=== PATIENT | female | born 1995 | race Caucasian/White ===

== ENCOUNTER 2020-01-10 11:20 | Outpatient (CLI) | payer OTHER, SELFPAY ==
[2020-01-11 16:46] LABS: Cat Dander (E1) Ige <0.10 kU/L; Cat Dander Class 0; Common Ragweed (Short) (W1) Ig <0.10 kU/L; Dog Dander (E5) Ige <0.10 kU/L; Dog Dander Class 0; Elm (T8) Ige <0.10 kU/L; Elm Class 0; English Plantain (W9) Ige <0.10 kU/L; English Plantain Class 0; Immunoglobulin E 9 kU/L (<OR=114); Lamb'S Quarters (Goose Foot) <0.10 kU/L; Lamb'S Quarters Class 0; Maple (Box Elder) (T1) Ige <0.10 kU/L; Maple Class 0; Oak (T7) Ige <0.10 kU/L; Oak Class 0; Ragweeed Class 0; Rough Marsh Elder (W16) Ige <0.10 kU/L; Rough Marsh Elder Class 0
[2020-01-12 17:26] LABS: Alternaria Alternata (M6) Ige <0.10 kU/L; Alternaria Class 0; Bermuda Class 0; Bermuda Grass (G2) Ige <0.10 kU/L; D. Farinae Class 0; Dermatophagoides Class 0; Dermatophagoides Farinae (D2) <0.10 kU/L; Dermatophagoides Pteronyssinus <0.10 kU/L; House Dust (Greer) (H1) Ige <0.10 kU/L; House Dust (Hollister- Stier) <0.10 kU/L; House Dust Class 0; Johnson Grass (G10) Ige <0.10 kU/L; Johnson Grass Cl 0; June Grass Class 0; June Grass(Kentucky Blue) (G8) <0.10 kU/L; Meadow Fescue (G4) Ige <0.10 kU/L; Meadow Fescue Class 0; Mucor Racemosus Class 0; Orchard Grass (Cocksfoot) (G3) <0.10 kU/L; Penicillium Class 0; Penicillium Notatum (M1) Ige <0.10 kU/L; Perennial Rye Grass (G5) Ige <0.10 kU/L; Perennial Rye Grass Class 0; Sweet Vernal Class 0; Sweet Vernal Grass (G1) Ige <0.10 kU/L; Timothy Grass (G6) Ige <0.10 kU/L; Timothy Grass Class 0
== END 2020-01-10 11:21 | disposition home or self-care (01) ==
LOC: LAB 11:22
PROVIDERS: Family Provider Family Medicine; PCP Family Medicine; Visit Provider Internal Medicine Critical Care Medicine
DX: R06.02 Shortness of breath (principal); J45.909 Unspecified asthma, uncomplicated
CPT/HCPCS: 82785; 86003

== ENCOUNTER 2020-01-20 15:28 | Outpatient (CLI) | payer OTHER, SELFPAY ==
--- NOTE | 2020-01-20 15:37 | USCV_ITS ---
Anastasiia Damon Age: 24 Gender: F : 1995 Exam Date: 01/20/2020 15:44 Ordering Phys: Melissa Stovall MD Technologist: Julia Waters Exam Location: [facility] [place] Indication: SYNCOPE BP: / HR: 84 Rhythm: Sinus Technical Quality: Adequate MEASUREMENTS (Male / Female) Normal Values 2D ECHO LV Diastolic Diameter PLAX 4.1 cm 4.2 - 5.9 / 3.9 - 5.3 cm LV Systolic Diameter PLAX 2.7 cm LV Chamber Size 3.0 cm IVS Diastolic Thickness 0.9 cm 0.6 - 1.0 / 0.6 - 0.9 cm IVS Systolic Thickness 1.3 cm LVPW Diastolic Thickness 1.7 cm 0.6 - 1.0 / 0.6 - 0.9 cm LVPW Systolic Thickness 1.6 cm RV Chamber Size 2.9 cm LVOT Diameter 2.0 cm LV Ejection Fraction 2D Teich 65.6 % LV Ejection Fraction MOD 2C 57.7 % LV Ejection Fraction 2C AL 57.3 % LA Diameter 3.6 cm LA Width 2.7 cm LA Height 3.8 cm RA Width 3.4 cm RA Height 3.6 cm Aorta at Sinotubular Diameter 2.4 cm M-MODE LV Diastolic Diameter MM 5.3 cm 4.2 - 5.9 / 3.9 - 5.3 cm LV Systolic Diameter MM 3.9 cm LV Ejection Fraction MM Teich 50.4 % IVS Diastolic Thickness MM 0.7 cm 0.6 - 1.0 / 0.6 - 0.9 cm IVS Systolic Thickness MM 0.9 cm LVPW Diastolic Thickness MM 0.7 cm 0.6 - 1.0 / 0.6 - 0.9 cm LVPW Systolic Thickness MM 0.9 cm Aortic Annulus Diameter 2.5 cm LA Ao Ratio MM 1.5 MV E Point Septal Separation 0.4 cm DOPPLER AV Peak Velocity 156.0 cm/s LVOT Peak Velocity 117.0 cm/s AV Area Cont Eq vti 2.1 cm squared AV Area Cont Eq pk 2.4 cm squared MV Area PHT 5.4 cm squared Mitral E to A Ratio 1.3 MV E' Velocity 26.0 cm/s Mitral E to MV E' Ratio 5.7 Mitral E to LV E' Lateral Ratio 4.6 Mitral E to LV E' Septal Ratio 7.7 TR Peak Velocity 246.0 cm/s TR Peak Gradient 24.1 mmHg TV Peak E Velocity 69.0 cm/s Right Atrial Pressure 3.0 mmHg Pulmonary Artery Systolic Pressu 27.2 mmHg PV Peak Velocity 91.0 cm/s RV Acceleration Time 0.2 s RV Ejection Time 0.3 s RV AcT/ET 0.5 FINDINGS Left Ventricle Normal left ventricular size, systolic function and wall thickness, with no regional wall motion abnormalities. Normal left ventricular wall thickness. Normal diastolic filling pattern. Left ventricular ejection fraction is estimated at 65 %. Right Ventricle The right ventricle is normal in size and function. Right Atrium The right atrium is normal in size. Left Atrium The left atrium is normal in size. Mitral Valve Structurally normal mitral valve without significant stenosis or prolapse. There is no mitral regurgitation. Aortic Valve Structurally normal aortic valve without significant sclerosis or stenosis. There is no aortic regurgitation. Tricuspid Valve Structurally normal tricuspid valve without significant stenosis or regurgitation. Pulmonary artery systolic pressure is normal. Pulmonic Valve Structurally normal pulmonic valve without significant stenosis. There is no pulmonic regurgitation. Pericardium Normal pericardium without effusion. Aorta Normal ascending aorta dimension. CONCLUSIONS Normal transthoracic echocardiogram. There are no prior echocardiogram studies to compare. Dr. Darryl Singh MD (Electronically Signed) Final Date: 21 Jan 2020 08:05 S
== END 2020-01-20 15:29 | disposition home or self-care (01) ==
LOC: RAD 15:31
PROVIDERS: PCP Family Medicine; Visit Provider Family Medicine
DX: R55 Syncope and collapse (principal)
CPT/HCPCS: 93306

== ENCOUNTER 2021-02-21 16:30 | Outpatient (CLI) | payer OTHER, SELFPAY ==
--- NOTE | 2021-02-21 16:36 | XR_ITS ---
WS: [id number] Chest 2 views, 02/21/2021 Clinical Data: FEVER Comparison: PA and lateral chest, 10/26/2015. Findings: No nodules, masses or effusions are seen. The heart is normal. The pulmonary vascularity is not increased. No pneumonia or pneumothorax is seen. XR/XR chest 2V* [id number] Impression: Negative chest.
== END 2021-02-21 16:31 | disposition home or self-care (01) ==
LOC: RAD 16:32
PROVIDERS: PCP Family Medicine; Visit Provider Family Medicine
DX: R50.9 Fever, unspecified (principal); J45.909 Unspecified asthma, uncomplicated
CPT/HCPCS: 71046

== ENCOUNTER → 2021-05-28 12:50 | Outpatient (BNVA) | payer OTHER, SELFPAY | PROVIDERS: PCP Family Medicine; Visit Provider Internal Medicine | DX: I73.00 Raynaud's syndrome without gangrene (principal); M25.50 Pain in unspecified joint; R21 Rash and other nonspecific skin eruption; Z11.59 Encounter for screening for other viral diseases; R50.9 Fever, unspecified; R53.83 Other fatigue; R10.9 Unspecified abdominal pain; R51.9 Headache, unspecified; R00.0 Tachycardia, unspecified; T78.40XA Allergy, unspecified, initial encounter; J32.9 Chronic sinusitis, unspecified; Z79.899 Other long term (current) drug therapy | CPT/HCPCS: 36415; 86704; 86803; 87077; 87086; 87340; 99204 ==

== ENCOUNTER → 2021-05-29 08:05 | Outpatient (BNVA) | payer OTHER, SELFPAY | PROVIDERS: PCP Family Medicine; Visit Provider Internal Medicine | DX: I73.00 Raynaud's syndrome without gangrene (principal); M25.50 Pain in unspecified joint; Z79.899 Other long term (current) drug therapy | CPT/HCPCS: 36415; 80053; 81001; 82306; 82533; 82550; 82607; 82728; 82784; 83516; 83540; 83735; 84100; 84439; 84443; 85025; 85651; 86140; 86160; 86617; 87086; 87186; 87806 ==

== ENCOUNTER 2021-11-08 15:32 | Emergency (ER) | payer OTHER, MEDICAID, SELFPAY ==
[2021-11-08 15:45] VITALS: BP 127/103; PULSE 117; RESP 16; TEMP 36.8; O2SAT 96; BMI 26.5
[2021-11-08 15:57] VITALS: BP 127/103; PULSE 117; RESP 16; TEMP 36.8; O2SAT 96
--- NOTE | 2021-11-08 16:06 | ED_ITS ---
Documented by User: ILIANA Banks 11/08/21 16:07 HPI - Nausea/Vomiting/Diarrhea General: Chief complaint: Abdominal Pain Stated complaint: Losing weight cant hold anything down Time Seen by Provider: 11/08/21 15:54 History of Present Illness: Presents today with 2 to 3-week history of not being able to keep anything down. She says as soon as she eats she vomits 30 minutes later. She is only been able to drink an Ensure here lately. Said she is having some diarrhea at times. She denies any real abdominal pain. She denies any fever or exposure to any food borne viruses or other viruses. 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 Does have a lot of stress going on her life especially with test taken she relates. She has had this worked up before for similar problem and nothing was found and found out that Miguelito helped out. States he had a lot of weight loss last time then she started to have weight loss again this time with this. Did recently see her primary care provider who ordered a gallbladder ultrasound to be done. She is not been able get that done yet. Associated nausea: Yes Associated symtoms: Reports nausea; Denies chest pain or headache(s) Review of Systems Const: Denies: fever(s), chills or body aches Eyes: Denies: eye discomfort ENMT: Denies: throat pain Card: Denies: chest pain Resp: Denies: dyspnea GI: Reports: nausea, vomiting and diarrhea; Denies: abdominal pain Skin/Breast: Denies: rash Neuro: Denies: headache(s) Psych: Denies: depression or suicidal ideation PFSH ED PFSH: Medical History Allergic rhinitis Anxiety Asthma Chronic sinusitis Depression ITB syndrome OCD (obsessive compulsive disorder) Plica syndrome Surgical History H/O oral surgery S/P FESS (functional endoscopic sinus surgery) Family History Family/Other Lung disease Asthma Father Hypertension Hyperlipidemia Grandmother Hypertension Dementia Stroke Grandfather Hypertension Stroke Grandfather Hypertension Denies family history of Diabetes CAD (coronary artery disease) Clotting disorder Chronic kidney disease (CKD) Suicide Anesthesia complication Bleeding disorder Cancer Social History Smoking and tobacco status: never smoked Alcohol intake: never Lives independently: Yes Household members: other Marital status: Single Current occupational status: student Current occupational exposures/hazards: No Pets and animals: Yes Pets & animals: dog(s) History of recent travel: No Current gender identity: Female Physical Exam Const: COMMON NORMALS: no acute distress, patient oriented x3 and alert HENMT: COMMON NORMALS: normocephalic and external ears normal HEAD & SCALP: normocephalic EXTERNAL EAR: Yes external ears normal Eye: COMMON NORMALS: EOMs intact bilaterally Neck/C-Spine: COMMON NORMALS: no JVD Resp: COMMON NORMALS: normal respiratory effort and No use of accessory muscles Cardio: COMMON NORMALS: no JVD GI: INSPECTION: Yes normal to inspection Extremity: COMMON NORMALS: normal to inspection and full ROM Neuro: COMMON NORMALS: patient oriented x3 SENSORIUM/ORIENTATION: Yes alert Psych: COMMON NORMALS: mental status grossly normal Skin: COMMON NORMALS: no rashes or lesions noted GENERAL SKIN EXAM: no rashes or lesions noted Course Vital Signs: Vital signs: Vital Signs Temperature 98.3 F 11/08/21 15:57 Pulse Rate 82 11/08/21 18:27 Respiratory Rate 16 11/08/21 17:50 Blood Pressure 119/85 11/08/21 18:27 Pulse Oximetry 100 11/08/21 18:27 MDM - Nausea/Vomiting/Diarrhea Lab Data : 11/08/21 14:08 11/08/21 14:08 Laboratory Results WBC 5.5 10^3/uL (4.0-10.0) 11/08/21 14:08 RBC 4.89 10^6/uL (4.1-5.3) 11/08/21 14:08 Hgb 14.8 g/dL (11.5-15.3) 11/08/21 14:08 Hct 42.9 % (37.0-47.0) 11/08/21 14:08 MCV 87.7 fl (81-99) 11/08/21 14:08 MCH 30.3 pg (28.0-34.0) 11/08/21 14:08 MCHC 34.5 g/dL (30.0-36.0) 11/08/21 14:08 RDW 11.7 % (12.1-15.1) L 11/08/21 14:08 Plt Count 310 10^3/cmm (130-400) 11/08/21 14:08 MPV 11.2 fL (7.4-10.4) H 11/08/21 14:08 Neut % (Auto) 47.7 % 11/08/21 14:08 Lymph % (Auto) 41.7 % 11/08/21 14:08 [place] % (Auto) 9.3 % 11/08/21 14:08 Eos % (Auto) 0.4 % 11/08/21 14:08 Baso % (Auto) 0.7 % 11/08/21 14:08 Neut # (Auto) 2.61 10^3/uL (1.8-7.7) 11/08/21 14:08 Lymph # (Auto) 2.3 10^3/uL (0.8-4.8) 11/08/21 14:08 [place] # (Auto) 0.5 10^3/uL (0.2-0.9) 11/08/21 14:08 Eos # (Auto) 0.0 10^3/uL (0.0-0.8) 11/08/21 14:08 Baso # (Auto) 0.0 10^3/uL (0.0-0.1) 11/08/21 14:08 Nucleated RBC % (auto) 0 % 11/08/21 14:08 Nucleated RBCs # 0.0 /100WBC 11/08/21 14:08 Sodium 136 mmol/L (136-145) 11/08/21 14:08 Potassium 4.0 mmol/L (3.5-5.1) 11/08/21 14:08 Chloride 96 mmol/L (98-107) L 11/08/21 14:08 Carbon Dioxide 22 mmol/L (22-29) 11/08/21 14:08 Anion Gap 22.0 (5-19) H 11/08/21 14:08 BUN 13 mg/dL (6-20) 11/08/21 14:08 Creatinine 0.8 mg/dL (0.5-0.9) 11/08/21 14:08 GFR Calculation 86.7 mL/min (90-130) L 11/08/21 14:08 Glucose 69 mg/dL (65-115) 11/08/21 14:08 Calculated Osmolality 280 mOsm/kg (285-295) L 11/08/21 14:08 Calcium 10.1 mg/dL (8.5-10.5) 11/08/21 14:08 Total Bilirubin 0.5 mg/dL (0.15-1.2) 11/08/21 14:08 AST 24 U/L (0-32) 11/08/21 14:08 ALT 14 U/L (0-33) 11/08/21 14:08 Alkaline Phosphatase 56 IU/L (35-105) 11/08/21 14:08 Total Protein 8.3 g/dL (6.6-8.7) 11/08/21 14:08 Albumin 5.5 g/dL (3.5-5.2) H 11/08/21 14:08 Globulin 2.8 g/dL (1.3-4.6) 11/08/21 14:08 HCG, Qual Negative (Negative) 11/08/21 16:26 Urine Color Yellow (Yellow) 11/08/21 16:26 Urine Appearance Hazy (CLEAR) A 11/08/21 16:26 Urine pH 5 (5-7) 11/08/21 16:26 Ur Specific [place] 1.025 (1.005-1.030) 11/08/21 16:26 Urine Protein Neg (Negative) 11/08/21 16:26 Urine Glucose (UA) Norm (Normal) 11/08/21 16:26 Urine Ketones 3+ (Negative) H 11/08/21 16:26 Urine Blood Neg (Negative) 11/08/21 16:26 Urine Nitrate Negative (Negative) 11/08/21 16:26 Urine Bilirubin Neg (Negative) 11/08/21 16:26 Urine Urobilinogen Norm mg/dL (Negative) 11/08/21 16:26 Ur Leukocyte Esterase Trace (Negative) H 11/08/21 16:26 Urine RBC None /hpf (0-2) 11/08/21 16:26 Urine WBC 10-15 /hpf (0-5) H 11/08/21 16:26 Ur Squamous Epith Cells 15-25 /hpf (0-5) H 11/08/21 16:26 Amorphous Sediment Not Reportable 11/08/21 16:26 Urine Bacteria 2+ /hpf (NONE) H 11/08/21 16:26 Discharge Plan Discharge Patient Disposition: Home Clinical Impression: Nausea and vomiting Qualifiers: Vomiting type: unspecified Qualified Code(s): R11.2 - Nausea with vomiting, unspecified Condition: Stable Prescriptions: New Reglan 10 mg tablet 10 mg PO Q6H PRN (Reason: nausea and vomiting) Qty: 15 0RF No Action fexofenadine [Christina Allergy] 180 mg tablet 180 mg PO TID 0RF epinephrine [Auvi-Q] 0.3 mg/0.3 mL auto-injector 0.3 mg IM Q10M PRN (Reason: Allergic Reaction) 0RF Rx Instructions: for 2 doses montelukast [Singulair] 10 mg tablet 10 mg PO DAILY 0RF Complete Multivitamin Tablet 1 tab PO DAILY 0RF naproxen [EC-Naproxen] 500 mg tablet,delayed release (DR/EC) 500 mg PO Q8H PRN (Reason: pain) 0RF albuterol sulfate [ProAir HFA] 90 mcg/actuation HFA aerosol inhaler 2 puff INHALATION Q6H PRN (Reason: Shortness Of Breath) 0RF sertraline 50 mg tablet 50 mg PO DAILY 0RF budesonide-formoterol [Symbicort] 160-4.5 mcg/actuation HFA aerosol inhaler 2 puff INHALATION BID 0RF [id number] fumarate 600-125-18 mg-unit-mg tablet 1 tab PO DAILY 0RF azelastine 137 mcg (0.1 %) aerosol,spray 2 spray INTRANASAL BID 30 Days Qty: 30 2RF Rx Instructions: administer into each nostril metoprolol succinate 50 mg tablet extended release 24 hr 50 mg PO DAILY 0RF ondansetron HCl [Zofran] 4 mg tablet 4 mg PO Q8H 0RF famotidine [Pepcid] 20 mg tablet 20 mg PO BID 0RF sumatriptan succinate 50 mg tablet 50 mg PO DAILY PRN (Reason: Migraine Headache) 0RF Discharge Orders: Discharge ED (Routine); Ordered 11/08/21 Ordered By: Fili New Referrals: Melissa Stovall MD [Primary Care Provider] - Discharge Diet: Regular Discharge Activity: Increase activity as tolerated Patient Instructions: Acute Nausea and Vomiting (DC) Activity Restrictions/Additional Instructions: Follow-up with medical provider as directed in the next 2 weeks for reevaluation. Take medications as prescribed. Return to the ER or your medical provider if condition worsens. Please read and understand discharge instructions. Thank you for choosing [facility] for your healthcare needs today. Please realize this is an emergency room and that we are providing you with a medical screening exam and this may not be complete and all inclusive of all the testing and or work up that you may need to determine your ailment or severity of your illness. It is very important that you follow up as instructed or that you return to the Emergency Department should you have concerns or if your condition changes or worsens in any way. Sign Out Sign Out Data: Patient Sign Out occurred on 11/08/21 at 17:07. Patient's care was discussed, and care was transferred from to AUDIE Esteves. 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 Code ED Instructor Product Inspection for g Fwd Exam Comprehensive Documented by User: AUDIE Esteves 11/09/21 00:59 HPI - Nausea/Vomiting/Diarrhea General: Chief complaint: Abdominal Pain Stated complaint: Losing weight cant hold anything down Time Seen by Provider: 11/08/21 15:54 [facility] ED PFSH: Medical History Allergic rhinitis Anxiety Asthma Chronic sinusitis Depression ITB syndrome OCD (obsessive compulsive disorder) Plica syndrome Surgical History H/O oral surgery S/P FESS (functional endoscopic sinus surgery) Family History Family/Other Lung disease Asthma Father Hypertension Hyperlipidemia Grandmother Hypertension Dementia Stroke Grandfather Hypertension Stroke Grandfather Hypertension Denies family history of Diabetes CAD (coronary artery disease) Clotting disorder Chronic kidney disease (CKD) Suicide Anesthesia complication Bleeding disorder Cancer Social History Smoking and tobacco status: never smoked Alcohol intake: never Lives independently: Yes Household members: other Marital status: Single Current occupational status: student Current occupational exposures/hazards: No Pets and animals: Yes Pets & animals: dog(s) History of recent travel: No Current gender identity: Female Course Vital Signs: Vital signs: Vital Signs Temperature 98.3 F 11/08/21 15:57 Pulse Rate 82 11/08/21 18:27 Respiratory Rate 16 11/08/21 17:50 Blood Pressure 119/85 11/08/21 18:27 Pulse Oximetry 100 11/08/21 18:27 MDM - Nausea/Vomiting/Diarrhea Medical Decision Making Patient is a 26-year-old female comes to the ED with episodes of nausea and vomiting over the past several weeks. 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 She does not have any abdominal tenderness or and has no complaints of abdominal pain. All her labs were unremarkable. Patient was given IV fluids here in the ED. Vitals are stable and she appeared in no acute distress or pain. She is discharged home and told to follow-up with her PCP in the next 7 to 10 days for reevaluation. Told to continue taking her previously prescribed Pepcid and I also sent her with a prescription for Reglan for nausea. Return to ED precautions given. Patient understood agree with plan. Lab Data I reviewed the patient's lab results. : 11/08/21 14:08 11/08/21 14:08 Laboratory Results WBC 5.5 10^3/uL (4.0-10.0) 11/08/21 14:08 RBC 4.89 10^6/uL (4.1-5.3) 11/08/21 14:08 Hgb 14.8 g/dL (11.5-15.3) 11/08/21 14:08 Hct 42.9 % (37.0-47.0) 11/08/21 14:08 MCV 87.7 fl (81-99) 11/08/21 14:08 MCH 30.3 pg (28.0-34.0) 11/08/21 14:08 MCHC 34.5 g/dL (30.0-36.0) 11/08/21 14:08 RDW 11.7 % (12.1-15.1) L 11/08/21 14:08 Plt Count 310 10^3/cmm (130-400) 11/08/21 14:08 MPV 11.2 fL (7.4-10.4) H 11/08/21 14:08 Neut % (Auto) 47.7 % 11/08/21 14:08 Lymph % (Auto) 41.7 % 11/08/21 14:08 [place] % (Auto) 9.3 % 11/08/21 14:08 Eos % (Auto) 0.4 % 11/08/21 14:08 Baso % (Auto) 0.7 % 11/08/21 14:08 Neut # (Auto) 2.61 10^3/uL (1.8-7.7) 11/08/21 14:08 Lymph # (Auto) 2.3 10^3/uL (0.8-4.8) 11/08/21 14:08 [place] # (Auto) 0.5 10^3/uL (0.2-0.9) 11/08/21 14:08 Eos # (Auto) 0.0 10^3/uL (0.0-0.8) 11/08/21 14:08 Baso # (Auto) 0.0 10^3/uL (0.0-0.1) 11/08/21 14:08 Nucleated RBC % (auto) 0 % 11/08/21 14:08 Nucleated RBCs # 0.0 /100WBC 11/08/21 14:08 Sodium 136 mmol/L (136-145) 11/08/21 14:08 Potassium 4.0 mmol/L (3.5-5.1) 11/08/21 14:08 Chloride 96 mmol/L (98-107) L 11/08/21 14:08 Carbon Dioxide 22 mmol/L (22-29) 11/08/21 14:08 Anion Gap 22.0 (5-19) H 11/08/21 14:08 BUN 13 mg/dL (6-20) 11/08/21 14:08 Creatinine 0.8 mg/dL (0.5-0.9) 11/08/21 14:08 GFR Calculation 86.7 mL/min (90-130) L 11/08/21 14:08 Glucose 69 mg/dL (65-115) 11/08/21 14:08 Calculated Osmolality 280 mOsm/kg (285-295) L 11/08/21 14:08 Calcium 10.1 mg/dL (8.5-10.5) 11/08/21 14:08 Total Bilirubin 0.5 mg/dL (0.15-1.2) 11/08/21 14:08 AST 24 U/L (0-32) 11/08/21 14:08 ALT 14 U/L (0-33) 11/08/21 14:08 Alkaline Phosphatase 56 IU/L (35-105) 11/08/21 14:08 Total Protein 8.3 g/dL (6.6-8.7) 11/08/21 14:08 Albumin 5.5 g/dL (3.5-5.2) H 11/08/21 14:08 Globulin 2.8 g/dL (1.3-4.6) 11/08/21 14:08 HCG, Qual Negative (Negative) 11/08/21 16: Urine Color Yellow (Yellow) 11/08/21 16:26 Urine Appearance Hazy (CLEAR) A 11/08/21 16:26 Urine pH 5 (5-7) 11/08/21 16:26 Ur Specific [place] 1.025 (1.005-1.030) 11/08/21 16:26 Urine Protein Neg (Negative) 11/08/21 16:26 Urine Glucose (UA) Norm (Normal) 11/08/21 16:26 Urine Ketones 3+ (Negative) H 11/08/21 16:26 Urine Blood Neg (Negative) 11/08/21 16:26 Urine Nitrate Negative (Negative) 11/08/21 16:26 Urine Bilirubin Neg (Negative) 11/08/21 16:26 Urine Urobilinogen Norm mg/dL (Negative) 11/08/21 16:26 Ur Leukocyte Esterase Trace (Negative) H 11/08/21 16:26 Urine RBC None /hpf (0-2) 11/08/21 16:26 Urine WBC 10-15 /hpf (0-5) H 11/08/21 16:26 Ur Squamous Epith Cells 15-25 /hpf (0-5) H 11/08/21 16:26 Amorphous Sediment Not Reportable 03/18/22 16:26 Urine Bacteria 2+ /hpf (NONE) H 11/08/21 16:26 Discharge Plan Discharge Patient Disposition: Home Clinical Impression: Nausea and vomiting Qualifiers: Vomiting type: unspecified Qualified Code(s): R11.2 - Nausea with vomiting, unspecified Condition: Stable Prescriptions: New Reglan 10 mg tablet 10 mg PO Q6H PRN (Reason: nausea and vomiting) Qty: 15 0RF No Action fexofenadine [Christina Allergy] 180 mg tablet 180 mg PO TID 0RF epinephrine [Auvi-Q] 0.3 mg/0.3 mL auto-injector 0.3 mg IM Q10M PRN (Reason: Allergic Reaction) 0RF Rx Instructions: for 2 doses montelukast [Singulair] 10 mg tablet 10 mg PO DAILY 0RF Complete Multivitamin Tablet 1 tab PO DAILY 0RF naproxen [EC-Naproxen] 500 mg tablet,delayed release (DR/EC) 500 mg PO Q8H PRN (Reason: pain) 0RF albuterol sulfate [ProAir HFA] 90 mcg/actuation HFA aerosol inhaler 2 puff INHALATION Q6H PRN (Reason: Shortness Of Breath) 0RF sertraline 50 mg tablet 50 mg PO DAILY 0RF budesonide-formoterol [Symbicort] 160-4.5 mcg/actuation HFA aerosol inhaler 2 puff INHALATION BID 0RF [id number] fumarate 600-125-18 mg-unit-mg tablet 1 tab PO DAILY 0RF azelastine 137 mcg (0.1 %) aerosol,spray 2 spray INTRANASAL BID 30 Days Qty: 30 2RF Rx Instructions: administer into each nostril metoprolol succinate 50 mg tablet extended release 24 hr 50 mg PO DAILY 0RF ondansetron HCl [Zofran] 4 mg tablet 4 mg PO Q8H 0RF famotidine [Pepcid] 20 mg tablet 20 mg PO BID 0RF sumatriptan succinate 50 mg tablet 50 mg PO DAILY PRN (Reason: Migraine Headache) 0RF Discharge Orders: Discharge ED (Routine); Ordered 11/08/21 Ordered By: Fili New Referrals: Melissa Stovall MD [Primary Care Provider] - Discharge Diet: Regular Discharge Activity: Increase activity as tolerated Patient Instructions: Acute Nausea and Vomiting (DC) Activity Restrictions/Additional Instructions: Follow-up with medical provider as directed in the next 2 weeks for re evaluation. Take medications as prescribed. Return to the ER or your medical provider if condition worsens. Please read and understand discharge instructions. Thank you for choosing [facility] for your healthcare needs today. Please realize this is an emergency room and that we are providing you with a medical screening exam and this may not be complete and all inclusive of all the testing and or work up that you may need to determine your ailment or severity of your illness. It is very important that you follow up as instructed or that you return to the Emergency Department should you have concerns or if your condition changes or worsens in any way. Sign Out Sign Out Data: Patient Sign Out occurred on 11/08/21 at 17:07. Patient's care was discussed, and care was transferred from to AUDIE Esteves. 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 Code ED Instructor Product Inspection for [employer] Fwmiguel Exam Comprehensive
[2021-11-08 16:26] LABS: Basophils % 0.7 %; Eosinophils % 0.4 %; Hematocrit 42.9 % (37.0-47.0); Hemoglobin 14.8 g/dL (11.5-15.3); Lymphocytes # 2.3 10^3/uL (0.8-4.8); Lymphocytes % 41.7 %; Mean Corpuscular HGB Conc 34.5 g/dL (30.0-36.0); Mean Corpuscular Hemoglobin 30.3 pg (28.0-34.0); Mean Corpuscular Volume 87.7 fl (81-99); Mean Platelet Volume 11.2 fL (7.4-10.4); Monocytes # 0.5 10^3/uL (0.2-0.9); Monocytes % 9.3 %; Neutrophils # 2.61 10^3/uL (1.8-7.7); Neutrophils % 47.7 %; Nucleated Red Blood Cells % 0 %; Platelet Count 310 10^3/cmm (130-400); Red Blood Count 4.89 10^6/uL (4.1-5.3); Red Cell Distribution Width 11.7 % (12.1-15.1); White Blood Count 5.5 10^3/uL (4.0-10.0)
[2021-11-08] MEDS: sodium chloride 0.9% 1,000 ML 999 ML IV (16:42)
[2021-11-08 16:48] LABS: Alanine Aminotransferase 14 U/L (0-33); Albumin Level 5.5 g/dL (3.5-5.2); Alkaline Phosphatase 56 IU/L (35-105); Aspartate Amino Transferase 24 U/L (0-32); Blood Urea Nitrogen 13 mg/dL (6-20); Calcium 10.1 mg/dL (8.5-10.5); Carbon Dioxide 22 mmol/L (22-29); Chloride 96 mmol/L (98-107); Globulin 2.8 g/dL (1.3-4.6); Glomerular Filtration Rate 86.7 mL/min (90-130); Glucose 69 mg/dL (65-115); Osmolality Calculated 280 mOsm/kg (285-295); Sodium 136 mmol/L (136-145); Total Bilirubin 0.5 mg/dL (0.15-1.2); Total Protein 8.3 g/dL (6.6-8.7)
[2021-11-08 16:57] VITALS: BP 124/89; PULSE 85; RESP 16; O2SAT 99
[2021-11-08 17:08] LABS: HCG Qualitative Urine. Negative (Negative)
[2021-11-08 17:14] LABS: Add Urine Microscopic? YES; Bilirubin Urine Neg (Negative); Blood Urine Neg (Negative); Glucose Urine UA Norm (Normal); Ketones Urine 3+ (Negative); Leukocyte Esterase Urine Trace (Negative); Nitrate Urine Negative (Negative); Protein Urine Neg (Negative); Specific Gravity, Urine 1.025 (1.005-1.030); Urine Appearance Hazy (CLEAR); Urine Color Yellow (Yellow); Urobilinogen Urine Norm (Negative); pH Urine 5 (5-7)
[2021-11-08 17:17] LABS: Add Urine Culture? No; Bacteria Urine 2+ /hpf; Squamous Epithelial Cell Urine 15-25 /hpf (0-5)
[2021-11-08 17:50] VITALS: BP 123/83; PULSE 84; RESP 16; O2SAT 100
[2021-11-08 18:27] VITALS: BP 119/85; PULSE 82; O2SAT 100
== END 2021-11-08 18:28 | disposition home or self-care (01) ==
PROVIDERS: Nurse Practitioner Family; Emergency Provider Physician Assistant; PCP Family Medicine
DX: R11.2 Nausea with vomiting, unspecified (principal)
CPT/HCPCS: 80053; 81001; 81025; 85025; 96360; 99283; J7030

== ENCOUNTER 2021-11-18 19:23 | Emergency (ER) | payer OTHER, MEDICAID, SELFPAY ==
[2021-11-18 19:43] VITALS: BP 114/81; PULSE 88; RESP 16; TEMP 37.2; O2SAT 98; BMI 25.2
--- NOTE | 2021-11-18 22:20 | ECG_ITS ---
[facility] Test Date: 2021-11-18 Pat Name: Anastasiia Damon Department: Room: Gender: Female Crate Opener: : 1995 Requested By: Edward Munguia Order Number: [id number] Tutu MD: Darryl Singh M.D. Measurements Intervals [place] Rate: 73 P: 64 WI: 134 QRS: 40 QRSD: 70 T: 38 QT: 363 QTc: 402 Interpretive Statements SINUS RHYTHM LOW QRS VOLTAGE IN PRECORDIAL LEADS [QRS DEFLECTION < 1.0 mV IN CHEST LEADS] No previous ECG available for comparison Electronically Signed On 11-20-2021 16:56:23 CDT by Darryl Singh M.D. [id number]
--- NOTE | 2021-11-18 22:28 | W.ED.SYNCOPE ---
HPI - Syncope General: Chief Complaint: Syncope Stated Complaint: Dr Stovall sent her her to get fluids Time Seen by Provider: 11/18/21 22:26 History of Present Illness: 26-year-old female comes in today for complaints of nausea and vomiting. Patient was seen by Dr. Stovall and was referred to the ER for IV fluids. Patient has had 1 previous episode of similar symptoms in which she had lost 20 pounds. Patient reports she has lost 13 pounds this time. Patient is scheduled to have a ultrasound of her gallbladder for further evaluation of these episodes. Patient has a history of positive BREEZY fevers, Raynaud's disease, recurrent headaches, asthma, and tachycardia. Patient appears nontoxic. Patient appears in no pain. MD complaint: felt faint Onset (ago): hour(s) Associated symptoms: Reports nausea; Deny chest pain or fever(s) Review of Systems General: Reports: 10 or more systems reviewed and unremarkable except in HPI and below Const: Denies: fever(s) Card: Denies: chest pain Resp: Denies: dyspnea GI: Reports: nausea and vomiting : Denies: difficulty voiding PFSH ED PFSH: Medical History Allergic rhinitis Anxiety Asthma Chronic sinusitis Depression ITB syndrome OCD (obsessive compulsive disorder) Plica syndrome Surgical History H/O oral surgery S/P FESS (functional endoscopic sinus surgery) Family History Family/Other Lung disease Asthma Father Hypertension Hyperlipidemia Grandmother Hypertension Dementia Stroke Grandfather Hypertension Stroke Grandfather Hypertension Denies family history of Diabetes CAD (coronary artery disease) Clotting disorder Chronic kidney disease (CKD) Suicide Anesthesia complication Bleeding disorder Cancer Social History Smoking and tobacco status: never smoked Alcohol intake: never Lives independently: Yes Household members: other Marital status: Single Current occupational status: student Current occupational exposures/hazards: No Pets and animals: Yes Pets & animals: dog(s) History of recent travel: No Current gender identity: Female Physical Exam Const: COMMON NORMALS: alert HENMT: COMMON NORMALS: normocephalic HEAD & SCALP: normocephalic MOUTH: Abnormal oral and palatal mucosa present (Dry) Neck/C-Spine: COMMON NORMALS: full ROM Resp: COMMON NORMALS: normal respiratory effort and clear to auscultation bilaterally AUSCULTATION: clear to auscultation bilaterally Cardio: COMMON NORMALS: regular rate RATE: regular rate GI: COMMON NORMALS: Soft to palpation and non-tender PALPATION: Yes Soft to palpation : COMMON NORMALS: Yes no CVA tenderness BLADDER/KIDNEY EXAM: Yes no CVA tenderness Back/Pelvis: COMMON NORMALS: no CVA tenderness Extremity: COMMON NORMALS: no pedal edema Neuro: SENSORIUM/ORIENTATION: Yes alert Psych: COMMON NORMALS: cooperative Skin: COMMON NORMALS: no rashes or lesions noted GENERAL SKIN EXAM: no rashes or lesions noted Course Vital Signs: Vital signs: Vital Signs Temperature 99 F 11/18/21 19:43 Pulse Rate 85 11/18/21 22:49 Respiratory Rate 18 11/18/21 22:49 Blood Pressure 125/83 11/18/21 22:49 Pulse Oximetry 98 11/18/21 22:49 MDM - Syncope Medical Decision Making Patient was referred to the ER by her primary care due to persistent vomiting and need for IV fluid replacement. On exam abdomen soft nontender. Oral mucosa was dry. Vital signs were normal. Differential diagnosis includes dehydration, anorexia, gallbladder disease. Patient has an appointment to follow-up with primary care for further evaluation of her gallbladder. She is post to have ultrasound done within the next couple of days. Patient was hydrated with 2 L of IV lactated Ringer's. Orthostatic blood pressures were normal. Laboratory values were normal. Patient reported understanding of care plan need for follow-up or return to ER. Lab Data : 11/18/21 22:45 11/18/21 22:45 Laboratory Results WBC 5.9 10^3/uL (4.0-10.0) 11/18/21 22:45 RBC 4.70 10^6/uL (4.1-5.3) 11/18/21 22:45 Hgb 14.1 g/dL (11.5-15.3) 11/18/21 22:45 Hct 40.9 % (37.0-47.0) 11/18/21 22:45 MCV 87.0 fl (81-99) 11/18/21 22:45 MCH 30.0 pg (28.0-34.0) 11/18/21 22:45 MCHC 34.5 g/dL (30.0-36.0) 11/18/21 22:45 RDW 11.9 % (12.1-15.1) L 11/18/21 22:45 Plt Count 269 10^3/cmm (130-400) 11/18/21 22:45 MPV 11.0 fL (7.4-10.4) H 11/18/21 22:45 Neut % (Auto) 35.4 % 11/18/21 22:45 Lymph % (Auto) 51.9 % 11/18/21 22:45 [place] % (Auto) 11.6 % 11/18/21 22:45 Eos % (Auto) 0.2 % 11/18/21:45 Baso % (Auto) 0.7 % 11/18/21:45 Neut # (Auto) 2.08 10^3/uL (1.8-7.7) 11/18/21:45 Lymph # (Auto) 3.0 10^3/uL (0.8-4.8) 11/18/21 22:45 [place] # (Auto) 0.7 10^3/uL (0.2-0.9) 11/18/21 22:45 Eos # (Auto) 0.0 10^3/uL (0.0-0.8) 11/18/21:45 Baso # (Auto) 0.0 10^3/uL (0.0-0.1) 11/18/21 22:45 Nucleated RBC % (auto) 0 % 11/18/21:45 Nucleated RBCs # 0.0 /100WBC 11/18/21 22:45 Sodium 138 mmol/L (136-145) 11/18/21 22:45 Potassium 3.6 mmol/L (3.5-5.1) 11/18/21:45 Chloride 102 mmol/L (98-107) 11/18/21 22:45 Carbon Dioxide 20 mmol/L (22-29) L 11/18/21 22:45 Anion Gap 19.6 (5-19) H 11/18/21 22:45 BUN 20 mg/dL (6-20) 11/18/21 22:45 Creatinine 0.7 mg/dL (0.5-0.9) 11/18/21 22:45 GFR Calculation 101.1 mL/min (90-130) 11/18/21 22:45 Glucose 71 mg/dL (65-115) 11/18/21 22:45 Calculated Osmolality 287 mOsm/kg (285-295) 11/18/21 22:45 Calcium 9.6 mg/dL (8.5-10.5) 11/18/21 22:45 Total Bilirubin 0.4 mg/dL (0.15-1.2) 11/18/21 22:45 AST 18 U/L (0-32) 11/18/21 22:45 ALT 13 U/L (0-33) 11/18/21:45 Alkaline Phosphatase 42 IU/L (35-105) 11/18/21 22:45 Total Protein 7.2 g/dL (6.6-8.7) 11/18/21:45 Albumin 4.9 g/dL (3.5-5.2) 11/18/21:45 Globulin 2.3 g/dL (1.3-4.6) 11/18/21 22:45 Lipase 34 U/L (13-60) 11/18/21 22:45 HCG, Qual Negative (Negative) 11/18/21 22:45 Discharge Plan Discharge Patient Disposition: Home Clinical Impression: Dehydration Condition: Stable Prescriptions: No Action fexofenadine [Christina Allergy] 180 mg tablet 180 mg PO TID 0RF epinephrine [Auvi-Q] 0.3 mg/0.3 mL auto-injector 0.3 mg IM Q10M PRN (Reason: Allergic Reaction) 0RF Rx Instructions: for 2 doses montelukast [Singulair] 10 mg tablet 10 mg PO DAILY 0RF Complete Multivitamin Tablet 1 tab PO DAILY 0RF naproxen [EC-Naproxen] 500 mg tablet,delayed release (DR/EC) 500 mg PO Q8H PRN (Reason: pain) 0RF albuterol sulfate [ProAir HFA] 90 mcg/actuation HFA aerosol inhaler 2 puff INHALATION Q6H PRN (Reason: Shortness Of Breath) 0RF sertraline 50 mg tablet 50 mg PO DAILY 0RF budesonide-formoterol [Symbicort] 160-4.5 mcg/actuation HFA aerosol inhaler 2 puff INHALATION BID 0RF [id number] fumarate 600-125-18 mg-unit-mg tablet 1 tab PO DAILY 0RF azelastine 137 mcg (0.1 %) aerosol,spray 2 spray INTRANASAL BID 30 Days Qty: 30 2RF Rx Instructions: administer into each nostril metoprolol succinate 50 mg tablet extended release 24 hr 50 mg PO DAILY 0RF ondansetron HCl [Zofran] 4 mg tablet 4 mg PO Q8H 0RF famotidine [Pepcid] 20 mg tablet 20 mg PO BID 0RF sumatriptan succinate 50 mg tablet 50 mg PO DAILY PRN (Reason: Migraine Headache) 0RF Reglan 10 mg tablet 10 mg PO Q6H PRN (Reason: nausea and vomiting) Qty: 15 0RF Discharge Orders: Discharge ED (Routine); Ordered 11/18/21 Ordered By: Gino Bingham Referrals: Melissa Stovall MD [Primary Care Provider] - Discharge Diet: Advance as tolerated Discharge Activity: Increase activity as tolerated Patient Instructions: Dehydration (ED) Activity Restrictions/Additional Instructions: Continue with routine care. Drink sips of water frequently in order to maintain hydration. Follow-up with primary care for further instruction. Return to ER for new concerns. 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
[2021-11-18 22:49] VITALS: BP 125/83; PULSE 85; RESP 18; O2SAT 98
[2021-11-18 22:50] LABS: Basophils % 0.7 %; Eosinophils % 0.2 %; Hematocrit 40.9 % (37.0-47.0); Hemoglobin 14.1 g/dL (11.5-15.3); Lymphocytes % 51.9 %; Mean Corpuscular HGB Conc 34.5 g/dL (30.0-36.0); Monocytes # 0.7 10^3/uL (0.2-0.9); Monocytes % 11.6 %; Neutrophils # 2.08 10^3/uL (1.8-7.7); Neutrophils % 35.4 %; Nucleated Red Blood Cells % 0 %; Platelet Count 269 10^3/cmm (130-400); Red Cell Distribution Width 11.9 % (12.1-15.1); White Blood Count 5.9 10^3/uL (4.0-10.0)
[2021-11-18] MEDS: LACTATED RINGERS 1877.88 ML IV (22:58)
[2021-11-18 23:06] LABS: HCG, Serum Qual Negative (Negative)
[2021-11-18 23:07] LABS: Alanine Aminotransferase 13 U/L (0-33); Albumin Level 4.9 g/dL (3.5-5.2); Alkaline Phosphatase 42 IU/L (35-105); Anion Gap 19.6 (5-19); Aspartate Amino Transferase 18 U/L (0-32); Blood Urea Nitrogen 20 mg/dL (6-20); Calcium 9.6 mg/dL (8.5-10.5); Carbon Dioxide 20 mmol/L (22-29); Chloride 102 mmol/L (98-107); Globulin 2.3 g/dL (1.3-4.6); Glomerular Filtration Rate 101.1 mL/min (90-130); Glucose 71 mg/dL (65-115); Lipase 34 U/L (13-60); Osmolality Calculated 287 mOsm/kg (285-295); Potassium 3.6 mmol/L (3.5-5.1); Sodium 138 mmol/L (136-145); Total Bilirubin 0.4 mg/dL (0.15-1.2); Total Protein 7.2 g/dL (6.6-8.7)
[2021-11-19 00:14] LABS: Add Urine Microscopic? YES; Bacteria Urine 2+ /hpf; Bilirubin Urine Neg (Negative); Blood Urine 2+ (Negative); Glucose Urine UA Norm (Normal); Ketones Urine 3+ (Negative); Leukocyte Esterase Urine Negative (Negative); Mucus Urine 2+ /hpf; Nitrate Urine Negative (Negative); Protein Urine Neg (Negative); Squamous Epithelial Cell Urine 25-40 /hpf (0-5); Urine Appearance Cloudy (CLEAR); Urine Color Yellow (Yellow); Urobilinogen Urine Norm (Negative); WBC Urine 25-40 /hpf (0-5); pH Urine 5 (5-7)
[2021-11-19 01:15] VITALS: BP 108/80; PULSE 67; RESP 18; TEMP 37.1; O2SAT 100
== END 2021-11-19 01:23 | disposition home or self-care (01) ==
PROVIDERS: Emergency Medicine; Emergency Provider Nurse Practitioner Family; PCP Family Medicine
DX: E86.0 Dehydration (principal)
CPT/HCPCS: 80053; 81001; 81003; 83690; 84703; 85025; 93005; 96360; 99284

== ENCOUNTER 2021-11-20 06:21 | Outpatient (CLI) | payer OTHER, MEDICAID, SELFPAY ==
--- NOTE | 2021-11-20 | US_ITS ---
WS: [id number] RIGHT UPPER QUADRANT ULTRASOUND HISTORY: RUQ PAIN COMPARISON: None available. Liver: 13.2 cm in length. Normal size liver. No bile duct dilatation or mass. Portal Vein: Normal hepatopetal flow with monophasic waveform. Gallbladder: Normally distended gallbladder with no stones or wall thickening. CBD: 0.2 cm Pancreas: Completely obscured by bowel gas. Right kidney: 10.7 cm in length. Normal size and echogenicity. No hydronephrosis or mass. Aorta and IVC: Unremarkable abdominal aorta and IVC. No ascites. US/US abdomen limited [id number] IMPRESSION: 1. Normal gallbladder. 2. Pancreas not visualized. 3. No bile duct dilatation.
== END 2021-11-20 06:22 | disposition home or self-care (01) ==
LOC: RAD 06:22
PROVIDERS: PCP Family Medicine; Visit Provider Family Medicine
DX: R10.11 Right upper quadrant pain (principal)
CPT/HCPCS: 76705

== ENCOUNTER 2022-01-03 15:47 | Emergency (ER) | payer MEDICAID, SELFPAY ==
[2022-01-03 16:11] VITALS: BP 93/70; PULSE 86; RESP 18; TEMP 37.2; O2SAT 97; BMI 21.0
--- NOTE | 2022-01-03 16:33 | ED_ITS ---
HPI - Nausea/Vomiting/Diarrhea General: Chief complaint: Nausea/Vomiting/Diarrhea Stated complaint: N/V says she may be dehydrated Time Seen by Provider: 01/03/22 16:32 History of Present Illness: Ms. Damon is a 26-year-old lady with complex past medical history presenting to the emergency department due to nausea and vomiting as well as concern over dehydration. She has had symptoms for a number of months however this is worsened over the past few days. She has recently see n GI and is in process of evaluation. Approximately 3 weeks ago she reports having a CT scan. She has also undergone EGD and ultrasound of the gallbladder. She has Zofran and promethazine at home which she has been taking however over the past few days has not had significant leaf of symptoms. She endorses very poor p.o. intake, essentially only liquids at this point and vomits anytime she even eats a cracker. Liquid intake is to be small volume. Overall course of symptoms has been worsening. Intensity is moderate to severe. She denies significant associated abdominal discomfort or change in characteristic or location of this. No other specific changes in health, exacerbating, or al leviating factors identified. Pertinent past history: other Description of vomiting: watery Associated nausea: Yes Severity: moderate Exacerbating factors: eating Associated symtoms: Reports nausea Review of Systems General: Reports: 10 or more systems reviewed and unremarkable except in HPI and below GI: Reports: nausea PFSH ED PFSH: Medical History Allergic rhinitis Anxiety Asthma Chronic sinusitis Depression ITB syndrome OCD (obsessive compulsive disorder) Plica syndrome Surgical History H/O oral surgery S/P FESS (functional endoscopic sinus surgery) Family History Family/Other Lung disease Asthma Father Hypertension Hyperlipidemia Grandmother Hypertension Dementia Stroke Grandfather Hypertension Stroke Grandfather Hypertension Denies family history of Diabetes CAD (coronary artery disease) Clotting disorder Chronic kidney disease (CKD) Suicide Anesthesia complication Bleeding disorder Cancer Social History Smoking and tobacco status: never smoked Alcohol intake: never Lives independently: Yes Household members: other Marital status: Single Current occupational status: student Current occupational exposures/hazards: No Pets and animals: Yes Pets & animals: dog(s) History of recent travel: No Current gender identity: Female Physical Exam Const: COMMON NORMALS: alert GENERAL APPEARANCE: cooperative, well developed and ill appearing (mildly) HENMT: COMMON NORMALS: normocephalic and atraumatic HEAD & SCALP: normocephalic and atraumatic Eye: COMMON NORMALS: conjunctivae normal CONJUNCTIVA: Yes conjunctivae normal SCLERA: sclerae normal Neck/C-Spine: COMMON NORMALS: supple GENERAL: Yes trachea midline Resp: COMMON NORMALS: normal respiratory effort and clear to auscultation bilaterally EFFORT & INSPECTION: Yes able to speak in complete sentences AUSCULTATION: clear to auscultation bilaterally Cardio: COMMON NORMALS: regular rate and regular rhythm RATE: regular rate RHYTHM: regular rhythm GI: COMMON NORMALS: Soft to palpation PALPATION: Yes Soft to palpation and No Tenderness to palpation present (GI) PERCUSSION: normal to percussion Extremity: GENERAL: Yes normal exam except as noted and No edema Neuro: COMMON NORMALS: moves all extremities SENSORIUM/ORIENTATION: Yes alert and No Orientation impaired Psych: COMMON NORMALS: mental status grossly normal and Normal thought process present THOUGHT PROCESS: Normal thought process present Course ED course: - Patient was seen and evaluated by me at bedside - Patient placed on cardiac monitors, IV access obtained - Initial evaluation notable for exam as above. No significant abdominal tenderness to palpation. - Labs personally interpreted by me -Symptom treatment ordered - Labs notable for mild leukopenia which patient which was noted on prior?mildly proved. Metabolic end with hypokalemia and evidence of mild dehydration. Replenishment ordered. Urinalysis with mild squamous epithelial contamination and given nitrite negative likely not concerning for urinary tract infection. Plan to send for culture. I did discuss her urine bilirubin/urobilinogen which I guess was also noted on prior urinalysis at separate facility. Given no specific right upper quadrant tenderness and reported prior evaluation I am unsure of the clinical significance of this. -Discussed possibility of repeat imaging with the patient. Very benign abdominal exam and given patient's age in addition to prior work-up I do not feel that additional imaging is needed at this time. Patient comfortable with and agreeable to foregoing imaging. - Upon serial reexamination after treatment the patient was improved. She was able to tolerate baseline liquid oral intake. - Based on patient history, evaluation, and testing as interpreted the most likely cause of the patient's condition is recurrent nausea vomiting in addition to weight loss of uncertain etiology. - The results of ED evaluation were discussed with the patient including prescriptions and/or symptomatic cares (if applicable) including appropriate and responsible use, followup plan, and return precautions. The patient verbalized understanding and felt safe for discharge. - Patient discharged in satisfactory condition. Note: Click bubbles or prepopulated corona in note writing are used for assistance with data collection and billing and are inherently more limited than narrative and other text portions of this note. Please use narrative for additional clinical history and defer to narrative/free test for any case of contradictory information. If information appears in only free text or click bubble it should be considered present or absent as reported. Please contact note selling underwriter for clarifications of clinical information or contradictory information. MDM is a brief summary, contradictory or erroneous seeming information should be clarified and full note should be reviewed. Vital Signs: Vital signs: Vital Signs Temperature 98.9 F 01/03/22 16:11 Pulse Rate 62 01/03/22 20:00 Respiratory Rate 20 H 01/03/22 20:00 Blood Pressure 99/63 01/03/22 20:00 Pulse Oximetry 100 01/03/22 20:00 MDM - Nausea/Vomiting/Diarrhea Medical Decision Making 26-year-old lady with complex past medical history presenting with nausea vom iting and concern for dehydration. Patient somewhat improved with symptom treatment. Satisfactory for continued outpatient management. Medical Records I reviewed the patient's medical records. Lab Data I reviewed the patient's lab results. : 01/03/22 16:45 01/03/22 16:45 Laboratory Results WBC 3.9 10^3/uL (4.0-10.0) L 01/03/22 16:45 RBC 4.50 10^6/uL (4.1-5.3) 01/03/22 16:45 Hgb 13.6 g/dL (11.5-15.3) 01/03/22 16:45 Hct 39.5 % (37.0-47.0) 01/03/22 16:45 MCV 87.8 fl (81-99) 01/03/22 16:45 MCH 30.2 pg (28.0-34.0) 01/03/22 16:45 MCHC 34.4 g/dL (30.0-36.0) 01/03/22 16:45 RDW 13.8 % (12.1-15.1) 01/03/22 16:45 Plt Count 267 10^3/cmm (130-400) 01/03/22 16:45 MPV 10.7 fL (7.4-10.4) H 01/03/22 16:45 Neut % (Auto) 44.0 % 01/03/22 16:45 Lymph % (Auto) 42.8 % 01/03/22 16:45 [place] % (Auto) 11.1 % 01/03/22 16:45 Eos % (Auto) 0.5 % 01/03/22 16:45 Baso % (Auto) 1.3 % 01/03/22 16:45 Neut # (Auto) 1.71 10^3/uL (1.8-7.7) L 01/03/22 16:45 Lymph # (Auto) 1.7 10^3/uL (0.8-4.8) 01/03/22 16:45 [place] # (Auto) 0.4 10^3/uL (0.2-0.9) 01/03/22 16:45 Eos # (Auto) 0.0 10^3/uL (0.0-0.8) 01/03/22 16:45 Baso # (Auto) 0.1 10^3/uL (0.0-0.1) 01/03/22 16:45 Nucleated RBC % (auto) 0 % 01/03/22 16:45 Nucleated RBCs # 0.0 /100WBC 01/03/22 16:45 Sodium 136 mmol/L (136-145) 01/03/22 16:45 Potassium 3.3 mmol/L (3.5-5.1) L 01/03/22 16:45 Chloride 94 mmol/L (98-107) L 01/03/22 16:45 Carbon Dioxide 25 mmol/L (22-29) 01/03/22 16:45 Anion Gap 20.3 (5-19) H 01/03/22 16:45 BUN 16 mg/dL (6-20) 01/03/22 16:45 Creatinine 0.7 mg/dL (0.5-0.9) 01/03/22 16:45 GFR Calculation 101.1 mL/min (90-130) 01/03/22 16:45 Glucose 83 mg/dL (65-115) 01/03/22 16:45 Calculated Osmolality 282 mOsm/kg (285-295) L 01/03/22 16:45 Calcium 9.5 mg/dL (8.5-10.5) 01/03/22 16:45 Magnesium 2.0 mg/dL (1.7-2.3) 01/03/22 16:45 Total Bilirubin 0.6 mg/dL (0.15-1.2) 01/03/22 16:45 AST 24 U/L (0-32) 01/03/22 16:45 ALT 28 U/L (0-33) 01/03/22 16:45 Alkaline Phosphatase 37 IU/L (35-105) 01/03/22 16:45 Total Protein 7.8 g/dL (6.6-8.7) 01/03/22 16:45 Albumin 4.9 g/dL (3.5-5.2) 01/03/22 16:45 Globulin 2.9 g/dL (1.3-4.6) 01/03/22 16:45 Lipase 51 U/L (13-60) 01/03/22 16:45 HCG, Qual Negative (Negative) 01/03/22 16:45 Urine Color Brown (Yellow) 01/03/22 16:45 Urine Appearance Hazy (CLEAR) A 01/03/22 16:45 Urine pH 5 (5-7) 01/03/22 16:45 Ur Specific [place] 1.025 (1.005-1.030) 01/03/22 16:45 Urine Protein Trace (Negative) 01/03/22 16:45 Urine Glucose (UA) Norm (Normal) 01/03/22 16:45 Urine Ketones 2+ (Negative) H 01/03/22 16:45 Urine Blood Neg (Negative) 01/03/22 16:45 Urine Nitrate Negative (Negative) 01/03/22 16:45 Urine Bilirubin 2+ (Negative) H 01/03/22 16:45 Urine Urobilinogen 8 mg/dL (Negative) H 01/03/22 16:45 Ur Leukocyte Esterase 1+ (Negative) H 01/03/22 16:45 Urine RBC 0-4 /hpf (0-2) H 01/03/22 16:45 Urine WBC 15-25 /hpf (0-5) H 01/03/22 16:45 Ur Squamous Epith Cells 5-10 /hpf (0-5) H 01/03/22 16:45 Ur Transition Epith Cell None /hpf 01/03/22 16:45 Ur Renal Epithelial Cell N /hpf 01/03/22 16:45 Calcium Oxalate Crystal None /hpf 01/03/22 16:45 Uric Acid Crystals N /hpf 01/03/22 16:45 Triple Phos Crystals None /hpf 01/03/22 16:45 Other Crystals N /hpf 01/03/22 16:45 Amorphous Sediment Not Reportable 01/03/22 16:45 Urine Bacteria 3+ /hpf (NONE) H 01/03/22 16:45 Urine Mucus 2+ /hpf 01/03/22 16:45 Discharge Plan Discharge Patient Disposition: Home Clinical Impression: Nausea & vomiting, Dehydration, Hypokalemia Condition: Stable Prescriptions: No Action fexofenadine [Christina Allergy] 180 mg tablet 180 mg PO TID 0RF epinephrine [Auvi-Q] 0.3 mg/0.3 mL auto-injector 0.3 mg IM Q10M PRN (Reason: Allergic Reaction) 0RF Rx Instructions: for 2 doses montelukast [Singulair] 10 mg tablet 10 mg PO DAILY 0RF Complete Multivitamin Tablet 1 tab PO DAILY 0RF naproxen [EC-Naproxen] 500 mg tablet,delayed release (DR/EC) 500 mg PO Q8H PRN (Reason: pain) 0RF albuterol sulfate [ProAir HFA] 90 mcg/actuation HFA aerosol inhaler 2 puff INHALATION Q6H PRN (Reason: Shortness Of Breath) 0RF sertraline 50 mg tablet 50 mg PO DAILY 0RF budesonide-formoterol [Symbicort] 160-4.5 mcg/actuation HFA aerosol inhaler 2 puff INHALATION BID 0RF [id number] fumarate 600-125-18 mg-unit-mg tablet 1 tab PO DAILY 0RF azelastine 137 mcg (0.1 %) aerosol,spray 2 spray INTRANASAL BID 30 Days Qty: 30 2RF Rx Instructions: administer into each nostril metoprolol succinate 50 mg tablet extended release 24 hr 50 mg PO DAILY 0RF ondansetron HCl [Zofran] 4 mg tablet 4 mg PO Q8H 0RF famotidine [Pepcid] 20 mg tablet 20 mg PO BID 0RF sumatriptan succinate 50 mg tablet 50 mg PO DAILY PRN (Reason: Migraine Headache) 0RF Reglan 10 mg tablet 10 mg PO Q6H PRN (Reason: nausea and vomiting) Qty: 15 0RF Discharge Orders: Discharge ED (Routine); Ordered 01/03/22 Ordered By: Ronla Raymond Referrals: Melissa Stovall MD [Primary Care Provider] - Discharge Diet: Usual diet Discharge Activity: Increase activity as tolerated Patient Instructions: Dehydration (ED), Acute Nausea and Vomiting (ED) Activity Restrictions/Additional Instructions: Thank you for visiting the emergency department. You were seen and evaluated for recurrent nausea and vomiting. The exact cause of your symptoms is unclear. Please continue to follow-up in the outpatient setting. Please follow-up with your primary care provider. Return to the emergency department for worsening symptoms or anything else that you are concerned about and feel needs emergency department evaluation. 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
[2022-01-03 16:54] LABS: Basophils # 0.1 10^3/uL (0.0-0.1); Basophils % 1.3 %; Eosinophils % 0.5 %; Hematocrit 39.5 % (37.0-47.0); Hemoglobin 13.6 g/dL (11.5-15.3); Lymphocytes # 1.7 10^3/uL (0.8-4.8); Lymphocytes % 42.8 %; Mean Corpuscular HGB Conc 34.4 g/dL (30.0-36.0); Mean Corpuscular Hemoglobin 30.2 pg (28.0-34.0); Mean Corpuscular Volume 87.8 fl (81-99); Mean Platelet Volume 10.7 fL (7.4-10.4); Monocytes # 0.4 10^3/uL (0.2-0.9); Monocytes % 11.1 %; Neutrophils # 1.71 10^3/uL (1.8-7.7); Nucleated Red Blood Cells % 0 %; Platelet Count 267 10^3/cmm (130-400); Red Cell Distribution Width 13.8 % (12.1-15.1); White Blood Count 3.9 10^3/uL (4.0-10.0)
[2022-01-03 17:01] LABS: HCG Qualitative Urine. Negative (Negative)
[2022-01-03 17:19] LABS: Alanine Aminotransferase 28 U/L (0-33); Albumin Level 4.9 g/dL (3.5-5.2); Alkaline Phosphatase 37 IU/L (35-105); Anion Gap 20.3 (5-19); Aspartate Amino Transferase 24 U/L (0-32); Blood Urea Nitrogen 16 mg/dL (6-20); Calcium 9.5 mg/dL (8.5-10.5); Carbon Dioxide 25 mmol/L (22-29); Chloride 94 mmol/L (98-107); Globulin 2.9 g/dL (1.3-4.6); Glomerular Filtration Rate 101.1 mL/min (90-130); Glucose 83 mg/dL (65-115); Lipase 51 U/L (13-60); Osmolality Calculated 282 mOsm/kg (285-295); Potassium 3.3 mmol/L (3.5-5.1); Sodium 136 mmol/L (136-145); Total Bilirubin 0.6 mg/dL (0.15-1.2); Total Protein 7.8 g/dL (6.6-8.7)
[2022-01-03 17:20] LABS: Glucose Urine UA Norm (Normal); Ketones Urine 2+ (Negative); Protein Urine Trace (Negative); Specific Gravity, Urine 1.025 (1.005-1.030); Urine Appearance Hazy (CLEAR); Urine Color Brown (Yellow); pH Urine 5 (5-7)
[2022-01-03 17:21] LABS: Bilirubin Urine 2+ (Negative); Blood Urine Neg (Negative); Nitrate Urine Negative (Negative); Urobilinogen Urine 8 mg/dL (Negative)
[2022-01-03 17:23] LABS: Add Urine Microscopic? YES; Leukocyte Esterase Urine 1+ (Negative)
[2022-01-03 17:26] LABS: RBC Urine 0-4 /hpf (0-2); Renal Epithelial Cells Urine N /hpf; WBC Urine 15-25 /hpf (0-5)
[2022-01-03 17:27] LABS: Add Urine Culture? Yes; Bacteria Urine 3+ /hpf; Mucus Urine 2+ /hpf; Other Crystals Urine N /hpf; Uric Acid Crystals Urine N /hpf
[2022-01-03] MEDS: ondansetron 2 mg/ML SDV 2 mL 4 MG IVP (17:30)
[2022-01-03] MEDS: sodium chloride 0.9% 1,000 ML 999 ML IV (17:30)
[2022-01-03] MEDS: potassium chloride premix 100 ML 50 MEQ IV (17:31)
[2022-01-03 18:43] VITALS: BP 95/55; PULSE 61; RESP 16; O2SAT 100
[2022-01-03] MEDS: sodium chloride 0.9% 1,000 ML 250 ML IV (19:01)
[2022-01-03 19:30] VITALS: BP 91/57; PULSE 67; RESP 20; O2SAT 100
[2022-01-03 20:00] VITALS: BP 99/63; PULSE 62; RESP 20; O2SAT 100
== END 2022-01-03 20:20 | disposition home or self-care (01) ==
PROVIDERS: Emergency Provider Emergency Medicine; PCP Family Medicine
DX: E86.0 Dehydration (principal); E87.6 Hypokalemia; R11.2 Nausea with vomiting, unspecified
CPT/HCPCS: 80053; 81001; 81025; 83690; 83735; 85025; 87086; 96365; 96366; 96375; 99284; J2405; J3480; J7030

== ENCOUNTER 2022-01-08 19:57 | Emergency (ER) | payer MEDICAID, SELFPAY ==
[2022-01-08] VITALS (9 sets, daily range): BP systolic 101–133; BP diastolic 70–91; PULSE 63–97; RESP 16–18; TEMP 36.6; O2SAT 97–100; BMI 21.0
--- NOTE | 2022-01-08 20:09 | ED_ITS ---
HPI - Nausea/Vomiting/Diarrhea General: Chief complaint: Nausea/Vomiting/Diarrhea Stated complaint: N/V Time Seen by Provider: 01/08/22 20:09 History of Present Illness: Ms. Damon is a 26-year-old female with complex past medical history presenting to the emergency department for recurrent nausea and vomiting. She was seen on 01/03 and notable to have dehydration associated with nausea and vomiting. She felt mildly improved for a few days and was back to her baseline poor p.o. intake however subsequently worsened again over the past 2 days. Emesis is once again been mildly bilious in appearance. She does note 1 episode of bloody emesis. Abdominal pain has been baseline without increasing severity and no significant epigastric component. Intensity symptoms is moderate. No other specific changes in health, exacerbating, or alleviating factors identified. Onset (ago): day(s) Description of vomiting: watery and bilious Associated nausea: Yes Associated abdominal pain: Yes Location of pain: Diffuse Severity: mild Quality: cramping Associated symtoms: Reports nausea Review of Systems General: Reports: 10 or more systems reviewed and unremarkable except in HPI and below GI: Reports: nausea PFSH ED PFSH: Medical History Allergic rhinitis Anxiety Asthma Chronic sinusitis Depression ITB syndrome OCD (obsessive compulsive disorder) Plica syndrome Surgical History H/O oral surgery S/P FESS (functional endoscopic sinus surgery) Family History Family/Other Lung disease Asthma Father Hypertension Hyperlipidemia Grandmother Hypertension Dementia Stroke Grandfather Hypertension Stroke Grandfather Hypertension Denies family history of Diabetes CAD (coronary artery disease) Clotting disorder Chronic kidney disease (CKD) Suicide Anesthesia complication Bleeding disorder Cancer Social History Smoking and tobacco status: never smoked Alcohol intake: never Lives independently: Yes Household members: other Marital status: Single Current occupational status: student Current occupational exposures/hazards: No Pets and animals: Yes Pets & animals: dog(s) History of recent travel: No Current gender identity: Female Physical Exam Const: COMMON NORMALS: alert GENERAL APPEARANCE: cooperative and well developed HENMT: COMMON NORMALS: normocephalic and atraumatic HEAD & SCALP: normocephalic and atraumatic Eye: COMMON NORMALS: conjunctivae normal CONJUNCTIVA: Yes conjunctivae normal SCLERA: sclerae normal Neck/C-Spine: COMMON NORMALS: supple GENERAL: Yes trachea midline Resp: COMMON NORMALS: normal respiratory effort EFFORT & INSPECTION: Yes able to speak in complete sentences Cardio: COMMON NORMALS: regular rate and regular rhythm RATE: regular rate RHYTHM: regular rhythm GI: COMMON NORMALS: Soft to palpation PALPATION: Yes Soft to palpation and No Tenderness to palpation present (GI) PERCUSSION: normal to percussion Extremity: GENERAL: Yes normal exam except as noted and No edema Neuro: COMMON NORMALS: moves all extremities SENSORIUM/ORIENTATION: Yes alert and No Orientation impaired Psych: COMMON NORMALS: mental status grossly normal and Normal thought process present THOUGHT PROCESS: Normal thought process present Course ED course: - Patient was seen and evaluated by me at bedside - Patient placed on cardiac monitors, IV access obtained - Initial evaluation notable for exam as above - Labs personally interpreted by me ?Fluids and antiemetics given - Labs notable for mild leukopenia, normal hemoglobin. Metabolic panel with hypokalemia, replenishment ordered, some evidence of dehydration. Elevated ALT of unclear etiology. Urinalysis without evidence of infection. - Imaging notable for no acute finding identified on ultrasound. - Upon serial reexamination after treatment the patient was mildly improved. She tolerated p.o. intake. Challenging situation as the patient continues to have fairly severe symptoms with weight loss and limited p.o. intake though no clear etiology has yet been identified. Even though patient has been bilious emesis her exam and clinical history are not consistent with acute obstructive pathology. Essentially abdominal exam is benign. - Based on patient history, evaluation, and testing as interpreted the most likely cause of the patient's condition is recurrent nausea and vomiting with evidence of dehydration and hypokalemia of unclear etiology - The results of ED evaluation were discussed with the patient including prescriptions and/or symptomatic cares (if applicable) including appropriate and responsible use, followup plan, and return precautions. The patient verbalized understanding and felt safe for discharge. - Patient discharged in satisfactory condition. Note: Click bubbles or prepopulated corona in note writing are used for assistance with data collection and billing and are inherently more limited than narrative and other text portions of this note. Please use narrative for additional clinical history and defer to narrative/free test for any case of contradictory information. If information appears in only free text or click bubble it should be considered present or absent as reported. Please contact note telegraphic typewriter repairer for clarifications of clinical information or contradictory information. MDM is a brief summary, contradictory or erroneous seeming information should be clarified and full note should be reviewed. Vital Signs: Vital signs: Vital Signs Temperature 97.9 F 01/08/22 20:01 Pulse Rate 67 01/09/22 04:31 Respiratory Rate 14 01/09/22 04:31 Blood Pressure 105/72 01/09/22 04:31 Pulse Oximetry 99 01/09/22 04:31 MDM - Nausea/Vomiting/Diarrhea Medical Decision Making 26-year-old female with history of recurrent nausea and vomiting associated with weight loss presenting for concern over dehydration. Somewhat improved after treatment. Satisfactory for continued outpatient management. Medical Records I reviewed the patient's medical records. Lab Data I reviewed the patient's lab results. : 01/08/22 20:25 01/08/22 20:25 Radiology Impressions Abdomen Ultrasound 01/08/22 22:13 IMPRESSION: No acute findings. KUB X-Ray 01/09/22 00:50 IMPRESSION: No acute findings. Laboratory Results WBC 3.3 10^3/uL (4.0-10.0) L 01/08/22 20: RBC 4.04 10^6/uL (4.1-5.3) L 01/08/22 20:25 Hgb 12.4 g/dL (11.5-15.3) 01/08/22 20: Hct 35.0 % (37.0-47.0) L 01/08/22 20:25 MCV 86.6 fl (81-99) 01/08/22 20:25 MCH 30.7 pg (28.0-34.0) 01/08/22 20: MCHC 35.4 g/dL (30.0-36.0) 01/08/22 20:25 RDW 14.2 % (12.1-15.1) 01/08/22 20:25 Plt Count 224 10^3/cmm (130-400) 01/08/22 20:25 MPV 10.6 fL (7.4-10.4) H 01/08/22 20:25 Neut % (Auto) 32.2 % 01/08/22 20:25 Lymph % (Auto) 54.8 % 01/08/22 20:25 [place] % (Auto) 11.2 % 01/08/22 20:25 Eos % (Auto) 0.6 % 01/08/22 20:25 Baso % (Auto) 0.9 % 01/08/22 20:25 Neut # (Auto) 1.06 10^3/uL (1.8-7.7) L 01/08/22 20:25 Lymph # (Auto) 1.8 10^3/uL (0.8-4.8) 01/08/22 20: [place] # (Auto) 0.4 10^3/uL (0.2-0.9) 01/08/22 20: Eos # (Auto) 0.0 10^3/uL (0.0-0.8) 01/08/22 20: Baso # (Auto) 0.0 10^3/uL (0.0-0.1) 01/08/22 20:25 Nucleated RBC % (auto) 0 % 01/08/22 20: Nucleated RBCs # 0.0 /100WBC 01/08/22 20:25 Sodium 136 mmol/L (136-145) 01/08/22 20:25 Potassium 3.1 mmol/L (3.5-5.1) L 01/08/22 20:25 Chloride 98 mmol/L (98-107) 01/08/22 20:25 Carbon Dioxide 21 mmol/L (22-29) L 01/08/22 20:25 Anion Gap 20.1 (5-19) H 01/08/22 20:25 BUN 6 mg/dL (6-20) 01/08/22 20:25 Creatinine 0.5 mg/dL (0.5-0.9) 01/08/22 20:25 GFR Calculation 149.1 mL/min (90-130) H 01/08/22 20:25 Glucose 88 mg/dL (65-115) 01/08/22 20:25 Calculated Osmolality 279 mOsm/kg (285-295) L 01/08/22 20:25 Calcium 8.5 mg/dL (8.5-10.5) 01/08/22 20:25 Total Bilirubin 0.7 mg/dL (0.15-1.2) 01/08/22 20:25 AST 25 U/L (0-32) 01/08/22 20: ALT 42 U/L (0-33) H 01/08/22 20:25 Alkaline Phosphatase 34 IU/L (35-105) L 01/08/22 20: Total Protein 6.5 g/dL (6.6-8.7) L 01/08/22: Albumin 4.6 g/dL (3.5-5.2) 01/08/22: Globulin 1.9 g/dL (1.3-4.6) 01/08/22: Lipase 40 U/L (13-60) 01/08/22: Urine Color [place] (Yellow) 01/08/22 22: Urine Appearance Hazy (CLEAR) A 01/08/22 22:00 Urine pH 5 (5-7) 01/08/22 22:00 Ur Specific [place] 1.025 (1.005-1.030) 01/08/22 22:00 Urine Protein Trace (Negative) 01/08/22 22:00 Urine Glucose (UA) Norm (Normal) 01/08/22 22:00 Urine Ketones 3+ (Negative) H 01/08/22 22:00 Urine Blood Neg (Negative) 01/08/22 22:00 Urine Nitrate Negative (Negative) 01/08/22 22:00 Urine Bilirubin 2+ (Negative) H 01/08/22 22:00 Urine Urobilinogen 4 mg/dL (Negative) H 01/08/22 22:00 Ur Leukocyte Esterase 1+ (Negative) H 01/08/22 22:00 Urine RBC 0-4 /hpf (0-2) H 01/08/22 22:00 Urine WBC 5-10 /hpf (0-5) H 01/08/22 22:00 Ur Squamous Epith Cells 10-15 /hpf (0-5) H 01/08/22 22:00 Amorphous Sediment Not Reportable 01/08/22 22:00 Urine Bacteria 2+ /hpf (NONE) H 01/08/22 22:00 Urine Mucus 4+ /hpf 01/08/22 22:00 Discharge Plan Discharge Patient Disposition: Home Clinical Impression: Nausea & vomiting, Hypokalemia, Acute dehydration, Leukopenia Condition: Stable Prescriptions: New Compazine 10 mg tablet 10 mg PO Q8H PRN (Reason: nausea and vomiting) Qty: 10 0RF Rx Instructions: May take with 25 mg of Benadryl for restlessness No Action fexofenadine [Christina Allergy] 180 mg tablet 180 mg PO TID 0RF epinephrine [Auvi-Q] 0.3 mg/0.3 mL auto-injector 0.3 mg IM Q10M PRN (Reason: Allergic Reaction) 0RF Rx Instructions: for 2 doses montelukast [Singulair] 10 mg tablet 10 mg PO DAILY 0RF Complete Multivitamin Tablet 1 tab PO DAILY 0RF naproxen [EC-Naproxen] 500 mg tablet,delayed release (DR/EC) 500 mg PO Q8H PRN (Reason: pain) 0RF albuterol sulfate [ProAir HFA] 90 mcg/actuation HFA aerosol inhaler 2 puff INHALATION Q6H PRN (Reason: Shortness Of Breath) 0RF sertraline 50 mg tablet 50 mg PO DAILY 0RF budesonide-formoterol [Symbicort] 160-4.5 mcg/actuation HFA aerosol inhaler 2 puff INHALATION BID 0RF [id number] fumarate 600-125-18 mg-unit-mg tablet 1 tab PO DAILY 0RF azelastine 137 mcg (0.1 %) aerosol,spray 2 spray INTRANASAL BID 30 Days Qty: 30 2RF Rx Instructions: administer into each nostril metoprolol succinate 50 mg tablet extended release 24 hr 50 mg PO DAILY 0RF ondansetron HCl [Zofran] 4 mg tablet 4 mg PO Q8H 0RF famotidine [Pepcid] 20 mg tablet 20 mg PO BID 0RF sumatriptan succinate 50 mg tablet 50 mg PO DAILY PRN (Reason: Migraine Headache) 0RF Reglan 10 mg tablet 10 mg PO Q6H PRN (Reason: nausea and vomiting) Qty: 15 0RF promethazine 25 mg suppository 25 mg [place] Q4H PRN (Reason: nausea and vomiting) Qty: 12 1RF Ativan 1 mg tablet 0.5 mg PO Q12H PRN (Reason: nausea and vomiting) Qty: 10 0RF Discharge Orders: Discharge ED (Routine); Ordered 01/09/22 Ordered By: Ronal Raymond Referrals: Melissa Stovall MD [Primary Care Provider] - Discharge Diet: Advance as tolerated and Clear Liquid Discharge Activity: Increase activity as tolerated Patient Instructions: Dehydration (ED), Hypokalemia (ED), Acute Nausea and Vomiting (ED) Activity Restrictions/Additional Instructions: Thank you for visiting the emergency department. You were seen evaluated for nausea and vomiting as well as dehydration. Once again unfortunately the exact cause of your symptoms is unclear. Please continue to follow-up with gastroenterology. Return to the emergency department for anything that you are worried about and feel needs emergency department evaluation. 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 Code ED Driver Utility Worker for Aristeo Montilla
[2022-01-08 20:49] LABS: Basophils % 0.9 %; Eosinophils % 0.6 %; Hemoglobin 12.4 g/dL (11.5-15.3); Lymphocytes # 1.8 10^3/uL (0.8-4.8); Lymphocytes % 54.8 %; Mean Corpuscular HGB Conc 35.4 g/dL (30.0-36.0); Mean Corpuscular Hemoglobin 30.7 pg (28.0-34.0); Mean Corpuscular Volume 86.6 fl (81-99); Mean Platelet Volume 10.6 fL (7.4-10.4); Monocytes # 0.4 10^3/uL (0.2-0.9); Monocytes % 11.2 %; Neutrophils # 1.06 10^3/uL (1.8-7.7); Neutrophils % 32.2 %; Nucleated Red Blood Cells % 0 %; Platelet Count 224 10^3/cmm (130-400); Red Blood Count 4.04 10^6/uL (4.1-5.3); Red Cell Distribution Width 14.2 % (12.1-15.1); White Blood Count 3.3 10^3/uL (4.0-10.0)
[2022-01-08] MEDS: ondansetron 2 mg/ML SDV 2 mL 4 MG IVP ×2 (20:50→23:38)
[2022-01-08] MEDS: sodium chloride 0.9% 1,000 ML 999 ML IV (20:50)
[2022-01-08 21:12] LABS: Alanine Aminotransferase 42 U/L (0-33); Albumin Level 4.6 g/dL (3.5-5.2); Alkaline Phosphatase 34 IU/L (35-105); Aspartate Amino Transferase 25 U/L (0-32); Blood Urea Nitrogen 6 mg/dL (6-20); Calcium 8.5 mg/dL (8.5-10.5); Carbon Dioxide 21 mmol/L (22-29); Chloride 98 mmol/L (98-107); Globulin 1.9 g/dL (1.3-4.6); Glomerular Filtration Rate 149.1 mL/min (90-130); Glucose 88 mg/dL (65-115); Lipase 40 U/L (13-60); Osmolality Calculated 279 mOsm/kg (285-295); Sodium 136 mmol/L (136-145); Total Bilirubin 0.7 mg/dL (0.15-1.2); Total Protein 6.5 g/dL (6.6-8.7)
[2022-01-08 21:13] LABS: Anion Gap 20.1 (5-19); Potassium 3.1 mmol/L (3.5-5.1)
--- NOTE | 2022-01-08 21:37 | PC.NURSE ---
2000 Attempted to insert 14f coude braun. Urojet injected into the tip of penis. Allowed gel to sit for 5 min, then attempted to place catheter. catheter came across resistance and was unable to cont placement. Pt has small amount of bleeding meatus. Pt tolerated well, now having pressure that he needs to urinate and pain.
[2022-01-08] MEDS: promethazine 25 mg/mL SDV 1 mL IM (22:04)
--- NOTE | 2022-01-08 22:13 | USR_ITS ---
PROCEDURE INFORMATION: Exam: US Abdomen, Limited; Right Upper Quadrant Exam date and time: 01/08/2022 10:54 PM Age: 26 years old Clinical indication: Nausea and vomiting; Additional info: Ruq, bilious emesis, mild transaminitis TECHNIQUE: Imaging protocol: US abdomen. Real time ultrasound with image documentation. Limited exam focused on the right upper quadrant. COMPARISON: US abdomen limited [id number] 11/20/2021 6:28 AM FINDINGS: Liver: Normal. No masses. Gallbladder: Normal. No gallstones. There is no gallbladder wall thickening. Biliary ducts: Normal. No stones. No dilation. Pancreas: Visualized pancreas is unremarkable. Right kidney: Normal. No mass. No hydronephrosis. US/US abdomen limited [id number] IMPRESSION: No acute findings.
[2022-01-08 22:34] LABS: Add Urine Microscopic? YES; Bilirubin Urine 2+ (Negative); Blood Urine Neg (Negative); Glucose Urine UA Norm (Normal); Ketones Urine 3+ (Negative); Leukocyte Esterase Urine 1+ (Negative); Nitrate Urine Negative (Negative); Protein Urine Trace (Negative); Specific Gravity, Urine 1.025 (1.005-1.030); Urine Appearance Hazy (CLEAR); Urine Color Amber (Yellow); Urobilinogen Urine 4 mg/dL (Negative); pH Urine 5 (5-7)
[2022-01-08 22:35] LABS: Add Urine Culture? No; Bacteria Urine 2+ /hpf; Mucus Urine 4+ /hpf; RBC Urine 0-4 /hpf (0-2)
[2022-01-08] MEDS: potassium chloride oral liq 20 mEq/15 mL UDC 40 MEQ PO (23:26)
[2022-01-08] MEDS: pantoprazole 40 mg SDV 80 MG IVP (23:27)
[2022-01-08] MEDS: lidocaine 2% viscous 15 ML, aluminum-mag hydrox-simethicon 30 ML, sucralfate oral liq 1 GM PO (23:27)
[2022-01-09] VITALS: BP 100/73; PULSE 58; RESP 18; O2SAT 100
[2022-01-09] MEDS: sodium chloride 0.9% 1,000 ML 150 ML IV (00:26)
[2022-01-09] MEDS: potassium chloride premix 100 ML 25 MEQ IV (00:27)
[2022-01-09 00:30] VITALS: BP 94/71; PULSE 57; RESP 18; O2SAT 100
--- NOTE | 2022-01-09 00:50 | XRR_ITS ---
PROCEDURE INFORMATION: Exam: XR Abdomen Exam date and time: 01/09/2022 12:54 AM Age: 26 years old Clinical indication: Nausea and vomiting; Patient HX: N/v with unexplained weight loss. TECHNIQUE: Imaging protocol: XR of the abdomen. Views: Frontal supine view of the abdomen. 1 View. COMPARISON: US abdomen limited [id number] 01/08/2022 10:54 PM FINDINGS: Gastrointestinal tract: Normal. No bowel dilation. Bones/joints: Unremarkable. XR/XR KUB portable [id number] IMPRESSION: No acute findings.
--- NOTE | 2022-01-09 01:07 | PC.NURSE ---
Pt updated on plan of care, comfort measures offered, no immediate needs identified, call light in reach, mother at the bedside, will continue to monitor.
--- NOTE | 2022-01-09 01:42 | PC.NURSE ---
Ice chips given for PO trial, will recheck in 30 minutes and attempt to advance as tolerated.
--- NOTE | 2022-01-09 02:38 | PC.NURSE ---
Pt not tolerating PO well. Pt had 4, moderate sized bites of ice chips, she has kept it down, but is very nauseated. Reported to Dr. Raymond, orders received.
[2022-01-09] MEDS: prochlorperazine 10 mg/2 mL Inj IVP (03:05)
[2022-01-09 03:47] VITALS: BP 108/66; PULSE 60; RESP 14; O2SAT 97
[2022-01-09] MEDS: diphenhydrAMINE 50 mg/mL SDV 1mL 25 MG IVP (03:47)
[2022-01-09 04:31] VITALS: BP 105/72; PULSE 67; RESP 14; O2SAT 99
== END 2022-01-09 04:32 | disposition home or self-care (01) ==
PROVIDERS: Emergency Provider Emergency Medicine; PCP Family Medicine
DX: E86.0 Dehydration (principal); R11.2 Nausea with vomiting, unspecified
CPT/HCPCS: 74018; 76705; 80053; 81001; 83690; 85025; 96365; 96366; 96367; 96372; 96375; 96376; 99284; C9113; J0780; J1200; J2405; J2550; J3475; J3480; J7030

== ENCOUNTER 2022-01-12 08:54 | Emergency (ER) | payer MEDICAID, SELFPAY ==
[2022-01-12 09:09] VITALS: PULSE 82; RESP 18; TEMP 36.1; O2SAT 100; BMI 20.6
[2022-01-12 09:13] VITALS: PULSE 92; RESP 18; TEMP 36.3; O2SAT 100
--- NOTE | 2022-01-12 09:20 | ED_ITS ---
HPI - Nausea/Vomiting/Diarrhea General: Chief complaint: Nausea/Vomiting/Diarrhea Stated complaint: N/V cant keep antibiotics down Time Seen by Provider: 01/12/22 09:10 Source: patient Mode of arrival: ambulatory Limitations: no limitations History of Present Illness: 26-year-old female has a history of cyclical vomiting she has been having issues with this since last summer. She has had multiple testing and seeing GI in [place]. She states she is actually sees them again later this week states she has had increased vomiting over the last week states that she is unable to tolerate any of her p.o. medicines and vomited all night has abdominal cramping denies any fevers denies any worsening proving factors. Associated nausea: Yes Associated symtoms: Reports nausea; Denies chest pain, dysuria or headache(s) Review of Systems Const: Denies: fever(s), chills, body aches or change in appetite Eyes: Denies: blurry vision or eye discomfort ENMT: Denies: throat pain or dental pain Card: Denies: chest pain Resp: Denies: dyspnea GI: Reports: nausea and vomiting : Denies: dysuria Musc: Denies: neck pain or back pain Skin/Breast: Denies: rash Neuro: Denies: headache(s) Psych: Denies: depression Hood/Lymph: Denies: easy bruising All/Imm: Denies: urticaria PFSH ED PFSH: Medical History Allergic rhinitis Anxiety Asthma Chronic sinusitis Depression ITB syndrome OCD (obsessive compulsive disorder) Plica syndrome Surgical History H/O oral surgery S/P FESS (functional endoscopic sinus surgery) Family History Family/Other Lung disease Asthma Father Hypertension Hyperlipidemia Grandmother Hypertension Dementia Stroke Grandfather Hypertension Stroke Grandfather Hypertension Denies family history of Diabetes CAD (coronary artery disease) Clotting disorder Chronic kidney disease (CKD) Suicide Anesthesia complication Bleeding disorder Cancer Social History Smoking and tobacco status: never smoked Alcohol intake: never Lives independently: Yes Household members: other Marital status: Single Current occupational status: student Current occupational exposures/hazards: No Pets and animals: Yes Pets & animals: dog(s) History of recent travel: No Current gender identity: Female Physical Exam Const: COMMON NORMALS: no acute distress, patient oriented x3 and healthy appearing HENMT: COMMON NORMALS: normocephalic and atraumatic HEAD & SCALP: normocephalic and atraumatic Eye: COMMON NORMALS: Equal, round and reactive pupils present and EOMs intact bilaterally PUPIL: Yes Equal, round and reactive pupils present Neck/C-Spine: COMMON NORMALS: full ROM and supple Chest: COMMONS NORMALS: normal inspection of the chest and normal palpation of entire chest wall Resp: COMMON NORMALS: normal respiratory effort, No retractions, No use of accessory muscles and clear to auscultation bilaterally AUSCULTATION: clear to auscultation bilaterally Cardio: COMMON NORMALS: regular rate, regular rhythm and No murmurs present (Cardio) RATE: regular rate RHYTHM: regular rhythm GI: COMMON NORMALS: Normal to inspection, nondistended, normoactive bowel so unds present, Soft to palpation, non-tender and no masses PALPATION: Yes Soft to palpation Extremity: COMMON NORMALS: normal to inspection and full ROM Neuro: COMMON NORMALS: patient oriented x3, moves all extremities and no focal motor deficits Psych: COMMON NORMALS: mental status grossly normal, Normal thought process present and cooperative THOUGHT PROCESS: Normal thought process present Skin: COMMON NORMALS: no rashes or lesions noted and no wounds GENERAL SKIN EXAM: no rashes or lesions noted Course Vital Signs: Vital signs: Vital Signs Temperature 97.8 F 01/12/22 11:27 Pulse Rate 66 01/12/22 11:27 Respiratory Rate 18 01/12/22 11:27 Blood Pressure 109/61 01/12/22 11:27 Pulse Oximetry 90 01/12/22 11:27 MDM - Nausea/Vomiting/Diarrhea Medical Decision Making Patient presents here with vomiting does have a history of cyclical vomiting she actually feels much improved here and was able to tolerate p.o. will prescribe her rectal Phenergan along with some Ativan for as needed use. She has an appoint with her GI specialist this week she is to follow-up then return if worsening. Lab Data : 01/12/22 09:25 01/12/22 09:25 Laboratory Results WBC 3.1 10^3/uL (4.0-10.0) L 01/12/22 09:25 RBC 4.05 10^6/uL (4.1-5.3) L 01/12/22 09:25 Hgb 12.4 g/dL (11.5-15.3) 01/12/22 09:25 Hct 35.7 % (37.0-47.0) L 01/12/22:25 MCV 88.1 fl (81-99) 01/12/22 09:25 MCH 30.6 pg (28.0-34.0) 01/12/22 09: MCHC 34.7 g/dL (30.0-36.0) 01/12/22: RDW 14.2 % (12.1-15.1) 01/12/22 09:25 Plt Count 224 10^3/cmm (130-400) 01/12/22 09: MPV 10.2 fL (7.4-10.4) 01/12/22 09:25 Neut % (Auto) 36.6 % 01/12/22 09:25 Lymph % (Auto) 48.1 % 01/12/22 09:25 [place] % (Auto) 13.4 % 01/12/22 09:25 Eos % (Auto) 0.3 % 01/12/22 09:25 Baso % (Auto) 1.0 % 01/12/22:25 Neut # (Auto) 1.15 10^3/uL (1.8-7.7) L 01/12/22 09:25 Lymph # (Auto) 1.5 10^3/uL (0.8-4.8) 01/12/22 09:25 [place] # (Auto) 0.4 10^3/uL (0.2-0.9) 01/12/22 09:25 Eos # (Auto) 0.0 10^3/uL (0.0-0.8) 01/12/22 09:25 Baso # (Auto) 0.0 10^3/uL (0.0-0.1) 01/12/22 09:25 Nucleated RBC % (auto) 0 % 01/12/22: Nucleated RBCs # 0.0 /100WBC 01/12/22 09:25 Sodium 137 mmol/L (136-145) 01/12/22 09:25 Potassium 3.5 mmol/L (3.5-5.1) 01/12/22 09:25 Chloride 98 mmol/L (98-107) 01/12/22 09:25 Carbon Dioxide 18 mmol/L (22-29) L 01/12/22 09:25 Anion Gap 24.5 (5-19) H 01/12/22 09:25 BUN 2 mg/dL (6-20) L 01/12/22 09:25 Creatinine 0.4 mg/dL (0.5-0.9) L 01/12/22 09:25 GFR Calculation 192.9 mL/min (90-130) H 01/12/22 09:25 Glucose 71 mg/dL (65-115) 01/12/22 09:25 POC Glucose 62 mg/dL (70-110) L 01/12/22 09:18 Calculated Osmolality 279 mOsm/kg (285-295) L 01/12/22 09:25 Calcium 8.7 mg/dL (8.5-10.5) 01/12/22 09:25 Total Bilirubin 0.8 mg/dL (0.15-1.2) 01/12/22 09:25 AST 24 U/L (0-32) 01/12/22 09:25 ALT 45 U/L (0-33) H 01/12/22 09:25 Alkaline Phosphatase 35 IU/L (35-105) 01/12/22 09:25 Total Protein 6.7 g/dL (6.6-8.7) 01/12/22 09:25 Albumin 4.7 g/dL (3.5-5.2) 01/12/22 09:25 Globulin 2.0 g/dL (1.3-4.6) 01/12/22 09:25 Lipase 35 U/L (13-60) 01/12/22 09:25 HCG, Qual Negative (Negative) 01/12/22 09:35 Urine Color [place] (Yellow) 01/12/22 10:45 Urine Appearance Hazy (CLEAR) A 01/12/22 10:45 Urine pH 6 (5-7) 01/12/22 10:45 Ur Specific [place] 1.025 (1.005-1.030) 01/12/22 10:45 Urine Protein Neg (Negative) 01/12/22 10:45 Urine Glucose (UA) Norm (Normal) 01/12/22 10:45 Urine Ketones 3+ (Negative) H 01/12/22 10:45 Urine Blood Neg (Negative) 01/12/22 10:45 Urine Nitrate Negative (Negative) 01/12/22 10:45 Urine Bilirubin 1+ (Negative) H 01/12/22 10:45 Urine Urobilinogen Norm mg/dL (Negative) 01/12/22 10:45 Ur Leukocyte Esterase Negative (Negative) 01/12/22 10:45 Urine RBC None /hpf (0-2) 01/12/22 10:45 Urine WBC Rare /hpf (0-5) 01/12/22 10:45 Ur Squamous Epith Cells 10-15 /hpf (0-5) H 01/12/22 10:45 Amorphous Sediment Not Reportable 01/12/22 10:45 Urine Bacteria Trace /hpf (NONE) 01/12/22 10:45 Hyaline Casts 0-4 /lpf H 01/12/22 10:45 Urine Mucus 2+ /hpf 01/12/22 10:45 Discharge Plan Discharge Patient Disposition: Home Clinical Impression: Vomiting Qualifiers: Vomiting type: unspecified Nausea presence: with nausea Qualified Code(s): R11.2 - Nausea with vomiting, unspecified Condition: Stable Prescriptions: New promethazine 25 mg suppository 25 mg [place] Q4H PRN (Reason: nausea and vomiting) Qty: 12 1RF Ativan 1 mg tablet 0.5 mg PO Q12H PRN (Reason: nausea and vomiting) Qty: 10 0RF No Action fexofenadine [Christina Allergy] 180 mg tablet 180 mg PO TID 0RF epinephrine [Auvi-Q] 0.3 mg/0.3 mL auto-injector 0.3 mg IM Q10M PRN (Reason: Allergic Reaction) 0RF Rx Instructions: for 2 doses montelukast [Singulair] 10 mg tablet 10 mg PO DAILY 0RF Complete Multivitamin Tablet 1 tab PO DAILY 0RF naproxen [EC-Naproxen] 500 mg tablet,delayed release (DR/EC) 500 mg PO Q8H PRN (Reason: pain) 0RF albuterol sulfate [ProAir HFA] 90 mcg/actuation HFA aerosol inhaler 2 puff INHALATION Q6H PRN (Reason: Shortness Of Breath) 0RF sertraline 50 mg tablet 50 mg PO DAILY 0RF budesonide-formoterol [Symbicort] 160-4.5 mcg/actuation HFA aerosol inhaler 2 puff INHALATION BID 0RF [id number] fumarate 600-125-18 mg-unit-mg tablet 1 tab PO DAILY 0RF azelastine 137 mcg (0.1 %) aerosol,spray 2 spray INTRANASAL BID 30 Days Qty: 30 2RF Rx Instructions: administer into each nostril metoprolol succinate 50 mg tablet extended release 24 hr 50 mg PO DAILY 0RF ondansetron HCl [Zofran] 4 mg tablet 4 mg PO Q8H 0RF famotidine [Pepcid] 20 mg tablet 20 mg PO BID 0RF Compazine 10 mg tablet 10 mg PO Q8H PRN (Reason: nausea and vomiting) Qty: 10 0RF Rx Instructions: May take with 25 mg of Benadryl for restlessness sumatriptan succinate 50 mg tablet 50 mg PO DAILY PRN (Reason: Migraine Headache) 0RF Reglan 10 mg tablet 10 mg PO Q6H PRN (Reason: nausea and vomiting) Qty: 15 0RF Discharge Orders: Discharge ED (Routine); Ordered 01/12/22 Ordered By: Edward Munguia Referrals: Melissa Stovall MD [Primary Care Provider] - Discharge Diet: Advance as tolerated Discharge Activity: Resume usual activity Patient Instructions: Acute Nausea and Vomiting (ED) 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 Code ED Thread Machine Operator for Chg Fwd Exam Comprehensive
[2022-01-12 09:28] LABS: Glucose Point of Care 62 mg/dL (70-110)
[2022-01-12 09:30] LABS: Eosinophils % 0.3 %; Hematocrit 35.7 % (37.0-47.0); Hemoglobin 12.4 g/dL (11.5-15.3); Lymphocytes # 1.5 10^3/uL (0.8-4.8); Lymphocytes % 48.1 %; Mean Corpuscular HGB Conc 34.7 g/dL (30.0-36.0); Mean Corpuscular Hemoglobin 30.6 pg (28.0-34.0); Mean Corpuscular Volume 88.1 fl (81-99); Mean Platelet Volume 10.2 fL (7.4-10.4); Monocytes # 0.4 10^3/uL (0.2-0.9); Monocytes % 13.4 %; Neutrophils # 1.15 10^3/uL (1.8-7.7); Neutrophils % 36.6 %; Nucleated Red Blood Cells % 0 %; Platelet Count 224 10^3/cmm (130-400); Red Blood Count 4.05 10^6/uL (4.1-5.3); Red Cell Distribution Width 14.2 % (12.1-15.1); White Blood Count 3.1 10^3/uL (4.0-10.0)
[2022-01-12] MEDS: sodium chloride 0.9% 1,000 ML 999 ML IV ×2 (09:31→10:39)
[2022-01-12] MEDS: diphenhydrAMINE 50 mg/mL SDV 1mL IVP (09:32)
[2022-01-12] MEDS: ondansetron 2 mg/ML SDV 2 mL 4 MG IVP (09:48)
[2022-01-12] MEDS: LORazepam 2 mg/mL INJ 1 mL 1 MG IVP (09:48)
[2022-01-12 09:58] LABS: Alanine Aminotransferase 45 U/L (0-33); Albumin Level 4.7 g/dL (3.5-5.2); Alkaline Phosphatase 35 IU/L (35-105); Blood Urea Nitrogen 2 mg/dL (6-20); Calcium 8.7 mg/dL (8.5-10.5); Carbon Dioxide 18 mmol/L (22-29); Chloride 98 mmol/L (98-107); Glomerular Filtration Rate 192.9 mL/min (90-130); Glucose 71 mg/dL (65-115); Lipase 35 U/L (13-60); Osmolality Calculated 279 mOsm/kg (285-295); Sodium 137 mmol/L (136-145); Total Bilirubin 0.8 mg/dL (0.15-1.2); Total Protein 6.7 g/dL (6.6-8.7)
[2022-01-12 10:01] LABS: Anion Gap 24.5 (5-19); Potassium 3.5 mmol/L (3.5-5.1)
[2022-01-12 10:02] LABS: Aspartate Amino Transferase 24 U/L (0-32)
[2022-01-12 10:03] LABS: HCG, Serum Qual Negative (Negative)
[2022-01-12] MEDS: lidocaine 2% viscous 1.667 ML, diphenhydrAMINE oral liq 4.165 MG, aluminum-mag hydrox-s... MUCOUS MEM (10:03)
[2022-01-12 11:18] LABS: Add Urine Microscopic? YES; Bilirubin Urine 1+ (Negative); Blood Urine Neg (Negative); Glucose Urine UA Norm (Normal); Ketones Urine 3+ (Negative); Leukocyte Esterase Urine Negative (Negative); Nitrate Urine Negative (Negative); Protein Urine Neg (Negative); Specific Gravity, Urine 1.025 (1.005-1.030); Urine Appearance Hazy (CLEAR); Urine Color Straw (Yellow); Urobilinogen Urine Norm (Negative); pH Urine 6 (5-7)
[2022-01-12 11:20] LABS: Add Urine Culture? No; Bacteria Urine TRACE /hpf; Hyaline Casts Urine 0-4 /lpf; Mucus Urine 2+ /hpf; WBC Urine RARE /hpf (0-5)
[2022-01-12 11:27] VITALS: BP 109/61; PULSE 66; RESP 18; TEMP 36.6; O2SAT 90
== END 2022-01-12 11:38 | disposition home or self-care (01) ==
PROVIDERS: Emergency Provider Emergency Medicine; PCP Family Medicine
DX: R11.2 Nausea with vomiting, unspecified (principal)
CPT/HCPCS: 36416; 80053; 81001; 82962; 83690; 84703; 85025; 96361; 96374; 96375; 99284; J1200; J2060; J2405; J2765; J7030

== ENCOUNTER 2022-01-15 08:38 | Emergency (ER) | payer OTHER, MEDICAID, SELFPAY ==
[2022-01-15 08:46] VITALS: BP 113/77; PULSE 123; RESP 16; TEMP 36.3; O2SAT 99; BMI 19.9
[2022-01-15] MEDS: sodium chloride 0.9% 1,000 ML 999 ML IV (09:33)
[2022-01-15] MEDS: haloperidol inj 5 mg/mL INJ 1 mL IVP (09:35)
[2022-01-15] MEDS: diphenhydrAMINE 50 mg/mL SDV 1mL 25 MG IVP (09:36)
--- NOTE | 2022-01-15 09:36 | W.ED.NAVMDI ---
HPI - Nausea/Vomiting/Diarrhea General: Chief complaint: Nausea/Vomiting/Diarrhea Stated complaint: severe vomiting/back pain Time Seen by Provider: 01/15/22 08:54 History of Present Illness: Patient comes in with nausea and vomiting. States that it started last night. 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 States she has been to the ER multiple times with negative CT, negative ultrasounds, and unremarkable labs. Patient denies any history of diabetes or marijuana use. 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 States she developed anxiety her senior year of undergrad. I talked her at length about the possibility of this being functional nausea and vomiting as well as possible abdominal migraines. Associated nausea: Yes Associated symtoms: Reports nausea; Denies anxiety, change in vision, chest pain, dysuria, headache(s) or palpitations Review of Systems Const: Denies: fever(s) or body aches Eyes: Denies: change in vision or blurry vision ENMT: Denies: throat pain or odynophagia Card: Denies: chest pain or palpitations Resp: Denies: dyspnea or productive cough GI: Reports: abdominal pain, nausea and vomiting : Denies: flank pain or dysuria Musc: Denies: neck pain or back pain Skin/Breast: Denies: rash or pruritus Neuro: Denies: headache(s) or numbness in extremities Psych: Denies: anxiety or change in appetite Endo: Denies: polyuria or excessive sweating PFSH ED PFSH: Medical History Allergic rhinitis Anxiety Asthma Chronic sinusitis Depression ITB syndrome OCD (obsessive compulsive disorder) Plica syndrome Surgical History H/O oral surgery S/P FESS (functional endoscopic sinus surgery) Family History Family/Other Lung disease Asthma Father Hypertension Hyperlipidemia Grandmother Hypertension Dementia Stroke Grandfather Hypertension Stroke Grandfather Hypertension Denies family history of Diabetes CAD (coronary artery disease) Clotting disorder Chronic kidney disease (CKD) Suicide Anesthesia complication Bleeding disorder Cancer Social History Smoking and tobacco status: never smoked Alcohol intake: never Lives independently: Yes Household members: other Marital status: Single Current occupational status: student Current occupational exposures/hazards: No Pets and animals: Yes Pets & animals: dog(s) History of recent travel: No Current gender identity: Female Physical Exam Const: COMMON NORMALS: no acute distress, patient oriented x3, healthy appearing and alert HENMT: COMMON NORMALS: normocephalic and atraumatic HEAD & SCALP: normocephalic and atraumatic Eye: COMMON NORMALS: Equal, round and reactive pupils present and EOMs intact bilaterally PUPIL: Yes Equal, round and reactive pupils present Neck/C-Spine: COMMON NORMALS: full ROM and supple Resp: COMMON NORMALS: normal respiratory effort, No retractions and No use of accessory muscles Cardio: COMMON NORMALS: regular rhythm RHYTHM: regular rhythm OTHER: Tachycardia GI: COMMON NORMALS: Normal to inspection, nondistended, normoactive bowel sounds present, Soft to palpation and non-tender PALPATION: Yes Soft to palpation Back/Pelvis: COMMON NORMALS: thoracic and lumbar spine normal to inspection and no thoracic nor lumbar tenderness Extremity: COMMON NORMALS: normal to inspection and full ROM Neuro: COMMON NORMALS: patient oriented x3 SENSORIUM/ORIENTATION: Yes alert Psych: COMMON NORMALS: mental status grossly normal and cooperative Skin: COMMON NORMALS: no rashes or lesions noted and no wounds GENERAL SKIN EXAM: no rashes or lesions noted Course Vital Signs: Vital signs: Vital Signs Temperature 97.4 F L 01/15/22 08:46 Pulse Rate 123 H 01/15/22 08:46 Respiratory Rate 16 01/15/22 08:46 Blood Pressure 113/77 01/15/22 08:46 Pulse Oximetry 99 01/15/22 08:46 MDM - Nausea/Vomiting/Diarrhea Medical Decision Making Patient comes in with nausea and vomiting. States that it started last night. 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 States she has been to the ER multiple times with negative CT, negative ultrasounds, and unremarkable labs. Patient denies any history of diabetes or marijuana use. 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 States she developed anxiety her senior year of undergrad. I talked her at length about the possibility of this being functional nausea and vomiting as well as possible abdominal migraines. On physical exam she is pale and mildly tachycardic. Will check labs, treat her symptoms with Haldol and Benadryl, give IV fluids, and reassess. On reassessment the patient is resting comfortably in a gurney. I talked to her mother about the test results. Will discharge at this time with precautions to return for worsening or changing symptoms. Lab Data : 01/15/22 09:25 01/15/22 09:25 Laboratory Results WBC 6.4 10^3/uL (4.0-10.0) 01/15/22 09:25 RBC 4.43 10^6/uL (4.1-5.3) 01/15/22 09:25 Hgb 13.3 g/dL (11.5-15.3) 01/15/22 09:25 Hct 38.3 % (37.0-47.0) 01/15/22 09:25 MCV 86.5 fl (81-99) 01/15/22 09:25 MCH 30.0 pg (28.0-34.0) 01/15/22 09: MCHC 34.7 g/dL (30.0-36.0) 01/15/22: RDW 14.5 % (12.1-15.1) 01/15/22 09:25 Plt Count 297 10^3/cmm (130-400) 01/15/22 09:25 MPV 9.9 fL (7.4-10.4) 01/15/22 09:25 Neut % (Auto) 55.4 % 01/15/22 09:25 Lymph % (Auto) 30.3 % 01/15/22 09:25 [place] % (Auto) 12.9 % 01/15/22 09:25 Eos % (Auto) 0.6 % 01/15/22 09:25 Baso % (Auto) 0.6 % 01/15/22:25 Neut # (Auto) 3.52 10^3/uL (1.8-7.7) 01/15/22 09:25 Lymph # (Auto) 1.9 10^3/uL (0.8-4.8) 01/15/22 09:25 [place] # (Auto) 0.8 10^3/uL (0.2-0.9) 01/15/22 09:25 Eos # (Auto) 0.0 10^3/uL (0.0-0.8) 01/15/22 09:25 Baso # (Auto) 0.0 10^3/uL (0.0-0.1) 01/15/22 09:25 Nucleated RBC % (auto) 0 % 01/15/22 09:25 Nucleated RBCs # 0.0 /100WBC 01/15/22 09:25 Sodium 140 mmol/L (136-145) 01/15/22 09:25 Potassium 3.8 mmol/L (3.5-5.1) 01/15/22 09:25 Chloride 99 mmol/L (98-107) 01/15/22 09:25 Carbon Dioxide 18 mmol/L (22-29) L 01/15/22 09:25 Anion Gap 26.8 (5-19) H 01/15/22 09:25 BUN 3 mg/dL (6-20) L 01/15/22 09:25 Creatinine 0.5 mg/dL (0.5-0.9) 01/15/22 09:25 GFR Calculation 149.1 mL/min (90-130) H 01/15/22 09:25 Glucose 87 mg/dL (65-115) 01/15/22 09:25 Calculated Osmolality 286 mOsm/kg (285-295) 01/15/22 09:25 Calcium 9.9 mg/dL (8.5-10.5) 01/15/22 09:25 Total Bilirubin 0.8 mg/dL (0.15-1.2) 01/15/22 09:25 AST 45 U/L (0-32) H 01/15/22 09:25 ALT 87 U/L (0-33) H 01/15/22 09:25 Alkaline Phosphatase 38 IU/L (35-105) 01/15/22 09:25 Total Protein 7.0 g/dL (6.6-8.7) 01/15/22 09:25 Albumin 4.6 g/dL (3.5-5.2) 01/15/22 09:25 Globulin 2.4 g/dL (1.3-4.6) 01/15/22 09:25 Discharge Plan Discharge Patient Disposition: Home Clinical Impression: Cyclical vomiting Condition: Stable Prescriptions: No Action fexofenadine [Christina Allergy] 180 mg tablet 180 mg PO TID 0RF epinephrine [Auvi-Q] 0.3 mg/0.3 mL auto-injector 0.3 mg IM Q10M PRN (Reason: Allergic Reaction) 0RF Rx Instructions: for 2 doses montelukast [Singulair] 10 mg tablet 10 mg PO DAILY 0RF Complete Multivitamin Tablet 1 tab PO DAILY 0RF naproxen [EC-Naproxen] 500 mg tablet,delayed release (DR/EC) 500 mg PO Q8H PRN (Reason: pain) 0RF albuterol sulfate [ProAir HFA] 90 mcg/actuation HFA aerosol inhaler 2 puff INHALATION Q6H PRN (Reason: Shortness Of Breath) 0RF sertraline 50 mg tablet 50 mg PO DAILY 0RF budesonide-formoterol [Symbicort] 160-4.5 mcg/actuation HFA aerosol inhaler 2 puff INHALATION BID 0RF [id number] fumarate 600-125-18 mg-unit-mg tablet 1 tab PO DAILY 0RF azelastine 137 mcg (0.1 %) aerosol,spray 2 spray INTRANASAL BID 30 Days Qty: 30 2RF Rx Instructions: administer into each nostril metoprolol succinate 50 mg tablet extended release 24 hr 50 mg PO DAILY 0RF ondansetron HCl [Zofran] 4 mg tablet 4 mg PO Q8H 0RF famotidine [Pepcid] 20 mg tablet 20 mg PO BID 0RF Compazine 10 mg tablet 10 mg PO Q8H PRN (Reason: nausea and vomiting) Qty: 10 0RF Rx Instructions: May take with 25 mg of Benadryl for restlessness sumatriptan succinate 50 mg tablet 50 mg PO DAILY PRN (Reason: Migraine Headache) 0RF Reglan 10 mg tablet 10 mg PO Q6H PRN (Reason: nausea and vomiting) Qty: 15 0RF promethazine 25 mg suppository 25 mg AR Q4H PRN (Reason: nausea and vomiting) Qty: 12 1RF Ativan 1 mg tablet 0.5 mg PO Q12H PRN (Reason: nausea and vomiting) Qty: 10 0RF Discharge Orders: Discharge ED (Routine); Ordered 01/15/22 Ordered By: Bimal Vance Referrals: Melissa Stovall MD [Primary Care Provider] - 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 Code ED Seed Laboratory Technician for Chg Fwd Exam Comprehensive
[2022-01-15 09:50] LABS: Basophils % 0.6 %; Eosinophils % 0.6 %; Hematocrit 38.3 % (37.0-47.0); Hemoglobin 13.3 g/dL (11.5-15.3); Lymphocytes # 1.9 10^3/uL (0.8-4.8); Lymphocytes % 30.3 %; Mean Corpuscular HGB Conc 34.7 g/dL (30.0-36.0); Mean Corpuscular Volume 86.5 fl (81-99); Mean Platelet Volume 9.9 fL (7.4-10.4); Monocytes # 0.8 10^3/uL (0.2-0.9); Monocytes % 12.9 %; Neutrophils # 3.52 10^3/uL (1.8-7.7); Neutrophils % 55.4 %; Nucleated Red Blood Cells % 0 %; Platelet Count 297 10^3/cmm (130-400); Red Blood Count 4.43 10^6/uL (4.1-5.3); Red Cell Distribution Width 14.5 % (12.1-15.1); White Blood Count 6.4 10^3/uL (4.0-10.0)
[2022-01-15] MEDS: ondansetron 2 mg/ML SDV 2 mL 4 MG IVP (09:59)
[2022-01-15 10:37] LABS: Alanine Aminotransferase 87 U/L (0-33); Albumin Level 4.6 g/dL (3.5-5.2); Alkaline Phosphatase 38 IU/L (35-105); Anion Gap 26.8 (5-19); Aspartate Amino Transferase 45 U/L (0-32); Blood Urea Nitrogen 3 mg/dL (6-20); Calcium 9.9 mg/dL (8.5-10.5); Carbon Dioxide 18 mmol/L (22-29); Chloride 99 mmol/L (98-107); Globulin 2.4 g/dL (1.3-4.6); Glomerular Filtration Rate 149.1 mL/min (90-130); Glucose 87 mg/dL (65-115); Osmolality Calculated 286 mOsm/kg (285-295); Potassium 3.8 mmol/L (3.5-5.1); Sodium 140 mmol/L (136-145); Total Bilirubin 0.8 mg/dL (0.15-1.2)
[2022-01-15 11:48] VITALS: BP 113/77; PULSE 123; RESP 16; TEMP 36.3; O2SAT 99
== END 2022-01-15 11:50 | disposition home or self-care (01) ==
PROVIDERS: Emergency Provider Emergency Medicine; PCP Family Medicine
DX: R11.15 Cyclical vomiting syndrome unrelated to migraine (principal)
CPT/HCPCS: 80053; 85025; 96361; 96374; 96375; 99284; J1200; J1630; J2405; J7030

== ENCOUNTER 2022-01-18 09:08 | Emergency (ER) | payer OTHER, MEDICAID, SELFPAY ==
[2022-01-18 09:19] VITALS: BP 90/68; PULSE 129; RESP 15; TEMP 36.9; O2SAT 100; BMI 19.2
[2022-01-18 10:11] LABS: Glucose Point of Care 86 mg/dL (70-110)
--- NOTE | 2022-01-18 10:15 | CTR_ITS ---
PROCEDURE INFORMATION: Exam: CT Abdomen And Pelvis With Contrast Exam date and time: 01/18/2022 10:43 AM Age: 26 years old Clinical indication: Abdominal pain; Generalized; Additional info: Right side abd pain TECHNIQUE: Imaging protocol: Computed tomography of the abdomen and pelvis with contrast. Radiation optimization: All CT scans at this facility use at least one of these dose optimization techniques: automated exposure control; mA and/or kV adjustment per patient size (includes targeted exams where dose is matched to clinical indication); or iterative reconstruction. Contrast material: OMNIPAQUE 300; Contrast volume: 50 ml; Contrast route: INTRAVENOUS (IV); COMPARISON: CR (ABDOMEN, ) 01/09/2022 12:54 AM RADIATION DOSE METRICS: Total DLP (mGy-cm): 898.71 FINDINGS: Lungs: The visualized lung bases demonstrate no focal airspace opacification or pleural effusion. Heart: The visualized heart is within normal limits for size. There is no evidence of pericardial abnormality. Liver: Area of hypoattenuation along the anterior margin of the liver adjacent to the falciform ligament consistent with focal fatty infiltration. The liver is normal in size and contour. Gallbladder and bile ducts: The gallbladder is distended with normal wall thickness and does not demonstrate calcified gallstones. No intra- or extra-hepatic biliary ductal dilatation. Pancreas: The pancreas appears normal. Spleen: Small splenule noted. The spleen appears unremarkable. Adrenal glands: The adrenals appear normal. Kidneys and ureters: The kidneys enhance symmetrically and empty into non-dilated ureters. Stomach and bowel: The stomach is unremarkable. The small bowel loops are not abnormally dilated. The large bowel loops are not abnormally dilated. Appendix: Appendicoliths noted within the appendix. No signs of acute appendicitis. Intraperitoneal space: No ascites or significant fluid collection. Vasculature: The aorta is nonaneurysmal. The IVC appears normal. Lymph nodes: There are no enlarged lymph nodes. Urinary bladder: The bladder is distended and demonstrates no focal contour abnormality. Reproductive: The ovaries appear normal. The uterus is retroverted. Bones/joints: Unremarkable. Soft tissues: Unremarkable. CT/CT abdomen pelvis w con* [id number] IMPRESSION: 1. No acute abdominopelvic abnormality identified. 2. Appendicoliths noted within the appendix. No signs of acute appendicitis.
[2022-01-18 10:43] LABS: Basophils % 0.7 %; Eosinophils % 0.2 %; Hemoglobin 13.9 g/dL (11.5-15.3); Lymphocytes # 1.5 10^3/uL (0.8-4.8); Lymphocytes % 26.2 %; Mean Corpuscular HGB Conc 33.9 g/dL (30.0-36.0); Mean Corpuscular Hemoglobin 30.3 pg (28.0-34.0); Mean Corpuscular Volume 89.5 fl (81-99); Mean Platelet Volume 9.8 fL (7.4-10.4); Monocytes # 0.7 10^3/uL (0.2-0.9); Monocytes % 12.1 %; Neutrophils # 3.54 10^3/uL (1.8-7.7); Neutrophils % 60.5 %; Nucleated Red Blood Cells % 0 %; Platelet Count 374 10^3/cmm (130-400); Red Blood Count 4.58 10^6/uL (4.1-5.3); Red Cell Distribution Width 14.6 % (12.1-15.1); White Blood Count 5.9 10^3/uL (4.0-10.0)
[2022-01-18] MEDS: iohexol 300 mg/mL 100 mL Btl IV (10:46)
[2022-01-18 11:00] LABS: Alanine Aminotransferase 102 U/L (0-33); Albumin Level 5.1 g/dL (3.5-5.2); Alkaline Phosphatase 43 IU/L (35-105); Anion Gap 27.3 (5-19); Aspartate Amino Transferase 45 U/L (0-32); Blood Urea Nitrogen 8 mg/dL (6-20); Calcium 10.2 mg/dL (8.5-10.5); Carbon Dioxide 19 mmol/L (22-29); Chloride 100 mmol/L (98-107); Globulin 3.3 g/dL (1.3-4.6); Glomerular Filtration Rate 192.9 mL/min (90-130); Glucose 97 mg/dL (65-115); Lipase 81 U/L (13-60); Osmolality Calculated 294 mOsm/kg (285-295); Potassium 3.3 mmol/L (3.5-5.1); Sodium 143 mmol/L (136-145); Total Bilirubin 1.1 mg/dL (0.15-1.2); Total Protein 8.4 g/dL (6.6-8.7)
[2022-01-18] MEDS: pantoprazole 40 mg SDV 80 MG IVP (11:04)
[2022-01-18] MEDS: ondansetron 2 mg/ML SDV 2 mL 4 MG IVP ×2 (11:05→13:33)
[2022-01-18] MEDS: sodium chloride 0.9% 1,000 ML 999 ML IV ×2 (11:10→12:09)
--- NOTE | 2022-01-18 11:16 | ED_ITS ---
HPI - Abdominal Pain General: Chief Complaint: Abdominal Pain Stated Complaint: vomiting/nausea/right side pain Time Seen by Provider: 01/18/22 09:45 History of Present Illness: Patient comes in with right upper quadrant abdominal pain, nausea, vomiting, inability to eat. Patient has been seen here numerous times for the same over the last couple of months. States that she has seen GI and had an upper endoscopy which showed some mild gastritis. She is scheduled for gastric emptying study this next month. States that she has lost upwards of 30 pounds. States that she spoke with her primary care doctor yesterday and they put a referral in for the patient to be seen at [facility]. Associated Symptoms: Reports nausea and vomiting; Denies dysuria and fever(s) Review of Systems Const: Denies: fever(s) or body aches Eyes: Denies: change in vision or blurry vision ENMT: Denies: throat pain or odynophagia Card: Denies: chest pain or palpitations Resp: Denies: dyspnea or productive cough GI: Reports: abdominal pain, nausea and vomiting : Denies: flank pain or dysuria Musc: Denies: neck pain or back pain Skin/Breast: Denies: rash or pruritus Neuro: Denies: headache(s) or numbness in extremities Psych: Denies: anxiety or change in appetite Endo: Denies: polyuria or excessive sweating PFSH ED PFSH: Medical History Allergic rhinitis Anxiety Asthma Chronic sinusitis Depression ITB syndrome OCD (obsessive compulsive disorder) Plica syndrome Surgical History H/O oral surgery S/P FESS (functional endoscopic sinus surgery) Family History Family/Other Lung disease Asthma Father Hypertension Hyperlipidemia Grandmother Hypertension Dementia Stroke Grandfather Hypertension Stroke Grandfather Hypertension Denies family history of Diabetes CAD (coronary artery disease) Clotting disorder Chronic kidney disease (CKD) Suicide Anesthesia complication Bleeding disorder Cancer Social History Smoking and tobacco status: never smoked Alcohol intake: never Lives independently: Yes Household members: other Marital status: Single Current occupational status: student Current occupational exposures/hazards: No Pets and animals: Yes Pets & animals: dog(s) History of recent travel: No Current gender identity: Female Physical Exam Const: COMMON NORMALS: patient oriented x3 and alert OTHER: Ill-appearing and pale HENMT: COMMON NORMALS: normocephalic and atraumatic HEAD & SCALP: normocephalic and atraumatic OTHER: Dry mucous membranes Eye: COMMON NORMALS: Equal, round and reactive pupils present and EOMs intact bilaterally PUPIL: Yes Equal, round and reactive pupils present Neck/C-Spine: COMMON NORMALS: full ROM and supple Resp: COMMON NORMALS: normal respiratory effort, No retractions and No use of accessory muscles Cardio: COMMON NORMALS: regular rhythm RHYTHM: regular rhythm OTHER: Tachycardia GI: COMMON NORMALS: Normal to inspection, nondistended, normoactive bowel sounds present, Soft to palpation and non-tender PALPATION: Yes Soft to palpation Back/Pelvis: COMMON NORMALS: thoracic and lumbar spine normal to inspection and no thoracic nor lumbar tenderness Extremity: COMMON NORMALS: normal to inspection and full ROM Neuro: COMMON NORMALS: patient oriented x3 SENSORIUM/ORIENTATION: Yes alert Psych: COMMON NORMALS: mental status grossly normal and cooperative Skin: COMMON NORMALS: no rashes or lesions noted and no wounds GENERAL SKIN EXAM: no rashes or lesions noted Course Vital Signs: Vital signs: Vital Signs Temperature 98.4 F 01/18/22 09:19 Pulse Rate 129 H 01/18/22 09:19 Respiratory Rate 15 01/18/22 09:19 Blood Pressure 90/68 01/18/22 09:19 Pulse Oximetry 100 01/18/22 09:19 MDM - Abdominal Pain Medical Decision Making Patient comes in with right upper quadrant abdominal pain, nausea, vomiting, inability to eat. Patient has been seen here numerous times for the same over the last couple of months. States that she has seen GI and had an upper endoscopy which showed some mild gastritis. She is scheduled for gastric emptying study this next month. States that she has lost upwards of 30 pounds. States that she spoke with her primary care doctor yesterday and they put a referral in for the patient to be seen at [facility]. On physical exam she is pale and ill-appearing, with dry mucous membranes. Will check labs, CT, treat nausea with IV Zofran, give a dose of steroids, IV Protonix, IV fluids, and reassess. On reassessment I talked to the patient about the test results. She has an anion gap acidosis. I talked them about being admitted and they state they will likely go to [facility] instead of waiting for the referral to [facility]. Will discharge at this time with precautions return for worsening or changing sym ptoms. Lab Data : 01/18/22 09:40 01/18/22 09:40 Labs/Radiology: Radiology Impressions Abdomen/Pelvis CT 01/18/22 10:15 IMPRESSION: 1. No acute abdominopelvic abnormality identified. 2. Appendicoliths noted within the appendix. No signs of acute appendicitis. Laboratory Results WBC 5.9 10^3/uL (4.0-10.0) 01/18/22 09:40 RBC 4.58 10^6/uL (4.1-5.3) 01/18/22 09:40 Hgb 13.9 g/dL (11.5-15.3) 01/18/22 09:40 Hct 41.0 % (37.0-47.0) 01/18/22 09:40 MCV 89.5 fl (81-99) 01/18/22 09:40 MCH 30.3 pg (28.0-34.0) 01/18/22 09:40 MCHC 33.9 g/dL (30.0-36.0) 01/18/22 09:40 RDW 14.6 % (12.1-15.1) 01/18/22 09:40 Plt Count 374 10^3/cmm (130-400) 01/18/22 09:40 MPV 9.8 fL (7.4-10.4) 01/18/22 09:40 Neut % (Auto) 60.5 % 01/18/22 09:40 Lymph % (Auto) 26.2 % 01/18/22 09:40 [place] % (Auto) 12.1 % 01/18/22 09:40 Eos % (Auto) 0.2 % 01/18/22 09:40 Baso % (Auto) 0.7 % 01/18/22 09:40 Neut # (Auto) 3.54 10^3/uL (1.8-7.7) 01/18/22 09:40 Lymph # (Auto) 1.5 10^3/uL (0.8-4.8) 01/18/22 09:40 [place] # (Auto) 0.7 10^3/uL (0.2-0.9) 01/18/22 09:40 Eos # (Auto) 0.0 10^3/uL (0.0-0.8) 01/18/22 09:40 Baso # (Auto) 0.0 10^3/uL (0.0-0.1) 01/18/22 09:40 Nucleated RBC % (auto) 0 % 01/18/22 09:40 Nucleated RBCs # 0.0 /100WBC 01/18/22 09:40 Sodium 143 mmol/L (136-145) 01/18/22 09:40 Potassium 3.3 mmol/L (3.5-5.1) L 01/18/22 09:40 Chloride 100 mmol/L (98-107) 01/18/22 09:40 Carbon Dioxide 19 mmol/L (22-29) L 01/18/22 09:40 Anion Gap 27.3 (5-19) H 01/18/22 09:40 BUN 8 mg/dL (6-20) 01/18/22 09:40 Creatinine 0.4 mg/dL (0.5-0.9) L 01/18/22 09:40 GFR Calculation 192.9 mL/min (90-130) H 01/18/22 09:40 Glucose 97 mg/dL (65-115) 01/18/22 09:40 POC Glucose 86 mg/dL (70-110) 01/18/22 10:08 Calculated Osmolality 294 mOsm/kg (285-295) 01/18/22 09:40 Calcium 10.2 mg/dL (8.5-10.5) 01/18/22 09:40 Total Bilirubin 1.1 mg/dL (0.15-1.2) 01/18/22 09:40 AST 45 U/L (0-32) H 01/18/22 09:40 ALT 102 U/L (0-33) H 01/18/22 09:40 Alkaline Phosphatase 43 IU/L (35-105) 01/18/22 09:40 Total Protein 8.4 g/dL (6.6-8.7) 01/18/22 09:40 Albumin 5.1 g/dL (3.5-5.2) 01/18/22 09:40 Globulin 3.3 g/dL (1.3-4.6) 01/18/22 09:40 Lipase 81 U/L (13-60) H 01/18/22 09:40 Urine Color Yellow (Yellow) 01/18/22 09:40 Urine Appearance Sl hazy (CLEAR) 01/18/22 09:40 Urine pH 6 (5-7) 01/18/22 09:40 Ur Specific [place] 1.025 (1.005-1.030) 01/18/22 09:40 Urine Protein Trace (Negative) 01/18/22 09:40 Urine Glucose (UA) Norm (Normal) 01/18/22 09:40 Urine Ketones 3+ (Negative) H 01/18/22 09:40 Urine Blood 2+ (Negative) H 01/18/22 09:40 Urine Nitrate Negative (Negative) 01/18/22 09:40 Urine Bilirubin 2+ (Negative) H 01/18/22 09:40 Urine Urobilinogen 4 mg/dL (Negative) H 01/18/22 09:40 Ur Leukocyte Esterase 1+ (Negative) H 01/18/22 09:40 Urine RBC 0-4 /hpf (0-2) H 01/18/22 09:40 Urine WBC 10-15 /hpf (0-5) H 01/18/22 09:40 Ur Squamous Epith Cells 10-15 /hpf (0-5) H 01/18/22 09:40 Amorphous Sediment Not Reportable 01/18/22 09:40 Urine Bacteria 1+ /hpf (NONE) H 01/18/22 09:40 Urine Mucus 2+ /hpf 01/18/22 09:40 Urine HCG, Qual Negative (Negative) 01/18/22 09:40 Salicylates < 0.3 mg/dL (3-10) L 01/18/22 09:40 Urine Opiates Screen Negative ng/mL (Negative) 01/18/22 09:40 Acetaminophen < 5.0 ug/mL (10-30) L 01/18/22 09:40 Ur Barbiturates Screen Negative ng/mL (Negative) 01/18/22 09:40 Ur Phencyclidine Scrn Negative ng/mL (Negative) 01/18/22 09:40 Ur Amphetamines Screen Negative ng/mL (Negative) 01/18/22 09:40 U Benzodiazepines Scrn Positive ng/mL (Negative) H 01/18/22 09:40 Urine Cocaine Screen Negative ng/mL (Negative) 01/18/22 09:40 U Marijuana (THC) Screen Negative ng/mL (Negative) 01/18/22 09:40 Ethyl Alcohol < 10 mg/dL (0-10) 01/18/22 09:40 Discharge Plan Discharge Patient Disposition: Home Clinical Impression: Increased anion gap metabolic acidosis Condition: Stable Prescriptions: No Action fexofenadine [Christina Allergy] 180 mg tablet 180 mg PO TID 0RF epinephrine [Auvi-Q] 0.3 mg/0.3 mL auto-injector 0.3 mg IM Q10M PRN (Reason: Allergic Reaction) 0RF Rx Instructions: for 2 doses montelukast [Singulair] 10 mg tablet 10 mg PO DAILY 0RF Complete Multivitamin Tablet 1 tab PO DAILY 0RF naproxen [EC-Naproxen] 500 mg tablet,delayed release (DR/EC) 500 mg PO Q8H PRN (Reason: pain) 0RF albuterol sulfate [ProAir HFA] 90 mcg/actuation HFA aerosol inhaler 2 puff INHALATION Q6H PRN (Reason: Shortness Of Breath) 0RF sertraline 50 mg tablet 50 mg PO DAILY 0RF budesonide-formoterol [Symbicort] 160-4.5 mcg/actuation HFA aerosol inhaler 2 puff INHALATION BID 0RF [id number] fumarate 600-125-18 mg-unit-mg tablet 1 tab PO DAILY 0RF azelastine 137 mcg (0.1 %) aerosol,spray 2 spray INTRANASAL BID 30 Days Qty: 30 2RF Rx Instructions: administer into each nostril metoprolol succinate 50 mg tablet extended release 24 hr 50 mg PO DAILY 0RF ondansetron HCl [Zofran] 4 mg tablet 4 mg PO Q8H 0RF famotidine [Pepcid] 20 mg tablet 20 mg PO BID 0RF Compazine 10 mg tablet 10 mg PO Q8H PRN (Reason: nausea and vomiting) Qty: 10 0RF Rx Instructions: May take with 25 mg of Benadryl for restlessness sumatriptan succinate 50 mg tablet 50 mg PO DAILY PRN (Reason: Migraine Headache) 0RF Reglan 10 mg tablet 10 mg PO Q6H PRN (Reason: nausea and vomiting) Qty: 15 0RF promethazine 25 mg suppository 25 mg HI Q4H PRN (Reason: nausea and vomiting) Qty: 12 1RF Ativan 1 mg tablet 0.5 mg PO Q12H PRN (Reason: nausea and vomiting) Qty: 10 0RF Discharge Orders: Discharge ED (Routine); Ordered 01/18/22 Ordered By: Bimal Vance Referrals: Melissa Stovall MD [Primary Care Provider] - 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 Code ED Drip Box Tender for Chg Fwd Exam Comprehensive
[2022-01-18 11:26] LABS: Blood Urine 2+ (Negative); Glucose Urine UA Norm (Normal); Ketones Urine 3+ (Negative); Protein Urine Trace (Negative); Specific Gravity, Urine 1.025 (1.005-1.030); Urine Appearance SL Hazy (CLEAR); Urine Color Yellow (Yellow); pH Urine 6 (5-7)
[2022-01-18 11:27] LABS: Add Urine Microscopic? YES; Bilirubin Urine 2+ (Negative); Leukocyte Esterase Urine 1+ (Negative); Nitrate Urine Negative (Negative); Urobilinogen Urine 4 mg/dL (Negative)
[2022-01-18 11:29] LABS: RBC Urine 0-4 /hpf (0-2)
[2022-01-18 11:30] LABS: Add Urine Culture? No; Amphetamines Screen Urine Negative (Negative); Bacteria Urine 1+ /hpf; Barbiturates Screen Urine Negative (Negative); Benzodiazepines Screen Urine Positive (Negative); Cocaine Screen Urine Negative (Negative); Mucus Urine 2+ /hpf; Opiate Screen Urine Negative (Negative); PCP Screen Urine Negative (Negative); THC Screen Urine Negative (Negative)
[2022-01-18 12:01] LABS: Acetaminophen < 5.0 ug/mL (10-30); Alcohol Level < 10 mg/dL (0-10); Salicylate < 0.3 mg/dL (3-10)
[2022-01-18 12:22] LABS: ABG PCO2 29.8 mmHg (35-45); ABG PH Result 7.32 (7.35-7.45); Base Excess ABG -9.7 mmol/L (-2.0-2.0); Blood Gas Sample Type Arterial; HCO3 ABG 15.2 mmol/L (22-26)
[2022-01-18 12:23] LABS: Blood Gas Operator Identificat ED; Blood Gas Sample Site Brachial, right; Oxygen Device ROOM AIR
[2022-01-18] MEDS: ketorolac 30 mg/mL INJ 15 MG IVP (13:39)
[2022-01-22 17:57] LABS: Alcohol, Methyl NONE DETECTED (NONE DETECTED); Volatile Analysis Performed On SERUM/PLASMA
[2022-01-23 15:27] LABS: Ethylene Glycol <10.0 mg/L (***)
== END 2022-01-18 13:48 | disposition home or self-care (01) ==
PROVIDERS: Emergency Provider Emergency Medicine; PCP Family Medicine
DX: E87.2 Acidosis (principal); R11.2 Nausea with vomiting, unspecified; R63.4 Abnormal weight loss; Z68.1 Body mass index [BMI] 19.9 or less, adult; R10.11 Right upper quadrant pain
CPT/HCPCS: 36416; 36600; 74177; 80053; 80306; 80307; 80320; 81001; 81025; 82693; 82803; 82962; 83690; 85025; 96361; 96374; 96375; 96376; 99284; C9113; J1885; J2405; J2930; J7030; Q9967

== ENCOUNTER 2022-07-08 16:59 | Emergency (ER) | payer MEDICAID, SELFPAY ==
[2022-07-08 17:04] VITALS: BP 137/88; PULSE 130; RESP 16; TEMP 36.8; O2SAT 98
[2022-07-08 18:12] VITALS: BP 116/85; PULSE 84; RESP 16; O2SAT 97
--- NOTE | 2022-07-08 18:18 | ED_ITS ---
Documented by User: Kimi Hayden, [employer] 07/09/22 02:55 HPI - General Adult General: Chief complaint: General Medical Stated complaint: bloodpressure bottomed out Time Seen by Provider: 07/08/22 17:45 History of Present Illness: Patient is in today for low blood pressure and dizziness. She reports that she has a history of dysautonomia and Jeaneth-Danlos syndrome. She reports that she has had ongoing issues with dysautonomia and sees an mangle feeder in [place]. She uses a wheelchair because she frequently passes out. Last week she was passing out up to 10 times per day. She reports that she keeps in close touch with her EP physician and last week they had recommended she come into the ER and get fluids. She reports that she was trying to make it without the fluids until she was able to see her physician in office again. She reports that last night her blood pressure dropped to 88/45 and her heart rate maintained in the 90s. She reports that she was extremely dizzy. Several hours after that she had complete loss of vision of her left eye for approximately 2 minutes. She does offer having a history of migraines with aura in which she gets wiggly lines in her vision and numbness in her right arm, but has never had total vision loss. She does have a headache but not a significant migraine at this time. She reports that once her vision returned it has been completely normal since that time. She reports that over the past year she has had tremendous health issues and has seen numerous specialists. She developed issues eating and had lost 75 pounds in a years time and 50 pounds over the course of 2 months. She reports that she had a feeding tube placed and was doing tube feedings however the tube feedings have caused her such significant pain after feeding that she has not been able to do them. She does take some food and orally but drains it out of her feeding tube later. She reports that they suspect she has gastroparesis however until just recently she has been unable to take in oral food enough to perform the test. She is seeing a GI specialist again next week to have that test done. She is very aware of her medical conditions and has been actively trying to maintain adequate hydration by using hydration supplements in the water that she is able to keep down. She has noticed that her urine is a bit darker than typical and her mouth feels a bit dry. She states that she is likely a little dehydrated however not as bad as she is previously been. She reports that she called her EP office today and they did want her to come to ER and consider getting IV fluids. Her EP physician will be back in office tomorrow and she plans to follow with him. Associated symptoms: Reports headache(s); Deny chest pain, dyspnea or palpitations Review of Systems Const: Denies: fever(s), chills or body aches Eyes: Reports: change in vision (Loss of left eye vision x2 minutes today- resolved now) Card: Reports: lightheadedness and other (Decreased blood pressure and dizziness off and on); Denies: chest pain or palpitations Resp: Denies: dyspnea GI: Reports: other (Feeding tube with chronic issues tolerating tube feed and oral intake) : Reports: difficulty voiding (Occasional difficulty starting a stream-due to dysautonomia); Denies: flank pain, dysuria, urinary frequency or hematuria Musc: Reports: other (History of Jeaneth-Danlos syndrome) Neuro: Reports: headache(s) and dizziness; Denies: numbness in extremities, weakness in extremities or sensory changes PFSH ED PFSH: Medical History Allergic rhinitis Anxiety Asthma Chronic sinusitis Depression ITB syndrome OCD (obsessive compulsive disorder) Plica syndrome Surgical History H/O oral surgery S/P FESS (functional endoscopic sinus surgery) Family History Family/Other Lung disease Asthma Father Hypertension Hyperlipidemia Grandmother Hypertension Dementia Stroke Grandfather Hypertension Stroke Grandfather Hypertension Denies family history of Diabetes CAD (coronary artery disease) Clotting disorder Chronic kidney disease (CKD) Suicide Anesthesia complication Bleeding disorder Cancer Social History Smoking and tobacco status: never smoked Alcohol intake: never Lives independently: Yes Household members: other Marital status: Single Current occupational status: student Current occupational exposures/hazards: No Pets and animals: Yes Pets & animals: dog(s) History of recent travel: No Current gender identity: Female Physical Exam Const: COMMON NORMALS: no acute distress, patient oriented x3 and alert Eye: COMMON NORMALS: Equal, round and reactive pupils present, EOMs intact bilaterally and conjunctivae normal CONJUNCTIVA: Yes conjunctivae normal PUPIL: Yes Equal, round and reactive pupils present Resp: COMMON NORMALS: normal respiratory effort, No use of accessory muscles and clear to auscultation bilaterally AUSCULTATION: clear to auscultation bilaterally Cardio: COMMON NORMALS: regular rate, regular rhythm, S1 normal heart sound present, S2 normal heart sound present and No murmurs present (Cardio) RATE: regular rate RHYTHM: regular rhythm HEART SOUNDS: S1 normal heart sound present and S2 normal heart sound present GI: OTHER: Feeding tube in place right side abdomen clamped Extremity: NARRATIVE EXTREMITY EXAM: Patient sitting in bed and both feet are plantar flexed when she is sitting there talking to me. She is able to dorsiflex the feet. She states that this is not foot drop. 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 Neuro: COMMON NORMALS: patient oriented x3 SENSORIUM/ORIENTATION: Yes alert Course Vital Signs: Vital signs: Vital Signs Temperature 98.3 F 07/08/22 17:04 Pulse Rate 93 07/08/22 21:18 Respiratory Rate 17 07/08/22 21:18 Blood Pressure 119/82 07/08/22 19:24 Pulse Oximetry 100 07/08/22 21:18 Oxygen Delivery In thod 07/08/22 21:18 [facility] - General Adult Medical Decision Making Patient is in today due to off-and-on hypotension with dizziness. She reports an approximate 2-minute incident today in which she lost complete vision of her left eye. She reports that this is now resolved. This came after having a hypotensive episode several hours before. The patient describes a significant history of idiopathic dysautonomia. She sees an mangle feeder. They are currently discussing starting her on routine IV fluid administration/infusions due to her issues with GI intake. The patient follows a GI specialist and has a feeding tube. She struggles to be able to tolerate feedings or even oral hydration. For this reason she becomes dehydrated which they think is exacerbating her dysautonomia. She reports that her mangle feeder recommended her to have IV fluids today. Given her loss of vision for a brief period earlier in the day head CT was ordered. CT scan shows no acute intracranial abnormality. Labs are unremarkable except for a 3.3 potassium. Patient was given 1 L of normal saline IV. Her blood pressure vital signs have remained stable while in the ER. She has been off-and-on dizzy but reports no worse than her usual. Visual disturbance has not returned since the initial incident this morning. I recommend patient follow-up with ophthalmology. Continue follow-up with mangle feeder. Return to the ER as needed for any new or worsening symptoms. Patient discharged in stable condition with her mother Lab Data : 07/08/22 18:28 07/08/22 18: Radiology Impressions Head CT 07/08/22 19:51 IMPRESSION: No acute intracranial abnormality. Laboratory Results WBC 5.0 10^3/uL (4.0-10.0) 07/08/22 18: RBC 4.44 10^6/uL (4.1-5.3) 07/08/22 18: Hgb 13.1 g/dL (11.5-15.3) 07/08/22 18: Hct 39.1 % (37.0-47.0) 07/08/22 18: MCV 88.1 fl (81-99) 07/08/22 18: MCH 29.5 pg (28.0-34.0) 07/08/22 18: MCHC 33.5 g/dL (30.0-36.0) 07/08/22 18: RDW 13.2 % (12.1-15.1) 07/08/22 18: Plt Count 313 10^3/cmm (130-400) 07/08/22 18: MPV 10.4 fL (7.4-10.4) 07/08/22 18: Neut % (Auto) 44.7 % 07/08/22 18: Lymph % (Auto) 43.7 % 07/08/22 18: [place] % (Auto) 9.0 % 07/08/22 18: Eos % (Auto) 1.4 % 07/08/22 18: Baso % (Auto) 1.0 % 07/08/22 18: Neut # (Auto) 2.23 10^3/uL (1.8-7.7) 07/08/22 18: Lymph # (Auto) 2.2 10^3/uL (0.8-4.8) 07/08/22 18: [place] # (Auto) 0.5 10^3/uL (0.2-0.9) 07/08/22 18: Eos # (Auto) 0.1 10^3/uL (0.0-0.8) 07/08/22 18: Baso # (Auto) 0.1 10^3/uL (0.0-0.1) 07/08/22 18: Nucleated RBC % (auto) 0 % 07/08/22 18: Nucleated RBCs # 0.0 /100WBC 07/08/22 18: Sodium 139 mmol/L (136-145) 07/08/22 18: Potassium 3.3 mmol/L (3.5-5.1) L 07/08/22 18: Chloride 101 mmol/L (98-107) 07/08/22 18: Carbon Dioxide 25 mmol/L (22-29) 07/08/22 18: Anion Gap 16.3 (5-19) 07/08/22 18: BUN 15 mg/dL (6-20) 07/08/22 18: Creatinine 0.6 mg/dL (0.5-0.9) 07/08/22 18: GFR Calculation 119.9 mL/min (90-130) 07/08/22 18: Glucose 88 mg/dL (65-115) 07/08/22 18: Calculated Osmolality 288 mOsm/kg (285-295) 07/08/22 18: Calcium 9.3 mg/dL (8.5-10.5) 07/08/22 18: Total Bilirubin 0.2 mg/dL (0.15-1.2) 07/08/22 18: AST 19 U/L (0-32) 07/08/22 18: ALT 15 U/L (0-33) 07/08/22 18: Alkaline Phosphatase 68 U/L (35-105) 07/08/22 18: Total Protein 7.6 g/dL (6.6-8.7) 07/08/22 18: Albumin 4.4 g/dL (3.5-5.2) 07/08/22 18: Globulin 3.2 g/dL (1.3-4.6) 07/08/22 18:28 Urine Color Yellow (Yellow) 07/08/22 19: Urine Appearance Cloudy (CLEAR) A 07/08/22: Urine pH 9 (5-7) H 07/08/22 19: Ur Specific [place] 1.015 (1.005-1.030) 07/08/22 19: Urine Protein Neg (Negative) 07/08/22: Urine Glucose (UA) Norm (Normal) 07/08/22: Urine Ketones Negative (Negative) 07/08/22: Urine Blood Neg (Negative) 07/08/22: Urine Nitrate Negative (Negative) 07/08/22: Urine Bilirubin Neg (Negative) 07/08/22: Prot Sulfosalicylic Acd Positive (Negative) 07/08/22: Urine Urobilinogen Neg mg/dL (Negative) 07/08/22 19: Ur Leukocyte Esterase Negative (Negative) 07/08/22: Urine RBC None /hpf (0-2) 07/08/22: Urine WBC None /hpf (0-5) 07/08/22 19: Ur Squamous Epith Cells 5-10 /hpf (0-5) H 07/08/22: Amorphous Sediment 4+ /hpf 07/08/22: Urine Bacteria None /hpf (NONE) 07/08/22 19: Urine HCG, Qual Negative (Negative) 07/08/22 19: Discharge Plan Discharge Patient Disposition: Home Clinical Impression: Dizziness, Disturbance, visual, subjective Condition: Stable Prescriptions: No Action fexofenadine [Christina Allergy] 180 mg tablet 180 mg PO TID epinephrine [Auvi-Q] 0.3 mg/0.3 mL auto-injector 0.3 mg IM Q10M PRN (Reason: Allergic Reaction) Rx Instructions: for 2 doses montelukast [Singulair] 10 mg tablet 10 mg PO DAILY Complete Multivitamin Tablet 1 tab PO DAILY naproxen [EC-Naproxen] 500 mg tablet,delayed release (DR/EC) 500 mg PO Q8H PRN (Reason: pain) albuterol sulfate [ProAir HFA] 90 mcg/actuation HFA aerosol inhaler 2 puff INHALATION Q6H PRN (Reason: Shortness Of Breath) sertraline 50 mg tablet 50 mg PO DAILY budesonide-formoterol [Symbicort] 160-4.5 mcg/actuation HFA aerosol inhaler 2 puff INHALATION BID [id number] fumarate 600-125-18 mg-unit-mg tablet 1 tab PO DAILY azelastine 137 mcg (0.1 %) aerosol,spray 2 spray INTRANASAL BID 30 Days Qty: 30 2RF Rx Instructions: administer into each nostril metoprolol succinate 50 mg tablet extended release 24 hr 50 mg PO DAILY ondansetron HCl [Zofran] 4 mg tablet 4 mg PO Q8H famotidine [Pepcid] 20 mg tablet 20 mg PO BID Compazine 10 mg tablet 10 mg PO Q8H PRN (Reason: nausea and vomiting) Qty: 10 0RF Rx Instructions: May take with 25 mg of Benadryl for restlessness sumatriptan succinate 50 mg tablet 50 mg PO DAILY PRN (Reason: Migraine Headache) Reglan 10 mg tablet 10 mg PO Q6H PRN (Reason: nausea and vomiting) Qty: 15 0RF promethazine 25 mg suppository [address] Q4H PRN (Reason: nausea and vomiting) Qty: 12 1RF Ativan 1 mg tablet 0.5 mg PO Q12H PRN (Reason: nausea and vomiting) Qty: 10 0RF Discharge Orders: Discharge ED (Routine); Ordered 07/08/22 Ordered By: Kimi Hayden Referrals: Melissa Stovall MD [Primary Care Provider] - Discharge Diet: Usual diet Discharge Activity: Resume usual activity Activity Restrictions/Additional Instructions: Follow-up with your mangle feeder tomorrow. Return to the ER for any new or worsening symptoms. 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 [employer] Fwd Exam Expanded Problem Focused Documented by User: Melchor Delatorre DO 07/09/22 06:46 HPI - General Adult General: Chief complaint: General Medical Stated complaint: bloodpressure bottomed out Time Seen by Provider: 07/08/22 17:45 PFSH ED PFSH: Medical History Allergic rhinitis Anxiety Asthma Chronic sinusitis Depression ITB syndrome OCD (obsessive compulsive disorder) Plica syndrome Surgical History H/O oral surgery S/P FESS (functional endoscopic sinus surgery) Family History Family/Other Lung disease Asthma Father Hypertension Hyperlipidemia Grandmother Hypertension Dementia Stroke Grandfather Hypertension Stroke Grandfather Hypertension Denies family history of Diabetes CAD (coronary artery disease) Clotting disorder Chronic kidney disease (CKD) Suicide Anesthesia complication Bleeding disorder Cancer Social History Smoking and tobacco status: never smoked Alcohol intake: never Lives independently: Yes Household members: other Marital status: Single Current occupational status: student Current occupational exposures/hazards: No Pets and animals: Yes Pets & animals: dog(s) History of recent travel: No Current gender identity: Female Course Vital Signs: Vital signs: Vital Signs Temperature 98.3 F 07/08/22 17:04 Pulse Rate 93 07/08/22 21:18 Respiratory Rate 17 07/08/22 21:18 Blood Pressure 119/82 07/08/22 19:24 Pulse Oximetry 100 07/08/22 21:18 Oxygen Delivery Me thod 07/08/22 21:18 MDM - General Adult Medical Decision Making Patient is in today due to off-and-on hypotension with dizziness. She reports an approximate 2-minute incident today in which she lost complete vision of her left eye. She reports that this is now resolved. This came after having a hypotensive episode several hours before. The patient describes a significant h istory of idiopathic dysautonomia. She sees an mangle feeder. They are currently discussing starting her on routine IV fluid administration/infusions due to her issues with GI intake. The patient follows a GI specialist and has a feeding tube. She struggles to be able to tolerate feedings or even oral hydration. For this reason she becomes dehydrated which they think is exacerbating her dysautonomia. She reports that her mangle feeder recommended her to have IV fluids today. Given her loss of vision for a brief period earlier in the day head CT was ordered. CT scan shows no acute intracranial abnormality. Labs are unremarkable except for a 3.3 potassium. Patient was given 1 L of normal saline IV. Her blood pressure vital signs have remained stable while in the ER. She has been off-and-on dizzy but reports no worse than her usual. Visual disturbance has not returned since the initial incident this morning. I recommend patient follow-up with ophthalmology. Cont inue follow-up with mangle feeder. Return to the ER as needed for any new or worsening symptoms. Patient discharged in stable condition with her mother Chart reviewed and patient discussed with midlevel. Agree with assessment and plan. Lab Data : 07/08/22 18:28 07/08/22 18:[address] 07/08/22 19:51 IMPRESSION: No acute intracranial abnormality. Laboratory Results WBC 5.0 10^3/uL (4.0-10.0) 07/08/22 18: RBC 4.44 10^6/uL (4.1-5.3) 07/08/22 18:28 Hgb 13.1 g/dL (11.5-15.3) 07/08/22 18: Hct 39.1 % (37.0-47.0) 07/08/22 18: MCV 88.1 fl (81-99) 07/08/22 18: MCH 29.5 pg (28.0-34.0) 07/08/22 18: MCHC 33.5 g/dL (30.0-36.0) 07/08/22 18:28 RDW 13.2 % (12.1-15.1) 07/08/22 18:28 Plt Count 313 10^3/cmm (130-400) 07/08/22 18:28 MPV 10.4 fL (7.4-10.4) 07/08/22 18:28 Neut % (Auto) 44.7 % 07/08/22 18: Lymph % (Auto) 43.7 % 07/08/22 18: [place] % (Auto) 9.0 % 07/08/22 18: Eos % (Auto) 1.4 % 07/08/22 18: Baso % (Auto) 1.0 % 07/08/22 18: Neut # (Auto) 2.23 10^3/uL (1.8-7.7) 07/08/22 18: Lymph # (Auto) 2.2 10^3/uL (0.8-4.8) 07/08/22 18: [place] # (Auto) 0.5 10^3/uL (0.2-0.9) 07/08/22 18: Eos # (Auto) 0.1 10^3/uL (0.0-0.8) 07/08/22 18: Baso # (Auto) 0.1 10^3/uL (0.0-0.1) 07/08/22 18: Nucleated RBC % (auto) 0 % 07/08/22 18 Nucleated RBCs # 0.0 /100WBC 07/08/22 18: Sodium 139 mmol/L (136-145) 07/08/22 18: Potassium 3.3 mmol/L (3.5-5.1) L 07/08/22 18: Chloride 101 mmol/L (98-107) 07/08/22 18: Carbon Dioxide 25 mmol/L (22-29) 07/08/22 18: Anion Gap 16.3 (5-19) 07/08/22 18: BUN 15 mg/dL (6-20) 07/08/22 18: Creatinine 0.6 mg/dL (0.5-0.9) 07/08/22 18: GFR Calculation 119.9 mL/min (90-130) 07/08/22 18: Glucose 88 mg/dL (65-115) 07/08/22 18: Calculated Osmolality 288 mOsm/kg (285-295) 07/08/22 18: Calcium 9.3 mg/dL (8.5-10.5) 07/08/22 18: Total Bilirubin 0.2 mg/dL (0.15-1.2) 07/08/22 18: AST 19 U/L (0-32) 07/08/22 18: ALT 15 U/L (0-33) 07/08/22 18: Alkaline Phosphatase 68 U/L (35-105) 07/08/22 18: Total Protein 7.6 g/dL (6.6-8.7) 07/08/22 18: Albumin 4.4 g/dL (3.5-5.2) 07/08/22 18: Globulin 3.2 g/dL (1.3-4.6) 07/08/22 18: Urine Color Yellow (Yellow) 07/08/22 19: Urine Appearance Cloudy (CLEAR) A 07/08/22: Urine pH 9 (5-7) H 07/08/22: Ur Specific [place] 1.015 (1.005-1.030) 07/08/22: Urine Protein Neg (Negative) 07/08/22: Urine Glucose (UA) Norm (Normal) 07/08/22 19: Urine Ketones Negative (Negative) 07/08/22: Urine Blood Neg (Negative) 07/08/22: Urine Nitrate Negative (Negative) 07/08/22: Urine Bilirubin Neg (Negative) 07/08/22: Prot Sulfosalicylic Acd Positive (Negative) 07/08/22: Urine Urobilinogen Neg mg/dL (Negative) 07/08/22: Ur Leukocyte Esterase Negative (Negative) 07/08/22: Urine RBC None /hpf (0-2) 07/08/22 19: Urine WBC None /hpf (0-5) 07/08/22: Ur Squamous Epith Cells 5-10 /hpf (0-5) H 07/08/22: Amorphous Sediment 4+ /hpf 07/08/22: Urine Bacteria None /hpf (NONE) 07/08/22 19: Urine HCG, Qual Negative (Negative) 07/08/22 19: Discharge Plan Discharge Patient Disposition: Home Clinical Impression: Dizziness, Disturbance, visual, subjective Condition: Stable Prescriptions: No Action fexofenadine [Christina Allergy] 180 mg tablet 180 mg PO TID epinephrine [Auvi-Q] 0.3 mg/0.3 mL auto-injector 0.3 mg IM Q10M PRN (Reason: Allergic Reaction) Rx Instructions: for 2 doses montelukast [Singulair] 10 mg tablet 10 mg PO DAILY Complete Multivitamin Tablet 1 tab PO DAILY naproxen [EC-Naproxen] 500 mg tablet,delayed release (DR/EC) 500 mg PO Q8H PRN (Reason: pain) albuterol sulfate [ProAir HFA] 90 mcg/actuation HFA aerosol inhaler 2 puff INHALATION Q6H PRN (Reason: Shortness Of Breath) sertraline 50 mg tablet 50 mg PO DAILY budesonide-formoterol [Symbicort] 160-4.5 mcg/actuation HFA aerosol inhaler 2 puff INHALATION BID [id number] fumarate 600-125-18 mg-unit-mg tablet 1 tab PO DAILY azelastine 137 mcg (0.1 %) aerosol,spray 2 spray INTRANASAL BID 30 Days Qty: 30 2RF Rx Instructions: administer into each nostril metoprolol succinate 50 mg tablet extended release 24 hr 50 mg PO DAILY ondansetron HCl [Zofran] 4 mg tablet 4 mg PO Q8H famotidine [Pepcid] 20 mg tablet 20 mg PO BID Compazine 10 mg tablet 10 mg PO Q8H PRN (Reason: nausea and vomiting) Qty: 10 0RF Rx Instructions: May take with 25 mg of Benadryl for restlessness sumatriptan succinate 50 mg tablet 50 mg PO DAILY PRN (Reason: Migraine Headache) Reglan 10 mg tablet 10 mg PO Q6H PRN (Reason: nausea and vomiting) Qty: 15 0RF promethazine 25 mg suppository [address] Q4H PRN (Reason: nausea and vomiting) Qty: 12 1RF Ativan 1 mg tablet 0.5 mg PO Q12H PRN (Reason: nausea and vomiting) Qty: 10 0RF Discharge Orders: Discharge ED (Routine); Ordered 07/08/22 Ordered By: Kimi Hayden Referrals: Melissa Stovall MD [Primary Care Provider] - Discharge Diet: Usual diet Discharge Activity: Resume usual activity Activity Restrictions/Additional Instructions: Follow-up with your mangle feeder tomorrow. Return to the ER for any new or worsening symptoms. 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 Chg Fwd Exam Expanded Problem Focused
[2022-07-08 18:38] LABS: Basophils # 0.1 10^3/uL (0.0-0.1); Eosinophils # 0.1 10^3/uL (0.0-0.8); Eosinophils % 1.4 %; Hematocrit 39.1 % (37.0-47.0); Hemoglobin 13.1 g/dL (11.5-15.3); Lymphocytes # 2.2 10^3/uL (0.8-4.8); Lymphocytes % 43.7 %; Mean Corpuscular HGB Conc 33.5 g/dL (30.0-36.0); Mean Corpuscular Hemoglobin 29.5 pg (28.0-34.0); Mean Corpuscular Volume 88.1 fl (81-99); Mean Platelet Volume 10.4 fL (7.4-10.4); Monocytes # 0.5 10^3/uL (0.2-0.9); Neutrophils # 2.23 10^3/uL (1.8-7.7); Neutrophils % 44.7 %; Nucleated Red Blood Cells % 0 %; Platelet Count 313 10^3/cmm (130-400); Red Blood Count 4.44 10^6/uL (4.1-5.3); Red Cell Distribution Width 13.2 % (12.1-15.1)
[2022-07-08 18:56] LABS: Alanine Aminotransferase 15 U/L (0-33); Albumin Level 4.4 g/dL (3.5-5.2); Alkaline Phosphatase 68 U/L (35-105); Anion Gap 16.3 (5-19); Aspartate Amino Transferase 19 U/L (0-32); Blood Urea Nitrogen 15 mg/dL (6-20); Calcium 9.3 mg/dL (8.5-10.5); Carbon Dioxide 25 mmol/L (22-29); Chloride 101 mmol/L (98-107); Globulin 3.2 g/dL (1.3-4.6); Glomerular Filtration Rate 119.9 mL/min (90-130); Glucose 88 mg/dL (65-115); Osmolality Calculated 288 mOsm/kg (285-295); Potassium 3.3 mmol/L (3.5-5.1); Sodium 139 mmol/L (136-145); Total Bilirubin 0.2 mg/dL (0.15-1.2); Total Protein 7.6 g/dL (6.6-8.7)
[2022-07-08 19:24] VITALS: BP 119/82; PULSE 111; RESP 17; O2SAT 100
[2022-07-08 19:46] LABS: Add Urine Microscopic? YES; Bilirubin Urine Neg (Negative); Blood Urine Neg (Negative); Glucose Urine UA Norm (Normal); Ketones Urine Negative (Negative); Leukocyte Esterase Urine Negative (Negative); Nitrate Urine Negative (Negative); Protein Urine Neg (Negative); Specific Gravity, Urine 1.015 (1.005-1.030); Sulfosalicylic Acid Urine Positive (Negative); Urine Appearance Cloudy (CLEAR); Urine Color Yellow (Yellow); Urobilinogen Urine Neg (Negative); pH Urine 9 (5-7)
[2022-07-08 19:47] LABS: Add Urine Culture? No; Amorphous Sediment Urine 4+ /hpf
--- NOTE | 2022-07-08 19:51 | CTR_ITS ---
PROCEDURE INFORMATION: Exam: CT Head Without Contrast Exam date and time: 07/08/2022 8:55 PM Age: 27 years old Clinical indication: Visual disturbance; Patient HX: Sudden loss of vision to left eye. History of migraines. ; Additional info: Sudden vision change TECHNIQUE: Imaging protocol: Computed tomography of the head without contrast. Radiation optimization: All CT scans at this facility use at least one of these dose optimization techniques: automated exposure control; mA and/or kV adjustment per patient size (includes targeted exams where dose is matched to clinical indication); or iterative reconstruction. COMPARISON: No relevant prior studies available. RADIATION DOSE METRICS: Total DLP (mGy-cm): 1033.18 FINDINGS: Brain: Normal. No hemorrhage. Unremarkable white matter. No mass effect. Cerebral ventricles: No ventriculomegaly. Paranasal sinuses: Visualized sinuses are unremarkable. No fluid levels. Mastoid air cells: Visualized mastoid air cells are well aerated. Bones/joints: Unremarkable. No acute fracture. Soft tissues: Unremarkable. CT/CT head wo con* [id number] IMPRESSION: No acute intracranial abnormality.
[2022-07-08] MEDS: sodium chloride 0.9% 1,000 ML 999 ML IV (20:02)
[2022-07-08 21:18] VITALS: PULSE 93; RESP 17; O2SAT 100
== END 2022-07-08 21:33 | disposition home or self-care (01) ==
PROVIDERS: Emergency Provider Nurse Practitioner Family; PCP Family Medicine
DX: R42 Dizziness and giddiness (principal); H53.10 Unspecified subjective visual disturbances
CPT/HCPCS: 70450; 80053; 81001; 81025; 85025; 96360; 99284; J7030

== ENCOUNTER 2022-07-21 07:45 | Outpatient (RCR) | payer MEDICAID, SELFPAY ==
[2022-07-15] MEDS: sodium chloride 0.9% 1,000 ML 999 ML IV (08:34)
[2022-07-15 08:39] VITALS: BP 120/78; PULSE 80; RESP 18; TEMP 36.8; O2SAT 100
[2022-07-16] MEDS: sodium chloride 0.9% 1,000 ML 999 ML IV (07:49)
[2022-07-16 07:52] VITALS: BP 121/77; PULSE 84; RESP 18; TEMP 36.7; O2SAT 100
[2022-07-21] MEDS: sodium chloride 0.9% 1,000 ML 750 ML IV (08:00)
[2022-07-21 08:02] VITALS: BP 132/89; PULSE 98; RESP 18; TEMP 36.7; O2SAT 97
== END 2022-07-23 23:59 | disposition home or self-care (01) ==
LOC: GILAB 07:45
PROVIDERS: PCP Family Medicine; Visit Provider Nurse Practitioner
DX: R11.15 Cyclical vomiting syndrome unrelated to migraine (principal); G90.1 Familial dysautonomia [Riley-Day]; G90.A Postural orthostatic tachycardia syndrome [POTS]; R55 Syncope and collapse
CPT/HCPCS: 96360; 96361; J7030

== ENCOUNTER 2022-08-21 13:00 | Outpatient (RCR) | payer MEDICAID, SELFPAY ==
[2022-07-24 12:50] VITALS: BP 119/78; PULSE 111; RESP 18; TEMP 36.8; O2SAT 99
[2022-07-24] MEDS: sodium chloride 0.9% 1,000 ML 999 ML IV (12:55)
[2022-07-28] MEDS: sodium chloride 0.9% 1,000 ML 999 ML IV (13:11)
[2022-07-28 13:14] VITALS: BP 121/71; PULSE 104; RESP 18; TEMP 36.9; O2SAT 98
[2022-07-31] MEDS: sodium chloride 0.9% 1,000 ML 999 ML IV (13:05)
[2022-07-31 13:13] VITALS: BP 131/63; PULSE 79; RESP 18; TEMP 36.8; O2SAT 97
[2022-08-04] MEDS: sodium chloride 0.9% 1,000 ML 999 ML IV (11:05)
[2022-08-04 11:32] VITALS: BP 98/51; PULSE 67; RESP 18; TEMP 36.8; O2SAT 99
[2022-08-07] MEDS: sodium chloride 0.9% 1,000 ML 999 ML IV (13:08)
[2022-08-07 13:10] VITALS: BP 117/62; PULSE 85; RESP 18; TEMP 37.2; O2SAT 98
[2022-08-11] MEDS: sodium chloride 0.9% 1,000 ML 999 ML IV (13:08)
[2022-08-11 13:11] VITALS: BP 115/77; PULSE 93; RESP 18; TEMP 37; O2SAT 97
[2022-08-14] MEDS: sodium chloride 0.9% 1,000 ML 999 ML IV (10:08)
[2022-08-14 10:11] VITALS: BP 122/66; PULSE 80; RESP 18; TEMP 36.7; O2SAT 100
[2022-08-19 10:11] VITALS: BP 123/76; PULSE 76; RESP 16; TEMP 36.4; O2SAT 100
[2022-08-19] MEDS: sodium chloride 0.9% 1,000 ML 999 ML IV (10:17)
[2022-08-21] MEDS: sodium chloride 0.9% 1,000 ML 999 ML IV (13:12)
[2022-08-21 13:15] VITALS: BP 109/71; PULSE 82; RESP 18; TEMP 36.9; O2SAT 99
== END 2022-08-23 23:59 | disposition home or self-care (01) ==
LOC: GILAB 13:00
PROVIDERS: PCP Family Medicine; Visit Provider Nurse Practitioner
DX: R11.15 Cyclical vomiting syndrome unrelated to migraine (principal); G90.1 Familial dysautonomia [Riley-Day]; G90.A Postural orthostatic tachycardia syndrome [POTS]; R55 Syncope and collapse
CPT/HCPCS: 96360; J7030

== ENCOUNTER 2022-09-22 11:07 | Outpatient (RCR) | payer BC, MEDICAID, SELFPAY ==
[2022-08-26] MEDS: sodium chloride 0.9% 1,000 ML 999 ML IV (13:09)
[2022-08-26 13:13] VITALS: BP 119/77; PULSE 111; RESP 18; TEMP 36.7; O2SAT 97
[2022-08-29] MEDS: sodium chloride 0.9% 1,000 ML 999 ML IV (11:57)
[2022-08-29 12:02] VITALS: BP 109/83; PULSE 100; RESP 18; TEMP 36.9; O2SAT 100
[2022-09-03] MEDS: sodium chloride 0.9% 1,000 ML 999 ML IV (13:04)
[2022-09-03 13:06] VITALS: BP 125/79; PULSE 86; RESP 18; TEMP 36.6; O2SAT 100
[2022-09-09] MEDS: sodium chloride 0.9% 1,000 ML 999 ML IV (13:24)
[2022-09-09 13:25] VITALS: BP 97/64; PULSE 96; RESP 18; TEMP 37; O2SAT 99
[2022-09-12] MEDS: sodium chloride 0.9% 1,000 ML 999 ML IV (12:13)
[2022-09-12 12:18] VITALS: BP 118/83; PULSE 104; RESP 18; TEMP 36.8; O2SAT 100
[2022-09-16] MEDS: sodium chloride 0.9% 1,000 ML 999 ML IV (13:00)
[2022-09-16 13:25] VITALS: BP 102/67; PULSE 90; RESP 18; TEMP 36.6; O2SAT 99
[2022-09-19] MEDS: sodium chloride 0.9% 1,000 ML 999 ML IV (11:59)
[2022-09-19 12:03] VITALS: BP 110/69; PULSE 92; RESP 18; TEMP 36.7; O2SAT 100
[2022-09-22 11:20] VITALS: BP 106/75; PULSE 90; RESP 18; TEMP 36.7; O2SAT 100
[2022-09-22] MEDS: sodium chloride 0.9% 1,000 ML 999 ML IV (11:20)
== END 2022-09-23 23:59 | disposition home or self-care (01) ==
LOC: GILAB 11:07
PROVIDERS: PCP Family Medicine; Visit Provider Nurse Practitioner
DX: G90.1 Familial dysautonomia [Riley-Day] (principal)
CPT/HCPCS: 96360; 96365; J7030

== ENCOUNTER 2022-10-21 11:48 | Outpatient (RCR) | payer BC, MEDICAID, SELFPAY ==
[2022-09-25] MEDS: sodium chloride 0.9% 1,000 ML 999 ML IV (13:15)
[2022-09-25 14:10] VITALS: BP 108/69; PULSE 99; RESP 18; TEMP 37.1; O2SAT 100
[2022-09-30] MEDS: sodium chloride 0.9% 1,000 ML 999 ML IV (12:17)
[2022-09-30 12:35] VITALS: BP 107/71; PULSE 98; RESP 18; TEMP 37; O2SAT 97
[2022-10-03] MEDS: sodium chloride 0.9% 1,000 ML 999 ML IV (12:10)
[2022-10-03 12:20] VITALS: BP 111/74; PULSE 97; RESP 18; TEMP 37.6; O2SAT 99
[2022-10-07 12:03] VITALS: BP 115/82; PULSE 90; RESP 16; TEMP 36.9; O2SAT 100; BMI 23.0
[2022-10-07] MEDS: sodium chloride 0.9% 1,000 ML 999 ML IV (12:09)
[2022-10-10] MEDS: sodium chloride 0.9% 1,000 ML 999 ML IV (10:00)
[2022-10-10 10:18] VITALS: BP 106/70; PULSE 100; RESP 18; TEMP 36.7; O2SAT 100
[2022-10-14] MEDS: sodium chloride 0.9% 1,000 ML 999 ML IV (12:00)
[2022-10-14 12:03] VITALS: BP 124/79; PULSE 105; RESP 18; TEMP 37.4; O2SAT 99
[2022-10-15] MEDS: sodium chloride 0.9% 1,000 ML 999 ML IV (13:07)
[2022-10-15 13:09] VITALS: BP 112/82; PULSE 86; RESP 18; TEMP 36.6; O2SAT 99
[2022-10-21 12:10] VITALS: BP 105/68; PULSE 91; RESP 18; TEMP 36.9; O2SAT 98
[2022-10-21] MEDS: sodium chloride 0.9% 1,000 ML 999 ML IV (12:12)
== END 2022-10-21 23:59 | disposition home or self-care (01) ==
LOC: GILAB 11:48
PROVIDERS: PCP Family Medicine; Visit Provider Nurse Practitioner
DX: G90.1 Familial dysautonomia [Riley-Day] (principal)
CPT/HCPCS: 96360; J7030

== ENCOUNTER 2022-11-21 11:51 | Outpatient (RCR) | payer BC, MEDICAID, SELFPAY ==
[2022-10-24] MEDS: sodium chloride 0.9% 1,000 ML 999 ML IV (12:08)
[2022-10-24 12:16] VITALS: BP 109/71; PULSE 91; RESP 18; TEMP 36.9; O2SAT 100
[2022-10-28] MEDS: sodium chloride 0.9% 1,000 ML 999 ML IV (12:01)
[2022-10-28 12:03] VITALS: BP 115/72; PULSE 93; RESP 18; TEMP 36.8; O2SAT 99
[2022-10-31] MEDS: sodium chloride 0.9% 1,000 ML 999 ML IV (12:07)
[2022-10-31 12:09] VITALS: BP 110/73; PULSE 109; RESP 18; TEMP 37; O2SAT 100
[2022-11-03] MEDS: sodium chloride 0.9% 1,000 ML 999 ML IV (11:04)
[2022-11-03 12:05] VITALS: BP 108/68; PULSE 91; RESP 18; TEMP 36.5; O2SAT 100
[2022-11-07] MEDS: sodium chloride 0.9% 1,000 ML 999 ML IV (12:07)
[2022-11-07 12:09] VITALS: BP 121/86; PULSE 97; RESP 18; TEMP 36.9; O2SAT 100
[2022-11-14] MEDS: sodium chloride 0.9% 1,000 ML 999 ML IV (11:51)
[2022-11-14 11:52] VITALS: BP 109/69; PULSE 96; RESP 18; TEMP 37.3; O2SAT 100
[2022-11-18] MEDS: sodium chloride 0.9% 1,000 ML 999 ML IV (11:55)
[2022-11-18 12:05] VITALS: BP 106/79; PULSE 107; RESP 18; TEMP 36.8; O2SAT 100
[2022-11-21] MEDS: sodium chloride 0.9% 1,000 ML 999 ML IV (12:20)
[2022-11-21 12:33] VITALS: BP 119/76; PULSE 90; RESP 18; TEMP 36.8; O2SAT 100
== END 2022-11-21 23:59 | disposition home or self-care (01) ==
LOC: GILAB 11:51
PROVIDERS: PCP Family Medicine; Visit Provider Nurse Practitioner
DX: G90.1 Familial dysautonomia [Riley-Day] (principal); R55 Syncope and collapse; G90.A Postural orthostatic tachycardia syndrome [POTS]; R11.15 Cyclical vomiting syndrome unrelated to migraine
CPT/HCPCS: 96360; J7030

== ENCOUNTER 2022-12-19 10:50 | Outpatient (RCR) | payer BC, MEDICAID, SELFPAY ==
[2022-11-25] MEDS: sodium chloride 0.9% 1,000 ML 999 ML IV (11:00)
[2022-11-25 11:16] VITALS: BP 108/71; PULSE 93; RESP 18; TEMP 36.5; O2SAT 100
[2022-11-25 12:15] LABS: Ferritin 11 ng/mL (15-150); Iron 45 ug/dL (37-145); Percent Saturation 13.3 % (20-50); Total Iron Binding Capacity 336 mcg/dl; Unsaturated Iron Binding 291 ug/dL (112-347)
[2022-11-27 10:55] VITALS: BP 112/72; PULSE 90; RESP 18; TEMP 36.8; O2SAT 90
[2022-11-27] MEDS: sodium chloride 0.9% 1,000 ML 999 ML IV (11:04)
[2022-12-02] MEDS: sodium chloride 0.9% 1,000 ML 999 ML IV (11:00)
[2022-12-02 11:16] VITALS: BP 111/68; PULSE 103; RESP 18; TEMP 36.3; O2SAT 100
[2022-12-05] MEDS: sodium chloride 0.9% 1,000 ML 999 ML IV (11:05)
[2022-12-05 11:10] VITALS: BP 120/81; PULSE 85; RESP 18; TEMP 36.4; O2SAT 100
[2022-12-09] MEDS: sodium chloride 0.9% 1,000 ML 999 ML IV (10:43)
[2022-12-09 10:50] VITALS: BP 128/84; PULSE 93; RESP 18; TEMP 36.7; O2SAT 100
[2022-12-12] MEDS: sodium chloride 0.9% 1,000 ML 1000 ML IV (11:20)
[2022-12-12 11:22] VITALS: BP 146/93; PULSE 100; RESP 18; TEMP 36.7; O2SAT 98
[2022-12-12 11:28] VITALS: BP 125/80
[2022-12-12 11:29] LABS: Basophils % 0.8 %; Eosinophils # 0.1 10^3/uL (0.0-0.8); Eosinophils % 1.9 %; Hematocrit 35.4 % (37.0-47.0); Hemoglobin 11.5 g/dL (11.5-15.3); Lymphocytes # 1.5 10^3/uL (0.8-4.8); Lymphocytes % 39.1 %; Mean Corpuscular HGB Conc 32.5 g/dL (30.0-36.0); Mean Corpuscular Hemoglobin 28.4 pg (28.0-34.0); Mean Corpuscular Volume 87.4 fl (81-99); Mean Platelet Volume 9.7 fL (7.4-10.4); Monocytes # 0.3 10^3/uL (0.2-0.9); Neutrophils # 1.86 10^3/uL (1.8-7.7); Neutrophils % 49.9 %; Nucleated Red Blood Cells % 0 %; Platelet Count 262 10^3/cmm (130-400); Red Blood Count 4.05 10^6/uL (4.1-5.3); Red Cell Distribution Width 12.9 % (12.1-15.1); White Blood Count 3.7 10^3/uL (4.0-10.0)
[2022-12-12 12:04] LABS: Alanine Aminotransferase 9 U/L (0-33); Albumin Level 4.1 g/dL (3.5-5.2); Alkaline Phosphatase 49 U/L (35-105); Anion Gap 12.6 (5-19); Aspartate Amino Transferase 12 U/L (0-32); Blood Urea Nitrogen 7 mg/dL (6-20); Calcium 8.5 mg/dL (8.5-10.5); Carbon Dioxide 27 mmol/L (22-29); Chloride 103 mmol/L (98-107); Ferritin 8 ng/mL (15-150); Globulin 2.4 g/dL (1.3-4.6); Glomerular Filtration Rate 119.9 mL/min (90-130); Glucose 80 mg/dL (65-115); Iron 90 ug/dL (37-145); Osmolality Calculated 285 mOsm/kg (285-295); Percent Saturation 28.3 % (20-50); Potassium 3.6 mmol/L (3.5-5.1); Sodium 139 mmol/L (136-145); Thyroid Stimulating Hormone 1.03 uIU/mL (0.27-4.20); Total Bilirubin 0.2 mg/dL (0.15-1.2); Total Iron Binding Capacity 317 mcg/dl; Total Protein 6.5 g/dL (6.6-8.7); Unsaturated Iron Binding 227 ug/dL (112-347)
[2022-12-16] MEDS: sodium chloride 0.9% 1,000 ML 999 ML IV (10:58)
[2022-12-16 11:11] VITALS: BP 115/80; PULSE 100; RESP 18; TEMP 36.8; O2SAT 98
[2022-12-19 11:00] VITALS: BP 123/88; PULSE 76; RESP 18; TEMP 36.5; O2SAT 94
[2022-12-19] MEDS: sodium chloride 0.9% 1,000 ML 999 ML IV (11:00)
== END 2022-12-21 23:59 | disposition home or self-care (01) ==
LOC: GILAB 10:50
PROVIDERS: Nurse Practitioner Family; PCP Family Medicine; Visit Provider Nurse Practitioner
DX: D50.9 Iron deficiency anemia, unspecified (principal); G90.A Postural orthostatic tachycardia syndrome [POTS]
CPT/HCPCS: 36415; 80053; 82728; 83540; 83550; 84443; 85025; 96360; J7030

== ENCOUNTER 2023-01-20 10:49 | Outpatient (RCR) | payer BC, MEDICAID, SELFPAY ==
[2022-12-23] MEDS: sodium chloride 0.9% 1,000 ML 999 ML IV (10:52)
[2022-12-23 11:05] VITALS: BP 110/76; PULSE 100; RESP 18; TEMP 36.8; O2SAT 99
[2022-12-26] MEDS: sodium chloride 0.9% 1,000 ML 999 ML IV (11:27)
[2022-12-26 11:29] VITALS: BP 122/81; PULSE 108; RESP 18; TEMP 36.6; O2SAT 100
[2022-12-30] MEDS: sodium chloride 0.9% 1,000 ML 999 ML IV (09:03)
[2022-12-30 09:08] VITALS: BP 107/70; PULSE 105; RESP 18; TEMP 36.9; O2SAT 100
[2023-01-02] MEDS: sodium chloride 0.9% 1,000 ML 999 ML IV (10:59)
[2023-01-02 11:00] VITALS: BP 113/80; PULSE 108; RESP 18; TEMP 37; O2SAT 100
[2023-01-13 11:10] VITALS: BP 104/77; PULSE 103; RESP 18; TEMP 36.7; O2SAT 100
[2023-01-13] MEDS: sodium chloride 0.9% 1,000 ML 999 ML IV (11:14)
[2023-01-16] MEDS: sodium chloride 0.9% 1,000 ML 999 ML IV (10:59)
[2023-01-16 11:00] VITALS: BP 125/75; PULSE 104; RESP 18; TEMP 36.8; O2SAT 100
[2023-01-16 12:26] LABS: Eosinophils # 0.1 10^3/uL (0.0-0.8); Eosinophils % 1.2 %; Hematocrit 34.3 % (37.0-47.0); Hemoglobin 11.1 g/dL (11.5-15.3); Mean Corpuscular HGB Conc 32.4 g/dL (30.0-36.0); Mean Corpuscular Hemoglobin 28.5 pg (28.0-34.0); Mean Corpuscular Volume 87.9 fl (81-99); Mean Platelet Volume 9.9 fL (7.4-10.4); Monocytes # 0.4 10^3/uL (0.2-0.9); Monocytes % 9.6 %; Neutrophils # 1.66 10^3/uL (1.8-7.7); Nucleated Red Blood Cells % 0 %; Platelet Count 256 10^3/cmm (130-400); Red Cell Distribution Width 12.7 % (12.1-15.1); White Blood Count 4.2 10^3/uL (4.0-10.0)
[2023-01-16 12:46] LABS: Alanine Aminotransferase 9 U/L (0-33); Albumin Level 3.9 g/dL (3.5-5.2); Alkaline Phosphatase 42 U/L (35-105); Anion Gap 13.4 (5-19); Aspartate Amino Transferase 11 U/L (0-32); Blood Urea Nitrogen 8 mg/dL (6-20); Calcium 7.9 mg/dL (8.5-10.5); Carbon Dioxide 25 mmol/L (22-29); Chloride 105 mmol/L (98-107); Creatinine Clr Calc Pharmacy 143.1326; Ferritin 10 ng/mL (15-150); Globulin 2.2 g/dL (1.3-4.6); Glucose 89 mg/dL (65-115); Iron 105 ug/dL (37-145); Osmolality Calculated 288 mOsm/kg (285-295); Potassium 3.4 mmol/L (3.5-5.1); Sodium 140 mmol/L (136-145); Total Bilirubin 0.3 mg/dL (0.15-1.2); Total Protein 6.1 g/dL (6.6-8.7)
[2023-01-16 12:55] LABS: Cortisol Random 8.15 ug/dL (2.47-19.5)
[2023-01-16 13:02] LABS: 25 Hydroxy Vitamin D 23 ng/mL (30-100); Vitamin B12 418 pg/mL (232-1245)
[2023-01-20 11:00] VITALS: BP 119/75; PULSE 101; RESP 18; TEMP 37.2; O2SAT 99
[2023-01-20] MEDS: sodium chloride 0.9% 1,000 ML 999 ML IV (11:13)
== END 2023-01-21 23:59 | disposition home or self-care (01) ==
LOC: GILAB 10:49
PROVIDERS: PCP Family Medicine; Visit Provider Nurse Practitioner
DX: G90.1 Familial dysautonomia [Riley-Day] (principal); R55 Syncope and collapse; G90.A Postural orthostatic tachycardia syndrome [POTS]; R11.15 Cyclical vomiting syndrome unrelated to migraine
CPT/HCPCS: 36415; 80053; 82306; 82533; 82607; 82728; 83540; 85025; 96360; J7030

== ENCOUNTER 2023-02-20 07:24 | Outpatient (RCR) | payer BC, MEDICAID, SELFPAY ==
[2023-01-23] MEDS: sodium chloride 0.9% 1,000 ML 999 ML IV (10:57)
[2023-01-23 11:01] VITALS: BP 108/78; PULSE 130; RESP 18; TEMP 36.8; O2SAT 100
[2023-01-27] MEDS: sodium chloride 0.9% 1,000 ML 999 ML IV (10:54)
[2023-01-27 11:20] VITALS: BP 114/77; PULSE 117; RESP 18; TEMP 35.9; O2SAT 100
[2023-01-30] MEDS: sodium chloride 0.9% 1,000 ML 999 ML IV (11:09)
[2023-01-30 11:11] VITALS: BP 121/77; PULSE 100; RESP 18; TEMP 36.7; O2SAT 100
--- NOTE | 2023-01-30 12:25 | PC.NURSE ---
Pt states she will miss hydrations next week. States she is planning on being admitted to [facility] to begin TPN.
[2023-02-13] MEDS: sodium chloride 0.9% 1,000 ML 999 ML IV (11:14)
[2023-02-13 11:17] VITALS: BP 126/89; PULSE 126; RESP 18; TEMP 36.7; O2SAT 100
[2023-02-17] MEDS: sodium chloride 0.9% 1,000 ML 999 ML IV (11:09)
[2023-02-17 11:11] VITALS: BP 104/63; PULSE 101; RESP 18; TEMP 37.1; O2SAT 100
[2023-02-20 07:30] VITALS: BP 96/63; PULSE 96; RESP 18; TEMP 36.7; O2SAT 100
[2023-02-20] MEDS: sodium chloride 0.9% 1,000 ML 999 ML IV (07:36)
== END 2023-02-20 23:59 | disposition home or self-care (01) ==
LOC: GILAB 07:24
PROVIDERS: PCP Family Medicine; Visit Provider Nurse Practitioner
DX: G90.1 Familial dysautonomia [Riley-Day] (principal)
CPT/HCPCS: 96360; J7030

== ENCOUNTER 2023-03-17 10:51 | Outpatient (RCR) | payer BC, MEDICAID, SELFPAY ==
[2023-02-23] MEDS: sodium chloride 0.9% 1,000 ML 999 ML IV (11:01)
[2023-02-23 11:10] VITALS: BP 92/58; PULSE 90; RESP 18; TEMP 37.1; O2SAT 98
[2023-02-27] MEDS: sodium chloride 0.9% 1,000 ML 999 ML IV (11:00)
[2023-02-27 11:01] VITALS: BP 90/58; PULSE 85; RESP 18; TEMP 36.6; O2SAT 99
[2023-03-03 11:25] VITALS: BP 105/66; PULSE 86; RESP 18; TEMP 36.6; O2SAT 100
[2023-03-03] MEDS: sodium chloride 0.9% 1,000 ML 999 ML IV (11:36)
[2023-03-12 10:20] VITALS: BP 97/62; PULSE 84; RESP 18; TEMP 36.6; O2SAT 100; BMI 18.3
[2023-03-12] MEDS: sodium chloride 0.9% 1,000 ML 999 ML IV (10:25)
[2023-03-17] MEDS: sodium chloride 0.9% 1,000 ML 999 ML IV (11:06)
[2023-03-17 11:13] VITALS: BP 107/77; PULSE 102; RESP 18; TEMP 37; O2SAT 97
== END 2023-03-23 10:23 | disposition home or self-care (01) ==
LOC: GILAB 10:51
PROVIDERS: PCP Family Medicine; Visit Provider Nurse Practitioner
DX: G90.1 Familial dysautonomia [Riley-Day] (principal); G90.A Postural orthostatic tachycardia syndrome [POTS]; Z79.899 Other long term (current) drug therapy; R11.15 Cyclical vomiting syndrome unrelated to migraine
CPT/HCPCS: 96360; J7030

== ENCOUNTER 2023-04-06 14:09 | Outpatient (CLI) | payer BC, MEDICAID, SELFPAY ==
[2023-04-06 14:33] LABS: Basophils # 0.1 10^3/uL (0.0-0.1); Basophils % 1.8 %; Eosinophils # 0.1 10^3/uL (0.0-0.8); Eosinophils % 4.2 %; Hematocrit 33.3 % (37.0-47.0); Lymphocytes # 1.3 10^3/uL (0.8-4.8); Lymphocytes % 39.3 %; Mean Corpuscular Hemoglobin 29.6 pg (28.0-34.0); Mean Corpuscular Volume 89.5 fl (81-99); Mean Platelet Volume 10.7 fL (7.4-10.4); Monocytes # 0.6 10^3/uL (0.2-0.9); Monocytes % 16.7 %; Neutrophils # 1.28 10^3/uL (1.8-7.7); Nucleated Red Blood Cells % 0 %; Platelet Count 249 10^3/cmm (130-400); Red Blood Count 3.72 10^6/uL (4.1-5.3); Red Cell Distribution Width 14.6 % (12.1-15.1); White Blood Count 3.4 10^3/uL (4.0-10.0)
[2023-04-06 14:54] LABS: Alanine Aminotransferase 106 U/L (0-33); Alkaline Phosphatase 52 U/L (35-105); Anion Gap 14.5 (5-19); Aspartate Amino Transferase 37 U/L (0-32); Blood Urea Nitrogen 16 mg/dL (6-20); Calcium 8.7 mg/dL (8.5-10.5); Carbon Dioxide 25 mmol/L (22-29); Chloride 105 mmol/L (98-107); Globulin 2.6 g/dL (1.3-4.6); Glomerular Filtration Rate 119.9 mL/min (90-130); Glucose 76 mg/dL (65-115); Magnesium 2.1 mg/dL (1.7-2.3); Osmolality Calculated 290 mOsm/kg (285-295); Phosphorus 4.1 mg/dL (2.5-4.5); Potassium 4.5 mmol/L (3.5-5.1); Sodium 140 mmol/L (136-145); Total Bilirubin 0.3 mg/dL (0.15-1.2); Total Protein 6.6 g/dL (6.6-8.7)
== END 2023-04-06 14:10 | disposition home or self-care (01) ==
PROVIDERS: PCP Family Medicine; Visit Provider Family Medicine
DX: E43 Unspecified severe protein-calorie malnutrition (principal); R63.4 Abnormal weight loss; R10.9 Unspecified abdominal pain
CPT/HCPCS: 80053; 83735; 84100; 85025

== ENCOUNTER 2023-04-08 12:50 | Outpatient (CLI) | payer BC, MEDICAID, SELFPAY ==
[2023-04-08 13:02] LABS: Basophils # 0.1 10^3/uL (0.0-0.1); Basophils % 1.7 %; Eosinophils # 0.1 10^3/uL (0.0-0.8); Eosinophils % 3.9 %; Hematocrit 36.8 % (37.0-47.0); Lymphocytes # 1.4 10^3/uL (0.8-4.8); Mean Corpuscular HGB Conc 32.6 g/dL (30.0-36.0); Mean Corpuscular Hemoglobin 29.2 pg (28.0-34.0); Mean Corpuscular Volume 89.5 fl (81-99); Mean Platelet Volume 11.2 fL (7.4-10.4); Monocytes # 0.4 10^3/uL (0.2-0.9); Monocytes % 11.8 %; Neutrophils % 42.3 %; Nucleated Red Blood Cells % 0 %; Platelet Count 291 10^3/cmm (130-400); Red Blood Count 4.11 10^6/uL (4.1-5.3); Red Cell Distribution Width 14.6 % (12.1-15.1); White Blood Count 3.6 10^3/uL (4.0-10.0)
[2023-04-08 13:30] LABS: Alanine Aminotransferase 89 U/L (0-33); Albumin Level 4.3 g/dL (3.5-5.2); Alkaline Phosphatase 53 U/L (35-105); Anion Gap 15.5 (5-19); Aspartate Amino Transferase 32 U/L (0-32); Blood Urea Nitrogen 17 mg/dL (6-20); Calcium 9.3 mg/dL (8.5-10.5); Carbon Dioxide 25 mmol/L (22-29); Chloride 102 mmol/L (98-107); Glomerular Filtration Rate 119.9 mL/min (90-130); Glucose 76 mg/dL (65-115); Magnesium 2.3 mg/dL (1.7-2.3); Osmolality Calculated 286 mOsm/kg (285-295); Phosphorus 4.6 mg/dL (2.5-4.5); Potassium 4.5 mmol/L (3.5-5.1); Sodium 138 mmol/L (136-145); Total Bilirubin 0.3 mg/dL (0.15-1.2); Total Protein 7.3 g/dL (6.6-8.7)
== END 2023-04-08 12:51 | disposition home or self-care (01) ==
PROVIDERS: PCP Family Medicine; Visit Provider Family Medicine
DX: E43 Unspecified severe protein-calorie malnutrition (principal); R63.4 Abnormal weight loss; R10.9 Unspecified abdominal pain
CPT/HCPCS: 80053; 83735; 84100; 85025

== ENCOUNTER 2023-04-15 12:31 | Outpatient (RCR) | payer BC, MEDICAID, SELFPAY ==
[2023-04-15 12:54] LABS: Hematocrit 33.2 % (36-47); Mean Corpuscular HGB Conc 32.5 g/dL (30-55); Mean Corpuscular Hemoglobin 29.4 pg (27-33); Mean Corpuscular Volume 90.5 fl (85-98); Mean Platelet Volume 11.8 fL (7.4-10.4); Platelet Count 232 10^3/cmm (157-399); Red Blood Count 3.67 10^6/uL (3.85-5.65); Red Cell Distribution Width 14.4 % (12.1-15.1); White Blood Count 3.51 10^3/uL (3.29-11.43)
[2023-04-15 13:21] LABS: Absolute Neutrophil 1.6 10^3/cmm (1.4-6.5); Absolute Segmented Neutrophil 1.6 10/cmm (1.6-7.1); Eosinophils 1 %; Lymphocytes 46 %; Lymphocytes Absolute 1.6 10^3/cmm (1.2-3.4); Monocytes Absolute 0.2 10^3/cmm (0.1-0.6); Platelet Estimate Normal (Normal); Segmented Neutrophils 45 %; Total Cells Counted 100 (0-100)
[2023-04-15 13:33] LABS: Alanine Aminotransferase 26 U/L (0-33); Albumin Level 3.9 g/dL (3.5-5.2); Alkaline Phosphatase 47 U/L (35-105); Anion Gap 10.3 (5-19); Aspartate Amino Transferase 13 U/L (0-32); Blood Urea Nitrogen 13 mg/dL (6-20); Calcium 8.8 mg/dL (8.5-10.5); Carbon Dioxide 27 mmol/L (22-29); Chloride 106 mmol/L (98-107); Globulin 2.8 g/dL (1.3-4.6); Glucose 73 mg/dL (65-115); Magnesium 2.1 mg/dL (1.7-2.3); Osmolality Calculated 287 mOsm/kg (285-295); Phosphorus 3.5 mg/dL (2.5-4.5); Potassium 4.3 mmol/L (3.5-5.1); Sodium 139 mmol/L (136-145); Total Bilirubin 0.3 mg/dL (0.15-1.2); Total Protein 6.7 g/dL (6.6-8.7)
== END 2023-04-23 23:59 | disposition home or self-care (01) ==
LOC: LAB 12:31
PROVIDERS: PCP Family Medicine; Visit Provider Family Medicine
DX: E43 Unspecified severe protein-calorie malnutrition (principal); R63.4 Abnormal weight loss; R10.9 Unspecified abdominal pain
CPT/HCPCS: 80053; 83735; 84100; 85007; 85027

== ENCOUNTER 2023-04-17 10:40 | Outpatient (RCR) | payer BC, MEDICAID, SELFPAY ==
[2023-04-10] MEDS: sodium chloride 0.9% 1,000 ML 999 ML IV (11:17)
[2023-04-10 11:23] VITALS: BP 100/59; PULSE 107; RESP 18; TEMP 36.8; O2SAT 100
[2023-04-14 11:38] LABS: Basophils # 0.1 10^3/uL (0.0-0.1); Basophils % 1.6 %; Eosinophils # 0.1 10^3/uL (0.0-0.8); Hematocrit 33.9 % (37.0-47.0); Lymphocytes # 1.3 10^3/uL (0.8-4.8); Lymphocytes % 43.4 %; Mean Corpuscular HGB Conc 32.4 g/dL (30.0-36.0); Mean Corpuscular Hemoglobin 30.3 pg (28.0-34.0); Mean Corpuscular Volume 93.4 fl (81-99); Mean Platelet Volume 11.5 fL (7.4-10.4); Monocytes # 0.3 10^3/uL (0.2-0.9); Monocytes % 8.2 %; Neutrophils # 1.35 10^3/uL (1.8-7.7); Neutrophils % 44.5 %; Nucleated Red Blood Cells % 0 %; Platelet Count 221 10^3/cmm (130-400); Red Blood Count 3.63 10^6/uL (3.85-5.65); Red Cell Distribution Width 14.4 % (12.1-15.1); White Blood Count 3.04 10^3/uL (3.29-11.43)
[2023-04-14] MEDS: sodium chloride 0.9% 1,000 ML 999 ML IV (11:45)
[2023-04-14 11:48] VITALS: BP 82/57; PULSE 81; RESP 18; TEMP 36.7; O2SAT 100
[2023-04-14 12:17] LABS: Alanine Aminotransferase 34 U/L (0-33); Albumin Level 4.3 g/dL (3.5-5.2); Alkaline Phosphatase 50 U/L (35-105); Aspartate Amino Transferase 22 U/L (0-32); Blood Urea Nitrogen 17 mg/dL (6-20); Calcium 8.9 mg/dL (8.5-10.5); Carbon Dioxide 28 mmol/L (22-29); Chloride 105 mmol/L (98-107); Globulin 2.9 g/dL (1.3-4.6); Glomerular Filtration Rate 119.9 mL/min (90-130); Glucose 68 mg/dL (65-115); Magnesium 2.2 mg/dL (1.7-2.3); Osmolality Calculated 292 mOsm/kg (285-295); Phosphorus 3.9 mg/dL (2.5-4.5); Sodium 141 mmol/L (136-145); Total Bilirubin 0.3 mg/dL (0.15-1.2); Total Protein 7.2 g/dL (6.6-8.7)
[2023-04-17] MEDS: sodium chloride 0.9% 1,000 ML 999 ML IV (10:54)
[2023-04-17 10:59] VITALS: BP 93/57; PULSE 100; RESP 18; TEMP 36.3; O2SAT 98
== END 2023-04-23 23:59 | disposition home or self-care (01) ==
LOC: GILAB 10:40
PROVIDERS: PCP Family Medicine; Visit Provider Nurse Practitioner
DX: K31.84 Gastroparesis (principal); E43 Unspecified severe protein-calorie malnutrition
CPT/HCPCS: 36415; 80053; 83735; 84100; 85025; 96360; J7030

== ENCOUNTER 2023-05-13 12:26 | Outpatient (CLI) | payer BC, MEDICAID, SELFPAY ==
[2023-05-13 13:00] LABS: Hematocrit 31.4 % (36-47); Mean Corpuscular HGB Conc 32.2 g/dL (30-55); Mean Corpuscular Hemoglobin 29.8 pg (27-33); Mean Corpuscular Volume 92.6 fl (85-98); Mean Platelet Volume 10.3 fL (7.4-10.4); Platelet Count 304 10^3/cmm (157-399); Red Blood Count 3.39 10^6/uL (3.85-5.65); Red Cell Distribution Width 13.4 % (12.1-15.1); White Blood Count 4.44 10^3/uL (3.29-11.43)
[2023-05-13 13:19] LABS: Alanine Aminotransferase 18 U/L (0-33); Albumin Level 4.2 g/dL (3.5-5.2); Alkaline Phosphatase 66 U/L (35-105); Anion Gap 10.8 (5-19); Aspartate Amino Transferase 17 U/L (0-32); Blood Urea Nitrogen 11 mg/dL (6-20); Calcium 8.6 mg/dL (8.5-10.5); Carbon Dioxide 27 mmol/L (22-29); Chloride 103 mmol/L (98-107); Globulin 2.5 g/dL (1.3-4.6); Glomerular Filtration Rate 119.9 mL/min (90-130); Glucose 83 mg/dL (65-115); Osmolality Calculated 283 mOsm/kg (285-295); Phosphorus 3.8 mg/dL (2.5-4.5); Potassium 3.8 mmol/L (3.5-5.1); Sodium 137 mmol/L (136-145); Total Bilirubin 0.2 mg/dL (0.15-1.2); Total Protein 6.7 g/dL (6.6-8.7)
[2023-05-13 14:27] LABS: Absolute Segmented Neutrophil 2.1 10/cmm (1.6-7.1); Lymphocytes 40 %; Segmented Neutrophils 47 %; Total Cells Counted 100 (0-100)
[2023-05-13 14:28] LABS: Absolute Neutrophil 2.1 10^3/cmm (1.4-6.5); Eosinophils 1 %; Monocytes Absolute 0.2 10^3/cmm (0.1-0.6); Platelet Estimate Normal (Normal)
[2023-05-13 14:29] LABS: Anisocytosis 1+; Polychromasia 1+
== END 2023-05-13 12:27 | disposition home or self-care (01) ==
PROVIDERS: PCP Family Medicine; Visit Provider Family Medicine
DX: R63.4 Abnormal weight loss (principal); R10.9 Unspecified abdominal pain; E43 Unspecified severe protein-calorie malnutrition
CPT/HCPCS: 80053; 83735; 84100; 85007; 85027

== ENCOUNTER 2023-05-20 12:25 | Outpatient (RCR) | payer BC, MEDICAID, SELFPAY ==
[2023-04-29 12:51] LABS: Basophils % 0.8 %; Eosinophils # 0.1 10^3/uL (0.0-0.8); Eosinophils % 1.4 %; Hematocrit 32.4 % (36-47); Lymphocytes # 1.7 10^3/uL (0.8-4.8); Lymphocytes % 48.3 %; Mean Corpuscular HGB Conc 32.4 g/dL (30-55); Mean Corpuscular Hemoglobin 29.3 pg (27-33); Mean Corpuscular Volume 90.5 fl (85-98); Monocytes # 0.3 10^3/uL (0.2-0.9); Monocytes % 8.5 %; Neutrophils # 1.44 10^3/uL (1.8-7.7); Neutrophils % 40.7 %; Nucleated Red Blood Cells % 0 %; Platelet Count 281 10^3/cmm (157-399); Red Blood Count 3.58 10^6/uL (3.85-5.65); Red Cell Distribution Width 13.8 % (12.1-15.1); White Blood Count 3.54 10^3/uL (3.29-11.43)
[2023-04-29 13:21] LABS: Alanine Aminotransferase 13 U/L (0-33); Alkaline Phosphatase 57 U/L (35-105); Aspartate Amino Transferase 15 U/L (0-32); Blood Urea Nitrogen 24 mg/dL (6-20); Carbon Dioxide 28 mmol/L (22-29); Chloride 103 mmol/L (98-107); Glomerular Filtration Rate 100.4 mL/min (90-130); Glucose 81 mg/dL (65-115); Magnesium 2.2 mg/dL (1.7-2.3); Osmolality Calculated 291 mOsm/kg (285-295); Phosphorus 4.6 mg/dL (2.5-4.5); Sodium 139 mmol/L (136-145); Total Bilirubin 0.3 mg/dL (0.15-1.2)
[2023-05-06 13:11] LABS: Hematocrit 31.2 % (36-47); Mean Corpuscular HGB Conc 32.4 g/dL (30-55); Mean Corpuscular Hemoglobin 29.9 pg (27-33); Mean Corpuscular Volume 92.3 fl (85-98); Mean Platelet Volume 10.6 fL (7.4-10.4); Platelet Count 285 10^3/cmm (157-399); Red Blood Count 3.38 10^6/uL (3.85-5.65); Red Cell Distribution Width 13.9 % (12.1-15.1); White Blood Count 4.31 10^3/uL (3.29-11.43)
[2023-05-06 13:30] LABS: Alanine Aminotransferase 19 U/L (0-33); Albumin Level 4.1 g/dL (3.5-5.2); Alkaline Phosphatase 70 U/L (35-105); Aspartate Amino Transferase 15 U/L (0-32); Blood Urea Nitrogen 15 mg/dL (6-20); Calcium 8.8 mg/dL (8.5-10.5); Carbon Dioxide 28 mmol/L (22-29); Chloride 104 mmol/L (98-107); Globulin 2.3 g/dL (1.3-4.6); Glomerular Filtration Rate 119.9 mL/min (90-130); Glucose 72 mg/dL (65-115); Osmolality Calculated 285 mOsm/kg (285-295); Phosphorus 4.4 mg/dL (2.5-4.5); Sodium 138 mmol/L (136-145); Total Bilirubin 0.2 mg/dL (0.15-1.2); Total Protein 6.4 g/dL (6.6-8.7)
[2023-05-06 14:07] LABS: Absolute Eosinophils 0.1 10^3/cmm (0.0-0.7); Absolute Neutrophil 2.3 10^3/cmm (1.4-6.5); Absolute Segmented Neutrophil 2.3 10/cmm (1.6-7.1); Eosinophils 2 %; Lymphocytes 40 %; Lymphocytes Absolute 1.7 10^3/cmm (1.2-3.4); Monocytes Absolute 0.2 10^3/cmm (0.1-0.6); Platelet Estimate Normal (Normal); Segmented Neutrophils 54 %; Total Cells Counted 100 (0-100)
[2023-05-20 12:41] LABS: Basophils % 0.7 %; Eosinophils # 0.1 10^3/uL (0.0-0.8); Eosinophils % 1.3 %; Hematocrit 32.1 % (36-47); Lymphocytes # 1.8 10^3/uL (0.8-4.8); Lymphocytes % 40.8 %; Mean Corpuscular HGB Conc 32.1 g/dL (30-55); Mean Corpuscular Hemoglobin 29.5 pg (27-33); Mean Platelet Volume 10.3 fL (7.4-10.4); Monocytes # 0.4 10^3/uL (0.2-0.9); Monocytes % 9.8 %; Neutrophils # 2.12 10^3/uL (1.8-7.7); Neutrophils % 47.2 %; Nucleated Red Blood Cells % 0 %; Platelet Count 298 10^3/cmm (157-399); Red Blood Count 3.49 10^6/uL (3.85-5.65); White Blood Count 4.49 10^3/uL (3.29-11.43)
[2023-05-20 13:00] LABS: Alanine Aminotransferase 20 U/L (0-33); Albumin Level 4.3 g/dL (3.5-5.2); Alkaline Phosphatase 62 U/L (35-105); Anion Gap 13.3 (5-19); Aspartate Amino Transferase 16 U/L (0-32); Blood Urea Nitrogen 13 mg/dL (6-20); Calcium 9.1 mg/dL (8.5-10.5); Carbon Dioxide 26 mmol/L (22-29); Chloride 104 mmol/L (98-107); Globulin 2.7 g/dL (1.3-4.6); Glomerular Filtration Rate 119.9 mL/min (90-130); Glucose 88 mg/dL (65-115); Osmolality Calculated 288 mOsm/kg (285-295); Phosphorus 4.3 mg/dL (2.5-4.5); Potassium 4.3 mmol/L (3.5-5.1); Sodium 139 mmol/L (136-145); Total Bilirubin 0.2 mg/dL (0.15-1.2)
== END 2023-05-23 23:59 | disposition home or self-care (01) ==
LOC: LAB 12:25
PROVIDERS: PCP Family Medicine; Visit Provider Family Medicine
DX: E43 Unspecified severe protein-calorie malnutrition (principal); R63.4 Abnormal weight loss; R10.9 Unspecified abdominal pain
CPT/HCPCS: 80053; 83735; 84100; 85007; 85025; 85027

== ENCOUNTER 2023-05-22 10:50 | Outpatient (RCR) | payer BC, MEDICAID, SELFPAY ==
[2023-04-24] MEDS: sodium chloride 0.9% 1,000 ML 999 ML IV (10:52)
[2023-04-24 10:59] VITALS: BP 103/68; PULSE 96; RESP 18; TEMP 36.3; O2SAT 100
[2023-04-28 11:59] LABS: Basophils % 1.2 %; Eosinophils # 0.1 10^3/uL (0.0-0.8); Eosinophils % 1.5 %; Hematocrit 33.2 % (36-47); Lymphocytes # 1.7 10^3/uL (0.8-4.8); Lymphocytes % 49.4 %; Mean Corpuscular HGB Conc 32.5 g/dL (30-55); Mean Corpuscular Hemoglobin 29.9 pg (27-33); Mean Platelet Volume 10.6 fL (7.4-10.4); Monocytes # 0.4 10^3/uL (0.2-0.9); Monocytes % 10.8 %; Neutrophils # 1.26 10^3/uL (1.8-7.7); Neutrophils % 36.8 %; Nucleated Red Blood Cells % 0 %; Platelet Count 259 10^3/cmm (157-399); Red Blood Count 3.61 10^6/uL (3.85-5.65); Red Cell Distribution Width 13.6 % (12.1-15.1); White Blood Count 3.42 10^3/uL (3.29-11.43)
[2023-04-28] MEDS: sodium chloride 0.9% 1,000 ML 999 ML IV (12:06)
[2023-04-28 12:08] VITALS: BP 90/61; PULSE 89; RESP 18; TEMP 36.7; O2SAT 100
[2023-04-28 12:17] LABS: Alanine Aminotransferase 16 U/L (0-33); Albumin Level 4.2 g/dL (3.5-5.2); Alkaline Phosphatase 59 U/L (35-105); Anion Gap 11.9 (5-19); Aspartate Amino Transferase 16 U/L (0-32); Blood Urea Nitrogen 28 mg/dL (6-20); Carbon Dioxide 31 mmol/L (22-29); Chloride 101 mmol/L (98-107); Globulin 2.9 g/dL (1.3-4.6); Glucose 79 mg/dL (65-115); Magnesium 2.3 mg/dL (1.7-2.3); Osmolality Calculated 294 mOsm/kg (285-295); Phosphorus 5.2 mg/dL (2.5-4.5); Potassium 3.9 mmol/L (3.5-5.1); Sodium 140 mmol/L (136-145); Total Bilirubin 0.3 mg/dL (0.15-1.2); Total Protein 7.1 g/dL (6.6-8.7)
[2023-05-01 10:45] VITALS: BP 93/61; PULSE 97; RESP 18; TEMP 36.6; O2SAT 99
[2023-05-01] MEDS: sodium chloride 0.9% 1,000 ML 999 ML IV (10:55)
[2023-05-05] MEDS: sodium chloride 0.9% 1,000 ML 999 ML IV (10:53)
[2023-05-05 10:55] VITALS: BP 100/56; PULSE 92; RESP 18; TEMP 36.7; O2SAT 100
[2023-05-05 10:57] LABS: Basophils % 0.7 %; Eosinophils # 0.1 10^3/uL (0.0-0.8); Eosinophils % 1.7 %; Lymphocytes # 1.7 10^3/uL (0.8-4.8); Lymphocytes % 42.9 %; Mean Corpuscular Hemoglobin 29.6 pg (27-33); Mean Corpuscular Volume 92.6 fl (85-98); Mean Platelet Volume 10.3 fL (7.4-10.4); Monocytes # 0.3 10^3/uL (0.2-0.9); Monocytes % 7.6 %; Neutrophils # 1.89 10^3/uL (1.8-7.7); Neutrophils % 46.6 %; Nucleated Red Blood Cells % 0 %; Platelet Count 269 10^3/cmm (157-399); Red Blood Count 3.24 10^6/uL (3.85-5.65); Red Cell Distribution Width 13.9 % (12.1-15.1); White Blood Count 4.06 10^3/uL (3.29-11.43)
[2023-05-05 11:14] LABS: Alanine Aminotransferase 17 U/L (0-33); Alkaline Phosphatase 62 U/L (35-105); Anion Gap 9.8 (5-19); Aspartate Amino Transferase 14 U/L (0-32); Blood Urea Nitrogen 13 mg/dL (6-20); Calcium 8.6 mg/dL (8.5-10.5); Carbon Dioxide 28 mmol/L (22-29); Chloride 104 mmol/L (98-107); Globulin 2.4 g/dL (1.3-4.6); Glomerular Filtration Rate 119.9 mL/min (90-130); Glucose 88 mg/dL (65-115); Osmolality Calculated 286 mOsm/kg (285-295); Phosphorus 3.8 mg/dL (2.5-4.5); Potassium 3.8 mmol/L (3.5-5.1); Sodium 138 mmol/L (136-145); Total Bilirubin 0.2 mg/dL (0.15-1.2); Total Protein 6.4 g/dL (6.6-8.7)
[2023-05-08] MEDS: sodium chloride 0.9% 1,000 ML 999 ML IV (11:29)
[2023-05-08 12:06] VITALS: BP 107/64; PULSE 95; RESP 18; TEMP 37; O2SAT 98
[2023-05-12] MEDS: sodium chloride 0.9% 1,000 ML 999 ML IV (11:01)
[2023-05-12 11:03] VITALS: BP 95/59; PULSE 97; RESP 18; TEMP 36.9; O2SAT 100
[2023-05-15 10:45] VITALS: BP 92/55; PULSE 87; RESP 18; TEMP 36.8; O2SAT 100
[2023-05-15] MEDS: sodium chloride 0.9% 1,000 ML 999 ML IV (10:48)
[2023-05-19] MEDS: sodium chloride 0.9% 1,000 ML 999 ML IV (10:52)
[2023-05-19 11:01] VITALS: BP 101/61; PULSE 111; RESP 18; TEMP 37.1; O2SAT 100
[2023-05-22] MEDS: sodium chloride 0.9% 1,000 ML 999 ML IV (10:59)
[2023-05-22 11:11] VITALS: BP 102/67; PULSE 100; RESP 18; TEMP 36.9; O2SAT 99
== END 2023-05-23 23:59 | disposition home or self-care (01) ==
LOC: GILAB 10:50
PROVIDERS: PCP Family Medicine; Visit Provider Nurse Practitioner
DX: K31.84 Gastroparesis (principal); E43 Unspecified severe protein-calorie malnutrition; R63.4 Abnormal weight loss; R10.9 Unspecified abdominal pain
CPT/HCPCS: 36415; 80053; 83735; 84100; 85025; 96360; J7030

== ENCOUNTER 2023-06-17 11:38 | Outpatient (RCR) | payer BC, MEDICAID, SELFPAY ==
[2023-05-27 13:13] LABS: Basophils % 0.8 %; Eosinophils % 0.8 %; Hematocrit 31.1 % (36-47); Lymphocytes # 1.9 10^3/uL (0.8-4.8); Mean Corpuscular HGB Conc 31.2 g/dL (30-55); Mean Corpuscular Volume 92.8 fl (85-98); Mean Platelet Volume 10.1 fL (7.4-10.4); Monocytes # 0.4 10^3/uL (0.2-0.9); Monocytes % 7.7 %; Neutrophils # 2.43 10^3/uL (1.8-7.7); Neutrophils % 50.5 %; Nucleated Red Blood Cells % 0 %; Platelet Count 297 10^3/cmm (157-399); Red Blood Count 3.35 10^6/uL (3.85-5.65); Red Cell Distribution Width 12.4 % (12.1-15.1); White Blood Count 4.82 10^3/uL (3.29-11.43)
[2023-05-27 13:34] LABS: Alanine Aminotransferase 17 U/L (0-33); Albumin Level 4.3 g/dL (3.5-5.2); Alkaline Phosphatase 65 U/L (35-105); Anion Gap 15.5 (5-19); Aspartate Amino Transferase 18 U/L (0-32); Blood Urea Nitrogen 15 mg/dL (6-20); Calcium 8.9 mg/dL (8.5-10.5); Carbon Dioxide 25 mmol/L (22-29); Chloride 105 mmol/L (98-107); Globulin 2.6 g/dL (1.3-4.6); Glomerular Filtration Rate 119.9 mL/min (90-130); Glucose 87 mg/dL (65-115); Magnesium 1.8 mg/dL (1.7-2.3); Osmolality Calculated 292 mOsm/kg (285-295); Phosphorus 4.1 mg/dL (2.5-4.5); Potassium 4.5 mmol/L (3.5-5.1); Sodium 141 mmol/L (136-145); Total Bilirubin 0.2 mg/dL (0.15-1.2); Total Protein 6.9 g/dL (6.6-8.7)
[2023-06-03 12:18] LABS: Basophils % 0.7 %; Eosinophils % 0.9 %; Hematocrit 29.4 % (36-47); Lymphocytes # 1.6 10^3/uL (0.8-4.8); Lymphocytes % 34.4 %; Mean Corpuscular HGB Conc 31.3 g/dL (30-55); Mean Corpuscular Hemoglobin 28.5 pg (27-33); Mean Platelet Volume 10.1 fL (7.4-10.4); Monocytes # 0.4 10^3/uL (0.2-0.9); Monocytes % 7.9 %; Neutrophils # 2.52 10^3/uL (1.8-7.7); Neutrophils % 55.7 %; Nucleated Red Blood Cells % 0 %; Platelet Count 270 10^3/cmm (157-399); Red Blood Count 3.23 10^6/uL (3.85-5.65); Red Cell Distribution Width 12.1 % (12.1-15.1); White Blood Count 4.53 10^3/uL (3.29-11.43)
[2023-06-03 12:38] LABS: Alanine Aminotransferase 15 U/L (0-33); Albumin Level 3.8 g/dL (3.5-5.2); Alkaline Phosphatase 56 U/L (35-105); Anion Gap 11.2 (5-19); Aspartate Amino Transferase 13 U/L (0-32); Blood Urea Nitrogen 13 mg/dL (6-20); Calcium 8.5 mg/dL (8.5-10.5); Carbon Dioxide 26 mmol/L (22-29); Chloride 105 mmol/L (98-107); Globulin 2.7 g/dL (1.3-4.6); Glomerular Filtration Rate 119.9 mL/min (90-130); Glucose 88 mg/dL (65-115); Magnesium 1.9 mg/dL (1.7-2.3); Osmolality Calculated 286 mOsm/kg (285-295); Phosphorus 3.3 mg/dL (2.5-4.5); Potassium 4.2 mmol/L (3.5-5.1); Sodium 138 mmol/L (136-145); Total Bilirubin 0.2 mg/dL (0.15-1.2); Total Protein 6.5 g/dL (6.6-8.7)
[2023-06-17 12:02] LABS: Basophils % 0.6 %; Eosinophils # 0.1 10^3/uL (0.0-0.8); Eosinophils % 2.1 %; Hematocrit 31.7 % (36-47); Lymphocytes # 1.4 10^3/uL (0.8-4.8); Lymphocytes % 29.7 %; Mean Corpuscular HGB Conc 31.5 g/dL (30-55); Mean Corpuscular Hemoglobin 28.1 pg (27-33); Monocytes # 0.3 10^3/uL (0.2-0.9); Monocytes % 6.4 %; Neutrophils # 2.96 10^3/uL (1.8-7.7); Nucleated Red Blood Cells % 0 %; Platelet Count 282 10^3/cmm (157-399); Red Blood Count 3.56 10^6/uL (3.85-5.65); Red Cell Distribution Width 11.8 % (12.1-15.1); White Blood Count 4.85 10^3/uL (3.29-11.43)
[2023-06-17 12:27] LABS: Alanine Aminotransferase 14 U/L (0-33); Albumin Level 4.1 g/dL (3.5-5.2); Alkaline Phosphatase 56 U/L (35-105); Anion Gap 14.1 (5-19); Aspartate Amino Transferase 17 U/L (0-32); Blood Urea Nitrogen 18 mg/dL (6-20); Calcium 8.9 mg/dL (8.5-10.5); Carbon Dioxide 23 mmol/L (22-29); Chloride 104 mmol/L (98-107); Globulin 2.9 g/dL (1.3-4.6); Glomerular Filtration Rate 100.4 mL/min (90-130); Glucose 88 mg/dL (65-115); Magnesium 1.9 mg/dL (1.7-2.3); Osmolality Calculated 285 mOsm/kg (285-295); Phosphorus 3.2 mg/dL (2.5-4.5); Potassium 4.1 mmol/L (3.5-5.1); Sodium 137 mmol/L (136-145); Total Bilirubin 0.3 mg/dL (0.15-1.2)
== END 2023-06-23 23:59 | disposition home or self-care (01) ==
LOC: LAB 11:38
PROVIDERS: PCP Family Medicine; Visit Provider Family Medicine
DX: E43 Unspecified severe protein-calorie malnutrition (principal); R63.4 Abnormal weight loss; R10.9 Unspecified abdominal pain
CPT/HCPCS: 80053; 83735; 84100; 85025

== ENCOUNTER 2023-06-19 10:49 | Outpatient (RCR) | payer BC, MEDICAID, SELFPAY ==
[2023-05-26] MEDS: sodium chloride 0.9% 1,000 ML 999 ML IV (11:01)
[2023-05-26 11:05] VITALS: BP 95/84; PULSE 86; RESP 18; TEMP 36.8; O2SAT 99
[2023-05-29] MEDS: sodium chloride 0.9% 1,000 ML 999 ML IV (11:01)
[2023-05-29 11:02] VITALS: BP 96/62; PULSE 91; RESP 18; TEMP 36.8; O2SAT 100
[2023-06-02] MEDS: sodium chloride 0.9% 1,000 ML 999 ML IV (13:07)
[2023-06-02 13:10] VITALS: BP 105/66; PULSE 105; RESP 18; TEMP 37.1; O2SAT 100
[2023-06-02 14:01] LABS: Ferritin 8 ng/mL (15-150); Iron 27 ug/dL (37-145); Percent Saturation 7.4 % (20-50); Total Iron Binding Capacity 362 mcg/dl; Unsaturated Iron Binding 335 ug/dL (112-347)
[2023-06-02 14:15] LABS: Folate Level 17.4 ng/mL (4.8-37.3)
[2023-06-02 14:17] LABS: 25 Hydroxy Vitamin D 25 ng/mL (30-100); Vitamin B12 703 pg/mL (232-1245)
[2023-06-04 14:51] LABS: Zinc Level, Serum or Plasma 59 mcg/dL (60-130)
[2023-06-04 20:19] LABS: Copper Level 88 mcg/dL (70-175)
[2023-06-05 04:21] LABS: Methylmalonic Acid 79 nmol/L (87-318)
[2023-06-05 11:15] VITALS: BP 97/64; PULSE 97; RESP 18; TEMP 36.7; O2SAT 100
[2023-06-05] MEDS: sodium chloride 0.9% 1,000 ML 999 ML IV (11:43)
[2023-06-07 12:45] LABS: Vitamin B6 Plasma 33.3 ng/mL (2.1-21.7)
[2023-06-09 10:24] LABS: Micronutrient Vitamin C 0.7 mg/dL (0.3-2.7)
[2023-06-09 11:00] VITALS: BP 99/63; PULSE 94; RESP 18; TEMP 36.7; O2SAT 100
[2023-06-09] MEDS: sodium chloride 0.9% 1,000 ML 999 ML IV (11:09)
[2023-06-09 11:23] LABS: Basophils % 0.5 %; Eosinophils % 0.8 %; Hematocrit 29.3 % (36-47); Lymphocytes # 1.6 10^3/uL (0.8-4.8); Lymphocytes % 42.6 %; Mean Corpuscular HGB Conc 31.1 g/dL (30-55); Mean Corpuscular Hemoglobin 28.4 pg (27-33); Mean Corpuscular Volume 91.6 fl (85-98); Mean Platelet Volume 9.8 fL (7.4-10.4); Monocytes # 0.4 10^3/uL (0.2-0.9); Monocytes % 11.4 %; Neutrophils # 1.67 10^3/uL (1.8-7.7); Neutrophils % 44.4 %; Nucleated Red Blood Cells % 0 %; Platelet Count 302 10^3/cmm (157-399); Red Cell Distribution Width 11.9 % (12.1-15.1); White Blood Count 3.76 10^3/uL (3.29-11.43)
[2023-06-09 11:47] LABS: Alanine Aminotransferase 17 U/L (0-33); Albumin Level 4.1 g/dL (3.5-5.2); Alkaline Phosphatase 56 U/L (35-105); Anion Gap 12.2 (5-19); Aspartate Amino Transferase 16 U/L (0-32); Blood Urea Nitrogen 18 mg/dL (6-20); Calcium 8.6 mg/dL (8.5-10.5); Carbon Dioxide 27 mmol/L (22-29); Chloride 103 mmol/L (98-107); Creatinine Clr Calc Pharmacy 97.0509; Globulin 2.6 g/dL (1.3-4.6); Glomerular Filtration Rate 100.4 mL/min (90-130); Glucose 94 mg/dL (65-115); Magnesium 1.9 mg/dL (1.7-2.3); Osmolality Calculated 288 mOsm/kg (285-295); Phosphorus 4.1 mg/dL (2.5-4.5); Potassium 4.2 mmol/L (3.5-5.1); Sodium 138 mmol/L (136-145); Total Bilirubin 0.2 mg/dL (0.15-1.2); Total Protein 6.7 g/dL (6.6-8.7)
[2023-06-09 16:19] LABS: Beta-Gamma-Tocopherol <1.0 mg/L (<4.4); Vitamin A (Retinol) 46 mcg/dL (38-98)
[2023-06-12] MEDS: sodium chloride 0.9% 1,000 ML 999 ML IV (11:07)
[2023-06-12 11:08] VITALS: BP 103/60; PULSE 104; RESP 18; TEMP 36.6; O2SAT 100
[2023-06-18 09:35] LABS: Miscellaneous Test SEE COMMENTS
[2023-06-18 09:36] LABS: Miscellaneous Test SEE COMMENTS
[2023-06-19] MEDS: sodium chloride 0.9% 1,000 ML 999 ML IV (10:56)
[2023-06-19 11:16] VITALS: BP 99/67; PULSE 103; RESP 18; TEMP 36.7; O2SAT 100
== END 2023-06-23 23:59 | disposition home or self-care (01) ==
LOC: GILAB 10:49
PROVIDERS: PCP Family Medicine; Visit Provider Family Medicine
DX: K31.84 Gastroparesis (principal); E43 Unspecified severe protein-calorie malnutrition; R63.4 Abnormal weight loss; E16.2 Hypoglycemia, unspecified; G90.1 Familial dysautonomia [Riley-Day]; G90.A Postural orthostatic tachycardia syndrome [POTS]; R55 Syncope and collapse
CPT/HCPCS: 36415; 80053; 82180; 82306; 82495; 82525; 82607; 82728; 82746; 83540; 83550; 83735; 83785; 83921; 84100; 84207; 84255; 84446; 84590; 84630; 85025; 96360; J7030

== ENCOUNTER 2023-06-24 13:57 | Outpatient (RCR) | payer BC, MEDICAID, SELFPAY ==
[2023-06-24 14:26] LABS: Basophils % 0.5 %; Lymphocytes # 1.5 10^3/uL (0.8-4.8); Mean Corpuscular HGB Conc 32.4 g/dL (30-55); Mean Corpuscular Hemoglobin 28.1 pg (27-33); Mean Corpuscular Volume 86.6 fl (85-98); Mean Platelet Volume 10.2 fL (7.4-10.4); Monocytes # 0.2 10^3/uL (0.2-0.9); Monocytes % 5.8 %; Neutrophils # 2.08 10^3/uL (1.8-7.7); Neutrophils % 54.4 %; Nucleated Red Blood Cells % 0 %; Platelet Count 277 10^3/cmm (157-399); Red Blood Count 3.35 10^6/uL (3.85-5.65); Red Cell Distribution Width 11.9 % (12.1-15.1); White Blood Count 3.82 10^3/uL (3.29-11.43)
[2023-06-24 14:51] LABS: Alanine Aminotransferase 17 U/L (0-33); Alkaline Phosphatase 56 U/L (35-105); Anion Gap 13.6 (5-19); Aspartate Amino Transferase 19 U/L (0-32); Blood Urea Nitrogen 19 mg/dL (6-20); Calcium 8.6 mg/dL (8.5-10.5); Carbon Dioxide 26 mmol/L (22-29); Chloride 101 mmol/L (98-107); Globulin 2.8 g/dL (1.3-4.6); Glomerular Filtration Rate 99.6 mL/min (90-130); Glucose 80 mg/dL (65-115); Magnesium 1.9 mg/dL (1.7-2.3); Osmolality Calculated 285 mOsm/kg (285-295); Phosphorus 3.7 mg/dL (2.5-4.5); Potassium 3.6 mmol/L (3.5-5.1); Sodium 137 mmol/L (136-145); Total Bilirubin 0.2 mg/dL (0.15-1.2); Total Protein 6.8 g/dL (6.6-8.7)
== END 2023-07-23 23:59 | disposition home or self-care (01) ==
LOC: LAB 13:57
PROVIDERS: PCP Family Medicine; Visit Provider Family Medicine
DX: R10.9 Unspecified abdominal pain (principal); R63.4 Abnormal weight loss; E43 Unspecified severe protein-calorie malnutrition
CPT/HCPCS: 80053; 83735; 84100; 85025

== ENCOUNTER 2023-07-03 11:21 | Outpatient (RCR) | payer BC, MEDICAID, SELFPAY ==
[2023-06-30] MEDS: sodium chloride 0.9% 1,000 ML 999 ML IV (10:46)
[2023-06-30 10:48] VITALS: BP 97/61; PULSE 95; RESP 18; TEMP 36.8; O2SAT 99
[2023-06-30 11:15] LABS: Basophils % 0.8 %; Eosinophils # 0.1 10^3/uL (0.0-0.8); Eosinophils % 2.2 %; Lymphocytes # 1.5 10^3/uL (0.8-4.8); Lymphocytes % 39.9 %; Mean Corpuscular HGB Conc 31.1 g/dL (30-55); Mean Corpuscular Hemoglobin 27.7 pg (27-33); Mean Corpuscular Volume 89.2 fl (85-98); Mean Platelet Volume 10.1 fL (7.4-10.4); Monocytes # 0.4 10^3/uL (0.2-0.9); Monocytes % 10.7 %; Neutrophils # 1.69 10^3/uL (1.8-7.7); Neutrophils % 46.1 %; Nucleated Red Blood Cells % 0 %; Platelet Count 234 10^3/cmm (157-399); Red Blood Count 3.14 10^6/uL (3.85-5.65); Red Cell Distribution Width 12.3 % (12.1-15.1); White Blood Count 3.66 10^3/uL (3.29-11.43)
[2023-06-30 12:00] LABS: Alanine Aminotransferase 13 U/L (0-33); Albumin Level 3.7 g/dL (3.5-5.2); Alkaline Phosphatase 47 U/L (35-105); Anion Gap 13.1 (5-19); Aspartate Amino Transferase 15 U/L (0-32); Blood Urea Nitrogen 16 mg/dL (6-20); Calcium 8.4 mg/dL (8.5-10.5); Carbon Dioxide 24 mmol/L (22-29); Chloride 108 mmol/L (98-107); Globulin 2.5 g/dL (1.3-4.6); Glucose 96 mg/dL (65-115); Magnesium 1.9 mg/dL (1.7-2.3); Osmolality Calculated 293 mOsm/kg (285-295); Phosphorus 4.1 mg/dL (2.5-4.5); Potassium 4.1 mmol/L (3.5-5.1); Sodium 141 mmol/L (136-145); Total Bilirubin 0.2 mg/dL (0.15-1.2); Total Protein 6.2 g/dL (6.6-8.7)
[2023-07-03] MEDS: sodium chloride 0.9% 1,000 ML 999 ML IV (11:45)
[2023-07-03 13:04] VITALS: BP 105/63; PULSE 87; RESP 18; TEMP 36.8; O2SAT 100
== END 2023-07-23 23:59 | disposition home or self-care (01) ==
LOC: GILAB 11:21
PROVIDERS: PCP Family Medicine; Visit Provider Family Medicine
DX: K31.84 Gastroparesis (principal); E43 Unspecified severe protein-calorie malnutrition; R63.4 Abnormal weight loss; E16.2 Hypoglycemia, unspecified
CPT/HCPCS: 36415; 36591; 80053; 83735; 84100; 85025; 96360; J7030

== ENCOUNTER 2023-07-13 11:40 | Outpatient (CLI) | payer BC, MEDICAID, SELFPAY ==
[2023-07-13 11:57] LABS: Basophils % 0.8 %; Eosinophils # 0.1 10^3/uL (0.0-0.8); Hematocrit 30.4 % (36-47); Lymphocytes % 50.4 %; Mean Corpuscular HGB Conc 31.3 g/dL (30-55); Mean Corpuscular Hemoglobin 27.1 pg (27-33); Mean Corpuscular Volume 86.9 fl (85-98); Mean Platelet Volume 9.5 fL (7.4-10.4); Monocytes # 0.3 10^3/uL (0.2-0.9); Monocytes % 8.5 %; Neutrophils # 1.53 10^3/uL (1.8-7.7); Neutrophils % 38.3 %; Nucleated Red Blood Cells % 0 %; Platelet Count 311 10^3/cmm (157-399); Red Cell Distribution Width 13.2 % (12.1-15.1); White Blood Count 3.99 10^3/uL (3.29-11.43)
[2023-07-13 12:19] LABS: Alanine Aminotransferase 15 U/L (0-33); Albumin Level 4.1 g/dL (3.5-5.2); Alkaline Phosphatase 55 U/L (35-105); Anion Gap 12.3 (5-19); Aspartate Amino Transferase 15 U/L (0-32); Blood Urea Nitrogen 19 mg/dL (6-20); Calcium 8.8 mg/dL (8.5-10.5); Carbon Dioxide 24 mmol/L (22-29); Chloride 105 mmol/L (98-107); Globulin 2.6 g/dL (1.3-4.6); Glomerular Filtration Rate 99.6 mL/min (90-130); Glucose 91 mg/dL (65-115); Magnesium 2.1 mg/dL (1.7-2.3); Osmolality Calculated 286 mOsm/kg (285-295); Phosphorus 3.6 mg/dL (2.5-4.5); Potassium 4.3 mmol/L (3.5-5.1); Sodium 137 mmol/L (136-145); Total Bilirubin 0.2 mg/dL (0.15-1.2); Total Protein 6.7 g/dL (6.6-8.7)
== END 2023-07-13 11:41 | disposition home or self-care (01) ==
PROVIDERS: PCP Family Medicine; Visit Provider Family Medicine
DX: G90.A Postural orthostatic tachycardia syndrome [POTS] (principal); R63.4 Abnormal weight loss; Z78.9 Other specified health status; Z79.899 Other long term (current) drug therapy
CPT/HCPCS: 36415; 80053; 83735; 84100; 85025

== ENCOUNTER 2023-07-15 09:00 | Oncology outpatient (recurring) (ONCR) | payer BC, MEDICAID, SELFPAY ==
[2023-06-26 08:45] VITALS: BP 100/67; PULSE 88; RESP 16; TEMP 36.6; O2SAT 99
[2023-06-26] MEDS: sodium chloride 0.9% 250 ML 50 ML IV (09:03)
[2023-06-26] MEDS: sodium chloride 0.9% 1,000 ML 999 ML IV (09:50)
--- NOTE | 2023-06-26 10:16 | PC.PHAR ---
I ENTERED ORDER FOR 500MG, WRITTEN ORDER IS FOR TOTAL DOSE OF 100MG. NURSE STOPPED INFUSION AND NEW ORDER ENTERED FOR 100MG. PATIENT RECEIVED TOTAL DOSE OF 150MG.
[2023-07-07 08:03] VITALS: BP 108/74; PULSE 102; RESP 16; TEMP 36.7; O2SAT 99
[2023-07-07] MEDS: sodium chloride 0.9% 1,000 ML 999 ML IV (08:38)
[2023-07-07 08:57] LABS: Basophils % 0.9 %; Eosinophils # 0.1 10^3/uL (0.0-0.8); Eosinophils % 1.7 %; Hematocrit 31.9 % (36-47); Lymphocytes # 1.1 10^3/uL (0.8-4.8); Lymphocytes % 32.2 %; Mean Corpuscular HGB Conc 31.3 g/dL (30-55); Mean Corpuscular Hemoglobin 27.6 pg (27-33); Mean Corpuscular Volume 88.1 fl (85-98); Monocytes # 0.4 10^3/uL (0.2-0.9); Monocytes % 11.2 %; Neutrophils # 1.87 10^3/uL (1.8-7.7); Neutrophils % 53.7 %; Nucleated Red Blood Cells % 0 %; Platelet Count 319 10^3/cmm (157-399); Red Blood Count 3.62 10^6/uL (3.85-5.65); White Blood Count 3.48 10^3/uL (3.29-11.43)
[2023-07-07 09:19] LABS: Alanine Aminotransferase 15 U/L (0-33); Albumin Level 4.2 g/dL (3.5-5.2); Alkaline Phosphatase 50 U/L (35-105); Anion Gap 11.6 (5-19); Aspartate Amino Transferase 15 U/L (0-32); Blood Urea Nitrogen 22 mg/dL (6-20); Calcium 8.8 mg/dL (8.5-10.5); Carbon Dioxide 27 mmol/L (22-29); Chloride 105 mmol/L (98-107); Globulin 2.8 g/dL (1.3-4.6); Glomerular Filtration Rate 99.6 mL/min (90-130); Glucose 117 mg/dL (65-115); Magnesium 2.1 mg/dL (1.7-2.3); Osmolality Calculated 292 mOsm/kg (285-295); Phosphorus 3.9 mg/dL (2.5-4.5); Potassium 4.6 mmol/L (3.5-5.1); Sodium 139 mmol/L (136-145); Total Bilirubin 0.2 mg/dL (0.15-1.2)
[2023-07-07 10:05] VITALS: BP 115/73; PULSE 99; RESP 16; TEMP 36.9; O2SAT 99
[2023-07-10 09:10] VITALS: BP 116/80; PULSE 92; RESP 17; TEMP 37.1; O2SAT 99
[2023-07-10] MEDS: sodium chloride 0.9% 1,000 ML 999 ML IV (09:11)
[2023-07-10 10:30] VITALS: BP 105/64; PULSE 87; RESP 16; O2SAT 99
== END 2023-07-23 23:59 | disposition home or self-care (01) ==
PROVIDERS: PCP Family Medicine; Visit Provider Family Medicine
DX: Z53.9 Procedure and treatment not carried out, unspecified reason (principal)
CPT/HCPCS: 36415; 80053; 83735; 84100; 85025; 96360; 96365; J1756; J7030; J7050

== ENCOUNTER 2023-07-22 12:29 | Outpatient (CLI) | payer BC, MEDICAID, SELFPAY ==
[2023-07-22 13:42] LABS: Basophils % 0.4 %; Eosinophils % 0.8 %; Hematocrit 33.4 % (36-47); Lymphocytes # 2.2 10^3/uL (0.8-4.8); Lymphocytes % 42.2 %; Mean Corpuscular HGB Conc 31.7 g/dL (30-55); Mean Corpuscular Hemoglobin 27.1 pg (27-33); Mean Corpuscular Volume 85.4 fl (85-98); Mean Platelet Volume 10.4 fL (7.4-10.4); Monocytes # 0.5 10^3/uL (0.2-0.9); Monocytes % 8.6 %; Neutrophils # 2.48 10^3/uL (1.8-7.7); Neutrophils % 47.6 %; Nucleated Red Blood Cells % 0 %; Platelet Count 330 10^3/cmm (157-399); Red Blood Count 3.91 10^6/uL (3.85-5.65); White Blood Count 5.21 10^3/uL (3.29-11.43)
[2023-07-22 13:54] LABS: Alanine Aminotransferase 11 U/L (0-33); Alkaline Phosphatase 48 U/L (35-105); Anion Gap 15.9 (5-19); Aspartate Amino Transferase 17 U/L (0-32); Blood Urea Nitrogen 21 mg/dL (6-20); Calcium 8.7 mg/dL (8.5-10.5); Carbon Dioxide 22 mmol/L (22-29); Chloride 100 mmol/L (98-107); Globulin 3.2 g/dL (1.3-4.6); Glomerular Filtration Rate 99.6 mL/min (90-130); Glucose 83 mg/dL (65-115); Osmolality Calculated 280 mOsm/kg (285-295); Phosphorus 3.3 mg/dL (2.5-4.5); Potassium 3.9 mmol/L (3.5-5.1); Sodium 134 mmol/L (136-145); Total Bilirubin 0.2 mg/dL (0.15-1.2); Total Protein 7.2 g/dL (6.6-8.7)
== END 2023-07-22 12:30 | disposition home or self-care (01) ==
LOC: LAB 12:30
PROVIDERS: PCP Family Medicine; Visit Provider Family Medicine
DX: G90.A Postural orthostatic tachycardia syndrome [POTS] (principal); R63.4 Abnormal weight loss; Z78.9 Other specified health status
CPT/HCPCS: 80053; 83735; 84100; 85025

== ENCOUNTER 2023-08-04 08:48 | Oncology outpatient (recurring) (ONCR) | payer BC, MEDICAID, SELFPAY ==
[2023-07-24 09:19] VITALS: BP 93/62; PULSE 92; RESP 16; TEMP 36.8; O2SAT 97
[2023-07-24] MEDS: sodium chloride 0.9% 1,000 ML 999 ML IV (09:24)
[2023-07-24 10:38] VITALS: BP 95/58; PULSE 89; RESP 16; TEMP 36.8; O2SAT 98
[2023-07-28 08:20] VITALS: BMI 22.8
[2023-07-28 08:21] VITALS: BP 111/67; PULSE 108; RESP 17; TEMP 36.8; O2SAT 99
[2023-07-28] MEDS: sodium chloride 0.9% 1,000 ML 999 ML IV (08:25)
[2023-07-28 08:41] LABS: Basophils % 0.8 %; Eosinophils % 0.8 %; Hematocrit 30.9 % (36-47); Lymphocytes # 1.5 10^3/uL (0.8-4.8); Lymphocytes % 32.3 %; Mean Corpuscular HGB Conc 31.1 g/dL (30-55); Mean Corpuscular Hemoglobin 26.9 pg (27-33); Mean Corpuscular Volume 86.6 fl (85-98); Mean Platelet Volume 9.8 fL (7.4-10.4); Monocytes # 0.5 10^3/uL (0.2-0.9); Monocytes % 11.4 %; Neutrophils # 2.57 10^3/uL (1.8-7.7); Neutrophils % 54.3 %; Nucleated Red Blood Cells % 0 %; Platelet Count 274 10^3/cmm (157-399); Red Blood Count 3.57 10^6/uL (3.85-5.65); Red Cell Distribution Width 13.2 % (12.1-15.1); White Blood Count 4.74 10^3/uL (3.29-11.43)
[2023-07-28 08:59] LABS: Alanine Aminotransferase 9 U/L (0-33); Albumin Level 3.8 g/dL (3.5-5.2); Alkaline Phosphatase 43 U/L (35-105); Chloride 106 mmol/L (98-107); Potassium 4.5 mmol/L (3.5-5.1); Sodium 140 mmol/L (136-145)
[2023-07-28 09:13] LABS: Anion Gap 14.5 (5-19); Aspartate Amino Transferase 12 U/L (0-32); Blood Urea Nitrogen 20 mg/dL (6-20); Calcium 8.6 mg/dL (8.5-10.5); Carbon Dioxide 24 mmol/L (22-29); Globulin 2.6 g/dL (1.3-4.6); Glomerular Filtration Rate 99.6 mL/min (90-130); Glucose 70 mg/dL (65-115); Osmolality Calculated 291 mOsm/kg (285-295); Total Bilirubin 0.2 mg/dL (0.15-1.2); Total Protein 6.4 g/dL (6.6-8.7)
[2023-07-28 09:42] LABS: Magnesium 1.9 mg/dL (1.7-2.3)
[2023-07-28 09:43] VITALS: BP 100/63; PULSE 97; RESP 17; TEMP 36.8; O2SAT 100
[2023-07-29 10:27] LABS: Phosphorus 3.5 mg/dL (2.5-4.5)
[2023-07-31 08:52] VITALS: BP 97/67; PULSE 98; RESP 16; TEMP 36.7; O2SAT 98
[2023-07-31] MEDS: sodium chloride 0.9% 1,000 ML 999 ML IV (08:54)
[2023-07-31 10:02] VITALS: BP 102/71; PULSE 91; RESP 16; TEMP 36.7; O2SAT 100
[2023-08-04] MEDS: sodium chloride 0.9% 1,000 ML 999 ML IV (09:15)
[2023-08-04 09:24] VITALS: BP 104/67; PULSE 87; RESP 16; TEMP 36.8; O2SAT 100
[2023-08-04 09:34] LABS: Basophils % 0.5 %; Eosinophils # 0.1 10^3/uL (0.0-0.8); Eosinophils % 1.8 %; Hematocrit 30.4 % (36-47); Lymphocytes # 1.8 10^3/uL (0.8-4.8); Lymphocytes % 47.9 %; Mean Corpuscular HGB Conc 31.3 g/dL (30-55); Mean Corpuscular Hemoglobin 27.5 pg (27-33); Mean Corpuscular Volume 87.9 fl (85-98); Mean Platelet Volume 10.2 fL (7.4-10.4); Monocytes # 0.4 10^3/uL (0.2-0.9); Monocytes % 9.7 %; Neutrophils # 1.52 10^3/uL (1.8-7.7); Neutrophils % 39.8 %; Nucleated Red Blood Cells % 0 %; Platelet Count 270 10^3/cmm (157-399); Red Blood Count 3.46 10^6/uL (3.85-5.65); White Blood Count 3.82 10^3/uL (3.29-11.43)
[2023-08-04 09:50] LABS: Alanine Aminotransferase 15 U/L (0-33); Albumin Level 3.8 g/dL (3.5-5.2); Alkaline Phosphatase 47 U/L (35-105); Anion Gap 9.2 (5-19); Aspartate Amino Transferase 17 U/L (0-32); Blood Urea Nitrogen 18 mg/dL (6-20); Calcium 8.7 mg/dL (8.5-10.5); Carbon Dioxide 27 mmol/L (22-29); Chloride 107 mmol/L (98-107); Globulin 2.8 g/dL (1.3-4.6); Glomerular Filtration Rate 99.6 mL/min (90-130); Glucose 107 mg/dL (65-115); Magnesium 2.1 mg/dL (1.7-2.3); Osmolality Calculated 290 mOsm/kg (285-295); Phosphorus 3.2 mg/dL (2.5-4.5); Potassium 4.2 mmol/L (3.5-5.1); Sodium 139 mmol/L (136-145); Total Bilirubin 0.2 mg/dL (0.15-1.2); Total Protein 6.6 g/dL (6.6-8.7)
[2023-08-04 10:37] VITALS: BP 107/72; PULSE 90; RESP 16; TEMP 36.7; O2SAT 99
== END 2023-08-23 23:59 | disposition home or self-care (01) ==
PROVIDERS: PCP Family Medicine; Visit Provider Family Medicine
DX: G90.1 Familial dysautonomia [Riley-Day]; G90.A Postural orthostatic tachycardia syndrome [POTS]; R55 Syncope and collapse
CPT/HCPCS: 36415; 80053; 83735; 84100; 85025; 96360; J7030

== ENCOUNTER 2023-08-12 12:18 | Outpatient (CLI) | payer BC, MEDICAID, SELFPAY ==
[2023-08-12 12:38] LABS: Basophils % 0.6 %; Eosinophils % 1.1 %; Hematocrit 29.1 % (36-47); Lymphocytes # 1.7 10^3/uL (0.8-4.8); Lymphocytes % 49.4 %; Mean Corpuscular HGB Conc 32.6 g/dL (30-55); Mean Corpuscular Hemoglobin 27.1 pg (27-33); Mean Corpuscular Volume 82.9 fl (85-98); Mean Platelet Volume 10.5 fL (7.4-10.4); Monocytes # 0.3 10^3/uL (0.2-0.9); Monocytes % 8.2 %; Neutrophils # 1.42 10^3/uL (1.8-7.7); Neutrophils % 40.4 %; Nucleated Red Blood Cells % 0 %; Platelet Count 269 10^3/cmm (157-399); Red Blood Count 3.51 10^6/uL (3.85-5.65); Red Cell Distribution Width 14.3 % (12.1-15.1); White Blood Count 3.52 10^3/uL (3.29-11.43)
[2023-08-12 13:07] LABS: Alanine Aminotransferase 15 U/L (0-33); Albumin Level 3.9 g/dL (3.5-5.2); Alkaline Phosphatase 47 U/L (35-105); Anion Gap 12.9 (5-19); Aspartate Amino Transferase 15 U/L (0-32); Blood Urea Nitrogen 18 mg/dL (6-20); Calcium 8.6 mg/dL (8.5-10.5); Carbon Dioxide 24 mmol/L (22-29); Chloride 104 mmol/L (98-107); Globulin 2.9 g/dL (1.3-4.6); Glomerular Filtration Rate 99.6 mL/min (90-130); Glucose 96 mg/dL (65-115); Magnesium 1.9 mg/dL (1.7-2.3); Osmolality Calculated 286 mOsm/kg (285-295); Phosphorus 3.3 mg/dL (2.5-4.5); Potassium 3.9 mmol/L (3.5-5.1); Sodium 137 mmol/L (136-145); Total Bilirubin 0.2 mg/dL (0.15-1.2); Total Protein 6.8 g/dL (6.6-8.7)
== END 2023-08-12 12:19 | disposition home or self-care (01) ==
LOC: LAB 12:19
PROVIDERS: PCP Family Medicine; Visit Provider Family Medicine
DX: K31.84 Gastroparesis (principal); R63.4 Abnormal weight loss; E16.2 Hypoglycemia, unspecified
CPT/HCPCS: 80053; 83735; 84100; 85025

== ENCOUNTER 2023-08-18 12:12 | Outpatient (RCR) | payer BC, MEDICAID, SELFPAY ==
[2023-08-18 12:39] LABS: Eosinophils % 0.8 %; Hematocrit 32.3 % (36-47); Lymphocytes # 1.7 10^3/uL (0.8-4.8); Lymphocytes % 44.6 %; Mean Corpuscular HGB Conc 30.7 g/dL (30-55); Mean Corpuscular Hemoglobin 26.5 pg (27-33); Mean Corpuscular Volume 86.4 fl (85-98); Monocytes # 0.4 10^3/uL (0.2-0.9); Monocytes % 9.2 %; Neutrophils # 1.68 10^3/uL (1.8-7.7); Neutrophils % 44.1 %; Nucleated Red Blood Cells % 0 %; Platelet Count 233 10^3/cmm (157-399); Red Blood Count 3.74 10^6/uL (3.85-5.65); Red Cell Distribution Width 14.4 % (12.1-15.1); White Blood Count 3.81 10^3/uL (3.29-11.43)
[2023-08-18 12:59] LABS: Alanine Aminotransferase 14 U/L (0-33); Alkaline Phosphatase 45 U/L (35-105); Anion Gap 12.9 (5-19); Aspartate Amino Transferase 14 U/L (0-32); Blood Urea Nitrogen 15 mg/dL (6-20); Calcium 8.5 mg/dL (8.5-10.5); Carbon Dioxide 22 mmol/L (22-29); Chloride 107 mmol/L (98-107); Globulin 2.9 g/dL (1.3-4.6); Glomerular Filtration Rate 85.4 mL/min (90-130); Glucose 96 mg/dL (65-115); Magnesium 1.8 mg/dL (1.7-2.3); Osmolality Calculated 287 mOsm/kg (285-295); Phosphorus 3.2 mg/dL (2.5-4.5); Potassium 3.9 mmol/L (3.5-5.1); Sodium 138 mmol/L (136-145); Total Bilirubin 0.2 mg/dL (0.15-1.2); Total Protein 6.9 g/dL (6.6-8.7)
== END 2023-08-23 23:59 | disposition home or self-care (01) ==
LOC: LAB 12:12
PROVIDERS: PCP Family Medicine; Visit Provider Family Medicine
DX: R10.9 Unspecified abdominal pain (principal); R63.4 Abnormal weight loss; E43 Unspecified severe protein-calorie malnutrition; Z79.899 Other long term (current) drug therapy
CPT/HCPCS: 36415; 80053; 83735; 84100; 85025

== ENCOUNTER 2023-09-15 12:07 | Outpatient (RCR) | payer BC, MEDICAID, SELFPAY ==
[2023-08-25 11:41] LABS: Basophils % 0.8 %; Eosinophils # 0.1 10^3/uL (0.0-0.8); Eosinophils % 3.8 %; Hematocrit 30.2 % (36-47); Lymphocytes # 1.3 10^3/uL (0.8-4.8); Lymphocytes % 35.2 %; Mean Corpuscular HGB Conc 31.1 g/dL (30-55); Mean Corpuscular Hemoglobin 26.3 pg (27-33); Mean Corpuscular Volume 84.6 fl (85-98); Mean Platelet Volume 10.7 fL (7.4-10.4); Monocytes # 0.4 10^3/uL (0.2-0.9); Neutrophils # 1.78 10^3/uL (1.8-7.7); Neutrophils % 48.9 %; Nucleated Red Blood Cells % 0 %; Platelet Count 226 10^3/cmm (157-399); Red Blood Count 3.57 10^6/uL (3.85-5.65); Red Cell Distribution Width 14.8 % (12.1-15.1); White Blood Count 3.64 10^3/uL (3.29-11.43)
[2023-08-25 11:56] LABS: Alanine Aminotransferase 12 U/L (0-33); Albumin Level 3.5 g/dL (3.5-5.2); Alkaline Phosphatase 56 U/L (35-105); Aspartate Amino Transferase 13 U/L (0-32); Blood Urea Nitrogen 14 mg/dL (6-20); Calcium 8.3 mg/dL (8.5-10.5); Carbon Dioxide 25 mmol/L (22-29); Chloride 105 mmol/L (98-107); Globulin 2.9 g/dL (1.3-4.6); Glucose 105 mg/dL (65-115); Magnesium 2.1 mg/dL (1.7-2.3); Osmolality Calculated 285 mOsm/kg (285-295); Phosphorus 3.1 mg/dL (2.5-4.5); Sodium 137 mmol/L (136-145); Total Bilirubin 0.2 mg/dL (0.15-1.2); Total Protein 6.4 g/dL (6.6-8.7)
[2023-08-31 16:21] LABS: Eosinophils # 0.1 10^3/uL (0.0-0.8); Eosinophils % 1.4 %; Hematocrit 32.8 % (36-47); Lymphocytes # 1.8 10^3/uL (0.8-4.8); Lymphocytes % 43.9 %; Mean Corpuscular HGB Conc 31.4 g/dL (30-55); Mean Corpuscular Hemoglobin 26.3 pg (27-33); Mean Corpuscular Volume 83.7 fl (85-98); Mean Platelet Volume 9.3 fL (7.4-10.4); Monocytes # 0.3 10^3/uL (0.2-0.9); Monocytes % 7.7 %; Neutrophils # 1.89 10^3/uL (1.8-7.7); Neutrophils % 45.5 %; Nucleated Red Blood Cells % 0 %; Platelet Count 349 10^3/cmm (157-399); Red Blood Count 3.92 10^6/uL (3.85-5.65); Red Cell Distribution Width 14.8 % (12.1-15.1); White Blood Count 4.15 10^3/uL (3.29-11.43)
[2023-08-31 16:45] LABS: Alanine Aminotransferase 13 U/L (0-33); Albumin Level 3.9 g/dL (3.5-5.2); Alkaline Phosphatase 56 U/L (35-105); Anion Gap 13.6 (5-19); Aspartate Amino Transferase 14 U/L (0-32); Blood Urea Nitrogen 17 mg/dL (6-20); Calcium 8.7 mg/dL (8.5-10.5); Carbon Dioxide 24 mmol/L (22-29); Chloride 104 mmol/L (98-107); Globulin 3.4 g/dL (1.3-4.6); Glomerular Filtration Rate 99.6 mL/min (90-130); Glucose 108 mg/dL (65-115); Magnesium 1.9 mg/dL (1.7-2.3); Osmolality Calculated 288 mOsm/kg (285-295); Phosphorus 3.4 mg/dL (2.5-4.5); Potassium 3.6 mmol/L (3.5-5.1); Sodium 138 mmol/L (136-145); Total Bilirubin 0.2 mg/dL (0.15-1.2); Total Protein 7.3 g/dL (6.6-8.7)
[2023-09-08 11:25] LABS: Basophils % 0.8 %; Eosinophils # 0.1 10^3/uL (0.0-0.8); Eosinophils % 2.8 %; Hematocrit 32.7 % (36-47); Lymphocytes # 1.3 10^3/uL (0.8-4.8); Lymphocytes % 33.4 %; Mean Corpuscular HGB Conc 31.8 g/dL (30-55); Mean Corpuscular Hemoglobin 26.5 pg (27-33); Mean Corpuscular Volume 83.4 fl (85-98); Mean Platelet Volume 9.6 fL (7.4-10.4); Monocytes # 0.4 10^3/uL (0.2-0.9); Monocytes % 9.6 %; Neutrophils % 53.1 %; Nucleated Red Blood Cells % 0 %; Platelet Count 289 10^3/cmm (157-399); Red Blood Count 3.92 10^6/uL (3.85-5.65); Red Cell Distribution Width 15.1 % (12.1-15.1); White Blood Count 3.95 10^3/uL (3.29-11.43)
[2023-09-08 11:41] LABS: Alanine Aminotransferase 9 U/L (0-33); Albumin Level 3.8 g/dL (3.5-5.2); Alkaline Phosphatase 53 U/L (35-105); Anion Gap 12.3 (5-19); Aspartate Amino Transferase 15 U/L (0-32); Blood Urea Nitrogen 15 mg/dL (6-20); Calcium 8.9 mg/dL (8.5-10.5); Carbon Dioxide 25 mmol/L (22-29); Chloride 104 mmol/L (98-107); Globulin 3.1 g/dL (1.3-4.6); Glomerular Filtration Rate 99.6 mL/min (90-130); Glucose 113 mg/dL (65-115); Magnesium 1.9 mg/dL (1.7-2.3); Osmolality Calculated 286 mOsm/kg (285-295); Phosphorus 3.8 mg/dL (2.5-4.5); Potassium 4.3 mmol/L (3.5-5.1); Sodium 137 mmol/L (136-145); Total Bilirubin 0.2 mg/dL (0.15-1.2); Total Protein 6.9 g/dL (6.6-8.7)
[2023-09-15 12:52] LABS: Basophils % 0.8 %; Eosinophils % 0.8 %; Hematocrit 32.8 % (36-47); Lymphocytes # 1.9 10^3/uL (0.8-4.8); Lymphocytes % 50.3 %; Mean Corpuscular HGB Conc 31.1 g/dL (30-55); Mean Corpuscular Hemoglobin 25.6 pg (27-33); Mean Corpuscular Volume 82.2 fl (85-98); Mean Platelet Volume 10.2 fL (7.4-10.4); Monocytes # 0.4 10^3/uL (0.2-0.9); Monocytes % 10.1 %; Neutrophils # 1.42 10^3/uL (1.8-7.7); Neutrophils % 37.7 %; Nucleated Red Blood Cells % 0 %; Platelet Count 315 10^3/cmm (157-399); Red Blood Count 3.99 10^6/uL (3.85-5.65); White Blood Count 3.76 10^3/uL (3.29-11.43)
[2023-09-15 13:08] LABS: Alanine Aminotransferase 14 U/L (0-33); Albumin Level 3.8 g/dL (3.5-5.2); Alkaline Phosphatase 48 U/L (35-105); Anion Gap 14.3 (5-19); Aspartate Amino Transferase 15 U/L (0-32); Blood Urea Nitrogen 18 mg/dL (6-20); Calcium 8.7 mg/dL (8.5-10.5); Carbon Dioxide 25 mmol/L (22-29); Chloride 102 mmol/L (98-107); Globulin 3.3 g/dL (1.3-4.6); Glomerular Filtration Rate 85.4 mL/min (90-130); Glucose 100 mg/dL (65-115); Magnesium 1.9 mg/dL (1.7-2.3); Osmolality Calculated 286 mOsm/kg (285-295); Phosphorus 3.8 mg/dL (2.5-4.5); Potassium 4.3 mmol/L (3.5-5.1); Sodium 137 mmol/L (136-145); Total Bilirubin 0.2 mg/dL (0.15-1.2); Total Protein 7.1 g/dL (6.6-8.7)
== END 2023-09-23 23:59 | disposition home or self-care (01) ==
LOC: LAB 12:07
PROVIDERS: PCP Family Medicine; Visit Provider Family Medicine
DX: R10.9 Unspecified abdominal pain (principal); E43 Unspecified severe protein-calorie malnutrition; R63.4 Abnormal weight loss
CPT/HCPCS: 36415; 80053; 83735; 84100; 85025

== ENCOUNTER 2023-09-22 16:32 | Outpatient (CLI) | payer BC, MEDICAID, SELFPAY ==
[2023-09-22 17:54] LABS: Basophils % 0.5 %; Eosinophils % 0.5 %; Hematocrit 31.9 % (36-47); Lymphocytes # 1.6 10^3/uL (0.8-4.8); Lymphocytes % 41.5 %; Mean Corpuscular HGB Conc 31.7 g/dL (30-55); Mean Corpuscular Hemoglobin 26.4 pg (27-33); Mean Corpuscular Volume 83.3 fl (85-98); Mean Platelet Volume 10.3 fL (7.4-10.4); Monocytes # 0.3 10^3/uL (0.2-0.9); Monocytes % 6.5 %; Neutrophils # 1.96 10^3/uL (1.8-7.7); Neutrophils % 50.7 %; Nucleated Red Blood Cells % 0 %; Platelet Count 250 10^3/cmm (157-399); Red Blood Count 3.83 10^6/uL (3.85-5.65); Red Cell Distribution Width 15.4 % (12.1-15.1); White Blood Count 3.86 10^3/uL (3.29-11.43)
[2023-09-22 18:19] LABS: Alanine Aminotransferase 16 U/L (0-33); Albumin Level 3.9 g/dL (3.5-5.2); Alkaline Phosphatase 54 U/L (35-105); Anion Gap 11.7 (5-19); Aspartate Amino Transferase 18 U/L (0-32); Blood Urea Nitrogen 17 mg/dL (6-20); Calcium 8.7 mg/dL (8.5-10.5); Carbon Dioxide 25 mmol/L (22-29); Chloride 108 mmol/L (98-107); Globulin 3.3 g/dL (1.3-4.6); Glomerular Filtration Rate 99.6 mL/min (90-130); Glucose 82 mg/dL (65-115); Osmolality Calculated 293 mOsm/kg (285-295); Phosphorus 3.5 mg/dL (2.5-4.5); Potassium 3.7 mmol/L (3.5-5.1); Sodium 141 mmol/L (136-145); Total Bilirubin 0.2 mg/dL (0.15-1.2); Total Protein 7.2 g/dL (6.6-8.7)
== END 2023-09-22 16:33 | disposition home or self-care (01) ==
PROVIDERS: PCP Family Medicine; Visit Provider Family Medicine
DX: Z01.89 Encounter for other specified special examinations (principal)
CPT/HCPCS: 36415; 80053; 83735; 84100; 85025

== ENCOUNTER 2023-10-12 16:29 | Outpatient (CLI) | payer BC, MEDICAID, SELFPAY ==
[2023-10-12 16:52] LABS: Basophils % 0.8 %; Eosinophils % 0.6 %; Hematocrit 31.6 % (36-47); Lymphocytes # 2.1 10^3/uL (0.8-4.8); Lymphocytes % 42.4 %; Mean Corpuscular Hemoglobin 25.5 pg (27-33); Mean Corpuscular Volume 82.3 fl (85-98); Mean Platelet Volume 10.7 fL (7.4-10.4); Monocytes # 0.3 10^3/uL (0.2-0.9); Monocytes % 6.6 %; Neutrophils # 2.48 10^3/uL (1.8-7.7); Neutrophils % 49.4 %; Nucleated Red Blood Cells % 0 %; Platelet Count 471 10^3/cmm (157-399); Red Blood Count 3.84 10^6/uL (3.85-5.65); Red Cell Distribution Width 14.5 % (12.1-15.1); White Blood Count 5.02 10^3/uL (3.29-11.43)
[2023-10-12 17:13] LABS: Alanine Aminotransferase 14 U/L (0-33); Alkaline Phosphatase 52 U/L (35-105); Anion Gap 14.1 (5-19); Aspartate Amino Transferase 13 U/L (0-32); Blood Urea Nitrogen 24 mg/dL (6-20); Calcium 8.7 mg/dL (8.5-10.5); Carbon Dioxide 25 mmol/L (22-29); Chloride 102 mmol/L (98-107); Globulin 3.4 g/dL (1.3-4.6); Glucose 69 mg/dL (65-115); Osmolality Calculated 286 mOsm/kg (285-295); Potassium 4.1 mmol/L (3.5-5.1); Sodium 137 mmol/L (136-145); Total Bilirubin 0.2 mg/dL (0.15-1.2); Total Protein 7.4 g/dL (6.6-8.7)
[2023-10-12 20:02] LABS: Phosphorus 3.5 mg/dL (2.5-4.5)
== END 2023-10-12 16:30 | disposition home or self-care (01) ==
PROVIDERS: PCP Family Medicine; Visit Provider Family Medicine
DX: K31.84 Gastroparesis (principal); E43 Unspecified severe protein-calorie malnutrition; E16.2 Hypoglycemia, unspecified; E87.6 Hypokalemia; E86.0 Dehydration
CPT/HCPCS: 80053; 83735; 84100; 85025

== ENCOUNTER 2023-10-19 13:06 | Outpatient (RCR) | payer BC, MEDICAID, SELFPAY ==
[2023-09-30 09:30] LABS: Basophils % 0.5 %; Eosinophils # 0.2 10^3/uL (0.0-0.8); Eosinophils % 2.3 %; Hematocrit 32.5 % (36-47); Lymphocytes # 1.2 10^3/uL (0.8-4.8); Lymphocytes % 18.3 %; Mean Corpuscular HGB Conc 31.4 g/dL (30-55); Mean Corpuscular Hemoglobin 25.8 pg (27-33); Mean Corpuscular Volume 82.3 fl (85-98); Mean Platelet Volume 10.2 fL (7.4-10.4); Monocytes # 0.7 10^3/uL (0.2-0.9); Monocytes % 9.9 %; Neutrophils # 4.57 10^3/uL (1.8-7.7); Neutrophils % 68.5 %; Nucleated Red Blood Cells % 0 %; Platelet Count 340 10^3/cmm (157-399); Red Blood Count 3.95 10^6/uL (3.85-5.65); Red Cell Distribution Width 14.7 % (12.1-15.1); White Blood Count 6.66 10^3/uL (3.29-11.43)
[2023-09-30 09:55] LABS: Alanine Aminotransferase 16 U/L (0-33); Albumin Level 3.7 g/dL (3.5-5.2); Alkaline Phosphatase 71 U/L (35-105); Anion Gap 14.6 (5-19); Aspartate Amino Transferase 15 U/L (0-32); Blood Urea Nitrogen 19 mg/dL (6-20); Carbon Dioxide 26 mmol/L (22-29); Chloride 99 mmol/L (98-107); Glucose 104 mg/dL (65-115); Magnesium 2.2 mg/dL (1.7-2.3); Osmolality Calculated 283 mOsm/kg (285-295); Phosphorus 3.3 mg/dL (2.5-4.5); Potassium 4.6 mmol/L (3.5-5.1); Sodium 135 mmol/L (136-145); Total Bilirubin 0.2 mg/dL (0.15-1.2); Total Protein 7.7 g/dL (6.6-8.7)
[2023-10-05 14:47] LABS: Basophils % 0.7 %; Eosinophils # 0.1 10^3/uL (0.0-0.8); Eosinophils % 1.6 %; Hematocrit 31.9 % (36-47); Lymphocytes # 1.9 10^3/uL (0.8-4.8); Lymphocytes % 33.9 %; Mean Corpuscular HGB Conc 31.7 g/dL (30-55); Mean Corpuscular Hemoglobin 25.8 pg (27-33); Mean Corpuscular Volume 81.6 fl (85-98); Mean Platelet Volume 9.7 fL (7.4-10.4); Monocytes # 0.5 10^3/uL (0.2-0.9); Monocytes % 8.7 %; Neutrophils # 2.99 10^3/uL (1.8-7.7); Neutrophils % 54.4 %; Nucleated Red Blood Cells % 0 %; Platelet Count 398 10^3/cmm (157-399); Red Blood Count 3.91 10^6/uL (3.85-5.65); Red Cell Distribution Width 14.8 % (12.1-15.1); White Blood Count 5.51 10^3/uL (3.29-11.43)
[2023-10-05 15:18] LABS: Alanine Aminotransferase 17 U/L (0-33); Albumin Level 3.9 g/dL (3.5-5.2); Alkaline Phosphatase 60 U/L (35-105); Anion Gap 16.2 (5-19); Aspartate Amino Transferase 16 U/L (0-32); Blood Urea Nitrogen 22 mg/dL (6-20); Carbon Dioxide 25 mmol/L (22-29); Chloride 99 mmol/L (98-107); Glomerular Filtration Rate 99.6 mL/min (90-130); Glucose 90 mg/dL (65-115); Magnesium 2.1 mg/dL (1.7-2.3); Osmolality Calculated 285 mOsm/kg (285-295); Phosphorus 4.4 mg/dL (2.5-4.5); Potassium 4.2 mmol/L (3.5-5.1); Sodium 136 mmol/L (136-145); Total Bilirubin 0.2 mg/dL (0.15-1.2); Total Protein 7.9 g/dL (6.6-8.7)
[2023-10-19 13:38] LABS: Basophils % 0.5 %; Eosinophils # 0.1 10^3/uL (0.0-0.8); Eosinophils % 1.2 %; Hematocrit 32.4 % (36-47); Lymphocytes # 2.2 10^3/uL (0.8-4.8); Lymphocytes % 52.4 %; Mean Corpuscular HGB Conc 31.8 g/dL (30-55); Mean Corpuscular Hemoglobin 26.2 pg (27-33); Mean Corpuscular Volume 82.4 fl (85-98); Mean Platelet Volume 10.5 fL (7.4-10.4); Monocytes # 0.4 10^3/uL (0.2-0.9); Monocytes % 8.5 %; Neutrophils # 1.54 10^3/uL (1.8-7.7); Neutrophils % 37.2 %; Nucleated Red Blood Cells % 0 %; Platelet Count 371 10^3/cmm (157-399); Red Blood Count 3.93 10^6/uL (3.85-5.65); Red Cell Distribution Width 14.9 % (12.1-15.1); White Blood Count 4.14 10^3/uL (3.29-11.43)
[2023-10-19 14:09] LABS: Alanine Aminotransferase 14 U/L (0-33); Albumin Level 4.1 g/dL (3.5-5.2); Alkaline Phosphatase 57 U/L (35-105); Anion Gap 14.9 (5-19); Aspartate Amino Transferase 15 U/L (0-32); Blood Urea Nitrogen 19 mg/dL (6-20); Calcium 8.9 mg/dL (8.5-10.5); Carbon Dioxide 26 mmol/L (22-29); Chloride 101 mmol/L (98-107); Globulin 3.2 g/dL (1.3-4.6); Glomerular Filtration Rate 99.6 mL/min (90-130); Glucose 93 mg/dL (65-115); Magnesium 2.3 mg/dL (1.7-2.3); Osmolality Calculated 288 mOsm/kg (285-295); Potassium 3.9 mmol/L (3.5-5.1); Sodium 138 mmol/L (136-145); Total Bilirubin 0.2 mg/dL (0.15-1.2); Total Protein 7.3 g/dL (6.6-8.7)
== END 2023-10-22 23:59 | disposition home or self-care (01) ==
LOC: LAB 13:06
PROVIDERS: PCP Family Medicine; Visit Provider Family Medicine
DX: E43 Unspecified severe protein-calorie malnutrition (principal); R63.4 Abnormal weight loss; R10.9 Unspecified abdominal pain
CPT/HCPCS: 36415; 80053; 83735; 84100; 85025

== ENCOUNTER 2023-11-09 15:25 | Outpatient (RCR) | payer BC, MEDICAID, SELFPAY ==
[2023-10-26 14:14] LABS: Basophils % 0.6 %; Eosinophils # 0.1 10^3/uL (0.0-0.8); Eosinophils % 2.6 %; Hematocrit 30.4 % (36-47); Lymphocytes # 1.9 10^3/uL (0.8-4.8); Lymphocytes % 53.5 %; Mean Corpuscular HGB Conc 31.9 g/dL (30-55); Mean Corpuscular Hemoglobin 26.1 pg (27-33); Mean Corpuscular Volume 81.7 fl (85-98); Mean Platelet Volume 11.1 fL (7.4-10.4); Monocytes # 0.3 10^3/uL (0.2-0.9); Neutrophils # 1.18 10^3/uL (1.8-7.7); Nucleated Red Blood Cells % 0 %; Platelet Count 202 10^3/cmm (157-399); Red Blood Count 3.72 10^6/uL (3.85-5.65); White Blood Count 3.46 10^3/uL (3.29-11.43)
[2023-10-26 14:43] LABS: Alanine Aminotransferase 9 U/L (0-33); Albumin Level 3.9 g/dL (3.5-5.2); Alkaline Phosphatase 54 U/L (35-105); Anion Gap 15.1 (5-19); Aspartate Amino Transferase 14 U/L (0-32); Blood Urea Nitrogen 19 mg/dL (6-20); Calcium 8.3 mg/dL (8.5-10.5); Carbon Dioxide 24 mmol/L (22-29); Chloride 104 mmol/L (98-107); Globulin 3.4 g/dL (1.3-4.6); Glomerular Filtration Rate 85.4 mL/min (90-130); Glucose 99 mg/dL (65-115); Magnesium 2.1 mg/dL (1.7-2.3); Osmolality Calculated 290 mOsm/kg (285-295); Phosphorus 3.8 mg/dL (2.5-4.5); Potassium 4.1 mmol/L (3.5-5.1); Sodium 139 mmol/L (136-145); Total Bilirubin 0.2 mg/dL (0.15-1.2); Total Protein 7.3 g/dL (6.6-8.7)
[2023-11-02 15:52] LABS: Basophils % 0.8 %; Hematocrit 31.4 % (36-47); Lymphocytes # 1.9 10^3/uL (0.8-4.8); Lymphocytes % 48.7 %; Mean Corpuscular HGB Conc 32.8 g/dL (30-55); Mean Corpuscular Volume 82.2 fl (85-98); Mean Platelet Volume 10.4 fL (7.4-10.4); Monocytes # 0.3 10^3/uL (0.2-0.9); Monocytes % 7.4 %; Neutrophils # 1.65 10^3/uL (1.8-7.7); Neutrophils % 42.1 %; Nucleated Red Blood Cells % 0 %; Platelet Count 241 10^3/cmm (157-399); Red Blood Count 3.82 10^6/uL (3.85-5.65); Red Cell Distribution Width 15.1 % (12.1-15.1); White Blood Count 3.92 10^3/uL (3.29-11.43)
[2023-11-02 16:15] LABS: Alanine Aminotransferase 10 U/L (0-33); Albumin Level 4.1 g/dL (3.5-5.2); Alkaline Phosphatase 50 U/L (35-105); Anion Gap 14.9 (5-19); Aspartate Amino Transferase 16 U/L (0-32); Blood Urea Nitrogen 26 mg/dL (6-20); Carbon Dioxide 25 mmol/L (22-29); Chloride 102 mmol/L (98-107); Globulin 3.3 g/dL (1.3-4.6); Glomerular Filtration Rate 99.6 mL/min (90-130); Glucose 83 mg/dL (65-115); Magnesium 2.1 mg/dL (1.7-2.3); Osmolality Calculated 290 mOsm/kg (285-295); Phosphorus 3.8 mg/dL (2.5-4.5); Potassium 3.9 mmol/L (3.5-5.1); Sodium 138 mmol/L (136-145); Total Bilirubin 0.2 mg/dL (0.15-1.2); Total Protein 7.4 g/dL (6.6-8.7)
[2023-11-09 15:55] LABS: Basophils % 0.5 %; Eosinophils % 0.7 %; Hematocrit 29.2 % (36-47); Lymphocytes # 2.1 10^3/uL (0.8-4.8); Lymphocytes % 47.5 %; Mean Corpuscular HGB Conc 31.8 g/dL (30-55); Mean Corpuscular Hemoglobin 26.1 pg (27-33); Mean Corpuscular Volume 81.8 fl (85-98); Mean Platelet Volume 10.3 fL (7.4-10.4); Monocytes # 0.4 10^3/uL (0.2-0.9); Monocytes % 8.6 %; Neutrophils % 42.7 %; Nucleated Red Blood Cells % 0 %; Platelet Count 276 10^3/cmm (157-399); Red Blood Count 3.57 10^6/uL (3.85-5.65); Red Cell Distribution Width 15.2 % (12.1-15.1); White Blood Count 4.44 10^3/uL (3.29-11.43)
[2023-11-09 16:36] LABS: Alanine Aminotransferase 8 U/L (0-33); Alkaline Phosphatase 51 U/L (35-105); Anion Gap 14.8 (5-19); Aspartate Amino Transferase 14 U/L (0-32); Blood Urea Nitrogen 18 mg/dL (6-20); Calcium 8.8 mg/dL (8.5-10.5); Carbon Dioxide 23 mmol/L (22-29); Chloride 101 mmol/L (98-107); Globulin 2.9 g/dL (1.3-4.6); Glucose 84 mg/dL (65-115); Magnesium 1.9 mg/dL (1.7-2.3); Osmolality Calculated 281 mOsm/kg (285-295); Phosphorus 2.9 mg/dL (2.5-4.5); Potassium 3.8 mmol/L (3.5-5.1); Sodium 135 mmol/L (136-145); Total Bilirubin 0.2 mg/dL (0.15-1.2); Total Protein 6.9 g/dL (6.6-8.7)
== END 2023-11-22 23:59 | disposition home or self-care (01) ==
LOC: LAB 15:25
PROVIDERS: PCP Family Medicine; Visit Provider Family Medicine
DX: R10.9 Unspecified abdominal pain (principal)
CPT/HCPCS: 80053; 83735; 84100; 85025

== ENCOUNTER 2023-11-16 16:39 | Outpatient (CLI) | payer BC, MEDICAID, SELFPAY ==
[2023-11-16 18:29] LABS: Basophils % 0.5 %; Eosinophils % 0.8 %; Hematocrit 29.5 % (36-47); Lymphocytes # 1.6 10^3/uL (0.8-4.8); Lymphocytes % 43.3 %; Mean Corpuscular HGB Conc 31.2 g/dL (30-55); Mean Corpuscular Hemoglobin 25.8 pg (27-33); Mean Corpuscular Volume 82.9 fl (85-98); Mean Platelet Volume 10.7 fL (7.4-10.4); Monocytes # 0.3 10^3/uL (0.2-0.9); Monocytes % 7.6 %; Neutrophils # 1.75 10^3/uL (1.8-7.7); Neutrophils % 47.8 %; Nucleated Red Blood Cells % 0 %; Platelet Count 299 10^3/cmm (157-399); Red Blood Count 3.56 10^6/uL (3.85-5.65); Red Cell Distribution Width 15.4 % (12.1-15.1); White Blood Count 3.67 10^3/uL (3.29-11.43)
[2023-11-16 18:51] LABS: Alanine Aminotransferase 12 U/L (0-33); Alkaline Phosphatase 53 U/L (35-105); Anion Gap 13.6 (5-19); Aspartate Amino Transferase 16 U/L (0-32); Blood Urea Nitrogen 15 mg/dL (6-20); Calcium 8.9 mg/dL (8.5-10.5); Carbon Dioxide 25 mmol/L (22-29); Chloride 108 mmol/L (98-107); Globulin 2.7 g/dL (1.3-4.6); Glomerular Filtration Rate 99.6 mL/min (90-130); Glucose 81 mg/dL (65-115); Osmolality Calculated 296 mOsm/kg (285-295); Phosphorus 3.3 mg/dL (2.5-4.5); Potassium 3.6 mmol/L (3.5-5.1); Sodium 143 mmol/L (136-145); Total Bilirubin 0.2 mg/dL (0.15-1.2); Total Protein 6.7 g/dL (6.6-8.7)
== END 2023-11-16 16:40 | disposition home or self-care (01) ==
LOC: LAB 16:40
PROVIDERS: PCP Family Medicine; Visit Provider Family Medicine
DX: K31.84 Gastroparesis (principal); R63.4 Abnormal weight loss; E16.2 Hypoglycemia, unspecified
CPT/HCPCS: 80053; 83735; 84100; 85025

== ENCOUNTER 2023-12-11 08:30 | Oncology outpatient (recurring) (ONCR) | payer BC, MEDICAID, SELFPAY ==
[2023-12-01] MEDS: iron sucrose 200 MG in sodium chloride 0.9% (100 ml) 100 ML 220 MG IV (08:38)
[2023-12-04 08:39] VITALS: BP 93/63; PULSE 110; RESP 16; TEMP 36.9; O2SAT 100
[2023-12-04] MEDS: iron sucrose 200 MG in sodium chloride 0.9% (100 ml) 100 ML 220 MG IV (09:37)
[2023-12-04 10:13] VITALS: BP 97/62; PULSE 81; TEMP 37; O2SAT 98
[2023-12-07] MEDS: iron sucrose 200 MG in sodium chloride 0.9% (100 ml) 100 ML 220 MG IV (09:44)
[2023-12-09] MEDS: iron sucrose 200 MG in sodium chloride 0.9% (100 ml) 100 ML 220 MG IV (09:01)
[2023-12-09] MEDS: sodium chloride 0.9% 250 ML 75 ML IV (09:01)
[2023-12-09 09:38] VITALS: BP 95/62; PULSE 88; RESP 16; TEMP 36.6; O2SAT 94
[2023-12-11] MEDS: iron sucrose 200 MG in sodium chloride 0.9% (100 ml) 100 ML 220 MG IV (08:55)
== END 2023-12-22 23:59 | disposition home or self-care (01) ==
PROVIDERS: PCP Family Medicine; Visit Provider Family Medicine
DX: D50.9 Iron deficiency anemia, unspecified; Z53.9 Procedure and treatment not carried out, unspecified reason
CPT/HCPCS: 96365; J1756; J7050

== ENCOUNTER 2023-12-21 11:50 | Outpatient (RCR) | payer BC, MEDICAID, SELFPAY ==
[2023-11-23 12:56] LABS: Basophils % 0.8 %; Eosinophils # 0.1 10^3/uL (0.0-0.8); Eosinophils % 2.8 %; Lymphocytes # 1.9 10^3/uL (0.8-4.8); Lymphocytes % 49.5 %; Mean Corpuscular Hemoglobin 26.4 pg (27-33); Mean Corpuscular Volume 82.6 fl (85-98); Mean Platelet Volume 10.5 fL (7.4-10.4); Monocytes # 0.3 10^3/uL (0.2-0.9); Monocytes % 7.4 %; Neutrophils # 1.54 10^3/uL (1.8-7.7); Neutrophils % 39.5 %; Nucleated Red Blood Cells % 0 %; Platelet Count 306 10^3/cmm (157-399); Red Blood Count 3.63 10^6/uL (3.85-5.65)
[2023-11-23 13:21] LABS: Alanine Aminotransferase 16 U/L (0-33); Albumin Level 4.2 g/dL (3.5-5.2); Alkaline Phosphatase 58 U/L (35-105); Anion Gap 15.3 (5-19); Aspartate Amino Transferase 16 U/L (0-32); Blood Urea Nitrogen 18 mg/dL (6-20); Calcium 8.8 mg/dL (8.5-10.5); Carbon Dioxide 24 mmol/L (22-29); Chloride 103 mmol/L (98-107); Globulin 3.2 g/dL (1.3-4.6); Glomerular Filtration Rate 99.6 mL/min (90-130); Glucose 93 mg/dL (65-115); Magnesium 2.2 mg/dL (1.7-2.3); Osmolality Calculated 288 mOsm/kg (285-295); Phosphorus 4.4 mg/dL (2.5-4.5); Potassium 4.3 mmol/L (3.5-5.1); Sodium 138 mmol/L (136-145); Total Bilirubin 0.2 mg/dL (0.15-1.2); Total Protein 7.4 g/dL (6.6-8.7)
[2023-11-30 12:16] LABS: Basophils % 0.8 %; Eosinophils # 0.1 10^3/uL (0.0-0.8); Eosinophils % 1.4 %; Hematocrit 27.8 % (36-47); Lymphocytes # 1.8 10^3/uL (0.8-4.8); Lymphocytes % 49.3 %; Mean Corpuscular Hemoglobin 26.1 pg (27-33); Mean Corpuscular Volume 81.5 fl (85-98); Mean Platelet Volume 10.3 fL (7.4-10.4); Monocytes # 0.3 10^3/uL (0.2-0.9); Monocytes % 8.4 %; Neutrophils # 1.44 10^3/uL (1.8-7.7); Neutrophils % 40.1 %; Nucleated Red Blood Cells % 0 %; Platelet Count 249 10^3/cmm (157-399); Red Blood Count 3.41 10^6/uL (3.85-5.65); Red Cell Distribution Width 14.9 % (12.1-15.1); White Blood Count 3.59 10^3/uL (3.29-11.43)
[2023-11-30 12:43] LABS: Alanine Aminotransferase 13 U/L (0-33); Albumin Level 3.7 g/dL (3.5-5.2); Alkaline Phosphatase 56 U/L (35-105); Anion Gap 12.3 (5-19); Aspartate Amino Transferase 18 U/L (0-32); Blood Urea Nitrogen 18 mg/dL (6-20); Calcium 8.4 mg/dL (8.5-10.5); Carbon Dioxide 24 mmol/L (22-29); Chloride 105 mmol/L (98-107); Globulin 3.1 g/dL (1.3-4.6); Glucose 95 mg/dL (65-115); Magnesium 2.1 mg/dL (1.7-2.3); Osmolality Calculated 286 mOsm/kg (285-295); Phosphorus 3.6 mg/dL (2.5-4.5); Potassium 4.3 mmol/L (3.5-5.1); Sodium 137 mmol/L (136-145); Total Bilirubin 0.2 mg/dL (0.15-1.2); Total Protein 6.8 g/dL (6.6-8.7)
[2023-12-07 14:14] LABS: Basophils % 0.5 %; Eosinophils % 0.5 %; Hematocrit 28.7 % (36-47); Lymphocytes # 1.9 10^3/uL (0.8-4.8); Lymphocytes % 45.1 %; Mean Corpuscular HGB Conc 32.1 g/dL (30-55); Mean Corpuscular Hemoglobin 27.1 pg (27-33); Mean Corpuscular Volume 84.4 fl (85-98); Mean Platelet Volume 10.4 fL (7.4-10.4); Monocytes # 0.3 10^3/uL (0.2-0.9); Monocytes % 7.4 %; Neutrophils # 1.95 10^3/uL (1.8-7.7); Neutrophils % 46.3 %; Nucleated Red Blood Cells % 0 %; Platelet Count 241 10^3/cmm (157-399); Red Cell Distribution Width 16.1 % (12.1-15.1); White Blood Count 4.21 10^3/uL (3.29-11.43)
[2023-12-07 14:37] LABS: Alanine Aminotransferase 11 U/L (0-33); Albumin Level 3.8 g/dL (3.5-5.2); Alkaline Phosphatase 52 U/L (35-105); Anion Gap 11.1 (5-19); Aspartate Amino Transferase 14 U/L (0-32); Blood Urea Nitrogen 19 mg/dL (6-20); Calcium 8.6 mg/dL (8.5-10.5); Carbon Dioxide 24 mmol/L (22-29); Chloride 103 mmol/L (98-107); Globulin 3.1 g/dL (1.3-4.6); Glucose 84 mg/dL (65-115); Magnesium 1.9 mg/dL (1.7-2.3); Osmolality Calculated 279 mOsm/kg (285-295); Phosphorus 3.3 mg/dL (2.5-4.5); Potassium 4.1 mmol/L (3.5-5.1); Sodium 134 mmol/L (136-145); Total Bilirubin 0.2 mg/dL (0.15-1.2); Total Protein 6.9 g/dL (6.6-8.7)
[2023-12-14 14:34] LABS: Basophils % 0.4 %; Eosinophils % 0.7 %; Hematocrit 31.3 % (36-47); Lymphocytes # 1.4 10^3/uL (0.8-4.8); Lymphocytes % 26.4 %; Mean Corpuscular HGB Conc 31.9 g/dL (30-55); Mean Corpuscular Hemoglobin 27.2 pg (27-33); Mean Corpuscular Volume 85.3 fl (85-98); Mean Platelet Volume 10.5 fL (7.4-10.4); Monocytes # 0.5 10^3/uL (0.2-0.9); Monocytes % 8.3 %; Neutrophils # 3.48 10^3/uL (1.8-7.7); Neutrophils % 63.8 %; Nucleated Red Blood Cells % 0 %; Platelet Count 296 10^3/cmm (157-399); Red Blood Count 3.67 10^6/uL (3.85-5.65); Red Cell Distribution Width 18.6 % (12.1-15.1); White Blood Count 5.45 10^3/uL (3.29-11.43)
[2023-12-14 14:52] LABS: Alanine Aminotransferase 11 U/L (0-33); Albumin Level 3.9 g/dL (3.5-5.2); Alkaline Phosphatase 55 U/L (35-105); Anion Gap 14.1 (5-19); Aspartate Amino Transferase 15 U/L (0-32); Blood Urea Nitrogen 19 mg/dL (6-20); Carbon Dioxide 23 mmol/L (22-29); Chloride 103 mmol/L (98-107); Globulin 3.4 g/dL (1.3-4.6); Glomerular Filtration Rate 99.6 mL/min (90-130); Glucose 73 mg/dL (65-115); Osmolality Calculated 283 mOsm/kg (285-295); Potassium 4.1 mmol/L (3.5-5.1); Sodium 136 mmol/L (136-145); Total Bilirubin 0.3 mg/dL (0.15-1.2); Total Protein 7.3 g/dL (6.6-8.7)
[2023-12-21 13:39] LABS: Basophils % 0.6 %; Eosinophils % 0.6 %; Hematocrit 32.4 % (36-47); Lymphocytes # 1.6 10^3/uL (0.8-4.8); Lymphocytes % 50.6 %; Mean Corpuscular HGB Conc 32.1 g/dL (30-55); Mean Corpuscular Hemoglobin 27.7 pg (27-33); Mean Corpuscular Volume 86.2 fl (85-98); Mean Platelet Volume 10.5 fL (7.4-10.4); Monocytes # 0.2 10^3/uL (0.2-0.9); Monocytes % 7.3 %; Neutrophils # 1.28 10^3/uL (1.8-7.7); Neutrophils % 40.9 %; Nucleated Red Blood Cells % 0 %; Platelet Count 369 10^3/cmm (157-399); Red Blood Count 3.76 10^6/uL (3.85-5.65); Red Cell Distribution Width 18.1 % (12.1-15.1); White Blood Count 3.14 10^3/uL (3.29-11.43)
[2023-12-21 14:00] LABS: Alanine Aminotransferase 9 U/L (0-33); Albumin Level 3.9 g/dL (3.5-5.2); Alkaline Phosphatase 53 U/L (35-105); Anion Gap 14.2 (5-19); Aspartate Amino Transferase 16 U/L (0-32); Blood Urea Nitrogen 22 mg/dL (6-20); Calcium 8.5 mg/dL (8.5-10.5); Carbon Dioxide 23 mmol/L (22-29); Chloride 105 mmol/L (98-107); Globulin 3.1 g/dL (1.3-4.6); Glomerular Filtration Rate 99.6 mL/min (90-130); Glucose 94 mg/dL (65-115); Magnesium 2.1 mg/dL (1.7-2.3); Osmolality Calculated 289 mOsm/kg (285-295); Phosphorus 3.2 mg/dL (2.5-4.5); Potassium 4.2 mmol/L (3.5-5.1); Sodium 138 mmol/L (136-145); Total Bilirubin 0.2 mg/dL (0.15-1.2)
== END 2023-12-22 23:59 | disposition home or self-care (01) ==
LOC: LAB 11:50
PROVIDERS: PCP Family Medicine; Visit Provider Family Medicine
DX: R10.9 Unspecified abdominal pain (principal)
CPT/HCPCS: 80053; 83735; 84100; 85025

== ENCOUNTER 2023-12-28 11:27 | Outpatient (CLI) | payer BC, MEDICAID, SELFPAY ==
[2023-12-28 12:12] LABS: Basophils % 0.9 %; Eosinophils % 0.9 %; Hematocrit 32.3 % (36-47); Lymphocytes % 57.5 %; Mean Corpuscular HGB Conc 32.5 g/dL (30-55); Mean Corpuscular Volume 86.1 fl (85-98); Mean Platelet Volume 11.1 fL (7.4-10.4); Monocytes # 0.3 10^3/uL (0.2-0.9); Monocytes % 7.4 %; Neutrophils # 1.12 10^3/uL (1.8-7.7); Nucleated Red Blood Cells % 0 %; Platelet Count 267 10^3/cmm (157-399); Red Blood Count 3.75 10^6/uL (3.85-5.65); Red Cell Distribution Width 17.7 % (12.1-15.1); White Blood Count 3.39 10^3/uL (3.29-11.43)
[2023-12-28 12:32] LABS: Alanine Aminotransferase 22 U/L (0-33); Albumin Level 4.1 g/dL (3.5-5.2); Alkaline Phosphatase 50 U/L (35-105); Anion Gap 14.1 (5-19); Aspartate Amino Transferase 21 U/L (0-32); Blood Urea Nitrogen 17 mg/dL (6-20); Calcium 8.9 mg/dL (8.5-10.5); Carbon Dioxide 25 mmol/L (22-29); Chloride 102 mmol/L (98-107); Globulin 3.1 g/dL (1.3-4.6); Glucose 93 mg/dL (65-115); Osmolality Calculated 285 mOsm/kg (285-295); Phosphorus 3.8 mg/dL (2.5-4.5); Potassium 4.1 mmol/L (3.5-5.1); Sodium 137 mmol/L (136-145); Total Bilirubin 0.2 mg/dL (0.15-1.2); Total Protein 7.2 g/dL (6.6-8.7)
== END 2023-12-28 11:28 | disposition home or self-care (01) ==
LOC: LAB 11:37
PROVIDERS: PCP Family Medicine; Visit Provider Family Medicine
DX: K31.84 Gastroparesis (principal); R63.4 Abnormal weight loss; E16.2 Hypoglycemia, unspecified
CPT/HCPCS: 80053; 83735; 84100; 85025

== ENCOUNTER 2024-01-04 11:07 | Outpatient (CLI) | payer BC, MEDICAID, SELFPAY ==
[2024-01-04 11:35] LABS: Basophils % 0.8 %; Eosinophils % 0.8 %; Lymphocytes # 1.6 10^3/uL (0.8-4.8); Lymphocytes % 41.8 %; Mean Corpuscular HGB Conc 32.8 g/dL (30-55); Mean Corpuscular Hemoglobin 28.6 pg (27-33); Mean Corpuscular Volume 87.2 fl (85-98); Mean Platelet Volume 10.8 fL (7.4-10.4); Monocytes # 0.3 10^3/uL (0.2-0.9); Monocytes % 7.7 %; Neutrophils # 1.84 10^3/uL (1.8-7.7); Neutrophils % 48.6 %; Nucleated Red Blood Cells % 0 %; Platelet Count 236 10^3/cmm (157-399); Red Blood Count 4.13 10^6/uL (3.85-5.65); Red Cell Distribution Width 17.1 % (12.1-15.1); White Blood Count 3.78 10^3/uL (3.29-11.43)
[2024-01-04 11:55] LABS: Alanine Aminotransferase 16 U/L (0-33); Albumin Level 4.1 g/dL (3.5-5.2); Alkaline Phosphatase 51 U/L (35-105); Anion Gap 12.6 (5-19); Aspartate Amino Transferase 17 U/L (0-32); Blood Urea Nitrogen 17 mg/dL (6-20); Carbon Dioxide 24 mmol/L (22-29); Chloride 101 mmol/L (98-107); Globulin 3.3 g/dL (1.3-4.6); Glomerular Filtration Rate 99.6 mL/min (90-130); Glucose 89 mg/dL (65-115); Magnesium 2.2 mg/dL (1.7-2.3); Osmolality Calculated 277 mOsm/kg (285-295); Phosphorus 4.1 mg/dL (2.5-4.5); Potassium 4.6 mmol/L (3.5-5.1); Sodium 133 mmol/L (136-145); Total Bilirubin 0.2 mg/dL (0.15-1.2); Total Protein 7.4 g/dL (6.6-8.7)
== END 2024-01-04 11:08 | disposition home or self-care (01) ==
LOC: LAB 11:08
PROVIDERS: PCP Family Medicine; Visit Provider Family Medicine
DX: K31.84 Gastroparesis (principal); R63.4 Abnormal weight loss; E16.2 Hypoglycemia, unspecified
CPT/HCPCS: 80053; 83735; 84100; 85025

== ENCOUNTER 2024-01-11 11:55 | Outpatient (CLI) | payer BC, MEDICAID, SELFPAY ==
[2024-01-11 12:16] LABS: Basophils % 0.9 %; Eosinophils % 0.9 %; Hematocrit 35.4 % (36-47); Lymphocytes # 1.6 10^3/uL (0.8-4.8); Lymphocytes % 49.5 %; Mean Corpuscular HGB Conc 33.1 g/dL (30-55); Mean Corpuscular Hemoglobin 28.9 pg (27-33); Mean Corpuscular Volume 87.4 fl (85-98); Mean Platelet Volume 10.9 fL (7.4-10.4); Monocytes # 0.3 10^3/uL (0.2-0.9); Monocytes % 8.4 %; Neutrophils # 1.29 10^3/uL (1.8-7.7); Nucleated Red Blood Cells % 0 %; Platelet Count 195 10^3/cmm (157-399); Red Blood Count 4.05 10^6/uL (3.85-5.65); Red Cell Distribution Width 16.8 % (12.1-15.1); White Blood Count 3.23 10^3/uL (3.29-11.43)
[2024-01-11 12:35] LABS: Alanine Aminotransferase 23 U/L (0-33); Alkaline Phosphatase 47 U/L (35-105); Anion Gap 15.3 (5-19); Aspartate Amino Transferase 21 U/L (0-32); Blood Urea Nitrogen 18 mg/dL (6-20); Calcium 8.9 mg/dL (8.5-10.5); Carbon Dioxide 22 mmol/L (22-29); Chloride 104 mmol/L (98-107); Globulin 3.6 g/dL (1.3-4.6); Glomerular Filtration Rate 99.6 mL/min (90-130); Glucose 92 mg/dL (65-115); Magnesium 2.1 mg/dL (1.7-2.3); Osmolality Calculated 286 mOsm/kg (285-295); Phosphorus 3.7 mg/dL (2.5-4.5); Potassium 4.3 mmol/L (3.5-5.1); Sodium 137 mmol/L (136-145); Total Bilirubin 0.2 mg/dL (0.15-1.2); Total Protein 7.6 g/dL (6.6-8.7)
== END 2024-01-11 11:56 | disposition home or self-care (01) ==
LOC: LAB 11:57
PROVIDERS: PCP Family Medicine; Visit Provider Family Medicine
DX: K31.84 Gastroparesis (principal); R63.4 Abnormal weight loss; E16.2 Hypoglycemia, unspecified
CPT/HCPCS: 80053; 83735; 84100; 85025

== ENCOUNTER 2024-01-18 14:05 | Outpatient (RCR) | payer BC, MEDICAID, SELFPAY ==
[2024-01-18 15:24] LABS: Basophils % 0.6 %; Eosinophils % 0.8 %; Hematocrit 33.2 % (36-47); Lymphocytes # 1.9 10^3/uL (0.8-4.8); Mean Corpuscular HGB Conc 33.7 g/dL (30-55); Mean Corpuscular Hemoglobin 29.2 pg (27-33); Mean Corpuscular Volume 86.7 fl (85-98); Monocytes # 0.2 10^3/uL (0.2-0.9); Monocytes % 6.2 %; Neutrophils # 1.43 10^3/uL (1.8-7.7); Neutrophils % 40.1 %; Nucleated Red Blood Cells % 0 %; Platelet Count 211 10^3/cmm (157-399); Red Blood Count 3.83 10^6/uL (3.85-5.65); Red Cell Distribution Width 16.2 % (12.1-15.1); White Blood Count 3.56 10^3/uL (3.29-11.43)
[2024-01-18 15:48] LABS: Alanine Aminotransferase 12 U/L (0-33); Albumin Level 4.1 g/dL (3.5-5.2); Alkaline Phosphatase 45 U/L (35-105); Anion Gap 14.9 (5-19); Aspartate Amino Transferase 13 U/L (0-32); Blood Urea Nitrogen 20 mg/dL (6-20); Calcium 8.3 mg/dL (8.5-10.5); Carbon Dioxide 23 mmol/L (22-29); Chloride 105 mmol/L (98-107); Globulin 3.2 g/dL (1.3-4.6); Glomerular Filtration Rate 99.6 mL/min (90-130); Glucose 80 mg/dL (65-115); Osmolality Calculated 290 mOsm/kg (285-295); Phosphorus 3.6 mg/dL (2.5-4.5); Potassium 3.9 mmol/L (3.5-5.1); Sodium 139 mmol/L (136-145); Total Bilirubin 0.2 mg/dL (0.15-1.2); Total Protein 7.3 g/dL (6.6-8.7)
== END 2024-01-22 23:59 | disposition home or self-care (01) ==
LOC: LAB 14:05
PROVIDERS: PCP Family Medicine; Visit Provider Family Medicine
DX: R10.9 Unspecified abdominal pain (principal)
CPT/HCPCS: 80053; 83735; 84100; 85025

== ENCOUNTER 2024-02-15 14:17 | Outpatient (RCR) | payer BC, MEDICAID, SELFPAY ==
[2024-01-25 13:11] LABS: Basophils % 0.5 %; Eosinophils % 1.1 %; Hematocrit 33.6 % (36-47); Lymphocytes # 1.7 10^3/uL (0.8-4.8); Mean Corpuscular Hemoglobin 28.8 pg (27-33); Mean Platelet Volume 11.2 fL (7.4-10.4); Monocytes # 0.3 10^3/uL (0.2-0.9); Monocytes % 7.9 %; Neutrophils # 1.67 10^3/uL (1.8-7.7); Neutrophils % 44.2 %; Nucleated Red Blood Cells % 0 %; Platelet Count 224 10^3/cmm (157-399); Red Blood Count 3.86 10^6/uL (3.85-5.65); White Blood Count 3.78 10^3/uL (3.29-11.43)
[2024-01-25 13:21] LABS: Alanine Aminotransferase 11 U/L (0-33); Albumin Level 3.9 g/dL (3.5-5.2); Alkaline Phosphatase 46 U/L (35-105); Anion Gap 17.5 (5-19); Aspartate Amino Transferase 14 U/L (0-32); Blood Urea Nitrogen 17 mg/dL (6-20); Calcium 8.8 mg/dL (8.5-10.5); Carbon Dioxide 22 mmol/L (22-29); Chloride 104 mmol/L (98-107); Globulin 3.2 g/dL (1.3-4.6); Glomerular Filtration Rate 99.6 mL/min (90-130); Glucose 83 mg/dL (65-115); Magnesium 1.9 mg/dL (1.7-2.3); Osmolality Calculated 289 mOsm/kg (285-295); Phosphorus 3.9 mg/dL (2.5-4.5); Potassium 4.5 mmol/L (3.5-5.1); Sodium 139 mmol/L (136-145); Total Bilirubin 0.2 mg/dL (0.15-1.2); Total Protein 7.1 g/dL (6.6-8.7)
[2024-02-01 14:09] LABS: Basophils % 0.5 %; Eosinophils % 0.5 %; Hematocrit 33.1 % (36-47); Lymphocytes # 1.7 10^3/uL (0.8-4.8); Lymphocytes % 42.3 %; Mean Corpuscular HGB Conc 33.8 g/dL (30-55); Mean Corpuscular Volume 85.8 fl (85-98); Mean Platelet Volume 11.1 fL (7.4-10.4); Monocytes # 0.3 10^3/uL (0.2-0.9); Monocytes % 7.1 %; Neutrophils # 1.92 10^3/uL (1.8-7.7); Neutrophils % 49.1 %; Nucleated Red Blood Cells % 0 %; Platelet Count 223 10^3/cmm (157-399); Red Blood Count 3.86 10^6/uL (3.85-5.65); Red Cell Distribution Width 15.2 % (12.1-15.1); White Blood Count 3.92 10^3/uL (3.29-11.43)
[2024-02-01 14:35] LABS: Alanine Aminotransferase 12 U/L (0-33); Alkaline Phosphatase 44 U/L (35-105); Anion Gap 15.9 (5-19); Aspartate Amino Transferase 14 U/L (0-32); Blood Urea Nitrogen 14 mg/dL (6-20); Calcium 8.9 mg/dL (8.5-10.5); Carbon Dioxide 24 mmol/L (22-29); Chloride 104 mmol/L (98-107); Globulin 3.2 g/dL (1.3-4.6); Glucose 79 mg/dL (65-115); Magnesium 1.8 mg/dL (1.7-2.3); Osmolality Calculated 289 mOsm/kg (285-295); Phosphorus 3.8 mg/dL (2.5-4.5); Potassium 3.9 mmol/L (3.5-5.1); Sodium 140 mmol/L (136-145); Total Bilirubin 0.2 mg/dL (0.15-1.2); Total Protein 7.2 g/dL (6.6-8.7)
[2024-02-15 14:28] LABS: Basophils % 0.5 %; Eosinophils % 0.5 %; Lymphocytes # 1.6 10^3/uL (0.8-4.8); Lymphocytes % 41.5 %; Mean Corpuscular HGB Conc 32.9 g/dL (30-55); Mean Corpuscular Hemoglobin 29.4 pg (27-33); Mean Corpuscular Volume 89.2 fl (85-98); Mean Platelet Volume 11.3 fL (7.4-10.4); Monocytes # 0.3 10^3/uL (0.2-0.9); Monocytes % 6.8 %; Neutrophils # 1.94 10^3/uL (1.8-7.7); Neutrophils % 50.7 %; Nucleated Red Blood Cells % 0 %; Platelet Count 190 10^3/cmm (157-399); Red Blood Count 3.81 10^6/uL (3.85-5.65); Red Cell Distribution Width 15.2 % (12.1-15.1); White Blood Count 3.83 10^3/uL (3.29-11.43)
[2024-02-15 14:48] LABS: Alanine Aminotransferase 11 U/L (0-33); Albumin Level 4.1 g/dL (3.5-5.2); Alkaline Phosphatase 43 U/L (35-105); Anion Gap 15.2 (5-19); Aspartate Amino Transferase 15 U/L (0-32); Blood Urea Nitrogen 20 mg/dL (6-20); Calcium 9.1 mg/dL (8.5-10.5); Carbon Dioxide 23 mmol/L (22-29); Chloride 104 mmol/L (98-107); Globulin 3.2 g/dL (1.3-4.6); Glomerular Filtration Rate 99.6 mL/min (90-130); Glucose 89 mg/dL (65-115); Magnesium 2.1 mg/dL (1.7-2.3); Osmolality Calculated 288 mOsm/kg (285-295); Phosphorus 3.6 mg/dL (2.5-4.5); Potassium 4.2 mmol/L (3.5-5.1); Sodium 138 mmol/L (136-145); Total Bilirubin 0.3 mg/dL (0.15-1.2); Total Protein 7.3 g/dL (6.6-8.7)
== END 2024-02-21 23:59 | disposition home or self-care (01) ==
LOC: LAB 14:17
PROVIDERS: PCP Family Medicine; Visit Provider Family Medicine
DX: R10.9 Unspecified abdominal pain (principal)
CPT/HCPCS: 80053; 83735; 84100; 85025

== ENCOUNTER 2024-02-22 11:14 | Outpatient (RCR) | payer BC, MEDICAID, SELFPAY ==
[2024-02-22 11:27] LABS: Basophils % 0.6 %; Eosinophils % 1.2 %; Hematocrit 33.2 % (36-47); Lymphocytes # 1.7 10^3/uL (0.8-4.8); Lymphocytes % 50.4 %; Mean Corpuscular Hemoglobin 30.1 pg (27-33); Mean Corpuscular Volume 88.5 fl (85-98); Mean Platelet Volume 11.2 fL (7.4-10.4); Monocytes # 0.3 10^3/uL (0.2-0.9); Monocytes % 8.2 %; Neutrophils # 1.36 10^3/uL (1.8-7.7); Neutrophils % 39.6 %; Nucleated Red Blood Cells % 0 %; Platelet Count 217 10^3/cmm (157-399); Red Blood Count 3.75 10^6/uL (3.85-5.65); Red Cell Distribution Width 14.9 % (12.1-15.1); White Blood Count 3.43 10^3/uL (3.29-11.43)
[2024-02-22 12:06] LABS: Alanine Aminotransferase 13 U/L (0-33); Alkaline Phosphatase 43 U/L (35-105); Anion Gap 15.3 (5-19); Aspartate Amino Transferase 14 U/L (0-32); Blood Urea Nitrogen 21 mg/dL (6-20); Calcium 8.7 mg/dL (8.5-10.5); Carbon Dioxide 23 mmol/L (22-29); Chloride 102 mmol/L (98-107); Globulin 2.8 g/dL (1.3-4.6); Glucose 89 mg/dL (65-115); Magnesium 1.9 mg/dL (1.7-2.3); Osmolality Calculated 284 mOsm/kg (285-295); Phosphorus 4.3 mg/dL (2.5-4.5); Potassium 4.3 mmol/L (3.5-5.1); Sodium 136 mmol/L (136-145); Total Bilirubin 0.2 mg/dL (0.15-1.2); Total Protein 6.8 g/dL (6.6-8.7)
== END 2024-03-23 23:59 | disposition home or self-care (01) ==
LOC: LAB 11:14
PROVIDERS: PCP Family Medicine; Visit Provider Family Medicine
DX: R10.9 Unspecified abdominal pain (principal); Z79.899 Other long term (current) drug therapy
CPT/HCPCS: 80053; 83735; 84100; 85025

== ENCOUNTER 2024-02-29 12:39 | Outpatient (CLI) | payer BC, MEDICAID, SELFPAY ==
[2024-02-29 12:59] LABS: Basophils % 0.6 %; Eosinophils # 0.1 10^3/uL (0.0-0.8); Eosinophils % 1.5 %; Hematocrit 32.9 % (36-47); Lymphocytes # 1.7 10^3/uL (0.8-4.8); Lymphocytes % 49.5 %; Mean Corpuscular HGB Conc 33.7 g/dL (30-55); Mean Corpuscular Hemoglobin 29.4 pg (27-33); Mean Corpuscular Volume 87.3 fl (85-98); Mean Platelet Volume 11.1 fL (7.4-10.4); Monocytes # 0.3 10^3/uL (0.2-0.9); Monocytes % 8.1 %; Neutrophils # 1.33 10^3/uL (1.8-7.7); Nucleated Red Blood Cells % 0 %; Platelet Count 217 10^3/cmm (157-399); Red Blood Count 3.77 10^6/uL (3.85-5.65); Red Cell Distribution Width 14.3 % (12.1-15.1); White Blood Count 3.33 10^3/uL (3.29-11.43)
[2024-02-29 13:24] LABS: Alanine Aminotransferase 11 U/L (0-33); Alkaline Phosphatase 41 U/L (35-105); Anion Gap 13.1 (5-19); Aspartate Amino Transferase 14 U/L (0-32); Blood Urea Nitrogen 19 mg/dL (6-20); Calcium 8.7 mg/dL (8.5-10.5); Carbon Dioxide 24 mmol/L (22-29); Chloride 102 mmol/L (98-107); Glucose 87 mg/dL (65-115); Magnesium 1.9 mg/dL (1.7-2.3); Osmolality Calculated 282 mOsm/kg (285-295); Phosphorus 4.2 mg/dL (2.5-4.5); Potassium 4.1 mmol/L (3.5-5.1); Sodium 135 mmol/L (136-145); Total Bilirubin 0.2 mg/dL (0.15-1.2)
== END 2024-02-29 12:40 | disposition home or self-care (01) ==
LOC: LAB 12:40
PROVIDERS: PCP Family Medicine; Visit Provider Family Medicine
DX: K31.84 Gastroparesis (principal); R63.4 Abnormal weight loss; E43 Unspecified severe protein-calorie malnutrition; E16.2 Hypoglycemia, unspecified; E87.6 Hypokalemia; E86.0 Dehydration
CPT/HCPCS: 80053; 83735; 84100; 85025

== ENCOUNTER 2024-03-21 14:07 | Outpatient (CLI) | payer BC, MEDICAID, SELFPAY ==
[2024-03-21 14:18] LABS: Basophils % 0.6 %; Eosinophils % 0.9 %; Hematocrit 32.6 % (36-47); Lymphocytes # 1.7 10^3/uL (0.8-4.8); Lymphocytes % 51.5 %; Mean Corpuscular HGB Conc 33.7 g/dL (30-55); Mean Corpuscular Hemoglobin 30.2 pg (27-33); Mean Corpuscular Volume 89.6 fl (85-98); Mean Platelet Volume 10.8 fL (7.4-10.4); Monocytes # 0.3 10^3/uL (0.2-0.9); Monocytes % 8.7 %; Neutrophils # 1.27 10^3/uL (1.8-7.7); Nucleated Red Blood Cells % 0 %; Platelet Count 200 10^3/cmm (157-399); Red Blood Count 3.64 10^6/uL (3.85-5.65); Red Cell Distribution Width 13.2 % (12.1-15.1); White Blood Count 3.34 10^3/uL (3.29-11.43)
[2024-03-21 14:41] LABS: Alanine Aminotransferase 18 U/L (0-33); Albumin Level 4.1 g/dL (3.5-5.2); Alkaline Phosphatase 42 U/L (35-105); Anion Gap 16.1 (5-19); Aspartate Amino Transferase 15 U/L (0-32); Blood Urea Nitrogen 19 mg/dL (6-20); Calcium 8.6 mg/dL (8.5-10.5); Carbon Dioxide 22 mmol/L (22-29); Chloride 105 mmol/L (98-107); Glomerular Filtration Rate 99.6 mL/min (90-130); Glucose 80 mg/dL (65-115); Osmolality Calculated 289 mOsm/kg (285-295); Phosphorus 3.9 mg/dL (2.5-4.5); Potassium 4.1 mmol/L (3.5-5.1); Sodium 139 mmol/L (136-145); Total Bilirubin 0.3 mg/dL (0.15-1.2); Total Protein 7.1 g/dL (6.6-8.7)
== END 2024-03-21 14:08 | disposition home or self-care (01) ==
LOC: LAB 14:09
PROVIDERS: PCP Family Medicine; Visit Provider Family Medicine
DX: K31.84 Gastroparesis (principal); R63.4 Abnormal weight loss; E43 Unspecified severe protein-calorie malnutrition; E16.2 Hypoglycemia, unspecified; E87.6 Hypokalemia; E86.0 Dehydration
CPT/HCPCS: 80053; 83735; 84100; 85025

== ENCOUNTER 2024-03-28 11:14 | Outpatient (CLI) | payer BC, MEDICAID, SELFPAY ==
[2024-03-28 11:28] LABS: Basophils % 0.6 %; Eosinophils % 0.9 %; Hematocrit 32.8 % (36-47); Lymphocytes # 1.7 10^3/uL (0.8-4.8); Lymphocytes % 50.8 %; Mean Corpuscular HGB Conc 33.5 g/dL (30-55); Mean Corpuscular Volume 89.4 fl (85-98); Mean Platelet Volume 10.9 fL (7.4-10.4); Monocytes # 0.3 10^3/uL (0.2-0.9); Monocytes % 7.6 %; Neutrophils # 1.31 10^3/uL (1.8-7.7); Neutrophils % 40.1 %; Nucleated Red Blood Cells % 0 %; Platelet Count 205 10^3/cmm (157-399); Red Blood Count 3.67 10^6/uL (3.85-5.65); Red Cell Distribution Width 12.9 % (12.1-15.1); White Blood Count 3.27 10^3/uL (3.29-11.43)
[2024-03-28 11:59] LABS: Alanine Aminotransferase 12 U/L (0-33); Albumin Level 4.1 g/dL (3.5-5.2); Alkaline Phosphatase 42 U/L (35-105); Anion Gap 14.2 (5-19); Aspartate Amino Transferase 14 U/L (0-32); Blood Urea Nitrogen 19 mg/dL (6-20); Calcium 8.6 mg/dL (8.5-10.5); Carbon Dioxide 22 mmol/L (22-29); Chloride 103 mmol/L (98-107); Globulin 2.8 g/dL (1.3-4.6); Glucose 88 mg/dL (65-115); Magnesium 1.9 mg/dL (1.7-2.3); Osmolality Calculated 282 mOsm/kg (285-295); Potassium 4.2 mmol/L (3.5-5.1); Sodium 135 mmol/L (136-145); Total Bilirubin 0.3 mg/dL (0.15-1.2); Total Protein 6.9 g/dL (6.6-8.7)
== END 2024-03-28 11:15 | disposition home or self-care (01) ==
LOC: LAB 11:17
PROVIDERS: PCP Family Medicine; Visit Provider Family Medicine
DX: E46 Unspecified protein-calorie malnutrition (principal); G90.A Postural orthostatic tachycardia syndrome [POTS]; R55 Syncope and collapse; G90.1 Familial dysautonomia [Riley-Day]; R11.15 Cyclical vomiting syndrome unrelated to migraine
CPT/HCPCS: 80053; 83735; 84100; 85025

== ENCOUNTER 2024-04-04 14:23 | Emergency (ER) | payer BC, MEDICAID, SELFPAY ==
[2024-04-04 14:27] VITALS: BP 100/69; PULSE 81; RESP 16; TEMP 36.7; O2SAT 100; BMI 21.7
--- NOTE | 2024-04-04 14:37 | W.ED.GENADLT ---
HPI - General Adult General: Chief complaint: General Medical Stated complaint: Jtube came out Time Seen by Provider: 04/04/24 14:28 Source: patient Mode of arrival: ambulatory Limitations: no limitations History of Present Illness: 20-year-old female whose had a J-tube in place since September states it just fell out just prior to arrival she denies any pain denies any bleeding denies any vomiting or other complaints at this time Associated symptoms: Deny chest pain, dyspnea, nausea or vomiting Related Data Home Medications Medication Instructions Recorded Confirmed albuterol sulfate 90 mcg/actuation 2 puff inhalation Q6H PRN 01/10/20 06/30/23 aerosol inhaler (ProAir HFA) Shortness Of Breath calcium-vit D3-ferrous fumarate 1 tab PO DAILY 01/10/20 06/30/23 600 mg-125 unit-18 mg tablet epinephrine 0.3 mg/0.3 mL 0.3 mg IM Q10M PRN Allergic 01/10/20 06/30/23 injection, auto-injector (Auvi-Q) Reaction fexofenadine 180 mg tablet 180 mg PO TID 01/10/20 06/30/23 (Christina Allergy) montelukast 10 mg tablet 10 mg PO DAILY 01/10/20 06/30/23 (Singulair) naproxen 500 mg tablet,delayed 500 mg PO Q8H PRN pain 01/10/20 06/30/23 release (EC-Naproxen) famotidine 20 mg tablet (Pepcid) 20 mg PO BID 06/17/21 06/30/23 ondansetron HCl 4 mg tablet 4 mg PO Q8H 06/17/21 06/30/23 (Zofran) sumatriptan succinate 50 mg tablet 50 mg PO DAILY PRN Migraine 11/08/21 06/30/23 Headache dicyclomine 10 mg capsule 10 mg PO BID 10/29/22 06/30/23 fludrocortisone 0.1 mg tablet 0.05 mg PO DAILY 10/29/22 06/30/23 galcanezumab-gnlm 120 mg/mL 120 mg SUBCUT .MONTHLY 10/29/22 06/30/23 subcutaneous syringe (Emgality) ivabradine 7.5 mg tablet 7.5 mg PO BID 10/29/22 06/30/23 fluticasone 100 mcg-salmeterol 50 1 inh inhalation BID 02/23/23 06/30/23 mcg/dose blistr powdr for inhalation (Advair Diskus) gabapentin 600 mg tablet 600 mg PO TID 02/23/23 06/30/23 linaclotide 145 mcg capsule 145 mcg PO DAILY 02/23/23 06/30/23 (Linzess) duloxetine 30 mg capsule,delayed 30 mg PO DAILY 03/12/23 06/30/23 release gabapentin 300 mg capsule 300 mg PO TID 03/12/23 06/30/23 Previous Rx's Medication Instructions Recorded azelastine 137 mcg (0.1 %) nasal 2 spray intranasal BID 30 days #30 01/10/20 spray mL clobetasol 0.05 % scalp solution 1 applic topical DAILY #50 mL 10/29/22 Allergies Allergy/AdvReac Type Severity Reaction Status Date / Time amoxicillin Allergy Severe ALGY-Hives Verified 04/04/24 14:31 cefuroxime [From Ceftin] Allergy Severe ALGY-Hives Verified 04/04/24 14:31 sulfamethoxazole Allergy Severe ALGY-Hives Verified 04/04/24 14:31 [From Bactrim] trimethoprim [From Bactrim] Allergy Severe ALGY-Hives Verified 04/04/24 14:31 adhesive Allergy Unknown Unknown Verified 04/04/24 14:31 ibuprofen Allergy Unknown Verified 04/04/24 14:31 metoclopramide [From Reglan] Allergy Unknown Verified 04/04/24 14:31 prochlorperazine Allergy ADR-Itching Verified 04/04/24 14:31 [From Compazine] Review of Systems Const: Denies: fever(s) or chills ENMT: Denies: throat pain or dental pain Card: Denies: chest pain Resp: Denies: dyspnea GI: Denies: abdominal pain, nausea, vomiting or diarrhea Musc: Denies: neck pain or back pain PFSH ED PFSH: Medical History Asthma Depression Allergic rhinitis Anxiety Chronic sinusitis OCD (obsessive compulsive disorder) Plica syndrome ITB syndrome Surgical History H/O oral surgery S/P FESS (functional endoscopic sinus surgery) Family History Family/Other Lung disease Asthma Father Hypertension Hyperlipidemia Grandmother Hypertension Dementia Stroke Grandfather Hypertension Stroke Grandfather Hypertension Denies family history of Diabetes CAD (coronary artery disease) Clotting disorder Chronic kidney disease (CKD) Suicide Anesthesia complication Bleeding disorder Cancer Social History Smoking and tobacco/nicotine status: never used tobacco/nicotine Alcohol intake: never Substance/Drug Use: never Lives independently: Yes Household members: other Marital status: Single Current occupational status: student Current occupational exposures/hazards: No Pets and animals: Yes Pets & animals: dog(s) Do you think of yourself as: Straight/Heterosexual Current gender identity: Female Physical Exam Const: COMMON NORMALS: no acute distress, patient oriented x3 and healthy appearing HENMT: COMMON NORMALS: normocephalic and atraumatic HEAD & SCALP: normocephalic and atraumatic Neck/C-Spine: COMMON NORMALS: full ROM and supple Chest: COMMONS NORMALS: normal inspection of the chest Resp: COMMON NORMALS: normal respiratory effort GI: OTHER: Patient's J-tube is falling out tract appears to be intact Extremity: COMMON NORMALS: normal to inspection and full ROM Neuro: COMMON NORMALS: patient oriented x3, moves all extremities and no focal motor deficits Psych: COMMON NORMALS: mental status grossly normal, Normal thought process present and cooperative THOUGHT PROCESS: Normal thought process present Skin: COMMON NORMALS: no rashes or lesions noted and no wounds GENERAL SKIN EXAM: no rashes or lesions noted Procedures Feeding Tube Replacement Type of Tube: jejunostomy Insertion Site Prior to Procedure: clean Tube Used for Reinsertion: patient's own [place] Tube Size (F): 18 Balloon size (mL): 10 Verification of Placement: KUB and gastrografin injection Tube Secured by: tape/dressing Patient Tolerated Procedure: well Course Vital Signs: Vital signs: Vital Signs Temperature 98.0 F 04/04/24 14:27 Pulse Rate 69 04/04/24 15:07 Respiratory Rate 16 04/04/24 15:07 Blood Pressure 99/61 04/04/24 15:07 Pulse Oximetry 100 04/04/24 15:07 Oxygen Delivery Me thod Room Air 04/04/24 15:07 MDM - General Adult Medical Decision Making Patient presents here for dislodged J-tube was able to replace her own tube with success she is to follow-up with her surgeon return if worsening she understands agrees plan Medical Records I reviewed the patient's medical records. Lab Data Radiology Impressions KUB X-Ray 04/04/24 15:01 Impression: Contrast is identified within the small bowel. All radiology interpretation(s) finalized by discharge Discharge Plan Discharge Patient Disposition: Home Clinical Impression: Dislodged jejunostomy tube Condition: Stable Prescriptions: No Action fexofenadine [Christina Allergy] 180 mg tablet 180 mg PO TID epinephrine [Auvi-Q] 0.3 mg/0.3 mL auto-injector 0.3 mg IM Q10M PRN (Reason: Allergic Reaction) Rx Instructions: for 2 doses montelukast [Singulair] 10 mg tablet 10 mg PO DAILY naproxen [EC-Naproxen] 500 mg tablet,delayed release (DR/EC) 500 mg PO Q8H PRN (Reason: pain) albuterol sulfate [ProAir HFA] 90 mcg/actuation HFA aerosol inhaler 2 puff INHALATION Q6H PRN (Reason: Shortness Of Breath) [id number] fumarate 600-125-18 mg-unit-mg tablet 1 tab PO DAILY azelastine 137 mcg (0.1 %) aerosol,spray 2 spray INTRANASAL BID 30 Days Qty: 30 2RF Rx Instructions: administer into each nostril ondansetron HCl [Zofran] 4 mg tablet 4 mg PO Q8H famotidine [Pepcid] 20 mg tablet 20 mg PO BID fludrocortisone 0.1 mg tablet 0.05 mg PO DAILY dicyclomine 10 mg capsule 10 mg PO BID ivabradine 7.5 mg tablet 7.5 mg PO BID Rx Instructions: must administer with a meal/food Emgality Syringe 120 mg/mL syringe 120 mg SUBCUT .MONTHLY clobetasol 0.05 % solution 1 applic topical DAILY Qty: 50 3RF Rx Instructions: Apply few drops to itchy areas of scalp as needed. gabapentin 600 mg Tablet 600 mg PO TID fluticasone propion-salmeterol [Advair Diskus] 100-50 mcg/dose blister with device 1 inh INHALATION BID Linzess 145 mcg capsule 145 mcg PO DAILY gabapentin 300 mg Capsule 300 mg PO TID duloxetine 30 mg capsule,delayed release(DR/EC) 30 mg PO DAILY sumatriptan succinate 50 mg tablet 50 mg PO DAILY PRN (Reason: Migraine Headache) Discharge Orders: Discharge ED (Routine); Ordered 04/04/24 Ordered By: Edward Munguia Referrals: Melissa Stovall MD [Primary Care Provider] - Discharge Diet: Advance as tolerated Discharge Activity: Resume usual activity Patient Instructions: GI Tube Care 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 Code ED Online Communications Manager for Aristeo Montilla
[2024-04-04 14:38] VITALS: BP 107/67; PULSE 75; RESP 16; O2SAT 99
--- NOTE | 2024-04-04 15:01 | XR_ITS ---
WS: [id number] Examination: XR KUB [id number] Reason for Exam: post j tube placement Date: April 04, 2024 Comparison: None. Findings: Contrast has been injected into the jejunostomy tube. The small bowel is well opacified. On the singl e film no extravasation is identified. XR/XR KUB [id number] Impression: Contrast is identified within the small bowel.
--- NOTE | 2024-04-04 15:03 | PC.NURSE ---
pt placed in trendelenburg by pt family member while this nurse was headed into room d/t low bp reading, pt reports her bp frequently goes low when she's close to passing out, which pt states she does every day. pt reports she has chest port and receives tpn and fluids, tpn twice daily. pt reports tomorrow is her tpn day and her current vs is normal for her. pt states she feels better already.
[2024-04-04 15:07] VITALS: BP 99/61; PULSE 69; RESP 16; O2SAT 100
== END 2024-04-04 15:22 | disposition home or self-care (01) ==
PROVIDERS: Emergency Provider Emergency Medicine; PCP Family Medicine
DX: K94.19 Other complications of enterostomy (principal)
CPT/HCPCS: 49451; 74018; 99283

== ENCOUNTER 2024-04-04 16:45 | Outpatient (CLI) | payer BC, MEDICAID, SELFPAY ==
[2024-04-04 16:57] LABS: Basophils % 0.5 %; Eosinophils % 0.5 %; Hematocrit 34.2 % (36-47); Lymphocytes # 1.4 10^3/uL (0.8-4.8); Lymphocytes % 21.6 %; Mean Corpuscular HGB Conc 33.9 g/dL (30-55); Mean Corpuscular Hemoglobin 30.3 pg (27-33); Mean Corpuscular Volume 89.3 fl (85-98); Mean Platelet Volume 11.1 fL (7.4-10.4); Monocytes # 0.4 10^3/uL (0.2-0.9); Monocytes % 6.7 %; Neutrophils % 70.5 %; Nucleated Red Blood Cells % 0 %; Platelet Count 226 10^3/cmm (157-399); Red Blood Count 3.83 10^6/uL (3.85-5.65); Red Cell Distribution Width 13.1 % (12.1-15.1); White Blood Count 6.24 10^3/uL (3.29-11.43)
[2024-04-04 17:30] LABS: Alanine Aminotransferase 10 U/L (0-33); Albumin Level 4.3 g/dL (3.5-5.2); Alkaline Phosphatase 42 U/L (35-105); Anion Gap 18.7 (5-19); Aspartate Amino Transferase 13 U/L (0-32); Blood Urea Nitrogen 21 mg/dL (6-20); Carbon Dioxide 20 mmol/L (22-29); Chloride 103 mmol/L (98-107); Globulin 3.1 g/dL (1.3-4.6); Glomerular Filtration Rate 99.6 mL/min (90-130); Glucose 74 mg/dL (65-115); Osmolality Calculated 288 mOsm/kg (285-295); Phosphorus 3.7 mg/dL (2.5-4.5); Potassium 3.7 mmol/L (3.5-5.1); Sodium 138 mmol/L (136-145); Total Bilirubin 0.3 mg/dL (0.15-1.2); Total Protein 7.4 g/dL (6.6-8.7)
== END 2024-04-04 16:46 | disposition home or self-care (01) ==
LOC: LAB 16:47
PROVIDERS: PCP Family Medicine; Visit Provider Family Medicine
DX: E46 Unspecified protein-calorie malnutrition (principal); G90.A Postural orthostatic tachycardia syndrome [POTS]; R55 Syncope and collapse; G90.1 Familial dysautonomia [Riley-Day]; R11.15 Cyclical vomiting syndrome unrelated to migraine
CPT/HCPCS: 80053; 83735; 84100; 85025

== ENCOUNTER 2024-04-11 14:48 | Outpatient (CLI) | payer BC, MEDICAID, SELFPAY ==
[2024-04-11 15:11] LABS: Basophils % 0.4 %; Eosinophils % 0.4 %; Hematocrit 30.5 % (36-47); Lymphocytes # 1.7 10^3/uL (0.8-4.8); Lymphocytes % 37.6 %; Mean Corpuscular HGB Conc 33.4 g/dL (30-55); Mean Corpuscular Hemoglobin 29.8 pg (27-33); Mean Corpuscular Volume 89.2 fl (85-98); Mean Platelet Volume 10.8 fL (7.4-10.4); Monocytes # 0.3 10^3/uL (0.2-0.9); Monocytes % 5.8 %; Neutrophils % 55.6 %; Nucleated Red Blood Cells % 0 %; Platelet Count 227 10^3/cmm (157-399); Red Blood Count 3.42 10^6/uL (3.85-5.65)
[2024-04-11 15:25] LABS: Alanine Aminotransferase 12 U/L (0-33); Albumin Level 3.7 g/dL (3.5-5.2); Alkaline Phosphatase 43 U/L (35-105); Anion Gap 15.3 (5-19); Aspartate Amino Transferase 14 U/L (0-32); Blood Urea Nitrogen 19 mg/dL (6-20); Calcium 8.2 mg/dL (8.5-10.5); Carbon Dioxide 22 mmol/L (22-29); Chloride 103 mmol/L (98-107); Glomerular Filtration Rate 99.6 mL/min (90-130); Glucose 83 mg/dL (65-115); Magnesium 2.1 mg/dL (1.7-2.3); Osmolality Calculated 283 mOsm/kg (285-295); Phosphorus 3.8 mg/dL (2.5-4.5); Potassium 4.3 mmol/L (3.5-5.1); Sodium 136 mmol/L (136-145); Total Bilirubin 0.3 mg/dL (0.15-1.2); Total Protein 6.7 g/dL (6.6-8.7)
== END 2024-04-11 14:49 | disposition home or self-care (01) ==
LOC: LAB 14:50
PROVIDERS: PCP Family Medicine; Visit Provider Family Medicine
DX: K31.84 Gastroparesis (principal); R63.4 Abnormal weight loss; E43 Unspecified severe protein-calorie malnutrition; E16.2 Hypoglycemia, unspecified; E87.6 Hypokalemia; E86.0 Dehydration
CPT/HCPCS: 80053; 83735; 84100; 85025

== ENCOUNTER 2024-04-18 12:08 | Outpatient (CLI) | payer BC, MEDICAID, SELFPAY ==
[2024-04-18 12:43] LABS: Basophils % 0.5 %; Eosinophils % 0.5 %; Hematocrit 33.2 % (36-47); Lymphocytes # 1.6 10^3/uL (0.8-4.8); Lymphocytes % 44.1 %; Mean Corpuscular HGB Conc 33.1 g/dL (30-55); Mean Corpuscular Hemoglobin 30.3 pg (27-33); Mean Corpuscular Volume 91.5 fl (85-98); Mean Platelet Volume 10.5 fL (7.4-10.4); Monocytes # 0.3 10^3/uL (0.2-0.9); Monocytes % 7.9 %; Neutrophils % 46.7 %; Nucleated Red Blood Cells % 0 %; Platelet Count 256 10^3/cmm (157-399); Red Blood Count 3.63 10^6/uL (3.85-5.65); Red Cell Distribution Width 12.7 % (12.1-15.1); White Blood Count 3.65 10^3/uL (3.29-11.43)
[2024-04-18 13:09] LABS: Alanine Aminotransferase 17 U/L (0-33); Alkaline Phosphatase 45 U/L (35-105); Anion Gap 17.3 (5-19); Aspartate Amino Transferase 14 U/L (0-32); Blood Urea Nitrogen 18 mg/dL (6-20); Calcium 8.6 mg/dL (8.5-10.5); Carbon Dioxide 23 mmol/L (22-29); Chloride 103 mmol/L (98-107); Globulin 2.9 g/dL (1.3-4.6); Glomerular Filtration Rate 99.6 mL/min (90-130); Glucose 88 mg/dL (65-115); Osmolality Calculated 289 mOsm/kg (285-295); Potassium 4.3 mmol/L (3.5-5.1); Sodium 139 mmol/L (136-145); Total Bilirubin 0.2 mg/dL (0.15-1.2); Total Protein 6.9 g/dL (6.6-8.7)
== END 2024-04-18 12:09 | disposition home or self-care (01) ==
LOC: LAB 12:10
PROVIDERS: PCP Family Medicine; Visit Provider Family Medicine
DX: K31.84 Gastroparesis (principal); R63.4 Abnormal weight loss; E43 Unspecified severe protein-calorie malnutrition; E16.2 Hypoglycemia, unspecified; E87.6 Hypokalemia; E86.0 Dehydration
CPT/HCPCS: 80053; 83735; 84100; 85025

== ENCOUNTER 2024-04-25 14:42 | Outpatient (CLI) | payer BC, MEDICAID, SELFPAY ==
[2024-04-25 17:42] LABS: Basophils % 0.8 %; Eosinophils % 0.8 %; Hematocrit 32.8 % (36-47); Lymphocytes # 1.8 10^3/uL (0.8-4.8); Lymphocytes % 44.6 %; Mean Corpuscular HGB Conc 33.5 g/dL (30-55); Mean Corpuscular Hemoglobin 30.7 pg (27-33); Mean Corpuscular Volume 91.6 fl (85-98); Mean Platelet Volume 11.3 fL (7.4-10.4); Monocytes # 0.3 10^3/uL (0.2-0.9); Monocytes % 7.6 %; Neutrophils # 1.83 10^3/uL (1.8-7.7); Neutrophils % 45.9 %; Nucleated Red Blood Cells % 0 %; Platelet Count 261 10^3/cmm (157-399); Red Blood Count 3.58 10^6/uL (3.85-5.65); Red Cell Distribution Width 12.8 % (12.1-15.1); White Blood Count 3.97 10^3/uL (3.29-11.43)
[2024-04-25 18:01] LABS: Phosphorus 3.5 mg/dL (2.5-4.5)
[2024-04-25 18:24] LABS: Alanine Aminotransferase 19 U/L (0-33); Albumin Level 4.2 g/dL (3.5-5.2); Alkaline Phosphatase 50 U/L (35-105); Anion Gap 17.8 (5-19); Aspartate Amino Transferase 15 U/L (0-32); Blood Urea Nitrogen 19 mg/dL (6-20); Calcium 8.9 mg/dL (8.5-10.5); Carbon Dioxide 22 mmol/L (22-29); Chloride 102 mmol/L (98-107); Globulin 2.9 g/dL (1.3-4.6); Glomerular Filtration Rate 99.6 mL/min (90-130); Glucose 77 mg/dL (65-115); Osmolality Calculated 287 mOsm/kg (285-295); Potassium 3.8 mmol/L (3.5-5.1); Sodium 138 mmol/L (136-145); Total Bilirubin 0.2 mg/dL (0.15-1.2); Total Protein 7.1 g/dL (6.6-8.7)
== END 2024-04-25 14:43 | disposition home or self-care (01) ==
LOC: LAB 14:44
PROVIDERS: PCP Family Medicine; Visit Provider Family Medicine
DX: K31.84 Gastroparesis (principal); R63.4 Abnormal weight loss; E43 Unspecified severe protein-calorie malnutrition; E16.2 Hypoglycemia, unspecified; E87.6 Hypokalemia; E86.0 Dehydration
CPT/HCPCS: 80053; 83735; 84100; 85025

== ENCOUNTER 2024-05-02 15:19 | Outpatient (CLI) | payer BC, MEDICAID, SELFPAY ==
[2024-05-02 15:56] LABS: Basophils % 0.3 %; Eosinophils % 0.9 %; Hematocrit 31.5 % (36-47); Lymphocytes # 1.1 10^3/uL (0.8-4.8); Lymphocytes % 32.9 %; Mean Corpuscular HGB Conc 33.7 g/dL (30-55); Mean Corpuscular Hemoglobin 30.5 pg (27-33); Mean Corpuscular Volume 90.5 fl (85-98); Mean Platelet Volume 10.7 fL (7.4-10.4); Monocytes # 0.4 10^3/uL (0.2-0.9); Monocytes % 11.2 %; Neutrophils % 54.4 %; Nucleated Red Blood Cells % 0 %; Platelet Count 213 10^3/cmm (157-399); Red Blood Count 3.48 10^6/uL (3.85-5.65); Red Cell Distribution Width 12.8 % (12.1-15.1); White Blood Count 3.31 10^3/uL (3.29-11.43)
[2024-05-02 16:16] LABS: Alanine Aminotransferase 13 U/L (0-33); Alkaline Phosphatase 48 U/L (35-105); Aspartate Amino Transferase 14 U/L (0-32); Blood Urea Nitrogen 14 mg/dL (6-20); Calcium 8.7 mg/dL (8.5-10.5); Carbon Dioxide 24 mmol/L (22-29); Chloride 104 mmol/L (98-107); Globulin 2.8 g/dL (1.3-4.6); Glucose 88 mg/dL (65-115); Magnesium 1.8 mg/dL (1.7-2.3); Osmolality Calculated 288 mOsm/kg (285-295); Phosphorus 3.7 mg/dL (2.5-4.5); Sodium 139 mmol/L (136-145); Total Bilirubin 0.2 mg/dL (0.15-1.2); Total Protein 6.8 g/dL (6.6-8.7)
== END 2024-05-02 15:20 | disposition home or self-care (01) ==
LOC: LAB 15:20
PROVIDERS: PCP Family Medicine; Visit Provider Family Medicine
DX: K31.84 Gastroparesis (principal); R63.4 Abnormal weight loss; E43 Unspecified severe protein-calorie malnutrition; E16.2 Hypoglycemia, unspecified; E87.6 Hypokalemia; E86.0 Dehydration
CPT/HCPCS: 80053; 83735; 84100; 85025

== ENCOUNTER 2024-05-09 15:22 | Outpatient (CLI) | payer BC, MEDICAID, SELFPAY ==
[2024-05-09 15:43] LABS: Basophils % 0.4 %; Eosinophils % 0.6 %; Hematocrit 32.6 % (36-47); Lymphocytes # 1.9 10^3/uL (0.8-4.8); Lymphocytes % 37.7 %; Mean Corpuscular HGB Conc 33.7 g/dL (30-55); Mean Corpuscular Hemoglobin 30.7 pg (27-33); Mean Corpuscular Volume 91.1 fl (85-98); Mean Platelet Volume 10.7 fL (7.4-10.4); Monocytes # 0.5 10^3/uL (0.2-0.9); Monocytes % 9.2 %; Neutrophils # 2.59 10^3/uL (1.8-7.7); Neutrophils % 51.7 %; Nucleated Red Blood Cells % 0 %; Platelet Count 222 10^3/cmm (157-399); Red Blood Count 3.58 10^6/uL (3.85-5.65); Red Cell Distribution Width 12.7 % (12.1-15.1); White Blood Count 5.01 10^3/uL (3.29-11.43)
[2024-05-09 16:00] LABS: Alanine Aminotransferase 12 U/L (0-33); Albumin Level 4.1 g/dL (3.5-5.2); Alkaline Phosphatase 43 U/L (35-105); Anion Gap 14.9 (5-19); Aspartate Amino Transferase 15 U/L (0-32); Blood Urea Nitrogen 18 mg/dL (6-20); Calcium 8.7 mg/dL (8.5-10.5); Carbon Dioxide 22 mmol/L (22-29); Chloride 103 mmol/L (98-107); Glomerular Filtration Rate 99.6 mL/min (90-130); Glucose 76 mg/dL (65-115); Magnesium 2.1 mg/dL (1.7-2.3); Osmolality Calculated 283 mOsm/kg (285-295); Phosphorus 3.6 mg/dL (2.5-4.5); Potassium 3.9 mmol/L (3.5-5.1); Sodium 136 mmol/L (136-145); Total Bilirubin 0.3 mg/dL (0.15-1.2); Total Protein 7.1 g/dL (6.6-8.7)
[2024-05-09 16:41] LABS: Slide Review Slide Review Perform
== END 2024-05-09 15:23 | disposition home or self-care (01) ==
LOC: LAB 15:23
PROVIDERS: PCP Family Medicine; Visit Provider Family Medicine
DX: K31.84 Gastroparesis (principal); R63.4 Abnormal weight loss; E43 Unspecified severe protein-calorie malnutrition; E16.2 Hypoglycemia, unspecified; E87.6 Hypokalemia; E86.0 Dehydration
CPT/HCPCS: 80053; 83735; 84100; 85025

== ENCOUNTER 2024-05-16 11:28 | Outpatient (CLI) | payer BC, MEDICAID, SELFPAY ==
[2024-05-16 12:41] LABS: Basophils % 0.3 %; Eosinophils % 0.7 %; Hematocrit 29.1 % (36-47); Lymphocytes # 0.7 10^3/uL (0.8-4.8); Lymphocytes % 23.4 %; Mean Corpuscular HGB Conc 33.7 g/dL (30-55); Mean Corpuscular Hemoglobin 30.4 pg (27-33); Mean Corpuscular Volume 90.4 fl (85-98); Mean Platelet Volume 10.7 fL (7.4-10.4); Monocytes # 0.3 10^3/uL (0.2-0.9); Monocytes % 8.8 %; Neutrophils # 1.96 10^3/uL (1.8-7.7); Neutrophils % 66.5 %; Nucleated Red Blood Cells % 0 %; Platelet Count 137 10^3/cmm (157-399); Red Blood Count 3.22 10^6/uL (3.85-5.65); Red Cell Distribution Width 12.7 % (12.1-15.1); White Blood Count 2.95 10^3/uL (3.29-11.43)
[2024-05-16 12:54] LABS: Alanine Aminotransferase 52 U/L (0-33); Albumin Level 3.6 g/dL (3.5-5.2); Alkaline Phosphatase 61 U/L (35-105); Aspartate Amino Transferase 29 U/L (0-32); Blood Urea Nitrogen 19 mg/dL (6-20); Calcium 8.3 mg/dL (8.5-10.5); Carbon Dioxide 22 mmol/L (22-29); Chloride 104 mmol/L (98-107); Globulin 2.8 g/dL (1.3-4.6); Glomerular Filtration Rate 99.6 mL/min (90-130); Glucose 91 mg/dL (65-115); Magnesium 1.9 mg/dL (1.7-2.3); Osmolality Calculated 286 mOsm/kg (285-295); Phosphorus 3.5 mg/dL (2.5-4.5); Sodium 137 mmol/L (136-145); Total Bilirubin 0.3 mg/dL (0.15-1.2); Total Protein 6.4 g/dL (6.6-8.7)
== END 2024-05-16 11:29 | disposition home or self-care (01) ==
LOC: LAB 11:29
PROVIDERS: PCP Family Medicine; Visit Provider Family Medicine
DX: G90.1 Familial dysautonomia [Riley-Day] (principal); E46 Unspecified protein-calorie malnutrition; G90.A Postural orthostatic tachycardia syndrome [POTS]
CPT/HCPCS: 80053; 83735; 84100; 85025

== ENCOUNTER 2024-05-23 14:03 | Outpatient (CLI) | payer BC, MEDICAID, SELFPAY ==
[2024-05-23 15:27] LABS: Alanine Aminotransferase 28 U/L (0-33); Albumin Level 3.6 g/dL (3.5-5.2); Alkaline Phosphatase 82 U/L (35-105); Anion Gap 14.1 (5-19); Aspartate Amino Transferase 20 U/L (0-32); Blood Urea Nitrogen 20 mg/dL (6-20); Calcium 8.4 mg/dL (8.5-10.5); Carbon Dioxide 24 mmol/L (22-29); Chloride 101 mmol/L (98-107); Globulin 3.5 g/dL (1.3-4.6); Glomerular Filtration Rate 99.6 mL/min (90-130); Glucose 79 mg/dL (65-115); Magnesium 2.1 mg/dL (1.7-2.3); Osmolality Calculated 282 mOsm/kg (285-295); Phosphorus 3.8 mg/dL (2.5-4.5); Potassium 4.1 mmol/L (3.5-5.1); Sodium 135 mmol/L (136-145); Total Bilirubin 0.2 mg/dL (0.15-1.2); Total Protein 7.1 g/dL (6.6-8.7)
[2024-05-23 15:42] LABS: Basophils % 0.3 %; Eosinophils % 0.3 %; Hematocrit 30.9 % (36-47); Lymphocytes # 1.3 10^3/uL (0.8-4.8); Lymphocytes % 20.2 %; Mean Corpuscular HGB Conc 33.3 g/dL (30-55); Mean Corpuscular Hemoglobin 30.1 pg (27-33); Mean Corpuscular Volume 90.4 fl (85-98); Mean Platelet Volume 9.8 fL (7.4-10.4); Monocytes # 0.5 10^3/uL (0.2-0.9); Monocytes % 7.2 %; Neutrophils # 4.68 10^3/uL (1.8-7.7); Neutrophils % 71.4 %; Nucleated Red Blood Cells % 0 %; Platelet Count 302 10^3/cmm (157-399); Red Blood Count 3.42 10^6/uL (3.85-5.65); Red Cell Distribution Width 12.2 % (12.1-15.1); White Blood Count 6.55 10^3/uL (3.29-11.43)
== END 2024-05-23 14:04 | disposition home or self-care (01) ==
LOC: LAB 14:04
PROVIDERS: PCP Family Medicine; Visit Provider Family Medicine
DX: Z01.89 Encounter for other specified special examinations (principal)
CPT/HCPCS: 80053; 83735; 84100; 85025

== ENCOUNTER 2024-05-24 12:54 | Emergency (ER) | payer BC, MEDICAID, SELFPAY ==
--- NOTE | 2024-05-24 13:03 | ECG_ITS ---
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 Measurements Intervals [place] Rate: 141 P: 68 TN: 115 QRS: 13 QRSD: 70 T: 50 QT: 310 QTc: 476 Interpretive Statements SINUS TACHYCARDIA WITH SHORT TN INTERVAL, POSSIBLE ATRIAL FLUTTER LOW QRS VOLTAGE IN PRECORDIAL LEADS [QRS DEFLECTION < 1.0 mV IN CHEST LEADS] ABNORMAL RHYTHM ECG Compared to ECG 11/18/2021 22:46:37 Sinus rhythm no longer present Electronically Signed On 05-24-2024 16:26:49 CDT by Juan Poon M.D. [id number] f
[2024-05-24 13:09] VITALS: BP 95/63; PULSE 146; RESP 18; TEMP 37.7; O2SAT 97; BMI 22.1
--- NOTE | 2024-05-24 13:15 | XR_ITS ---
WS: [id number] Exam: XR chest 1V portable [id number] Date/Time of Exam: 05/24/2024 1:15 PM Reason For Exam: Possible Sepsis Comparison 02/21/2021. Lungs are clear and fully expanded. Normal cardiomediastinal silhouette and regional bony elements. A LEFT subclavian port ends in the midportion of the SVC. XR/XR chest 1V portable [id number] IMPRESSION: 1. No acute cardiopulmonary finding.
[2024-05-24 13:48] LABS: Basophils % 0.2 %; Hematocrit 34.1 % (36-47); Lymphocytes # 0.5 10^3/uL (0.8-4.8); Lymphocytes % 4.5 %; Mean Corpuscular HGB Conc 32.8 g/dL (30-55); Mean Corpuscular Hemoglobin 29.9 pg (27-33); Mean Corpuscular Volume 90.9 fl (85-98); Mean Platelet Volume 9.2 fL (7.4-10.4); Monocytes # 0.4 10^3/uL (0.2-0.9); Monocytes % 4.4 %; Neutrophils # 8.93 10^3/uL (1.8-7.7); Neutrophils % 90.3 %; Nucleated Red Blood Cells % 0 %; Platelet Count 242 10^3/cmm (157-399); Red Blood Count 3.75 10^6/uL (3.85-5.65); Red Cell Distribution Width 12.2 % (12.1-15.1)
[2024-05-24 14:11] LABS: Lactic Sepsis W/Reflex 0.8 mmol/L (0.5-2.2)
[2024-05-24 14:21] LABS: Alanine Aminotransferase 25 U/L (0-33); Albumin Level 4.1 g/dL (3.5-5.2); Alkaline Phosphatase 91 U/L (35-105); Aspartate Amino Transferase 16 U/L (0-32); Blood Urea Nitrogen 21 mg/dL (6-20); Calcium 8.9 mg/dL (8.5-10.5); Carbon Dioxide 23 mmol/L (22-29); Chloride 102 mmol/L (98-107); Creatinine Clr Calc Pharmacy 85.9676; Globulin 3.7 g/dL (1.3-4.6); Glomerular Filtration Rate 85.4 mL/min (90-130); Glucose 96 mg/dL (65-115); Magnesium 1.7 mg/dL (1.7-2.3); Osmolality Calculated 289 mOsm/kg (285-295); Sodium 138 mmol/L (136-145); Total Bilirubin 0.5 mg/dL (0.15-1.2); Total Protein 7.8 g/dL (6.6-8.7)
--- NOTE | 2024-05-24 14:28 | W.ED.GENADLT ---
HPI - General Adult General: Chief complaint: General Medical Stated complaint: eval for sepsis by Tyrone Kay Time Seen by Provider: 05/24/24 13:39 History of Present Illness: 28-year-old female presents to the emergency room complaining of a fever. She had a fever overnight to 102. Patient is on TPN Due to dysphagia. She has a congenital autonomic nervous system disorder that has resulted in her having multiple syncopal episodes. She is able to ambulate but has some much difficulty with weakness and syncope as well as chronic baseline tachycardia that she uses a wheelchair whenever she leaves her home. She has significant gastroparesis as well she has a jejunal tube and a PEG tube however because of her poor GI motility she is chronically on TPN the concern is that with her persistent fever she may have developed septicemia accessing her port for TPN. She accesses on her own at home. She denies any nausea vomiting or diarrhea denies any dysuria urgency or frequency no hemoptysis or hematemesis coffee-ground emesis hematochezia or melena. She has not had any significant shortness of breath. No cough. She has had a fever and has a low-grade fever on arrival here. Associated symptoms: Reports palpitations (Chronic); Deny chest pain, dyspnea or rash Related Data Home Medications Medication Instructions Recorded Confirmed epinephrine 0.3 mg/0.3 mL 0.3 mg IM Q10M PRN Allergic 01/10/20 05/24/24 injection, auto-injector (Auvi-Q) Reaction naproxen 500 mg tablet,delayed 500 mg PO Q8H PRN pain 01/10/20 05/24/24 release (EC-Naproxen) galcanezumab-gnlm 120 mg/mL 120 mg SUBCUT .MONTHLY 10/29/22 05/24/24 subcutaneous syringe (Emgality) gabapentin 300 mg capsule 300 mg PO BID 03/12/23 05/24/24 albuterol sulfate 90 mcg/actuation 2 puff inhalation Q8H PRN 05/24/24 05/24/24 aerosol inhaler Shortness Of Breath Or Wheezing budesonide-formoterol HFA 80 1 inh inhalation BID PRN Shortness 05/24/24 05/24/24 mcg-4.5 mcg/actuation aerosol Of Breath Or Wheezing inhaler (Symbicort) ondansetron HCl 4 mg tablet 4 mg PO Q8H PRN Nausea And Vomiting 05/24/24 05/24/24 Previous Rx's Medication Instructions Recorded doxycycline hyclate 100 mg tablet 100 mg PO BID 10 days #20 tabs 05/24/24 Allergies Allergy/AdvReac Type Severity Reaction Status Date / Time amoxicillin Allergy Severe ALGY-Hives Verified 04/04/24 14:31 cefuroxime [From Ceftin] Allergy Severe ALGY-Hives Verified 04/04/24 14:31 sulfamethoxazole Allergy Severe ALGY-Hives Verified 04/04/24 14:31 [From Bactrim] trimethoprim [From Bactrim] Allergy Severe ALGY-Hives Verified 04/04/24 14:31 adhesive Allergy Unknown Unknown Verified 04/04/24 14:31 ibuprofen Allergy Unknown Verified 04/04/24 14:31 metoclopramide [From Reglan] Allergy Unknown Verified 04/04/24 14:31 prochlorperazine Allergy ADR-Itching Verified 04/04/24 14:31 [From Compazine] Review of Systems Const: Reports: fever(s), chills and fatigue (Chronic) Card: Reports: palpitations (Chronic) and pre-syncope (Chronic); Denies: chest pain Resp: Denies: dyspnea GI: Denies: abdominal pain : Denies: dysuria, urinary frequency or urinary urgency Musc: Denies: neck pain or back pain Skin/Breast: Denies: rash PFSH ED PFSH: Medical History Asthma Depression Allergic rhinitis Anxiety Chronic sinusitis OCD (obsessive compulsive disorder) Plica syndrome ITB syndrome Surgical History H/O oral surgery S/P FESS (functional endoscopic sinus surgery) Family History Family/Other Lung disease Asthma Father Hypertension Hyperlipidemia Grandmother Hypertension Dementia Stroke Grandfather Hypertension Stroke Grandfather Hypertension Denies family history of Diabetes CAD (coronary artery disease) Clotting disorder Chronic kidney disease (CKD) Suicide Anesthesia complication Bleeding disorder Cancer Social History Smoking and tobacco/nicotine status: never used tobacco/nicotine Alcohol intake: never Substance/Drug Use: never Lives independently: Yes Household members: other Marital status: Single Current occupational status: student Current occupational exposures/hazards: No Pets and animals: Yes Pets & animals: dog(s) Do you think of yourself as: Straight/Heterosexual Current gender identity: Female Physical Exam Const: GENERAL APPEARANCE: cooperative NUTRITIONAL APPEARANCE: thin and underweight ORIENTATION/CONSCIOUSNESS: Yes awake, Yes oriented to person, Yes oriented to place and Yes oriented to time HENMT: COMMON NORMALS: normocephalic, atraumatic and hearing grossly normal bilaterally HEAD & SCALP: normocephalic and atraumatic Resp: COMMON NORMALS: normal respiratory effort, No retractions, No use of accessory muscles and clear to auscultation bilaterally AUSCULTATION: clear to auscultation bilaterally Cardio: COMMON NORMALS: regular rate, regular rhythm and No murmurs present (Cardio) RATE: regular rate RHYTHM: regular rhythm GI: COMMON NORMALS: Soft to palpation and No hepatosplenomegaly present AUSCULTATION: Yes normoactive bowel sounds PALPATION: Yes Soft to palpation, No Tenderness to palpation present (GI), No Guarding due to palpation present (GI) and Yes No hepatosplenomegaly present Extremity: COMMON NORMALS: normal to inspection, capillary refill normal, no clubbing, cyanosis or edema, no calf tenderness and no pedal edema Neuro: SENSORIUM/ORIENTATION: Yes oriented to person, Yes oriented to place and Yes oriented to time Skin: COMMON NORMALS: no rashes or lesions noted GENERAL SKIN EXAM: no rashes or lesions noted Course Vital Signs: Vital signs: Vital Signs Temperature 99.9 F H 05/24/24 13:09 Pulse Rate 112 H 05/24/24 17:29 Respiratory Rate 18 05/24/24 17:29 Blood Pressure 96/70 05/24/24 17:29 Pulse Oximetry 98 05/24/24 17:29 Oxygen Delivery Me thod Room Air 05/24/24 15:55 MDM - General Adult Medical Decision Making No leukocytosis remainder of exam unremarkable. She is tachycardic however it is her chronic baseline. She states that is where her heart rate normally runs. Does run a little bit higher when she is up which is part of her problem with her syncopal episodes which appeared carotic prior to her other lab work is otherwise nondiagnostic. Will discharge patient home on oral antibiotics reviewed findings with patient she is agreeable. She will follow-up with her primary care doctor. Discharged home on doxycycline. Patient has multiple allergies Doxy would also cover MRSA which is a concern given her use of the port. Medical Records I reviewed the patient's medical records. Lab Data I reviewed the patient's lab results. 05/24/24 13:31 05/24/24 13:31 Radiology Impressions Chest X-Ray 05/24/24 13:15 IMPRESSION: 1. No acute cardiopulmonary finding. Laboratory Results WBC 9.90 10^3/uL (3.29-11.43) 05/24/24 13:31 RBC 3.75 10^6/uL (3.85-5.65) L 05/24/24 13:31 Hgb 11.20 g/dL (11.27-16.99) L 05/24/24 13:31 Hct 34.1 % (36-47) L 05/24/24 13:31 MCV 90.9 fl (85-98) 05/24/24 13:31 MCH 29.9 pg (27-33) 05/24/24 13:31 MCHC 32.8 g/dL (30-55) 05/24/24 13:31 RDW 12.2 % (12.1-15.1) 05/24/24 13:31 Plt Count 242 10^3/cmm (157-399) 05/24/24 13:31 MPV 9.2 fL (7.4-10.4) 05/24/24 13:31 Neut % (Auto) 90.3 % 05/24/24 13:31 Lymph % (Auto) 4.5 % 05/24/24 13:31 [place] % (Auto) 4.4 % 05/24/24 13:31 Eos % (Auto) 0.0 % 05/24/24 13:31 Baso % (Auto) 0.2 % 05/24/24 13:31 Neut # (Auto) 8.93 10^3/uL (1.8-7.7) H 05/24/24 13:31 Lymph # (Auto) 0.5 10^3/uL (0.8-4.8) L 05/24/24 13:31 [place] # (Auto) 0.4 10^3/uL (0.2-0.9) 05/24/24 13:31 Eos # (Auto) 0.0 10^3/uL (0.0-0.8) 05/24/24 13:31 Baso # (Auto) 0.0 10^3/uL (0.0-0.1) 05/24/24 13:31 Nucleated RBC % (auto) 0 % 05/24/24 13:31 Nucleated RBCs # 0.0 /100WBC 05/24/24 13:31 Sodium 138 mmol/L (136-145) 05/24/24 13:31 Potassium 4.0 mmol/L (3.5-5.1) 05/24/24 13:31 Chloride 102 mmol/L (98-107) 05/24/24 13:31 Carbon Dioxide 23 mmol/L (22-29) 05/24/24 13:31 Anion Gap 17.0 (5-19) 05/24/24 13:31 BUN 21 mg/dL (6-20) H 05/24/24 13:31 Creatinine 0.8 mg/dL (0.5-0.9) 05/24/24 13:31 GFR Calculation 85.4 mL/min (90-130) L 05/24/24 13:31 Glucose 96 mg/dL (65-115) 05/24/24 13:31 Calculated Osmolality 289 mOsm/kg (285-295) 05/24/24 13:31 Lactic Acid 0.8 mmol/L (0.5-2.2) 05/24/24 13:31 Calcium 8.9 mg/dL (8.5-10.5) 05/24/24 13:31 Magnesium 1.7 mg/dL (1.7-2.3) 05/24/24 13:31 Total Bilirubin 0.5 mg/dL (0.15-1.2) 05/24/24 13:31 AST 16 U/L (0-32) 05/24/24 13:31 ALT 25 U/L (0-33) 05/24/24 13:31 Alkaline Phosphatase 91 U/L (35-105) 05/24/24 13:31 Total Protein 7.8 g/dL (6.6-8.7) 05/24/24 13:31 Albumin 4.1 g/dL (3.5-5.2) 05/24/24 13:31 Globulin 3.7 g/dL (1.3-4.6) 05/24/24 13:31 TSH 0.50 uIU/mL (0.27-4.20) 05/24/24 13:31 Urine Color Dark yellow (Yellow) A 05/24/24 15:45 Urine Appearance Clear (CLEAR) 05/24/24 15:45 Urine pH 6.5 (5-7) 05/24/24 15:45 Ur Specific [place] 1.024 (1.005-1.030) 05/24/24 15:45 Urine Protein Trace (Negative) A 05/24/24 15:45 Urine Glucose (UA) Negative (Normal) 05/24/24 15:45 Urine Ketones 1+ (Negative) H 05/24/24 15:45 Urine Blood Negative (Negative) 05/24/24 15:45 Urine Nitrate Negative (Negative) 05/24/24 15:45 Urine Bilirubin Negative (Negative) 05/24/24 15:45 Urine Urobilinogen 1.0 mg/dL (Negative) 05/24/24 15:45 Ur Leukocyte Esterase Trace (Negative) A 05/24/24 15:45 Urine RBC 0-4 /hpf (0-2) H 05/24/24 15:45 Urine WBC 5-10 /hpf (0-5) H 05/24/24 15:45 Ur Squamous Epith Cells 5-10 /hpf (0-5) H 05/24/24 15:45 Amorphous Sediment Not Reportable 05/24/24 15:45 Urine Bacteria 1+ /hpf (NONE) H 05/24/24 15:45 Urine Mucus 3+ /hpf 05/24/24 15:45 Coronavirus (PCR) Negative (Negative) 05/24/24 15:40 Influenza A (PCR) Negative (Negative) 05/24/24 15:40 Influenza Type B (PCR) Negative (Negative) 05/24/24 15:40 RSV (PCR) Negative (Negative) 05/24/24 15:40 All radiology interpretation(s) finalized by discharge Discharge Plan Discharge Patient Disposition: Home Clinical Impression: Fever, unknown origin Condition: Stable Prescriptions: New doxycycline hyclate 100 mg tablet 100 mg PO BID 10 Days Qty: 20 0RF No Action epinephrine [Auvi-Q] 0.3 mg/0.3 mL auto-injector 0.3 mg IM Q10M PRN (Reason: Allergic Reaction) Rx Instructions: for 2 doses naproxen [EC-Naproxen] 500 mg tablet,delayed release (DR/EC) 500 mg PO Q8H PRN (Reason: pain) Emgality Syringe 120 mg/mL syringe 120 mg SUBCUT .MONTHLY gabapentin 300 mg Capsule 300 mg PO BID ondansetron HCl [Zofran] 4 mg Tablet 4 mg PO Q8H PRN (Reason: Nausea And Vomiting) albuterol sulfate [ProAir HFA] 90 mcg/actuation Hfa Aerosol Inhaler 2 puff INHALATION Q8H PRN (Reason: Shortness Of Breath Or Wheezing) budesonide-formoterol [Symbicort] 80-4.5 mcg/actuation Hfa Aerosol Inhaler 1 inh INHALATION BID PRN (Reason: Shortness Of Breath Or Wheezing) Discharge Orders: Discharge ED (Routine); Ordered 05/24/24 Ordered By: Melchor Delatorre Referrals: Melissa Stovall MD [Primary Care Provider] - Discharge Diet: Usual diet Discharge Activity: Resume usual activity Patient Instructions: Opioid Safety, Pain Management Activity Restrictions/Additional Instructions: Thank you for choosing [facility] for your healthcare needs today. It is very important that you follow up as instructed or that you return to the Emergency Department should you have concerns or if your condition changes or worsens in any way. You were seen today with complaint of fever. He had a low-grade fever while in the emergency room your white count was normal. Cultures were done today. The remainder of your lab work did not show any significant abnormalities. You do have a few white blood cells in your urine is not overall convincing for a cystitis. We did culture the urine as well. Recommend starting on the oral antibiotics given to you today in the emergency room until the cultures are completed. If you have worsening symptoms return to the emergency room. 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 Code ED Production Machinist for Aristeo Montilla
[2024-05-24 15:55] VITALS: BP 89/48; PULSE 114; RESP 18; O2SAT 98
[2024-05-24 16:01] LABS: Bilirubin Urine Negative (Negative); Blood Urine Negative (Negative); Glucose Urine UA Negative (Normal); Ketones Urine 1+ (Negative); Leukocyte Esterase Urine Trace (Negative); Nitrate Urine Negative (Negative); Protein Urine Trace (Negative); Specific Gravity, Urine 1.024 (1.005-1.030); Urine Appearance Clear (CLEAR); Urine Color Dark Yellow (Yellow); pH Urine 6.5 (5-7)
[2024-05-24 16:21] LABS: Add Urine Microscopic? YES; Bacteria Urine 1+ /hpf; RBC Urine 0-4 /hpf (0-2)
[2024-05-24 16:23] LABS: Add Urine Culture? No; Mucus Urine 3+ /hpf
[2024-05-24 16:36] LABS: Covid PCR NEGATIVE (Negative); Influenza A NEGATIVE (Negative); Influenza B NEGATIVE (Negative); Respiratory Syncytial Virus Ce NEGATIVE (Negative)
[2024-05-24 17:02] VITALS: BP 100/50; PULSE 114
[2024-05-24 17:29] VITALS: BP 96/70; PULSE 112; RESP 18; O2SAT 98
== END 2024-05-24 17:15 | disposition home or self-care (01) ==
PROVIDERS: Emergency Medicine; Emergency Provider Family Medicine; PCP Family Medicine
DX: R50.9 Fever, unspecified (principal); R13.10 Dysphagia, unspecified; R53.1 Weakness; K31.84 Gastroparesis; Z93.1 Gastrostomy status; Z93.4 Other artificial openings of gastrointestinal tract status; G90.9 Disorder of the autonomic nervous system, unspecified
CPT/HCPCS: 0241U; 36415; 71045; 80053; 81001; 83605; 83735; 84443; 85025; 87040; 93005; 96360; 96361; 99285; J7030

== ENCOUNTER 2024-05-30 16:42 | Outpatient (CLI) | payer BC, MEDICAID, SELFPAY ==
[2024-05-30 16:52] LABS: Basophils % 0.4 %; Eosinophils % 0.4 %; Hematocrit 28.5 % (36-47); Mean Corpuscular HGB Conc 33.7 g/dL (30-55); Mean Corpuscular Hemoglobin 30.1 pg (27-33); Mean Corpuscular Volume 89.3 fl (85-98); Mean Platelet Volume 9.6 fL (7.4-10.4); Monocytes # 0.4 10^3/uL (0.2-0.9); Monocytes % 8.6 %; Neutrophils # 3.49 10^3/uL (1.8-7.7); Nucleated Red Blood Cells % 0 %; Platelet Count 244 10^3/cmm (157-399); Red Blood Count 3.19 10^6/uL (3.85-5.65); Red Cell Distribution Width 12.1 % (12.1-15.1); White Blood Count 4.99 10^3/uL (3.29-11.43)
[2024-05-30 17:17] LABS: Alanine Aminotransferase 14 U/L (0-33); Albumin Level 3.6 g/dL (3.5-5.2); Alkaline Phosphatase 71 U/L (35-105); Anion Gap 11.8 (5-19); Aspartate Amino Transferase 24 U/L (0-32); Blood Urea Nitrogen 18 mg/dL (6-20); Calcium 8.3 mg/dL (8.5-10.5); Carbon Dioxide 23 mmol/L (22-29); Chloride 103 mmol/L (98-107); Globulin 3.5 g/dL (1.3-4.6); Glomerular Filtration Rate 99.6 mL/min (90-130); Glucose 99 mg/dL (65-115); Magnesium 2.2 mg/dL (1.7-2.3); Osmolality Calculated 280 mOsm/kg (285-295); Phosphorus 3.4 mg/dL (2.5-4.5); Potassium 3.8 mmol/L (3.5-5.1); Sodium 134 mmol/L (136-145); Total Bilirubin 0.2 mg/dL (0.15-1.2); Total Protein 7.1 g/dL (6.6-8.7)
== END 2024-05-30 16:43 | disposition home or self-care (01) ==
LOC: LAB 16:43
PROVIDERS: PCP Family Medicine; Visit Provider Family Medicine
DX: K31.84 Gastroparesis (principal); E43 Unspecified severe protein-calorie malnutrition; E16.2 Hypoglycemia, unspecified; E87.6 Hypokalemia; E86.0 Dehydration
CPT/HCPCS: 80053; 83735; 84100; 85025

== ENCOUNTER 2024-06-02 16:18 | Outpatient (CLI) | payer BC, MEDICAID, SELFPAY ==
[2024-06-02 17:30] LABS: Ionized Calcium 1.2 mmol/L (1.1-1.4)
[2024-06-02 20:38] LABS: Magnesium 1.8 mg/dL (1.7-2.3)
[2024-06-02 22:54] LABS: 25 Hydroxy Vitamin D 21 ng/mL (30-100); Ferritin 89 ng/mL (15-150); Iron 15 ug/dL (37-145); Percent Saturation 6.4 % (20-50); Total Iron Binding Capacity 234 mcg/dl; Unsaturated Iron Binding 219 ug/dL (112-347); Vitamin B12 1101 pg/mL (232-1245)
[2024-06-02 23:42] LABS: Folate Level 18.3 ng/mL (4.8-37.3)
[2024-06-05 15:13] LABS: Zinc Level, Serum or Plasma 60 mcg/dL (60-130)
[2024-06-06 11:30] LABS: Copper Level 131 mcg/dL (70-175)
[2024-06-06 17:59] LABS: Vitamin B6 Plasma 25.8 ng/mL (2.1-21.7)
[2024-06-07 10:44] LABS: Methylmalonic Acid 90 nmol/L (55-335)
[2024-06-07 11:49] LABS: Vitamin A (Retinol) 26 mcg/dL (38-98)
[2024-06-07 12:14] LABS: Alpha-Tocopherol 12.8 mg/L (5.7-19.9); Beta-Gamma-Tocopherol <1.0 mg/L (<4.4)
== END 2024-06-02 16:19 | disposition home or self-care (01) ==
LOC: LAB 16:19
PROVIDERS: PCP Family Medicine; Visit Provider Internal Medicine
DX: Z01.89 Encounter for other specified special examinations (principal)
CPT/HCPCS: 82306; 82330; 82495; 82525; 82607; 82728; 82746; 83540; 83550; 83735; 83921; 84207; 84255; 84446; 84590; 84630

== ENCOUNTER 2024-06-06 15:15 | Outpatient (CLI) | payer BC, MEDICAID, SELFPAY ==
[2024-06-06 15:42] LABS: Basophils % 0.3 %; Eosinophils % 0.2 %; Hematocrit 27.8 % (36-47); Lymphocytes # 0.8 10^3/uL (0.8-4.8); Lymphocytes % 11.9 %; Mean Corpuscular HGB Conc 32.7 g/dL (30-55); Mean Corpuscular Hemoglobin 29.5 pg (27-33); Mean Corpuscular Volume 90.3 fl (85-98); Mean Platelet Volume 9.9 fL (7.4-10.4); Monocytes # 0.6 10^3/uL (0.2-0.9); Neutrophils # 5.21 10^3/uL (1.8-7.7); Neutrophils % 78.3 %; Nucleated Red Blood Cells % 0 %; Platelet Count 202 10^3/cmm (157-399); Red Blood Count 3.08 10^6/uL (3.85-5.65); White Blood Count 6.65 10^3/uL (3.29-11.43)
[2024-06-06 16:05] LABS: Alanine Aminotransferase 10 U/L (0-33); Albumin Level 3.6 g/dL (3.5-5.2); Alkaline Phosphatase 70 U/L (35-105); Anion Gap 14.1 (5-19); Aspartate Amino Transferase 12 U/L (0-32); Blood Urea Nitrogen 17 mg/dL (6-20); Calcium 8.2 mg/dL (8.5-10.5); Carbon Dioxide 23 mmol/L (22-29); Chloride 104 mmol/L (98-107); Globulin 2.8 g/dL (1.3-4.6); Glomerular Filtration Rate 99.6 mL/min (90-130); Glucose 83 mg/dL (65-115); Magnesium 1.8 mg/dL (1.7-2.3); Osmolality Calculated 285 mOsm/kg (285-295); Phosphorus 3.3 mg/dL (2.5-4.5); Potassium 4.1 mmol/L (3.5-5.1); Sodium 137 mmol/L (136-145); Total Bilirubin 0.2 mg/dL (0.15-1.2); Total Protein 6.4 g/dL (6.6-8.7)
== END 2024-06-06 15:16 | disposition home or self-care (01) ==
PROVIDERS: PCP Family Medicine; Visit Provider Family Medicine
DX: K31.84 Gastroparesis (principal); R63.4 Abnormal weight loss; E43 Unspecified severe protein-calorie malnutrition; E16.2 Hypoglycemia, unspecified; E87.6 Hypokalemia; E86.0 Dehydration
CPT/HCPCS: 80053; 83735; 84100; 85025

== ENCOUNTER 2024-06-13 13:37 | Outpatient (CLI) | payer BC, MEDICAID, SELFPAY ==
[2024-06-13 13:57] LABS: Basophils % 0.3 %; Eosinophils % 0.3 %; Hematocrit 28.4 % (36-47); Lymphocytes # 0.8 10^3/uL (0.8-4.8); Lymphocytes % 10.5 %; Mean Corpuscular HGB Conc 32.4 g/dL (30-55); Mean Corpuscular Hemoglobin 28.8 pg (27-33); Mean Platelet Volume 9.5 fL (7.4-10.4); Monocytes # 0.4 10^3/uL (0.2-0.9); Monocytes % 5.9 %; Neutrophils # 6.14 10^3/uL (1.8-7.7); Neutrophils % 82.6 %; Nucleated Red Blood Cells % 0 %; Platelet Count 187 10^3/cmm (157-399); Red Blood Count 3.19 10^6/uL (3.85-5.65); Red Cell Distribution Width 12.2 % (12.1-15.1); White Blood Count 7.43 10^3/uL (3.29-11.43)
[2024-06-13 14:19] LABS: Alanine Aminotransferase 15 U/L (0-33); Albumin Level 3.6 g/dL (3.5-5.2); Alkaline Phosphatase 80 U/L (35-105); Anion Gap 13.1 (5-19); Aspartate Amino Transferase 15 U/L (0-32); Blood Urea Nitrogen 17 mg/dL (6-20); Calcium 8.3 mg/dL (8.5-10.5); Carbon Dioxide 21 mmol/L (22-29); Chloride 98 mmol/L (98-107); Globulin 3.8 g/dL (1.3-4.6); Glomerular Filtration Rate 99.6 mL/min (90-130); Glucose 104 mg/dL (65-115); Osmolality Calculated 268 mOsm/kg (285-295); Phosphorus 3.4 mg/dL (2.5-4.5); Potassium 4.1 mmol/L (3.5-5.1); Sodium 128 mmol/L (136-145); Total Bilirubin 0.3 mg/dL (0.15-1.2); Total Protein 7.4 g/dL (6.6-8.7)
== END 2024-06-13 13:38 | disposition home or self-care (01) ==
LOC: LAB 13:39
PROVIDERS: PCP Family Medicine; Visit Provider Family Medicine
DX: K31.84 Gastroparesis (principal); R63.4 Abnormal weight loss; E43 Unspecified severe protein-calorie malnutrition; E16.2 Hypoglycemia, unspecified; E87.6 Hypokalemia; E86.0 Dehydration
CPT/HCPCS: 80053; 83735; 84100; 85025

== ENCOUNTER 2024-06-15 16:12 | Outpatient (CLI) | payer BC, MEDICAID, SELFPAY ==
[2024-06-15 17:10] LABS: Erythrocyte Sedimentation Rate 15 mm/hr (0-15)
[2024-06-15 17:15] LABS: Bacteria Urine 1+ /hpf; RBC Urine 0-2 /hpf (0-2)
[2024-06-15 17:30] LABS: C Reactive Protein 34.1 mg/L (0.0-4.9)
[2024-06-15 17:35] LABS: LAB Peripheral Smear Sent for Review
[2024-06-15 17:39] LABS: Add Urine Microscopic? YES; Bilirubin Urine Negative (Negative); Blood Urine 1+ (Negative); Glucose Urine UA Negative (Normal); Ketones Urine Negative (Negative); Leukocyte Esterase Urine 1+ (Negative); Nitrate Urine Negative (Negative); Protein Urine Negative (Negative); Specific Gravity, Urine 1.022 (1.005-1.030); Urine Appearance Clear (CLEAR); Urine Color Yellow (Yellow); pH Urine 6.5 (5-7)
[2024-06-15 18:07] LABS: Anion Gap 16.8 (5-19); Blood Urea Nitrogen 16 mg/dL (6-20); Calcium 8.9 mg/dL (8.5-10.5); Carbon Dioxide 23 mmol/L (22-29); Chloride 99 mmol/L (98-107); Glomerular Filtration Rate 99.6 mL/min (90-130); Glucose 92 mg/dL (65-115); Osmolality Calculated 281 mOsm/kg (285-295); Potassium 3.8 mmol/L (3.5-5.1); Sodium 135 mmol/L (136-145)
[2024-06-15 18:15] LABS: HIV 1 & 2 Antibody Non-Reactive (Non-Reactiv); HIV 1 & 2 Antigen Non-Reactive (Non-Reactiv)
[2024-06-17 06:09] LABS: Anti-Double Strand DNA AB 2 IU/mL; Jo-1 Antibody <1.0 NEG AI (<1.0 NEG); SS-B/LA IGG <1.0 NEG AI (<1.0 NEG); Scleroderma Ab(Scl-70) Ab <1.0 NEG AI (<1.0 NEG); Ss-A/Ro Igg <1.0 NEG AI (<1.0 NEG)
[2024-06-17 08:09] LABS: EBV IGG TEST <18.00 U/mL; EBV IGM TEST <36.00 U/mL; EBV Nuclear AG <18.00 U/mL
== END 2024-06-15 16:13 | disposition home or self-care (01) ==
LOC: LAB 16:14
PROVIDERS: PCP Family Medicine; Visit Provider Family Medicine
DX: K31.84 Gastroparesis (principal); E43 Unspecified severe protein-calorie malnutrition; R63.4 Abnormal weight loss; E16.2 Hypoglycemia, unspecified
CPT/HCPCS: 36415; 80048; 80503; 81001; 85651; 86140; 86225; 86235; 86431; 86664; 86665; 87040; 87077; 87086; 87150; 87186; 87205; 87806

== ENCOUNTER 2024-06-20 14:55 | Outpatient (CLI) | payer BC, MEDICAID, SELFPAY ==
[2024-06-20 15:39] LABS: Basophils % 0.2 %; Eosinophils % 0.1 %; Hematocrit 27.2 % (36-47); Lymphocytes # 0.6 10^3/uL (0.8-4.8); Lymphocytes % 7.4 %; Mean Corpuscular HGB Conc 32.7 g/dL (30-55); Mean Corpuscular Volume 88.6 fl (85-98); Mean Platelet Volume 9.4 fL (7.4-10.4); Monocytes # 0.7 10^3/uL (0.2-0.9); Monocytes % 8.1 %; Neutrophils % 83.7 %; Nucleated Red Blood Cells % 0 %; Platelet Count 213 10^3/cmm (157-399); Red Blood Count 3.07 10^6/uL (3.85-5.65); Red Cell Distribution Width 12.2 % (12.1-15.1); White Blood Count 8.13 10^3/uL (3.29-11.43)
[2024-06-20 16:03] LABS: Alanine Aminotransferase 19 U/L (0-33); Albumin Level 3.6 g/dL (3.5-5.2); Alkaline Phosphatase 97 U/L (35-105); Anion Gap 13.1 (5-19); Aspartate Amino Transferase 18 U/L (0-32); Blood Urea Nitrogen 21 mg/dL (6-20); Calcium 8.2 mg/dL (8.5-10.5); Carbon Dioxide 22 mmol/L (22-29); Chloride 102 mmol/L (98-107); Globulin 3.8 g/dL (1.3-4.6); Glomerular Filtration Rate 85.4 mL/min (90-130); Glucose 86 mg/dL (65-115); Magnesium 1.8 mg/dL (1.7-2.3); Osmolality Calculated 278 mOsm/kg (285-295); Phosphorus 2.7 mg/dL (2.5-4.5); Potassium 4.1 mmol/L (3.5-5.1); Sodium 133 mmol/L (136-145); Total Bilirubin 0.3 mg/dL (0.15-1.2); Total Protein 7.4 g/dL (6.6-8.7)
== END 2024-06-20 14:56 | disposition home or self-care (01) ==
LOC: LAB 14:57
PROVIDERS: PCP Family Medicine; Visit Provider Family Medicine
DX: K31.84 Gastroparesis (principal); R63.4 Abnormal weight loss; E43 Unspecified severe protein-calorie malnutrition; E16.2 Hypoglycemia, unspecified; E87.6 Hypokalemia; E86.0 Dehydration
CPT/HCPCS: 80053; 83735; 84100; 85025

== ENCOUNTER 2024-06-23 15:00 | Oncology outpatient (recurring) (ONCR) | payer BC, MEDICAID, SELFPAY ==
[2024-06-21] MEDS: iron sucrose 200 MG in sodium chloride 0.9% (100 ml) 100 ML 220 MG IV (15:13)
[2024-06-21 15:17] VITALS: BP 104/65; PULSE 111; RESP 18; TEMP 36.6; O2SAT 97
[2024-06-21 15:44] VITALS: BP 98/64; PULSE 113; RESP 16; O2SAT 96
[2024-06-23 15:28] VITALS: BP 109/68; PULSE 108; RESP 16; TEMP 37.7; O2SAT 98
[2024-06-23] MEDS: iron sucrose 200 MG in sodium chloride 0.9% (100 ml) 100 ML 220 MG IV (15:36)
[2024-06-23 16:12] VITALS: BP 96/63; PULSE 97; RESP 16; TEMP 36.7; O2SAT 97
[2024-06-24 07:05] LABS: Bacillus cereus group Not Detected (NOT DETECT); Bacillus subtillis group Not Detected (NOT DETECT); Corynebacterium Not Detected (NOT DETECT); Cutibacterium acnes (P.acnes) Not Detected (NOT DETECT); Enterococcus Not Detected (NOT DETECT); Enterococcus faecalis Not Detected (NOT DETECT); Enterococcus faecium Not Detected (NOT DETECT); Lactobacillus species Not Detected (NOT DETECT); Listeria Not Detected (NOT DETECT); Listeria monocytogenes Not Detected (NOT DETECT); Micrococcus Not Detected (NOT DETECT); Pan Candida Not Detected (NOT DETECT); Pan Gram-Negative Not Detected (NOT DETECT); Staphylococcus epidermidis Detected (NOT DETECT); Staphylococcus lugdunensis Not Detected (NOT DETECT); Staphylococcus species Detected (NOT DETECT); Streptococcus agalactiae Not Detected (NOT DETECT); Streptococcus anginosus group Not Detected (NOT DETECT); Streptococcus pneumoniae Not Detected (NOT DETECT); Streptococcus pyogenes Not Detected (NOT DETECT); Streptococcus species Not Detected (NOT DETECT); mecA Not Detected (NOT DETECT); mecC Not Detected (NOT DETECT)
== END 2024-06-23 23:59 | disposition home or self-care (01) ==
PROVIDERS: PCP Family Medicine; Visit Provider Family Medicine
DX: Z53.9 Procedure and treatment not carried out, unspecified reason (principal); R50.9 Fever, unspecified; D50.9 Iron deficiency anemia, unspecified; Z79.899 Other long term (current) drug therapy
CPT/HCPCS: 36415; 87040; 87077; 87150; 87186; 87205; 96365; J1756

== ENCOUNTER 2024-07-04 15:08 | Outpatient (CLI) | payer BC, MEDICAID, SELFPAY ==
[2024-07-04 15:29] LABS: Basophils % 0.6 %; Eosinophils # 0.1 10^3/uL (0.0-0.8); Eosinophils % 1.1 %; Lymphocytes # 2.2 10^3/uL (0.8-4.8); Lymphocytes % 39.5 %; Mean Corpuscular HGB Conc 31.9 g/dL (30-55); Mean Corpuscular Hemoglobin 28.9 pg (27-33); Mean Corpuscular Volume 90.4 fl (85-98); Mean Platelet Volume 9.3 fL (7.4-10.4); Monocytes # 0.3 10^3/uL (0.2-0.9); Monocytes % 5.7 %; Neutrophils # 2.88 10^3/uL (1.8-7.7); Neutrophils % 52.9 %; Nucleated Red Blood Cells % 0 %; Platelet Count 318 10^3/cmm (157-399); Red Blood Count 3.43 10^6/uL (3.85-5.65); Red Cell Distribution Width 14.2 % (12.1-15.1); White Blood Count 5.44 10^3/uL (3.29-11.43)
[2024-07-04 15:52] LABS: Alanine Aminotransferase 17 U/L (0-33); Albumin Level 3.8 g/dL (3.5-5.2); Alkaline Phosphatase 70 U/L (35-105); Anion Gap 14.1 (5-19); Aspartate Amino Transferase 18 U/L (0-32); Blood Urea Nitrogen 13 mg/dL (6-20); Calcium 8.6 mg/dL (8.5-10.5); Carbon Dioxide 25 mmol/L (22-29); Chloride 102 mmol/L (98-107); Globulin 3.8 g/dL (1.3-4.6); Glomerular Filtration Rate 145.9 mL/min (90-130); Glucose 87 mg/dL (65-115); Osmolality Calculated 283 mOsm/kg (285-295); Phosphorus 3.2 mg/dL (2.5-4.5); Potassium 4.1 mmol/L (3.5-5.1); Sodium 137 mmol/L (136-145); Total Bilirubin 0.2 mg/dL (0.15-1.2); Total Protein 7.6 g/dL (6.6-8.7)
[2024-07-06 14:33] LABS: Creatine Phosphokinase 40 U/L (26-192)
== END 2024-07-04 15:09 | disposition home or self-care (01) ==
LOC: LAB 15:09
PROVIDERS: PCP Family Medicine; Visit Provider Family Medicine
DX: K31.84 Gastroparesis (principal); R63.4 Abnormal weight loss; E43 Unspecified severe protein-calorie malnutrition; E16.2 Hypoglycemia, unspecified; E87.6 Hypokalemia; E86.0 Dehydration
CPT/HCPCS: 80053; 82550; 83735; 84100; 85025; 86140

== ENCOUNTER 2024-07-07 10:00 | Oncology outpatient (recurring) (ONCR) | payer BC, MEDICAID, SELFPAY ==
[2024-06-30] MEDS: iron sucrose 200 MG in sodium chloride 0.9% (100 ml) 100 ML 220 MG IV (14:59)
[2024-07-05] MEDS: iron sucrose 200 MG in sodium chloride 0.9% (100 ml) 100 ML 220 MG IV (15:15)
[2024-07-05 15:18] VITALS: BP 103/70; PULSE 94; RESP 16; TEMP 36.8; O2SAT 98
[2024-07-05 15:54] VITALS: BP 105/72; PULSE 91; TEMP 37; O2SAT 99
[2024-07-07] MEDS: iron sucrose 200 MG in sodium chloride 0.9% (100 ml) 100 ML 220 MG IV (09:53)
[2024-07-07 09:59] VITALS: BP 109/69; PULSE 100; RESP 16; TEMP 36.5; O2SAT 99
[2024-07-07 10:27] VITALS: BP 94/64; PULSE 66; RESP 18; TEMP 36.6; O2SAT 96
== END 2024-07-23 23:59 | disposition home or self-care (01) ==
PROVIDERS: PCP Family Medicine; Visit Provider Family Medicine
DX: D50.9 Iron deficiency anemia, unspecified (principal); Z79.899 Other long term (current) drug therapy; Z53.9 Procedure and treatment not carried out, unspecified reason
CPT/HCPCS: 96365; J1756

== ENCOUNTER 2024-07-11 14:00 | Outpatient (CLI) | payer BC, MEDICAID, SELFPAY ==
[2024-07-11 14:17] LABS: Basophils % 0.9 %; Eosinophils # 0.1 10^3/uL (0.0-0.8); Eosinophils % 2.1 %; Hematocrit 30.3 % (36-47); Lymphocytes # 2.3 10^3/uL (0.8-4.8); Lymphocytes % 52.9 %; Mean Corpuscular HGB Conc 32.7 g/dL (30-55); Mean Corpuscular Volume 88.9 fl (85-98); Mean Platelet Volume 10.2 fL (7.4-10.4); Monocytes # 0.4 10^3/uL (0.2-0.9); Monocytes % 8.4 %; Neutrophils # 1.53 10^3/uL (1.8-7.7); Neutrophils % 35.5 %; Nucleated Red Blood Cells % 0 %; Platelet Count 221 10^3/cmm (157-399); Red Blood Count 3.41 10^6/uL (3.85-5.65); Red Cell Distribution Width 14.9 % (12.1-15.1); White Blood Count 4.31 10^3/uL (3.29-11.43)
[2024-07-11 14:40] LABS: Alanine Aminotransferase 25 U/L (0-33); Albumin Level 3.8 g/dL (3.5-5.2); Alkaline Phosphatase 62 U/L (35-105); Anion Gap 13.9 (5-19); Aspartate Amino Transferase 27 U/L (0-32); Blood Urea Nitrogen 16 mg/dL (6-20); Calcium 7.7 mg/dL (8.5-10.5); Carbon Dioxide 21 mmol/L (22-29); Chloride 104 mmol/L (98-107); Globulin 3.2 g/dL (1.3-4.6); Glomerular Filtration Rate 118.2 mL/min (90-130); Glucose 79 mg/dL (65-115); Osmolality Calculated 280 mOsm/kg (285-295); Potassium 3.9 mmol/L (3.5-5.1); Sodium 135 mmol/L (136-145); Total Bilirubin 0.2 mg/dL (0.15-1.2)
== END 2024-07-11 14:01 | disposition home or self-care (01) ==
LOC: LAB 14:02
PROVIDERS: PCP Family Medicine; Visit Provider Family Medicine
DX: G90.1 Familial dysautonomia [Riley-Day] (principal); E46 Unspecified protein-calorie malnutrition; G90.A Postural orthostatic tachycardia syndrome [POTS]
CPT/HCPCS: 80053; 83735; 84100; 85025

== ENCOUNTER 2024-07-18 13:46 | Outpatient (CLI) | payer BC, MEDICAID, SELFPAY ==
[2024-07-18 13:59] LABS: Basophils % 1.2 %; Eosinophils % 0.9 %; Hematocrit 32.1 % (36-47); Lymphocytes # 1.8 10^3/uL (0.8-4.8); Lymphocytes % 53.9 %; Mean Corpuscular HGB Conc 32.7 g/dL (30-55); Mean Corpuscular Hemoglobin 28.8 pg (27-33); Mean Corpuscular Volume 88.2 fl (85-98); Mean Platelet Volume 10.5 fL (7.4-10.4); Monocytes # 0.3 10^3/uL (0.2-0.9); Monocytes % 7.7 %; Neutrophils # 1.22 10^3/uL (1.8-7.7); Neutrophils % 36.3 %; Nucleated Red Blood Cells % 0 %; Platelet Count 180 10^3/cmm (157-399); Red Blood Count 3.64 10^6/uL (3.85-5.65); Red Cell Distribution Width 14.8 % (12.1-15.1); White Blood Count 3.36 10^3/uL (3.29-11.43)
[2024-07-18 14:21] LABS: Alanine Aminotransferase 22 U/L (0-33); Albumin Level 3.9 g/dL (3.5-5.2); Alkaline Phosphatase 54 U/L (35-105); Anion Gap 14.2 (5-19); Aspartate Amino Transferase 20 U/L (0-32); Blood Urea Nitrogen 16 mg/dL (6-20); Calcium 8.7 mg/dL (8.5-10.5); Carbon Dioxide 23 mmol/L (22-29); Chloride 103 mmol/L (98-107); Creatine Phosphokinase 67 U/L (26-192); Globulin 3.2 g/dL (1.3-4.6); Glomerular Filtration Rate 118.2 mL/min (90-130); Glucose 91 mg/dL (65-115); Osmolality Calculated 283 mOsm/kg (285-295); Potassium 4.2 mmol/L (3.5-5.1); Sodium 136 mmol/L (136-145); Total Bilirubin 0.2 mg/dL (0.15-1.2); Total Protein 7.1 g/dL (6.6-8.7)
[2024-07-18 16:47] LABS: Phosphorus 3.4 mg/dL (2.5-4.5)
== END 2024-07-18 13:47 | disposition home or self-care (01) ==
LOC: LAB 13:48
PROVIDERS: PCP Family Medicine; Visit Provider Hospitalist
DX: K31.84 Gastroparesis (principal); R63.4 Abnormal weight loss; E43 Unspecified severe protein-calorie malnutrition; E16.2 Hypoglycemia, unspecified; E87.6 Hypokalemia; E86.0 Dehydration
CPT/HCPCS: 80053; 82550; 83735; 84100; 85025; 86140

== ENCOUNTER 2024-07-25 13:36 | Outpatient (CLI) | payer BC, MEDICAID, SELFPAY ==
[2024-07-25 13:50] LABS: Basophils % 0.8 %; Eosinophils # 0.1 10^3/uL (0.0-0.8); Eosinophils % 2.5 %; Hematocrit 33.4 % (36-47); Lymphocytes # 1.9 10^3/uL (0.8-4.8); Lymphocytes % 48.2 %; Mean Corpuscular HGB Conc 32.9 g/dL (30-55); Mean Corpuscular Hemoglobin 30.1 pg (27-33); Mean Corpuscular Volume 91.5 fl (85-98); Mean Platelet Volume 10.2 fL (7.4-10.4); Monocytes # 0.3 10^3/uL (0.2-0.9); Monocytes % 7.8 %; Neutrophils # 1.62 10^3/uL (1.8-7.7); Neutrophils % 40.7 %; Nucleated Red Blood Cells % 0 %; Platelet Count 181 10^3/cmm (157-399); Red Blood Count 3.65 10^6/uL (3.85-5.65); Red Cell Distribution Width 14.6 % (12.1-15.1); White Blood Count 3.98 10^3/uL (3.29-11.43)
[2024-07-25 14:12] LABS: Alanine Aminotransferase 18 U/L (0-33); Alkaline Phosphatase 53 U/L (35-105); Anion Gap 15.2 (5-19); Aspartate Amino Transferase 17 U/L (0-32); Blood Urea Nitrogen 10 mg/dL (6-20); Calcium 8.9 mg/dL (8.5-10.5); Carbon Dioxide 23 mmol/L (22-29); Chloride 103 mmol/L (98-107); Glomerular Filtration Rate 98.9 mL/min (90-130); Glucose 80 mg/dL (65-115); Osmolality Calculated 282 mOsm/kg (285-295); Phosphorus 3.7 mg/dL (2.5-4.5); Potassium 4.2 mmol/L (3.5-5.1); Sodium 137 mmol/L (136-145); Total Bilirubin 0.3 mg/dL (0.15-1.2)
== END 2024-07-25 13:37 | disposition home or self-care (01) ==
PROVIDERS: Absent Provider Hospitalist; PCP Family Medicine; Visit Provider Family Medicine
DX: K31.84 Gastroparesis (principal); R63.4 Abnormal weight loss; E43 Unspecified severe protein-calorie malnutrition; E16.2 Hypoglycemia, unspecified; E87.6 Hypokalemia; E86.0 Dehydration
CPT/HCPCS: 80053; 83735; 84100; 85025

== ENCOUNTER 2024-08-01 11:28 | Outpatient (CLI) | payer BC, MEDICAID, SELFPAY ==
[2024-08-01 11:51] LABS: Basophils % 0.7 %; Eosinophils # 0.1 10^3/uL (0.0-0.8); Eosinophils % 1.2 %; Hematocrit 32.5 % (36-47); Lymphocytes # 1.9 10^3/uL (0.8-4.8); Lymphocytes % 47.5 %; Mean Corpuscular HGB Conc 32.9 g/dL (30-55); Mean Corpuscular Hemoglobin 29.2 pg (27-33); Mean Corpuscular Volume 88.6 fl (85-98); Mean Platelet Volume 10.4 fL (7.4-10.4); Monocytes # 0.4 10^3/uL (0.2-0.9); Monocytes % 9.8 %; Neutrophils # 1.66 10^3/uL (1.8-7.7); Neutrophils % 40.8 %; Nucleated Red Blood Cells % 0 %; Platelet Count 192 10^3/cmm (157-399); Red Blood Count 3.67 10^6/uL (3.85-5.65); Red Cell Distribution Width 14.1 % (12.1-15.1); White Blood Count 4.08 10^3/uL (3.29-11.43)
[2024-08-01 12:20] LABS: Alanine Aminotransferase 16 U/L (0-33); Albumin Level 3.9 g/dL (3.5-5.2); Alkaline Phosphatase 48 U/L (35-105); Anion Gap 13.4 (5-19); Aspartate Amino Transferase 17 U/L (0-32); Blood Urea Nitrogen 11 mg/dL (6-20); Carbon Dioxide 24 mmol/L (22-29); Chloride 102 mmol/L (98-107); Creatine Phosphokinase 59 U/L (26-192); Glomerular Filtration Rate 118.2 mL/min (90-130); Glucose 89 mg/dL (65-115); Osmolality Calculated 279 mOsm/kg (285-295); Phosphorus 3.7 mg/dL (2.5-4.5); Potassium 4.4 mmol/L (3.5-5.1); Sodium 135 mmol/L (136-145); Total Bilirubin 0.2 mg/dL (0.15-1.2); Total Protein 6.9 g/dL (6.6-8.7)
== END 2024-08-01 11:29 | disposition home or self-care (01) ==
LOC: LAB 11:29
PROVIDERS: PCP Family Medicine; Visit Provider Hospitalist
DX: K31.84 Gastroparesis (principal); R63.4 Abnormal weight loss; E43 Unspecified severe protein-calorie malnutrition; E16.2 Hypoglycemia, unspecified; E87.6 Hypokalemia; E86.0 Dehydration
CPT/HCPCS: 80053; 82550; 83735; 84100; 85025; 86140

== ENCOUNTER 2024-08-08 13:09 | Outpatient (CLI) | payer BC, MEDICAID, SELFPAY ==
[2024-08-08 13:41] LABS: Basophils % 0.4 %; Eosinophils % 0.7 %; Hematocrit 33.5 % (36-47); Lymphocytes % 44.8 %; Mean Corpuscular HGB Conc 33.1 g/dL (30-55); Mean Corpuscular Hemoglobin 29.2 pg (27-33); Mean Corpuscular Volume 88.2 fl (85-98); Mean Platelet Volume 10.6 fL (7.4-10.4); Monocytes # 0.3 10^3/uL (0.2-0.9); Monocytes % 7.5 %; Neutrophils # 2.09 10^3/uL (1.8-7.7); Neutrophils % 46.4 %; Nucleated Red Blood Cells % 0 %; Platelet Count 206 10^3/cmm (157-399); Red Cell Distribution Width 13.9 % (12.1-15.1); White Blood Count 4.51 10^3/uL (3.29-11.43)
[2024-08-08 13:58] LABS: Alanine Aminotransferase 14 U/L (0-33); Albumin Level 4.1 g/dL (3.5-5.2); Alkaline Phosphatase 48 U/L (35-105); Anion Gap 13.1 (5-19); Aspartate Amino Transferase 15 U/L (0-32); Blood Urea Nitrogen 21 mg/dL (6-20); Calcium 8.9 mg/dL (8.5-10.5); Carbon Dioxide 23 mmol/L (22-29); Chloride 103 mmol/L (98-107); Creatine Phosphokinase 59 U/L (26-192); Globulin 2.9 g/dL (1.3-4.6); Glomerular Filtration Rate 98.9 mL/min (90-130); Glucose 88 mg/dL (65-115); Magnesium 2.1 mg/dL (1.7-2.3); Osmolality Calculated 282 mOsm/kg (285-295); Phosphorus 3.9 mg/dL (2.5-4.5); Potassium 4.1 mmol/L (3.5-5.1); Sodium 135 mmol/L (136-145); Total Bilirubin 0.3 mg/dL (0.15-1.2)
== END 2024-08-08 13:10 | disposition home or self-care (01) ==
PROVIDERS: Absent Provider Hospitalist; PCP Family Medicine; Visit Provider Family Medicine
DX: K31.84 Gastroparesis (principal); E43 Unspecified severe protein-calorie malnutrition; E16.2 Hypoglycemia, unspecified; E87.6 Hypokalemia; E86.0 Dehydration
CPT/HCPCS: 80053; 82550; 83735; 84100; 85025; 86140

== ENCOUNTER 2024-08-18 13:18 | Outpatient (CLI) | payer BC, MEDICAID, SELFPAY ==
[2024-08-18 13:31] LABS: Basophils % 1.2 %; Eosinophils # 0.1 10^3/uL (0.0-0.8); Eosinophils % 2.1 %; Lymphocytes # 1.6 10^3/uL (0.8-4.8); Lymphocytes % 47.7 %; Mean Corpuscular HGB Conc 32.6 g/dL (30-55); Mean Corpuscular Hemoglobin 29.1 pg (27-33); Mean Platelet Volume 10.3 fL (7.4-10.4); Monocytes # 0.3 10^3/uL (0.2-0.9); Neutrophils # 1.29 10^3/uL (1.8-7.7); Nucleated Red Blood Cells % 0 %; Platelet Count 199 10^3/cmm (157-399); Red Blood Count 3.82 10^6/uL (3.85-5.65); Red Cell Distribution Width 13.4 % (12.1-15.1); White Blood Count 3.31 10^3/uL (3.29-11.43)
[2024-08-18 13:50] LABS: Alanine Aminotransferase 15 U/L (0-33); Albumin Level 4.2 g/dL (3.5-5.2); Alkaline Phosphatase 51 U/L (35-105); Anion Gap 15.3 (5-19); Aspartate Amino Transferase 19 U/L (0-32); Blood Urea Nitrogen 15 mg/dL (6-20); Calcium 8.7 mg/dL (8.5-10.5); Carbon Dioxide 24 mmol/L (22-29); Chloride 102 mmol/L (98-107); Globulin 2.9 g/dL (1.3-4.6); Glomerular Filtration Rate 118.2 mL/min (90-130); Glucose 89 mg/dL (65-115); Osmolality Calculated 284 mOsm/kg (285-295); Phosphorus 3.5 mg/dL (2.5-4.5); Potassium 4.3 mmol/L (3.5-5.1); Sodium 137 mmol/L (136-145); Total Bilirubin 0.2 mg/dL (0.15-1.2); Total Protein 7.1 g/dL (6.6-8.7)
== END 2024-08-18 13:19 | disposition home or self-care (01) ==
LOC: LAB 13:20
PROVIDERS: PCP Family Medicine; Visit Provider Family Medicine
DX: K31.84 Gastroparesis (principal); R63.4 Abnormal weight loss; E43 Unspecified severe protein-calorie malnutrition; E16.2 Hypoglycemia, unspecified; E87.6 Hypokalemia; E86.0 Dehydration
CPT/HCPCS: 80053; 83735; 84100; 85025

== ENCOUNTER 2024-08-29 12:50 | Outpatient (CLI) | payer BC, MEDICAID, SELFPAY ==
[2024-08-29 13:05] LABS: Basophils % 0.7 %; Eosinophils # 0.1 10^3/uL (0.0-0.8); Eosinophils % 1.1 %; Hematocrit 33.9 % (36-47); Lymphocytes # 2.2 10^3/uL (0.8-4.8); Lymphocytes % 48.7 %; Mean Corpuscular Volume 87.8 fl (85-98); Mean Platelet Volume 10.3 fL (7.4-10.4); Monocytes # 0.4 10^3/uL (0.2-0.9); Monocytes % 8.5 %; Neutrophils # 1.82 10^3/uL (1.8-7.7); Neutrophils % 40.8 %; Nucleated Red Blood Cells % 0 %; Platelet Count 202 10^3/cmm (157-399); Red Blood Count 3.86 10^6/uL (3.85-5.65); Red Cell Distribution Width 13.4 % (12.1-15.1); White Blood Count 4.46 10^3/uL (3.29-11.43)
[2024-08-29 13:31] LABS: Alanine Aminotransferase 13 U/L (0-33); Alkaline Phosphatase 49 U/L (35-105); Anion Gap 12.3 (5-19); Aspartate Amino Transferase 15 U/L (0-32); Blood Urea Nitrogen 20 mg/dL (6-20); Calcium 8.9 mg/dL (8.5-10.5); Carbon Dioxide 24 mmol/L (22-29); Chloride 104 mmol/L (98-107); Globulin 3.1 g/dL (1.3-4.6); Glomerular Filtration Rate 145.9 mL/min (90-130); Glucose 89 mg/dL (65-115); Osmolality Calculated 284 mOsm/kg (285-295); Phosphorus 3.5 mg/dL (2.5-4.5); Potassium 4.3 mmol/L (3.5-5.1); Sodium 136 mmol/L (136-145); Total Bilirubin 0.2 mg/dL (0.15-1.2); Total Protein 7.1 g/dL (6.6-8.7)
== END 2024-08-29 12:51 | disposition home or self-care (01) ==
PROVIDERS: PCP Family Medicine; Visit Provider Family Medicine
DX: K31.84 Gastroparesis (principal); R63.4 Abnormal weight loss; E43 Unspecified severe protein-calorie malnutrition; E16.2 Hypoglycemia, unspecified; E87.6 Hypokalemia; E86.0 Dehydration
CPT/HCPCS: 80053; 83735; 84100; 85025

== ENCOUNTER 2024-09-05 14:33 | Outpatient (CLI) | payer BC, MEDICAID, SELFPAY ==
[2024-09-05 14:52] LABS: Basophils % 0.6 %; Eosinophils % 0.8 %; Hematocrit 34.3 % (36-47); Lymphocytes # 2.1 10^3/uL (0.8-4.8); Lymphocytes % 42.5 %; Mean Corpuscular HGB Conc 33.5 g/dL (30-55); Mean Corpuscular Hemoglobin 29.8 pg (27-33); Mean Corpuscular Volume 88.9 fl (85-98); Mean Platelet Volume 10.8 fL (7.4-10.4); Monocytes # 0.4 10^3/uL (0.2-0.9); Monocytes % 8.2 %; Neutrophils # 2.33 10^3/uL (1.8-7.7); Neutrophils % 47.7 %; Nucleated Red Blood Cells % 0 %; Platelet Count 215 10^3/cmm (157-399); Red Blood Count 3.86 10^6/uL (3.85-5.65); Red Cell Distribution Width 13.2 % (12.1-15.1); White Blood Count 4.89 10^3/uL (3.29-11.43)
[2024-09-05 15:13] LABS: Alanine Aminotransferase 12 U/L (0-33); Alkaline Phosphatase 48 U/L (35-105); Anion Gap 14.9 (5-19); Aspartate Amino Transferase 14 U/L (0-32); Blood Urea Nitrogen 18 mg/dL (6-20); Calcium 8.8 mg/dL (8.5-10.5); Carbon Dioxide 23 mmol/L (22-29); Chloride 100 mmol/L (98-107); Globulin 2.9 g/dL (1.3-4.6); Glomerular Filtration Rate 98.9 mL/min (90-130); Glucose 77 mg/dL (65-115); Osmolality Calculated 279 mOsm/kg (285-295); Phosphorus 3.5 mg/dL (2.5-4.5); Potassium 3.9 mmol/L (3.5-5.1); Sodium 134 mmol/L (136-145); Total Bilirubin 0.2 mg/dL (0.15-1.2); Total Protein 6.9 g/dL (6.6-8.7)
== END 2024-09-05 14:34 | disposition home or self-care (01) ==
LOC: LAB 14:35
PROVIDERS: PCP Family Medicine; Visit Provider Family Medicine
DX: K31.84 Gastroparesis (principal); R63.4 Abnormal weight loss; E43 Unspecified severe protein-calorie malnutrition; E16.2 Hypoglycemia, unspecified; E87.6 Hypokalemia; E86.0 Dehydration
CPT/HCPCS: 80053; 83735; 84100; 85025

== ENCOUNTER 2024-09-10 04:19 | Emergency (ER) | payer BC, MEDICAID, SELFPAY ==
[2024-09-10] VITALS (11 sets, daily range): BP systolic 95–101; BP diastolic 64–68; PULSE 63–83; RESP 16; TEMP 36.7; O2SAT 99–100; BMI 21.5
--- NOTE | 2024-09-10 04:41 | ED_ITS ---
Documented by User: Gonsalo Galindo DO 09/10/24 05:49 HPI - Fever 2 General: Chief Complaint: Fever Stated Complaint: Fever Time Seen by Provider: 09/10/24 04:26 History of Present Illness: Patient presents to the ER with complaints of low-grade fever on and off for about the last week. Highest visit been is 100.4. Patient stated her PCP advised she should come in for blood culture. Patient does have a PICC line in her left upper extremity that she receives TPN and. She is recently got over a line infection. She has a history of endocarditis. Related Data Home Medications Medication Instructions Recorded Confirmed epinephrine 0.3 mg/0.3 mL 0.3 mg IM Q10M PRN Allergic 01/10/20 09/10/24 injection, auto-injector (Auvi-Q) Reaction galcanezumab-gnlm 120 mg/mL 120 mg SUBCUT .MONTHLY 10/29/22 09/10/24 subcutaneous syringe (Emgality) gabapentin 300 mg capsule 300 mg PO BID 03/12/23 09/10/24 albuterol sulfate 90 mcg/actuation 2 puff inhalation Q8H PRN 05/24/24 09/10/24 aerosol inhaler Shortness Of Breath Or Wheezing budesonide-formoterol HFA 80 1 inh inhalation BID PRN Shortness 05/24/24 09/10/24 mcg-4.5 mcg/actuation aerosol Of Breath Or Wheezing inhaler (Symbicort) ondansetron HCl 4 mg tablet 4 mg PO Q8H PRN Nausea And Vomiting 05/24/24 09/10/24 cyclobenzaprine 5 mg tablet 5 mg PO TID 09/10/24 09/10/24 magnesium oxide 400 mg (241.3 mg 400 mg PO DAILY 09/10/24 09/10/24 magnesium) tablet rimegepant 75 mg disintegrating 75 mg PO PRN PRN Migraine Headache 09/10/24 09/10/24 tablet (Nurtec ODT) triamcinolone acetonide 0.1 % 1 applic topical BID 09/10/24 09/10/24 topical ointment Previous Rx's Medication Instructions Recorded linezolid 600 mg tablet (Zyvox) 600 mg PO BID #14 tabs 09/10/24 Allergies Allergy/AdvReac Type Severity Reaction Status Date / Time amoxicillin Allergy Severe ALGY-Hives Verified 04/04/24 14:31 cefuroxime [From Ceftin] Allergy Severe ALGY-Hives Verified 04/04/24 14:31 sulfamethoxazole Allergy Severe ALGY-Hives Verified 04/04/24 14:31 [From Bactrim] trimethoprim [From Bactrim] Allergy Severe ALGY-Hives Verified 04/04/24 14:31 adhesive Allergy Unknown Unknown Verified 04/04/24 14:31 ibuprofen Allergy Unknown Verified 04/04/24 14:31 metoclopramide [From Reglan] Allergy Unknown Verified 04/04/24 14:31 prochlorperazine Allergy ADR-Itching Verified 04/04/24 14:31 [From Compazine] Review of Systems 2 General: Reports: 10 or more systems reviewed and unremarkable except in HPI and below PFSH ED 2 PFSH: Medical History Asthma Depression Allergic rhinitis Anxiety Chronic sinusitis OCD (obsessive compulsive disorder) Plica syndrome ITB syndrome Surgical History H/O oral surgery S/P FESS (functional endoscopic sinus surgery) Family History Family/Other Lung disease Asthma Father Hypertension Hyperlipidemia Grandmother Hypertension Dementia Stroke Grandfather Hypertension Stroke Grandfather Hypertension Denies family history of Diabetes CAD (coronary artery disease) Clotting disorder Chronic kidney disease (CKD) Suicide Anesthesia complication Bleeding disorder Cancer Social History Smoking and tobacco/nicotine status: never used tobacco/nicotine Alcohol intake: never Substance/Drug Use: never Lives independently: Yes Household members: other Marital status: Single Current occupational status: student Current occupational exposures/hazards: No Pets and animals: Yes Pets & animals: dog(s) Do you think of yourself as: Straight/Heterosexual Current gender identity: Female Physical Exam 2 Const: COMMON NORMALS: no acute distress, average body habitus, patient oriented x3, no limitations, healthy appearing, alert and well nourished HENMT: COMMON NORMALS: normocephalic, atraumatic, hearing grossly normal bilaterally, external ears normal, Normal external nose present and moist oral mucous membranes HEAD & SCALP: normocephalic and atraumatic NOSE: Normal external nose present EXTERNAL EAR: Yes external ears normal Neck/C-Spine: COMMON NORMALS: no JVD Chest: COMMONS NORMALS: normal inspection of the chest and normal palpation of entire chest wall Resp: COMMON NORMALS: normal respiratory effort, No retractions, No use of accessory muscles and clear to auscultation bilaterally AUSCULTATION: clear to auscultation bilaterally Cardio: COMMON NORMALS: no JVD, regular rate, regular rhythm, S1 normal heart sound present, S2 normal heart sound present, No gallops present (Cardio), No clicks present (Cardio), No murmurs present (Cardio) and No rub (Cardio) R ATE: regular rate RHYTHM: regular rhythm HEART SOUNDS: S1 normal heart sound present and S2 normal heart sound present GI: COMMON NORMALS: Normal to inspection, nondistended, normoactive bowel sounds present, Soft to palpation, non-tender, No hepatosplenomegaly present and no masses PALPATION: Yes Soft to palpation and Yes No hepatosplenomegaly present Neuro: COMMON NORMALS: patient oriented x3 SENSORIUM/ORIENTATION: Yes alert Course 2 Vital Signs: Vital signs: Vital Signs Temperature 98.0 F 09/10/24 04:21 Pulse Rate 81 09/10/24 09:52 Respiratory Rate 16 09/10/24 04:21 Blood Pressure 99/67 09/10/24 09:52 Pulse Oximetry 100 09/10/24 09:52 Oxygen Delivery Me thod Room Air 09/10/24 08:15 MDM - Fever Medical Records I reviewed the patient's medical records. Lab Data I reviewed the patient's lab results. 09/10/24 04:52 09/10/24 04:52 Radiology Impressions Chest X-Ray 09/10/24 06:39 IMPRESSION: No acute cardiopulmonary process. Laboratory Results WBC 3.71 10^3/uL (3.29-11.43) 09/10/24 04:52 RBC 3.92 10^6/uL (3.85-5.65) 09/10/24 04:52 Hgb 11.60 g/dL (11.27-16.99) 09/10/24 04:52 Hct 36.0 % (36-47) 09/10/24 04:52 MCV 91.8 fl (85-98) 09/10/24 04:52 MCH 29.6 pg (27-33) 09/10/24 04:52 MCHC 32.2 g/dL (30-55) 09/10/24 04:52 RDW 13.3 % (12.1-15.1) 09/10/24 04:52 Plt Count 230 10^3/cmm (157-399) 09/10/24 04:52 MPV 9.9 fL (7.4-10.4) 09/10/24 04:52 Neut % (Auto) 42.6 % 09/10/24 04:52 Lymph % (Auto) 46.9 % 09/10/24 04:52 [place] % (Auto) 7.8 % 09/10/24 04:52 Eos % (Auto) 1.9 % 09/10/24 04:52 Baso % (Auto) 0.5 % 09/10/24 04:52 Neut # (Auto) 1.58 10^3/uL (1.8-7.7) L 09/10/24 04:52 Lymph # (Auto) 1.7 10^3/uL (0.8-4.8) 09/10/24 04:52 [place] # (Auto) 0.3 10^3/uL (0.2-0.9) 09/10/24 04:52 Eos # (Auto) 0.1 10^3/uL (0.0-0.8) 09/10/24 04:52 Baso # (Auto) 0.0 10^3/uL (0.0-0.1) 09/10/24 04:52 Nucleated RBC % (auto) 0 % 09/10/24 04:52 Nucleated RBCs # 0.0 /100WBC 09/10/24 04:52 Sodium 141 mmol/L (136-145) 09/10/24 04:52 Potassium 4.1 mmol/L (3.5-5.1) 09/10/24 04:52 Chloride 107 mmol/L (98-107) 09/10/24 04:52 Carbon Dioxide 24 mmol/L (22-29) 09/10/24 04:52 Anion Gap 14.1 (5-19) 09/10/24 04:52 BUN 16 mg/dL (6-20) 09/10/24 04:52 Creatinine 0.7 mg/dL (0.5-0.9) 09/10/24 04:52 GFR Calculation 98.9 mL/min (90-130) 09/10/24 04:52 Glucose 86 mg/dL (65-115) 09/10/24 04:52 Calculated Osmolality 292 mOsm/kg (285-295) 09/10/24 04:52 Calcium 8.9 mg/dL (8.5-10.5) 09/10/24 04:52 Total Bilirubin 0.2 mg/dL (0.15-1.2) 09/10/24 04:52 AST 17 U/L (0-32) 09/10/24 04:52 ALT 16 U/L (0-33) 09/10/24 04:52 Alkaline Phosphatase 51 U/L (35-105) 09/10/24 04:52 Total Protein 6.7 g/dL (6.6-8.7) 09/10/24 04:52 Albumin 4.0 g/dL (3.5-5.2) 09/10/24 04:52 Globulin 2.7 g/dL (1.3-4.6) 09/10/24 04:52 Urine Color Yellow (Yellow) 09/10/24 07:14 Urine Appearance Clear (CLEAR) 09/10/24 07:14 Urine pH 7.5 (5-7) 09/10/24 07:14 Ur Specific [place] 1.009 (1.005-1.030) 09/10/24 07:14 Urine Protein Negative (Negative) 09/10/24 07:14 Urine Glucose (UA) Negative (Normal) 09/10/24 07:14 Urine Ketones Negative (Negative) 09/10/24 07:14 Urine Blood 2+ (Negative) A 09/10/24 07:14 Urine Nitrate Negative (Negative) 09/10/24 07:14 Urine Bilirubin Negative (Negative) 09/10/24 07:14 Urine Urobilinogen 0.2 mg/dL (Negative) 09/10/24 07:14 Ur Leukocyte Esterase Negative (Negative) 09/10/24 07:14 Urine RBC 0-2 /hpf (0-2) 09/10/24 07:14 Urine WBC 0-5 /hpf (0-5) 09/10/24 07:14 Ur Squamous Epith Cells 0-5 /hpf (0-5) 09/10/24 07:14 Amorphous Sediment Not Reportable 09/10/24 07:14 Urine Bacteria None seen /hpf (NONE) 09/10/24 07:14 Hyaline Casts 0-4 /lpf H 09/10/24 07:14 Coronavirus (PCR) Negative (Negative) 09/10/24 05:15 Influenza A (PCR) Negative (Negative) 09/10/24 05:15 Influenza Type B (PCR) Negative (Negative) 09/10/24 05:15 RSV (PCR) Negative (Negative) 09/10/24 05:15 No radiology studies performed this visit Discharge Plan Discharge Patient Disposition: Home Clinical Impression: Fever of unknown origin, History of endocarditis Condition: Stable Prescriptions: New linezolid [Zyvox] 600 mg tablet 600 mg PO BID Qty: 14 0RF No Action epinephrine [Auvi-Q] 0.3 mg/0.3 mL auto-injector 0.3 mg IM Q10M PRN (Reason: Allergic Reaction) Rx Instructions: for 2 doses Emgality Syringe 120 mg/mL syringe 120 mg SUBCUT .MONTHLY gabapentin 300 mg Capsule 300 mg PO BID ondansetron HCl [Zofran] 4 mg Tablet 4 mg PO Q8H PRN (Reason: Nausea And Vomiting) albuterol sulfate [ProAir HFA] 90 mcg/actuation Hfa Aerosol Inhaler 2 puff INHALATION Q8H PRN (Reason: Shortness Of Breath Or Wheezing) budesonide-formoterol [Symbicort] 80-4.5 mcg/actuation Hfa Aerosol Inhaler 1 inh INHALATION BID PRN (Reason: Shortness Of Breath Or Wheezing) magnesium oxide 400 mg (241.3 mg magnesium) tablet 400 mg PO DAILY triamcinolone acetonide 0.1 % ointment 1 applic TOPICAL BID cyclobenzaprine 5 mg tablet 5 mg PO TID Nurtec ODT 75 mg tablet,disintegrating 75 mg PO PRN PRN (Reason: Migraine Headache) Discharge Orders: Discharge ED (Routine); Ordered 09/10/24 Ordered By: Melchor Delatorre Referrals: Melissa Stovall MD [Primary Care Provider] - Patient Instructions: Opioid Safety, Pain Management Activity Restrictions/Additional Instructions: Thank you for choosing [facility] for your healthcare needs today. It is very important that you follow up as instructed or that you return to the Emergency Department should you have concerns or if your condition changes or worsens in any way. You were seen in the emergency room with a complaint of intermittent fever and bodyaches. Your laboratory test all look normal however given your recent history of endocarditis we recommend that you start on oral antibiotic until the cultures have resulted. Recommend you start Zyvox 600 mg 1 pill twice a day. You are given a course of 7 days of this. You should follow-up with your primary care doctor who can check on the status of your cultures to see if further antibiotic treatments may be necessary. If you have worsening symptoms or persistent fever return to the emergency room Sign Out Sign Out Data: Patient Sign Out occurred on 09/10/24 at 06:37. Patient's care was discussed, and care was transferred from Gonsalo Galindo DO to Melchor Delatorre DO. 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 [employer] Documented by User: Melchor Delatorre DO 09/10/24 13:55 HPI - Fever 2 General: Chief Complaint: Fever Stated Complaint: Fever Time Seen by Provider: 09/10/24 04:26 Related Data Home Medications Medication Instructions Recorded Confirmed epinephrine 0.3 mg/0.3 mL 0.3 mg IM Q10M PRN Allergic 01/10/20 09/10/24 injection, auto-injector (Auvi-Q) Reaction galcanezumab-gnlm 120 mg/mL 120 mg SUBCUT .MONTHLY 10/29/22 09/10/24 subcutaneous syringe (Emgality) gabapentin 300 mg capsule 300 mg PO BID 03/12/23 09/10/24 albuterol sulfate 90 mcg/actuation 2 puff inhalation Q8H PRN 05/24/24 09/10/24 aerosol inhaler Shortness Of Breath Or Wheezing budesonide-formoterol HFA 80 1 inh inhalation BID PRN Shortness 05/24/24 09/10/24 mcg-4.5 mcg/actuation aerosol Of Breath Or Wheezing inhaler (Symbicort) ondansetron HCl 4 mg tablet 4 mg PO Q8H PRN Nausea And Vomiting 05/24/24 09/10/24 cyclobenzaprine 5 mg tablet 5 mg PO TID 09/10/24 09/10/24 magnesium oxide 400 mg (241.3 mg 400 mg PO DAILY 09/10/24 09/10/24 magnesium) tablet rimegepant 75 mg disintegrating 75 mg PO PRN PRN Migraine Headache 09/10/24 09/10/24 tablet (Nurtec ODT) triamcinolone acetonide 0.1 % 1 applic topical BID 09/10/24 09/10/24 topical ointment Previous Rx's Medication Instructions Recorded linezolid 600 mg tablet (Zyvox) 600 mg PO BID #14 tabs 09/10/24 Allergies Allergy/AdvReac Type Severity Reaction Status Date / Time amoxicillin Allergy Severe ALGY-Hives Verified 04/04/24 14:31 cefuroxime [From Ceftin] Allergy Severe ALGY-Hives Verified 04/04/24 14:31 sulfamethoxazole Allergy Severe ALGY-Hives Verified 04/04/24 14:31 [From Bactrim] trimethoprim [From Bactrim] Allergy Severe ALGY-Hives Verified 04/04/24 14:31 adhesive Allergy Unknown Unknown Verified 04/04/24 14:31 ibuprofen Allergy Unknown Verified 04/04/24 14:31 metoclopramide [From Reglan] Allergy Unknown Verified 04/04/24 14:31 prochlorperazine Allergy ADR-Itching Verified 04/04/24 14:31 [From Compazine] [facility] ED 2 PFSH: Medical History Asthma Depression Allergic rhinitis Anxiety Chronic sinusitis OCD (obsessive compulsive disorder) Plica syndrome ITB syndrome Surgical History H/O oral surgery S/P FESS (functional endoscopic sinus surgery) Family History Family/Other Lung disease Asthma Father Hypertension Hyperlipidemia Grandmother Hypertension Dementia Stroke Grandfather Hypertension Stroke Grandfather Hypertension Denies family history of Diabetes CAD (coronary artery disease) Clotting disorder Chronic kidney disease (CKD) Suicide Anesthesia complication Bleeding disorder Cancer Social History Smoking and tobacco/nicotine status: never used tobacco/nicotine Alcohol intake: never Substance/Drug Use: never Lives independently: Yes Household members: other Marital status: Single Current occupational status: student Current occupational exposures/hazards: No Pets and animals: Yes Pets & animals: dog(s) Do you think of yourself as: Straight/Heterosexual Current gender identity: Female Course 2 Vital Signs: Vital signs: Vital Signs Temperature 98.0 F 09/10/24 04:21 Pulse Rate 81 09/10/24 09:52 Respiratory Rate 16 09/10/24 04:21 Blood Pressure 99/67 09/10/24 09:52 Pulse Oximetry 100 09/10/24 09:52 Oxygen Delivery Me thod Room Air 09/10/24 08:15 MDM - Fever Medical Decision Making Care assumed at change of shift reviewed chart and findings. No specific infection noted. Given her history of the recent endocarditis will restart on antibiotics till cultures have returned discussed with Dr. Church she recommended that we start her on linezolid for 7 days until we get final cultures back. Patient has to return if she has further problems or worsening symptoms or increased fever Lab Data 09/10/24 04:52 09/10/24 04:52 Radiology Impressions Chest X-Ray 09/10/24 06:39 IMPRESSION: No acute cardiopulmonary process. Laboratory Results WBC 3.71 10^3/uL (3.29-11.43) 09/10/24 04:52 RBC 3.92 10^6/uL (3.85-5.65) 09/10/24 04:52 Hgb 11.60 g/dL (11.27-16.99) 09/10/24 04:52 Hct 36.0 % (36-47) 09/10/24 04:52 MCV 91.8 fl (85-98) 09/10/24 04:52 MCH 29.6 pg (27-33) 09/10/24 04:52 MCHC 32.2 g/dL (30-55) 09/10/24 04:52 RDW 13.3 % (12.1-15.1) 09/10/24 04:52 Plt Count 230 10^3/cmm (157-399) 09/10/24 04:52 MPV 9.9 fL (7.4-10.4) 09/10/24 04:52 Neut % (Auto) 42.6 % 09/10/24 04:52 Lymph % (Auto) 46.9 % 09/10/24 04:52 [place] % (Auto) 7.8 % 09/10/24 04:52 Eos % (Auto) 1.9 % 09/10/24 04:52 Baso % (Auto) 0.5 % 09/10/24 04:52 Neut # (Auto) 1.58 10^3/uL (1.8-7.7) L 09/10/24 04:52 Lymph # (Auto) 1.7 10^3/uL (0.8-4.8) 09/10/24 04:52 [place] # (Auto) 0.3 10^3/uL (0.2-0.9) 09/10/24 04:52 Eos # (Auto) 0.1 10^3/uL (0.0-0.8) 09/10/24 04:52 Baso # (Auto) 0.0 10^3/uL (0.0-0.1) 09/10/24 04:52 Nucleated RBC % (auto) 0 % 09/10/24 04:52 Nucleated RBCs # 0.0 /100WBC 09/10/24 04:52 Sodium 141 mmol/L (136-145) 09/10/24 04:52 Potassium 4.1 mmol/L (3.5-5.1) 09/10/24 04:52 Chloride 107 mmol/L (98-107) 09/10/24 04:52 Carbon Dioxide 24 mmol/L (22-29) 09/10/24 04:52 Anion Gap 14.1 (5-19) 09/10/24 04:52 BUN 16 mg/dL (6-20) 09/10/24 04:52 Creatinine 0.7 mg/dL (0.5-0.9) 09/10/24 04:52 GFR Calculation 98.9 mL/min (90-130) 09/10/24 04:52 Glucose 86 mg/dL (65-115) 09/10/24 04:52 Calculated Osmolality 292 mOsm/kg (285-295) 09/10/24 04:52 Calcium 8.9 mg/dL (8.5-10.5) 09/10/24 04:52 Total Bilirubin 0.2 mg/dL (0.15-1.2) 09/10/24 04:52 AST 17 U/L (0-32) 09/10/24 04:52 ALT 16 U/L (0-33) 09/10/24 04:52 Alkaline Phosphatase 51 U/L (35-105) 09/10/24 04:52 Total Protein 6.7 g/dL (6.6-8.7) 09/10/24 04:52 Albumin 4.0 g/dL (3.5-5.2) 09/10/24 04:52 Globulin 2.7 g/dL (1.3-4.6) 09/10/24 04:52 Urine Color Yellow (Yellow) 09/10/24 07:14 Urine Appearance Clear (CLEAR) 09/10/24 07:14 Urine pH 7.5 (5-7) 09/10/24 07:14 Ur Specific [place] 1.009 (1.005-1.030) 09/10/24 07:14 Urine Protein Negative (Negative) 09/10/24 07:14 Urine Glucose (UA) Negative (Normal) 09/10/24 07:14 Urine Ketones Negative (Negative) 09/10/24 07:14 Urine Blood 2+ (Negative) A 09/10/24 07:14 Urine Nitrate Negative (Negative) 09/10/24 07:14 Urine Bilirubin Negative (Negative) 09/10/24 07:14 Urine Urobilinogen 0.2 mg/dL (Negative) 09/10/24 07:14 Ur Leukocyte Esterase Negative (Negative) 09/10/24 07:14 Urine RBC 0-2 /hpf (0-2) 09/10/24 07:14 Urine WBC 0-5 /hpf (0-5) 09/10/24 07:14 Ur Squamous Epith Cells 0-5 /hpf (0-5) 09/10/24 07:14 Amorphous Sediment Not Reportable 09/10/24 07:14 Urine Bacteria None seen /hpf (NONE) 09/10/24 07:14 Hyaline Casts 0-4 /lpf H 09/10/24 07:14 Coronavirus (PCR) Negative (Negative) 09/10/24 05:15 Influenza A (PCR) Negative (Negative) 09/10/24 05:15 Influenza Type B (PCR) Negative (Negative) 09/10/24 05:15 RSV (PCR) Negative (Negative) 09/10/24 05:15 Discharge Plan Discharge Patient Disposition: Home Clinical Impression: Fever of unknown origin, History of endocarditis Condition: Stable Prescriptions: New linezolid [Zyvox] 600 mg tablet 600 mg PO BID Qty: 14 0RF No Action epinephrine [Auvi-Q] 0.3 mg/0.3 mL auto-injector 0.3 mg IM Q10M PRN (Reason: Allergic Reaction) Rx Instructions: for 2 doses Emgality Syringe 120 mg/mL syringe 120 mg SUBCUT .MONTHLY gabapentin 300 mg Capsule 300 mg PO BID ondansetron HCl [Zofran] 4 mg Tablet 4 mg PO Q8H PRN (Reason: Nausea And Vomiting) albuterol sulfate [ProAir HFA] 90 mcg/actuation Hfa Aerosol Inhaler 2 puff INHALATION Q8H PRN (Reason: Shortness Of Breath Or Wheezing) budesonide-formoterol [Symbicort] 80-4.5 mcg/actuation Hfa Aerosol Inhaler 1 inh INHALATION BID PRN (Reason: Shortness Of Breath Or Wheezing) magnesium oxide 400 mg (241.3 mg magnesium) tablet 400 mg PO DAILY triamcinolone acetonide 0.1 % ointment 1 applic TOPICAL BID cyclobenzaprine 5 mg tablet 5 mg PO TID Nurtec ODT 75 mg tablet,disintegrating 75 mg PO PRN PRN (Reason: Migraine Headache) Discharge Orders: Discharge ED (Routine); Ordered 09/10/24 Ordered By: Melchor Delatorre Referrals: Melissa Stovall MD [Primary Care Provider] - Patient Instructions: Opioid Safety, Pain Management Activity Restrictions/Additional Instructions: Thank you for choosing [facility] for your healthcare needs today. It is very important that you follow up as instructed or that you return to the Emergency Department should you have concerns or if your condition changes or worsens in any way. You were seen in the emergency room with a complaint of intermittent fever and bodyaches. Your laboratory test all look normal however given your recent history of endocarditis we recommend that you start on oral antibiotic until the cultures have resulted. Recommend you start Zyvox 600 mg 1 pill twice a day. You are given a course of 7 days of this. You should follow-up with your primary care doctor who can check on the status of your cultures to see if further antibiotic treatments may be necessary. If you have worsening symptoms or persistent fever return to the emergency room Sign Out Sign Out Data: Patient Sign Out occurred on 09/10/24 at 06:37. Patient's care was discussed, and care was transferred from Gonsalo Galindo DO to Melchor Delatorre DO. 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
[2024-09-10 05:00] LABS: Basophils % 0.5 %; Eosinophils # 0.1 10^3/uL (0.0-0.8); Eosinophils % 1.9 %; Lymphocytes # 1.7 10^3/uL (0.8-4.8); Lymphocytes % 46.9 %; Mean Corpuscular HGB Conc 32.2 g/dL (30-55); Mean Corpuscular Hemoglobin 29.6 pg (27-33); Mean Corpuscular Volume 91.8 fl (85-98); Mean Platelet Volume 9.9 fL (7.4-10.4); Monocytes # 0.3 10^3/uL (0.2-0.9); Monocytes % 7.8 %; Neutrophils # 1.58 10^3/uL (1.8-7.7); Neutrophils % 42.6 %; Nucleated Red Blood Cells % 0 %; Platelet Count 230 10^3/cmm (157-399); Red Blood Count 3.92 10^6/uL (3.85-5.65); Red Cell Distribution Width 13.3 % (12.1-15.1); White Blood Count 3.71 10^3/uL (3.29-11.43)
[2024-09-10 05:24] LABS: Alanine Aminotransferase 16 U/L (0-33); Alkaline Phosphatase 51 U/L (35-105); Anion Gap 14.1 (5-19); Aspartate Amino Transferase 17 U/L (0-32); Blood Urea Nitrogen 16 mg/dL (6-20); Calcium 8.9 mg/dL (8.5-10.5); Carbon Dioxide 24 mmol/L (22-29); Chloride 107 mmol/L (98-107); Creatinine Clr Calc Pharmacy 96.3523; Globulin 2.7 g/dL (1.3-4.6); Glomerular Filtration Rate 98.9 mL/min (90-130); Glucose 86 mg/dL (65-115); Osmolality Calculated 292 mOsm/kg (285-295); Potassium 4.1 mmol/L (3.5-5.1); Sodium 141 mmol/L (136-145); Total Bilirubin 0.2 mg/dL (0.15-1.2); Total Protein 6.7 g/dL (6.6-8.7)
--- NOTE | 2024-09-10 06:39 | XRR_ITS ---
PROCEDURE INFORMATION: Exam: XR Chest Exam date and time: 09/10/2024 6:42 AM Age: 29 years old Clinical indication: Fever TECHNIQUE: Imaging protocol: Radiologic exam of the chest. Views: 1 view. COMPARISON: CR XR chest 1V portable [id number] 05/24/2024 1:53 PM FINDINGS: Tubes, catheters and devices: Left upper extremity PICC tip is in the SVC. Lungs: Unremarkable. No consolidation. Pleural spaces: Unremarkable. No pleural effusion. No pneumothorax. Heart/Mediastinum: Unremarkable. No cardiomegaly. Bones/joints: Unremarkable. XR/XR chest 1V portable [id number] IMPRESSION: No acute cardiopulmonary process.
[2024-09-10 07:03] LABS: Covid PCR NEGATIVE (Negative); Influenza A NEGATIVE (Negative); Influenza B NEGATIVE (Negative); Respiratory Syncytial Virus Ce NEGATIVE (Negative)
[2024-09-10 07:36] LABS: Bilirubin Urine Negative (Negative); Blood Urine 2+ (Negative); Glucose Urine UA Negative (Normal); Ketones Urine Negative (Negative); Leukocyte Esterase Urine Negative (Negative); Nitrate Urine Negative (Negative); Protein Urine Negative (Negative); Specific Gravity, Urine 1.009 (1.005-1.030); Urine Appearance Clear (CLEAR); Urine Color Yellow (Yellow); Urobilinogen Urine 0.2 mg/dL (Negative); pH Urine 7.5 (5-7)
[2024-09-10 07:41] LABS: Add Urine Microscopic? YES; Bacteria Urine None Seen /hpf; Hyaline Casts Urine 0-4 /lpf; RBC Urine 0-2 /hpf (0-2); Squamous Epithelial Cell Urine 0-5 /hpf (0-5); WBC Urine 0-5 /hpf (0-5)
== END 2024-09-10 09:53 | disposition home or self-care (01) ==
PROVIDERS: Emergency Medicine; Emergency Provider Family Medicine; PCP Family Medicine
DX: R50.9 Fever, unspecified (principal); Z86.79 Personal history of other diseases of the circulatory system; Z11.52 Encounter for screening for COVID-19
CPT/HCPCS: 36415; 71045; 80053; 81001; 85025; 87040; 87637; 99284

== ENCOUNTER 2024-09-12 13:02 | Outpatient (CLI) | payer BC, MEDICAID, SELFPAY ==
[2024-09-12 13:45] LABS: Basophils % 0.5 %; Eosinophils # 0.1 10^3/uL (0.0-0.8); Eosinophils % 2.1 %; Lymphocytes # 1.9 10^3/uL (0.8-4.8); Lymphocytes % 48.5 %; Mean Corpuscular HGB Conc 32.7 g/dL (30-55); Mean Corpuscular Volume 88.7 fl (85-98); Mean Platelet Volume 11.4 fL (7.4-10.4); Monocytes # 0.3 10^3/uL (0.2-0.9); Monocytes % 7.7 %; Neutrophils # 1.59 10^3/uL (1.8-7.7); Neutrophils % 40.9 %; Nucleated Red Blood Cells % 0 %; Platelet Count 209 10^3/cmm (157-399); Red Blood Count 3.72 10^6/uL (3.85-5.65); Red Cell Distribution Width 13.1 % (12.1-15.1); White Blood Count 3.88 10^3/uL (3.29-11.43)
[2024-09-12 14:12] LABS: Alanine Aminotransferase 15 U/L (0-33); Alkaline Phosphatase 49 U/L (35-105); Anion Gap 16.3 (5-19); Aspartate Amino Transferase 16 U/L (0-32); Blood Urea Nitrogen 17 mg/dL (6-20); Calcium 9.1 mg/dL (8.5-10.5); Carbon Dioxide 23 mmol/L (22-29); Chloride 100 mmol/L (98-107); Globulin 2.9 g/dL (1.3-4.6); Glomerular Filtration Rate 84.8 mL/min (90-130); Glucose 82 mg/dL (65-115); Magnesium 2.1 mg/dL (1.7-2.3); Osmolality Calculated 281 mOsm/kg (285-295); Phosphorus 3.9 mg/dL (2.5-4.5); Potassium 4.3 mmol/L (3.5-5.1); Sodium 135 mmol/L (136-145); Total Bilirubin 0.2 mg/dL (0.15-1.2); Total Protein 6.9 g/dL (6.6-8.7)
== END 2024-09-12 13:03 | disposition home or self-care (01) ==
LOC: LAB 13:03
PROVIDERS: PCP Family Medicine; Visit Provider Family Medicine
DX: K31.84 Gastroparesis (principal); R63.4 Abnormal weight loss; E43 Unspecified severe protein-calorie malnutrition; E16.2 Hypoglycemia, unspecified; E86.0 Dehydration
CPT/HCPCS: 80053; 83735; 84100; 85025

== ENCOUNTER 2024-09-19 13:23 | Emergency (ER) | payer BC, MEDICAID, SELFPAY ==
[2024-09-19 13:32] VITALS: BP 122/78; PULSE 92; RESP 17; TEMP 36.8; O2SAT 100; BMI 21.7
--- NOTE | 2024-09-19 15:44 | W.ED.GENADLT ---
HPI - General Adult General: Chief complaint: General Medical Stated complaint: extension for pick line broke Time Seen by Provider: 09/19/24 13:36 Source: patient Mode of arrival: ambulatory Limitations: no limitations History of Present Illness: Patient is a 29-year-old female who presents the emergency department with PICC line complication. Patient states nurse was changing out tubing when part of one of the instruments got broken off and occluded the TPN part of the PICC line. Patient was told to come to the ED for PICC line replacement. She has no concerns at this time. Vital stable. MD complaint: Occluded PICC line Associated symptoms: Deny chest pain, dyspnea, headache(s), nausea, rash, palpitations or vomiting Related Data Home Medications Medication Instructions Recorded Confirmed epinephrine 0.3 mg/0.3 mL 0.3 mg IM Q10M PRN Allergic 01/10/20 09/10/24 injection, auto-injector (Auvi-Q) Reaction galcanezumab-gnlm 120 mg/mL 120 mg SUBCUT .MONTHLY 10/29/22 09/10/24 subcutaneous syringe (Emgality) gabapentin 300 mg capsule 300 mg PO BID 03/12/23 09/10/24 albuterol sulfate 90 mcg/actuation 2 puff inhalation Q8H PRN 05/24/24 09/10/24 aerosol inhaler Shortness Of Breath Or Wheezing budesonide-formoterol HFA 80 1 inh inhalation BID PRN Shortness 05/24/24 09/10/24 mcg-4.5 mcg/actuation aerosol Of Breath Or Wheezing inhaler (Symbicort) ondansetron HCl 4 mg tablet 4 mg PO Q8H PRN Nausea And Vomiting 05/24/24 09/10/24 cyclobenzaprine 5 mg tablet 5 mg PO TID 09/10/24 09/10/24 magnesium oxide 400 mg (241.3 mg 400 mg PO DAILY 09/10/24 09/10/24 magnesium) tablet rimegepant 75 mg disintegrating 75 mg PO PRN PRN Migraine Headache 09/10/24 09/10/24 tablet (Nurtec ODT) triamcinolone acetonide 0.1 % 1 applic topical BID 09/10/24 09/10/24 topical ointment Previous Rx's Medication Instructions Recorded linezolid 600 mg tablet (Zyvox) 600 mg PO BID #14 tabs 09/10/24 Allergies Allergy/AdvReac Type Severity Reaction Status Date / Time amoxicillin Allergy Severe ALGY-Hives Verified 04/04/24 14:31 cefuroxime [From Ceftin] Allergy Severe ALGY-Hives Verified 04/04/24 14:31 sulfamethoxazole Allergy Severe ALGY-Hives Verified 04/04/24 14:31 [From Bactrim] trimethoprim [From Bactrim] Allergy Severe ALGY-Hives Verified 04/04/24 14:31 adhesive Allergy Unknown Unknown Verified 04/04/24 14:31 ibuprofen Allergy Unknown Verified 04/04/24 14:31 metoclopramide [From Reglan] Allergy Unknown Verified 04/04/24 14:31 prochlorperazine Allergy ADR-Itching Verified 04/04/24 14:31 [From Compazine] Review of Systems General: Reports: 10 or more systems reviewed and unremarkable except in HPI and below Const: Reports: other (Occluded PICC line); Denies: fever(s), chills or fatigue Eyes: Denies: change in vision ENMT: Denies: throat pain, ear or mastoid pain or nasal discharge Card: Denies: chest pain, palpitations, swelling of feet/ankles or lightheadedness Resp: Denies: dyspnea, productive cough or wheezing GI: Denies: abdominal pain, nausea, vomiting, diarrhea or constipation : Denies: flank pain, difficulty voiding, dysuria or urinary frequency Musc: Denies: neck pain, back pain or joint pain Skin/Breast: Denies: rash Neuro: Denies: headache(s), numbness in extremities or weakness in extremities PFSH ED PFSH: Medical History Asthma Depression Allergic rhinitis Anxiety Chronic sinusitis OCD (obsessive compulsive disorder) Plica syndrome ITB syndrome Surgical History H/O oral surgery S/P FESS (functional endoscopic sinus surgery) Family History Family/Other Lung disease Asthma Father Hypertension Hyperlipidemia Grandmother Hypertension Dementia Stroke Grandfather Hypertension Stroke Grandfather Hypertension Denies family history of Diabetes CAD (coronary artery disease) Clotting disorder Chronic kidney disease (CKD) Suicide Anesthesia complication Bleeding disorder Cancer Social History Smoking and tobacco/nicotine status: never used tobacco/nicotine Alcohol intake: never Substance/Drug Use: never Lives independently: Yes Household members: other Marital status: Single Current occupational status: student Current occupational exposures/hazards: No Pets and animals: Yes Pets & animals: dog(s) Do you think of yourself as: Straight/Heterosexual Current gender identity: Female Physical Exam Const: COMMON NORMALS: no acute distress, patient oriented x3 and no limitations GENERAL APPEARANCE: cooperative, comfortable and well developed ORIENTATION/CONSCIOUSNESS: Yes awake, Yes oriented to person, Yes oriented to place and Yes oriented to time HENMT: COMMON NORMALS: normocephalic, atraumatic and hearing grossly normal bilaterally HEAD & SCALP: normocephalic and atraumatic Eye: COMMON NORMALS: Equal, round and reactive pupils present, EOMs intact bilaterally and conjunctivae normal CONJUNCTIVA: Yes conjunctivae normal PUPIL: Yes Equal, round and reactive pupils present Neck/C-Spine: COMMON NORMALS: full ROM, supple and no JVD Resp: COMMON NORMALS: normal respiratory effort, No retractions, No use of accessory muscles and clear to auscultation bilaterally AUSCULTATION: clear to auscultation bilaterally Cardio: COMMON NORMALS: no JVD, regular rate, regular rhythm, No clicks present (Cardio), No murmurs present (Cardio) and No rub (Cardio) RATE: regular rate RHYTHM: regular rhythm Extremity: COMMON NORMALS: full ROM and capillary refill normal NARRATIVE EXTREMITY EXAM: PICC line to left upper extremity in place. Evaluation of TPN line shows acute occlusion Neuro: COMMON NORMALS: patient oriented x3, moves all extremities, no focal motor deficits and no sensory deficits noted SENSORIUM/ORIENTATION: Yes oriented to person, Yes oriented to place and Yes oriented to time Skin: COMMON NORMALS: no rashes or lesions noted GENERAL SKIN EXAM: no rashes or lesions noted Course Vital Signs: Vital signs: Vital Signs Temperature 98.3 F 09/19/24 13:32 Pulse Rate 92 09/19/24 13:32 Respiratory Rate 17 09/19/24 13:32 Blood Pressure 122/78 09/19/24 13:32 Pulse Oximetry 100 09/19/24 13:32 Oxygen Delivery Me thod Room Air 09/19/24 13:32 MDM - General Adult Medical Decision Making Patient presented with issue with her PICC line. Attempted to manually take out the occluded piece, this was unsuccessful. Spoke with vascular access team, who states they can get the patient in early tomorrow to have this replaced. They had personally spoke to the patient, who agreed with this plan. Patient had no other concerns and states that she will follow-up tomorrow as planned. No radiology studies performed this visit Discharge Plan Discharge Patient Disposition: Home Clinical Impression: Occluded PICC line Condition: Stable Prescriptions: No Action epinephrine [Auvi-Q] 0.3 mg/0.3 mL auto-injector 0.3 mg IM Q10M PRN (Reason: Allergic Reaction) Rx Instructions: for 2 doses Emgality Syringe 120 mg/mL syringe 120 mg SUBCUT .MONTHLY gabapentin 300 mg Capsule 300 mg PO BID ondansetron HCl [Zofran] 4 mg Tablet 4 mg PO Q8H PRN (Reason: Nausea And Vomiting) albuterol sulfate [ProAir HFA] 90 mcg/actuation Hfa Aerosol Inhaler 2 puff INHALATION Q8H PRN (Reason: Shortness Of Breath Or Wheezing) budesonide-formoterol [Symbicort] 80-4.5 mcg/actuation Hfa Aerosol Inhaler 1 inh INHALATION BID PRN (Reason: Shortness Of Breath Or Wheezing) magnesium oxide 400 mg (241.3 mg magnesium) tablet 400 mg PO DAILY triamcinolone acetonide 0.1 % ointment 1 applic TOPICAL BID cyclobenzaprine 5 mg tablet 5 mg PO TID Nurtec ODT 75 mg tablet,disintegrating 75 mg PO PRN PRN (Reason: Migraine Headache) linezolid [Zyvox] 600 mg tablet 600 mg PO BID Qty: 14 0RF Discharge Orders: Discharge ED (Routine); Ordered 09/19/24 Ordered By: Rogelio Scott Referrals: Melissa Stovall MD [Primary Care Provider] - Activity Restrictions/Additional Instructions: Follow-up with vascular access tomorrow as planned. Return with any new concerns. 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 Code ED Equine Pharmacology Technician for Aristeo Montilla
[2024-09-19 16:03] VITALS: BP 132/90; PULSE 79; O2SAT 100
== END 2024-09-19 16:05 | disposition home or self-care (01) ==
PROVIDERS: Emergency Provider Physician Assistant; PCP Family Medicine
DX: T82.898A Other specified complication of vascular prosthetic devices, implants and grafts, initial encounter (principal); X58.XXXA Exposure to other specified factors, initial encounter
CPT/HCPCS: 99282

== ENCOUNTER 2024-09-19 13:26 | Outpatient (CLI) | payer BC, MEDICAID, SELFPAY ==
[2024-09-19 13:38] LABS: Basophils % 0.7 %; Eosinophils % 0.7 %; Hematocrit 33.3 % (36-47); Lymphocytes # 1.9 10^3/uL (0.8-4.8); Lymphocytes % 44.1 %; Mean Corpuscular HGB Conc 33.6 g/dL (30-55); Mean Corpuscular Hemoglobin 29.7 pg (27-33); Mean Corpuscular Volume 88.3 fl (85-98); Mean Platelet Volume 10.3 fL (7.4-10.4); Monocytes # 0.4 10^3/uL (0.2-0.9); Monocytes % 8.5 %; Neutrophils # 1.98 10^3/uL (1.8-7.7); Neutrophils % 45.8 %; Nucleated Red Blood Cells % 0 %; Platelet Count 200 10^3/cmm (157-399); Red Blood Count 3.77 10^6/uL (3.85-5.65); Red Cell Distribution Width 13.2 % (12.1-15.1); White Blood Count 4.33 10^3/uL (3.29-11.43)
[2024-09-19 14:03] LABS: Alanine Aminotransferase 16 U/L (0-33); Albumin Level 4.1 g/dL (3.5-5.2); Alkaline Phosphatase 49 U/L (35-105); Anion Gap 15.2 (5-19); Aspartate Amino Transferase 18 U/L (0-32); Blood Urea Nitrogen 8 mg/dL (6-20); Carbon Dioxide 24 mmol/L (22-29); Chloride 102 mmol/L (98-107); Globulin 2.5 g/dL (1.3-4.6); Glomerular Filtration Rate 98.9 mL/min (90-130); Glucose 92 mg/dL (65-115); Magnesium 2.1 mg/dL (1.7-2.3); Osmolality Calculated 282 mOsm/kg (285-295); Phosphorus 3.5 mg/dL (2.5-4.5); Potassium 4.2 mmol/L (3.5-5.1); Sodium 137 mmol/L (136-145); Total Bilirubin 0.2 mg/dL (0.15-1.2); Total Protein 6.6 g/dL (6.6-8.7)
== END 2024-09-19 13:27 | disposition home or self-care (01) ==
LOC: LAB 13:27
PROVIDERS: PCP Family Medicine; Visit Provider Family Medicine
DX: K31.84 Gastroparesis (principal); R63.4 Abnormal weight loss; E43 Unspecified severe protein-calorie malnutrition; E16.2 Hypoglycemia, unspecified; E87.6 Hypokalemia; E86.0 Dehydration
CPT/HCPCS: 80053; 83735; 84100; 85025

== ENCOUNTER → 2024-09-20 13:20 | Day surgery (SDC) | payer BC, MEDICAID, SELFPAY ==
--- NOTE | 2024-09-20 13:22 | XR_ITS ---
WS: [id number] Exam: XR chest 1V portable [id number] Date/Time of Exam: 09/20/2024 1:46 PM Reason For Exam: Post PICC insertion Comparison 09/10/2024. A new right-sided PICC line has been placed and appears to end in the lower one third of the SVC in g ood position. A pre-existing LEFT PICC line is also noted probably ending near the cavoatrial junctio n. The lungs are clear and fully inflated. Normal cardiomediastinal silhouette. Normal bony elements. No pleural effusion. XR/XR chest 1V portable [id number] IMPRESSION: 1. New right-sided PICC line ending in the region of the lower one third of the SVC in good position. 2. No acute cardiopulmonary finding.
[2024-09-20 13:30] VITALS: BP 126/68; PULSE 93; RESP 16; TEMP 36.7; O2SAT 98
--- NOTE | 2024-09-20 14:00 | PICC.NOTE ---
Double lumen PICC placed to right basilic vein. Referred to vascular access nurse for PICC placement due to malfunctioning left PICC line. Risks and benefits discussed and informed consent obtained from pt. Right arm assessed with right basilic vein measuring 6.5 mm, straight, and apparent best choice for placement. Using sterile technique and MST, right basilic vein accessed x 1 stick. Mid-arm circumference measured 10 cm from right AC 29 cm. Trimmed cath 38 cm with 0 cm external length noted. CXR shows tip in distal SVC, in good position for use per radiologist. Line secured with stat-lock. Insertion site covered with Biopatch and TSM. PICC to left arm removed. 38 cm noted with tip intact. Site without redness, swelling, or pain. Pressure held until hemostasis obtained. 4x4 with tegaderm dressing applied. Instructed pt to leave dressing in place for 24 hours. Home health to provide PICC dressing changes. Pt states she has a visit scheduled Thursday.
== END ==
PROVIDERS: PCP Family Medicine; Visit Provider Physician Assistant
DX: Z45.2 Encounter for adjustment and management of vascular access device (principal)
CPT/HCPCS: 36573; 71045

== ENCOUNTER 2024-09-26 11:20 | Outpatient (CLI) | payer MEDICAID, SELFPAY ==
[2024-09-26 11:42] LABS: Basophils % 0.5 %; Eosinophils # 0.1 10^3/uL (0.0-0.8); Eosinophils % 1.7 %; Lymphocytes # 1.9 10^3/uL (0.8-4.8); Lymphocytes % 47.5 %; Mean Corpuscular HGB Conc 33.4 g/dL (30-55); Mean Corpuscular Hemoglobin 29.5 pg (27-33); Mean Corpuscular Volume 88.2 fl (85-98); Mean Platelet Volume 10.2 fL (7.4-10.4); Monocytes # 0.4 10^3/uL (0.2-0.9); Monocytes % 8.9 %; Neutrophils # 1.68 10^3/uL (1.8-7.7); Neutrophils % 41.4 %; Nucleated Red Blood Cells % 0 %; Platelet Count 184 10^3/cmm (157-399); Red Blood Count 3.97 10^6/uL (3.85-5.65); White Blood Count 4.06 10^3/uL (3.29-11.43)
[2024-09-26 12:10] LABS: Alanine Aminotransferase 16 U/L (0-33); Alkaline Phosphatase 52 U/L (35-105); Anion Gap 16.2 (5-19); Aspartate Amino Transferase 17 U/L (0-32); Blood Urea Nitrogen 12 mg/dL (6-20); Calcium 8.8 mg/dL (8.5-10.5); Carbon Dioxide 23 mmol/L (22-29); Chloride 101 mmol/L (98-107); Globulin 2.9 g/dL (1.3-4.6); Glomerular Filtration Rate 118.2 mL/min (90-130); Glucose 93 mg/dL (65-115); Osmolality Calculated 281 mOsm/kg (285-295); Phosphorus 3.9 mg/dL (2.5-4.5); Potassium 4.2 mmol/L (3.5-5.1); Sodium 136 mmol/L (136-145); Total Bilirubin 0.2 mg/dL (0.15-1.2); Total Protein 6.9 g/dL (6.6-8.7)
== END 2024-09-26 11:21 | disposition home or self-care (01) ==
LOC: LAB 11:22
PROVIDERS: PCP Family Medicine; Visit Provider Family Medicine
DX: K31.84 Gastroparesis (principal); R63.4 Abnormal weight loss; E43 Unspecified severe protein-calorie malnutrition; E16.2 Hypoglycemia, unspecified; E87.6 Hypokalemia; E86.0 Dehydration
CPT/HCPCS: 80053; 83735; 84100; 85025

== ENCOUNTER 2024-10-03 14:12 | Outpatient (CLI) | payer MEDICAID, SELFPAY ==
[2024-10-03 14:27] LABS: Basophils % 0.4 %; Eosinophils % 0.7 %; Hematocrit 33.2 % (36-47); Lymphocytes % 43.4 %; Mean Corpuscular Hemoglobin 29.8 pg (27-33); Mean Corpuscular Volume 87.6 fl (85-98); Mean Platelet Volume 10.4 fL (7.4-10.4); Monocytes # 0.4 10^3/uL (0.2-0.9); Monocytes % 8.3 %; Neutrophils # 2.14 10^3/uL (1.8-7.7); Nucleated Red Blood Cells % 0 %; Platelet Count 193 10^3/cmm (157-399); Red Blood Count 3.79 10^6/uL (3.85-5.65); Red Cell Distribution Width 12.8 % (12.1-15.1); White Blood Count 4.56 10^3/uL (3.29-11.43)
[2024-10-03 14:53] LABS: Alanine Aminotransferase 16 U/L (0-33); Albumin Level 4.3 g/dL (3.5-5.2); Alkaline Phosphatase 49 U/L (35-105); Anion Gap 14.3 (5-19); Aspartate Amino Transferase 16 U/L (0-32); Blood Urea Nitrogen 12 mg/dL (6-20); Calcium 9.1 mg/dL (8.5-10.5); Carbon Dioxide 25 mmol/L (22-29); Chloride 105 mmol/L (98-107); Globulin 2.6 g/dL (1.3-4.6); Glomerular Filtration Rate 118.2 mL/min (90-130); Glucose 83 mg/dL (65-115); Magnesium 1.9 mg/dL (1.7-2.3); Osmolality Calculated 289 mOsm/kg (285-295); Phosphorus 3.9 mg/dL (2.5-4.5); Potassium 4.3 mmol/L (3.5-5.1); Sodium 140 mmol/L (136-145); Total Bilirubin 0.3 mg/dL (0.15-1.2); Total Protein 6.9 g/dL (6.6-8.7)
== END 2024-10-03 14:13 | disposition home or self-care (01) ==
LOC: LAB 14:14
PROVIDERS: PCP Family Medicine; Visit Provider Family Medicine
DX: K31.84 Gastroparesis (principal); R63.4 Abnormal weight loss; E43 Unspecified severe protein-calorie malnutrition; E16.2 Hypoglycemia, unspecified; E87.6 Hypokalemia; E86.0 Dehydration
CPT/HCPCS: 80053; 83735; 84100; 85025

== ENCOUNTER 2024-10-10 15:12 | Outpatient (CLI) | payer MEDICAID, SELFPAY ==
[2024-10-10 16:02] LABS: Basophils % 0.6 %; Eosinophils % 0.6 %; Hematocrit 35.5 % (36-47); Lymphocytes # 2.4 10^3/uL (0.8-4.8); Lymphocytes % 46.4 %; Mean Corpuscular HGB Conc 33.8 g/dL (30-55); Mean Corpuscular Hemoglobin 30.1 pg (27-33); Mean Platelet Volume 10.2 fL (7.4-10.4); Monocytes # 0.5 10^3/uL (0.2-0.9); Monocytes % 8.7 %; Neutrophils # 2.23 10^3/uL (1.8-7.7); Neutrophils % 43.3 %; Nucleated Red Blood Cells % 0 %; Platelet Count 249 10^3/cmm (157-399); Red Blood Count 3.99 10^6/uL (3.85-5.65); Red Cell Distribution Width 12.4 % (12.1-15.1); White Blood Count 5.15 10^3/uL (3.29-11.43)
[2024-10-10 16:27] LABS: Alanine Aminotransferase 20 U/L (0-33); Albumin Level 4.3 g/dL (3.5-5.2); Alkaline Phosphatase 56 U/L (35-105); Anion Gap 15.9 (5-19); Aspartate Amino Transferase 18 U/L (0-32); Blood Urea Nitrogen 24 mg/dL (6-20); Carbon Dioxide 24 mmol/L (22-29); Chloride 102 mmol/L (98-107); Globulin 3.1 g/dL (1.3-4.6); Glomerular Filtration Rate 84.8 mL/min (90-130); Glucose 78 mg/dL (65-115); Magnesium 2.2 mg/dL (1.7-2.3); Osmolality Calculated 289 mOsm/kg (285-295); Phosphorus 3.7 mg/dL (2.5-4.5); Potassium 3.9 mmol/L (3.5-5.1); Sodium 138 mmol/L (136-145); Total Bilirubin 0.3 mg/dL (0.15-1.2); Total Protein 7.4 g/dL (6.6-8.7)
== END 2024-10-10 15:13 | disposition home or self-care (01) ==
LOC: LAB 15:20
PROVIDERS: PCP Family Medicine; Visit Provider Family Medicine
DX: K31.84 Gastroparesis (principal); R63.4 Abnormal weight loss; E43 Unspecified severe protein-calorie malnutrition; E16.2 Hypoglycemia, unspecified; E87.6 Hypokalemia; E86.0 Dehydration
CPT/HCPCS: 80053; 83735; 84100; 85025

== ENCOUNTER 2024-10-24 13:16 | Outpatient (CLI) | payer MEDICAID, SELFPAY ==
[2024-10-24 14:12] LABS: Basophils % 0.4 %; Eosinophils # 0.1 10^3/uL (0.0-0.8); Eosinophils % 1.2 %; Hematocrit 33.7 % (36-47); Lymphocytes # 1.9 10^3/uL (0.8-4.8); Mean Corpuscular HGB Conc 33.8 g/dL (30-55); Mean Corpuscular Volume 88.7 fl (85-98); Mean Platelet Volume 10.8 fL (7.4-10.4); Monocytes # 0.5 10^3/uL (0.2-0.9); Monocytes % 9.3 %; Neutrophils # 2.56 10^3/uL (1.8-7.7); Neutrophils % 50.9 %; Nucleated Red Blood Cells % 0 %; Platelet Count 233 10^3/cmm (157-399); Red Cell Distribution Width 12.4 % (12.1-15.1); White Blood Count 5.03 10^3/uL (3.29-11.43)
[2024-10-24 14:39] LABS: Alanine Aminotransferase 12 U/L (0-33); Alkaline Phosphatase 49 U/L (35-105); Anion Gap 13.1 (5-19); Aspartate Amino Transferase 15 U/L (0-32); Blood Urea Nitrogen 20 mg/dL (6-20); Calcium 8.7 mg/dL (8.5-10.5); Carbon Dioxide 24 mmol/L (22-29); Chloride 102 mmol/L (98-107); Glomerular Filtration Rate 118.2 mL/min (90-130); Glucose 86 mg/dL (65-115); Osmolality Calculated 282 mOsm/kg (285-295); Phosphorus 3.9 mg/dL (2.5-4.5); Potassium 4.1 mmol/L (3.5-5.1); Sodium 135 mmol/L (136-145); Total Bilirubin 0.3 mg/dL (0.15-1.2)
[2024-10-24 17:53] LABS: Ferritin 130 ng/mL (15-150); Iron 42 ug/dL (37-145); Percent Saturation 17.5 % (20-50); Total Iron Binding Capacity 239 mcg/dl; Unsaturated Iron Binding 197 ug/dL (112-347)
== END 2024-10-24 13:17 | disposition home or self-care (01) ==
LOC: LAB 13:18
PROVIDERS: PCP Family Medicine; Visit Provider Family Medicine
DX: K31.84 Gastroparesis (principal); R63.4 Abnormal weight loss; E43 Unspecified severe protein-calorie malnutrition; E16.2 Hypoglycemia, unspecified; E87.6 Hypokalemia; E86.0 Dehydration
CPT/HCPCS: 80053; 82728; 83540; 83550; 83735; 84100; 85025

== ENCOUNTER 2024-11-07 14:35 | Outpatient (CLI) | payer MEDICAID, SELFPAY ==
[2024-11-07 15:13] LABS: Basophils % 0.5 %; Eosinophils % 0.5 %; Hematocrit 32.1 % (36-47); Lymphocytes # 1.8 10^3/uL (0.8-4.8); Lymphocytes % 49.5 %; Mean Corpuscular HGB Conc 33.6 g/dL (30-55); Mean Corpuscular Hemoglobin 30.6 pg (27-33); Mean Corpuscular Volume 90.9 fl (85-98); Mean Platelet Volume 10.6 fL (7.4-10.4); Monocytes # 0.3 10^3/uL (0.2-0.9); Monocytes % 8.6 %; Neutrophils # 1.52 10^3/uL (1.8-7.7); Neutrophils % 40.9 %; Nucleated Red Blood Cells % 0 %; Platelet Count 239 10^3/cmm (157-399); Red Blood Count 3.53 10^6/uL (3.85-5.65); Red Cell Distribution Width 12.9 % (12.1-15.1); White Blood Count 3.72 10^3/uL (3.29-11.43)
[2024-11-07 15:38] LABS: Alanine Aminotransferase 17 U/L (0-33); Albumin Level 4.3 g/dL (3.5-5.2); Alkaline Phosphatase 50 U/L (35-105); Anion Gap 16.3 (5-19); Aspartate Amino Transferase 16 U/L (0-32); Blood Urea Nitrogen 19 mg/dL (6-20); Calcium 8.9 mg/dL (8.5-10.5); Carbon Dioxide 23 mmol/L (22-29); Chloride 104 mmol/L (98-107); Globulin 2.4 g/dL (1.3-4.6); Glomerular Filtration Rate 118.2 mL/min (90-130); Glucose 81 mg/dL (65-115); Magnesium 2.1 mg/dL (1.7-2.3); Osmolality Calculated 289 mOsm/kg (285-295); Phosphorus 3.9 mg/dL (2.5-4.5); Potassium 4.3 mmol/L (3.5-5.1); Sodium 139 mmol/L (136-145); Total Bilirubin 0.2 mg/dL (0.15-1.2); Total Protein 6.7 g/dL (6.6-8.7)
== END 2024-11-07 14:36 | disposition home or self-care (01) ==
LOC: LAB 14:37
PROVIDERS: PCP Family Medicine; Visit Provider Family Medicine
DX: K31.84 Gastroparesis (principal); R63.4 Abnormal weight loss; E16.2 Hypoglycemia, unspecified; E87.6 Hypokalemia; E86.0 Dehydration; E43 Unspecified severe protein-calorie malnutrition
CPT/HCPCS: 80053; 83735; 84100; 85025

== ENCOUNTER 2024-11-21 13:51 | Outpatient (CLI) | payer MEDICAID, SELFPAY ==
[2024-11-21 14:39] LABS: Basophils % 0.8 %; Eosinophils # 0.1 10^3/uL (0.0-0.8); Eosinophils % 2.4 %; Hematocrit 33.1 % (36-47); Lymphocytes # 1.7 10^3/uL (0.8-4.8); Lymphocytes % 44.7 %; Mean Corpuscular HGB Conc 34.1 g/dL (30-55); Mean Corpuscular Hemoglobin 31.3 pg (27-33); Mean Corpuscular Volume 91.7 fl (85-98); Mean Platelet Volume 10.9 fL (7.4-10.4); Monocytes # 0.4 10^3/uL (0.2-0.9); Monocytes % 10.2 %; Neutrophils # 1.56 10^3/uL (1.8-7.7); Neutrophils % 41.6 %; Nucleated Red Blood Cells % 0 %; Platelet Count 212 10^3/cmm (157-399); Red Blood Count 3.61 10^6/uL (3.85-5.65); Red Cell Distribution Width 12.6 % (12.1-15.1); White Blood Count 3.74 10^3/uL (3.29-11.43)
[2024-11-21 15:04] LABS: Alanine Aminotransferase 12 U/L (0-33); Albumin Level 4.1 g/dL (3.5-5.2); Alkaline Phosphatase 43 U/L (35-105); Anion Gap 15.1 (5-19); Aspartate Amino Transferase 14 U/L (0-32); Blood Urea Nitrogen 19 mg/dL (6-20); Calcium 8.8 mg/dL (8.5-10.5); Carbon Dioxide 23 mmol/L (22-29); Chloride 103 mmol/L (98-107); Globulin 2.8 g/dL (1.3-4.6); Glomerular Filtration Rate 145.9 mL/min (90-130); Glucose 81 mg/dL (65-115); Magnesium 1.9 mg/dL (1.7-2.3); Osmolality Calculated 285 mOsm/kg (285-295); Phosphorus 3.5 mg/dL (2.5-4.5); Potassium 4.1 mmol/L (3.5-5.1); Sodium 137 mmol/L (136-145); Total Bilirubin 0.3 mg/dL (0.15-1.2); Total Protein 6.9 g/dL (6.6-8.7)
== END 2024-11-21 13:52 | disposition home or self-care (01) ==
LOC: LAB 13:52
PROVIDERS: PCP Family Medicine; Visit Provider Family Medicine
DX: K31.84 Gastroparesis (principal); R63.4 Abnormal weight loss; E43 Unspecified severe protein-calorie malnutrition; E16.2 Hypoglycemia, unspecified; E87.6 Hypokalemia; E86.0 Dehydration
CPT/HCPCS: 80053; 83735; 84100; 85025

== ENCOUNTER 2024-11-22 14:02 | Emergency (ER) | payer MEDICAID, SELFPAY ==
[2024-11-22 14:08] VITALS: BP 107/72; PULSE 90; RESP 16; O2SAT 99; BMI 21.2
--- NOTE | 2024-11-22 17:00 | W.ED.GENADLT ---
HPI - General Adult General: Chief complaint: General Medical Stated complaint: pcc line broken Time Seen by Provider: 11/22/24 16:48 History of Present Illness: 29-year-old female who gets TPN via PICC line presents to the emergency room with complaint of the PICC line hub is fractured and is not working properly. States she woke up this morning and there was TPN that had leaked from where it was attached to the PICC line had. The nurse had been at her home and tried to flush it and it leaked as well. She was advised most likely she would need to have the PICC line replaced. She denies any fever sweats chills or any other issues. Associated symptoms: Deny chest pain, dyspnea or rash Related Data Home Medications ?Medication ?Instructions ?Recorded ?Confirmed epinephrine 0.3 mg/0.3 mL 0.3 mg IM Q10M PRN Allergic 01/10/20 09/20/24 injection, auto-injector (Auvi-Q) Reaction galcanezumab-gnlm 120 mg/mL 120 mg SUBCUT .MONTHLY 10/29/22 09/20/24 subcutaneous syringe (Emgality) gabapentin 300 mg capsule 300 mg PO BID 03/12/23 09/20/24 albuterol sulfate 90 mcg/actuation 2 puff inhalation Q8H PRN 05/24/24 09/20/24 aerosol inhaler Shortness Of Breath Or Wheezing budesonide-formoterol HFA 80 1 inh inhalation BID PRN Shortness 05/24/24 09/20/24 mcg-4.5 mcg/actuation aerosol Of Breath Or Wheezing inhaler (Symbicort) ondansetron HCl 4 mg tablet 4 mg PO Q8H PRN Nausea And Vomiting 05/24/24 09/20/24 cyclobenzaprine 5 mg tablet 5 mg PO TID 09/10/24 09/20/24 magnesium oxide 400 mg (241.3 mg 400 mg PO DAILY 09/10/24 09/20/24 magnesium) tablet rimegepant 75 mg disintegrating 75 mg PO PRN PRN Migraine Headache 09/10/24 09/20/24 tablet (Nurtec ODT) triamcinolone acetonide 0.1 % 1 applic topical BID 09/10/24 09/20/24 topical ointment Previous Rx's ?Medication ?Instructions ?Recorded linezolid 600 mg tablet (Zyvox) 600 mg PO BID #14 tabs 09/10/24 Allergies Allergy/AdvReac Type Severity Reaction Status Date / Time amoxicillin Allergy Severe ALGY-Hives Verified 09/20/24 12:21 cefuroxime (From Ceftin) Allergy Severe ALGY-Hives Verified 09/20/24 12:21 sulfamethoxazole (From Allergy Severe ALGY-Hives Verified 09/20/24 12:21 Bactrim) trimethoprim (From Bactrim) Allergy Severe ALGY-Hives Verified 09/20/24 12:21 adhesive Allergy Unknown Unknown Verified 09/20/24 12:21 ibuprofen Allergy Unknown Verified 09/20/24 12:21 metoclopramide (From Reglan) Allergy Unknown Verified 09/20/24 12:21 prochlorperazine (From Allergy ADR-Itching Verified 09/20/24 12:21 Compazine) Review of Systems Const: Denies: fever(s) or chills Card: Denies: chest pain Resp: Denies: dyspnea GI: Denies: abdominal pain : Denies: dysuria, urinary frequency or urinary urgency Musc: Denies: neck pain or back pain Skin/Breast: Denies: rash PFSH ED PFSH: Medical History Asthma Depression Allergic rhinitis Anxiety Chronic sinusitis OCD (obsessive compulsive disorder) Plica syndrome ITB syndrome Surgical History H/O oral surgery S/P FESS (functional endoscopic sinus surgery) Family History Family/Other Lung disease Asthma Father Hypertension Hyperlipidemia Grandmother Hypertension Dementia Stroke Grandfather Hypertension Stroke Grandfather Hypertension Denies family history of Diabetes CAD (coronary artery disease) Clotting disorder Chronic kidney disease (CKD) Suicide Anesthesia complication Bleeding disorder Cancer Social History Smoking and tobacco/nicotine status: never used tobacco/nicotine Alcohol intake: never Substance/Drug Use: never Lives independently: Yes Household members: other Marital status: Single Current occupational status: student Current occupational exposures/hazards: No Pets and animals: Yes Pets & animals: dog(s) Do you think of yourself as: Straight/Heterosexual Current gender identity: Female Physical Exam Const: COMMON NORMALS: no acute distress GENERAL APPEARANCE: cooperative and comfortable ORIENTATION/CONSCIOUSNESS: Yes awake, Yes oriented to person, Yes oriented to place and Yes oriented to time HENMT: COMMON NORMALS: normocephalic, atraumatic and hearing grossly normal bilaterally HEAD & SCALP: normocephalic and atraumatic Resp: COMMON NORMALS: normal respiratory effort, No retractions, No use of accessory muscles and clear to auscultation bilaterally AUSCULTATION: clear to auscultation bilaterally Cardio: COMMON NORMALS: regular rate, regular rhythm and No murmurs present (Cardio) RATE: regular rate RHYTHM: regular rhythm Extremity: COMMON NORMALS: normal to inspection, capillary refill normal, no clubbing, cyanosis or edema, no calf tenderness and no pedal edema Neuro: SENSORIUM/ORIENTATION: Yes oriented to person, Yes oriented to place and Yes oriented to time Skin: COMMON NORMALS: no rashes or lesions noted GENERAL SKIN EXAM: no rashes or lesions noted Course Vital Signs: Vital signs: Vital Signs Pulse Rate 79 11/22/24 18:23 Respiratory Rate 16 11/22/24 14:08 Blood Pressure 108/78 11/22/24 18:23 Pulse Oximetry 100 11/22/24 18:23 Oxygen Delivery Me thod Room Air 11/22/24 14:08 MDM - General Adult Medical Decision Making Appropriate cultures done including the tip of the catheter tip as well as blood cultures through the PICC line and through peripheral vein. Will discharge patient home after removing the cath she is to return to GI lab tomorrow to have her new PICC line placed. Medical Records I reviewed the patient's medical records. Lab Data I reviewed the patient's lab results. 11/22/24 17:17 11/22/24 17:17 Laboratory Results WBC 4.66 10^3/uL (3.29-11.43) 11/22/24 17:17 RBC 4.00 10^6/uL (3.85-5.65) 11/22/24 17:17 Hgb 12.00 g/dL (11.27-16.99) 11/22/24 17:17 Hct 37.2 % (36-47) 11/22/24 17:17 MCV 93.0 fl (85-98) 11/22/24 17:17 MCH 30.0 pg (27-33) 11/22/24 17:17 MCHC 32.3 g/dL (30-55) D 11/22/24 17:17 RDW 12.6 % (12.1-15.1) 11/22/24 17:17 Plt Count 214 10^3/cmm (157-399) 11/22/24 17:17 MPV 10.1 fL (7.4-10.4) 11/22/24 17:17 Neut % (Auto) 44.2 % 11/22/24 17:17 Lymph % (Auto) 45.9 % 11/22/24 17:17 [place] % (Auto) 6.9 % 11/22/24 17:17 Eos % (Auto) 2.4 % 11/22/24 17:17 Baso % (Auto) 0.4 % 11/22/24 17:17 Neut # (Auto) 2.06 10^3/uL (1.8-7.7) 11/22/24 17:17 Lymph # (Auto) 2.1 10^3/uL (0.8-4.8) 11/22/24 17:17 [place] # (Auto) 0.3 10^3/uL (0.2-0.9) 11/22/24 17:17 Eos # (Auto) 0.1 10^3/uL (0.0-0.8) 11/22/24 17:17 Baso # (Auto) 0.0 10^3/uL (0.0-0.1) 11/22/24 17:17 Nucleated RBC % (auto) 0 % 11/22/24 17:17 Nucleated RBCs # 0.0 /100WBC 11/22/24 17:17 Sodium 139 mmol/L (136-145) 11/22/24 17:17 Potassium 3.8 mmol/L (3.5-5.1) 11/22/24 17:17 Chloride 102 mmol/L (98-107) 11/22/24 17:17 Carbon Dioxide 23 mmol/L (22-29) 11/22/24 17:17 Anion Gap 17.8 (5-19) 11/22/24 17:17 BUN 16 mg/dL (6-20) 11/22/24 17:17 Creatinine 0.6 mg/dL (0.5-0.9) 11/22/24 17:17 GFR Calculation 118.2 mL/min (90-130) 11/22/24 17:17 Glucose 77 mg/dL (65-115) 11/22/24 17:17 Calculated Osmolality 288 mOsm/kg (285-295) 11/22/24 17:17 Calcium 9.1 mg/dL (8.5-10.5) 11/22/24 17:17 Total Bilirubin 0.3 mg/dL (0.15-1.2) 11/22/24 17:17 AST 16 U/L (0-32) 11/22/24 17:17 ALT 13 U/L (0-33) 11/22/24 17:17 Alkaline Phosphatase 48 U/L (35-105) 11/22/24 17:17 Total Protein 7.5 g/dL (6.6-8.7) 11/22/24 17:17 Albumin 4.4 g/dL (3.5-5.2) 11/22/24 17:17 Globulin 3.1 g/dL (1.3-4.6) 11/22/24 17:17 No radiology studies performed this visit Discharge Plan Discharge Patient Disposition: Home Clinical Impression: PIC line (peripherally inserted central catheter) removal, Central line complication Condition: Stable Prescriptions: No Action epinephrine [Auvi-Q] 0.3 mg/0.3 mL auto-injector 0.3 mg IM Q10M PRN (Reason: Allergic Reaction) Rx Instructions: for 2 doses Emgality Syringe 120 mg/mL syringe 120 mg SUBCUT .MONTHLY gabapentin 300 mg Capsule 300 mg PO BID ondansetron HCl [Zofran] 4 mg Tablet 4 mg PO Q8H PRN (Reason: Nausea And Vomiting) albuterol sulfate [ProAir HFA] 90 mcg/actuation Hfa Aerosol Inhaler 2 puff INHALATION Q8H PRN (Reason: Shortness Of Breath Or Wheezing) budesonide-formoterol [Symbicort] 80-4.5 mcg/actuation Hfa Aerosol Inhaler 1 inh INHALATION BID PRN (Reason: Shortness Of Breath Or Wheezing) magnesium oxide 400 mg (241.3 mg magnesium) tablet 400 mg PO DAILY triamcinolone acetonide 0.1 % ointment 1 applic TOPICAL BID cyclobenzaprine 5 mg tablet 5 mg PO TID Nurtec ODT 75 mg tablet,disintegrating 75 mg PO PRN PRN (Reason: Migraine Headache) linezolid [Zyvox] 600 mg tablet 600 mg PO BID Qty: 14 0RF Discharge Orders: Discharge ED (Routine); Ordered 11/22/24 Ordered By: Melchor Delatorre Referrals: Melissa Stovall MD [Primary Care Provider] - Patient Instructions: Opioid Safety, Pain Management Activity Restrictions/Additional Instructions: [email or web address]. It is very important that you follow up as instructed or that you return to the Emergency Department should you have concerns or if your condition changes or worsens in any way. You are seen in the emergency room for complication of your PICC line. PICC line was removed blood cultures were done and the tip of the PICC line has been cultured. Your white count was normal. We have made arrangements for you to have a new PICC line inserted tomorrow morning in the GI outpatient lab. Print Language: Rwandan 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 Code ED Track Walker for Aristeo Montilla
[2024-11-22 17:27] LABS: Basophils % 0.4 %; Eosinophils # 0.1 10^3/uL (0.0-0.8); Eosinophils % 2.4 %; Hematocrit 37.2 % (36-47); Lymphocytes # 2.1 10^3/uL (0.8-4.8); Lymphocytes % 45.9 %; Mean Corpuscular HGB Conc 32.3 g/dL (30-55); Mean Platelet Volume 10.1 fL (7.4-10.4); Monocytes # 0.3 10^3/uL (0.2-0.9); Monocytes % 6.9 %; Neutrophils # 2.06 10^3/uL (1.8-7.7); Neutrophils % 44.2 %; Nucleated Red Blood Cells % 0 %; Platelet Count 214 10^3/cmm (157-399); Red Cell Distribution Width 12.6 % (12.1-15.1); White Blood Count 4.66 10^3/uL (3.29-11.43)
--- NOTE | 2024-11-22 17:30 | PC.NURSE ---
upon flushing PICC line it is noted that purple hub is cracked longways and saline flush sprays out. this PICC line has caps that are not changeable. informed.
[2024-11-22 17:55] LABS: Alanine Aminotransferase 13 U/L (0-33); Albumin Level 4.4 g/dL (3.5-5.2); Alkaline Phosphatase 48 U/L (35-105); Anion Gap 17.8 (5-19); Aspartate Amino Transferase 16 U/L (0-32); Blood Urea Nitrogen 16 mg/dL (6-20); Calcium 9.1 mg/dL (8.5-10.5); Carbon Dioxide 23 mmol/L (22-29); Chloride 102 mmol/L (98-107); Creatinine Clr Calc Pharmacy 111.6187; Globulin 3.1 g/dL (1.3-4.6); Glomerular Filtration Rate 118.2 mL/min (90-130); Glucose 77 mg/dL (65-115); Osmolality Calculated 288 mOsm/kg (285-295); Potassium 3.8 mmol/L (3.5-5.1); Sodium 139 mmol/L (136-145); Total Bilirubin 0.3 mg/dL (0.15-1.2); Total Protein 7.5 g/dL (6.6-8.7)
[2024-11-22 18:23] VITALS: BP 108/78; PULSE 79; O2SAT 100
--- NOTE | 2024-11-22 18:25 | PC.NURSE ---
Pulled patient's PICC line, sent the tip of the PICC line to lab to have it cultured.
== END 2024-11-22 18:25 | disposition home or self-care (01) ==
PROVIDERS: Emergency Provider Family Medicine; PCP Family Medicine
DX: Z45.2 Encounter for adjustment and management of vascular access device (principal); T82.594A Other mechanical complication of infusion catheter, initial encounter; X58.XXXA Exposure to other specified factors, initial encounter
CPT/HCPCS: 80053; 85025; 87040; 87070; 87075; 87205; 99283

== ENCOUNTER → 2024-11-23 12:41 | Day surgery (SDC) | payer MEDICAID, SELFPAY ==
--- NOTE | 2024-11-23 12:46 | XR_ITS ---
WS: [id number] XR chest 1V portable [id number] REASON FOR EXAM: PICC insertion FINDINGS: Left arm PICC line placement. Tip of the catheter is in the mid superior vena cava. Over the phone recommended to the photonics engineering technologist for advancement of [address] it at the cavoatrial junction in optimal position. 1:35 p.m. recommendation understood. XR/XR chest 1V portable [id number] IMPRESSION: PICC line placement and recommendation as above.
[2024-11-23 12:55] VITALS: BP 103/71; PULSE 88; RESP 16; TEMP 36.1; O2SAT 99
--- NOTE | 2024-11-23 14:00 | PICC.NOTE ---
Double lumen PICC placed to left basilic vein. Referred to vascular access nurse for PICC placement due to malfunction of PICC in right arm with line removed in ER 11/22/24. Risks and benefits discussed and informed consent obtained from pt. Left arm assessed with left basilic vein measuring 4.9 mm, straight, and apparent best choice for placement. Using sterile technique and MST, left basilic vein accessed x 1 stick. Mid-arm circumference measured 10 cm from left AC 25 cm. Trimmed cath 40 cm with 0 cm external length noted. CXR shows tip in mid SVC. Radiologist recommended advancement of 2 cm, which was completed, placing line at cavoatrial junction. Line secured with stat-lock. Insertion site covered with Biopatch and TSM. Printed report given to pt to share with home health nurse.
== END ==
LOC: OPS 12:43
PROVIDERS: PCP Family Medicine; Visit Provider Emergency Medicine
DX: T82.594A Other mechanical complication of infusion catheter, initial encounter (principal)
CPT/HCPCS: 36573; 71045

== ENCOUNTER 2024-12-05 11:41 | Outpatient (CLI) | payer MEDICAID, SELFPAY ==
[2024-12-05 12:06] LABS: Basophils % 0.6 %; Eosinophils % 1.2 %; Hematocrit 32.6 % (36-47); Lymphocytes # 1.8 10^3/uL (0.8-4.8); Lymphocytes % 53.2 %; Mean Corpuscular Hemoglobin 31.4 pg (27-33); Mean Corpuscular Volume 92.4 fl (85-98); Mean Platelet Volume 11.6 fL (7.4-10.4); Monocytes # 0.3 10^3/uL (0.2-0.9); Monocytes % 9.6 %; Neutrophils # 1.17 10^3/uL (1.8-7.7); Neutrophils % 35.1 %; Nucleated Red Blood Cells % 0 %; Platelet Count 156 10^3/cmm (157-399); Red Blood Count 3.53 10^6/uL (3.85-5.65); Red Cell Distribution Width 12.6 % (12.1-15.1); White Blood Count 3.33 10^3/uL (3.29-11.43)
== END 2024-12-05 11:42 | disposition home or self-care (01) ==
PROVIDERS: PCP Family Medicine; Visit Provider Family Medicine
DX: K31.84 Gastroparesis (principal); R63.4 Abnormal weight loss; E43 Unspecified severe protein-calorie malnutrition; E16.2 Hypoglycemia, unspecified; E87.6 Hypokalemia; E86.0 Dehydration
CPT/HCPCS: 85025

== ENCOUNTER 2024-12-06 16:42 | Outpatient (CLI) | payer MEDICAID, SELFPAY ==
[2024-12-06 17:30] LABS: Alanine Aminotransferase 18 U/L (0-33); Albumin Level 4.1 g/dL (3.5-5.2); Alkaline Phosphatase 48 U/L (35-105); Anion Gap 14.8 (5-19); Aspartate Amino Transferase 16 U/L (0-32); Blood Urea Nitrogen 22 mg/dL (6-20); Calcium 8.6 mg/dL (8.5-10.5); Carbon Dioxide 25 mmol/L (22-29); Chloride 106 mmol/L (98-107); Globulin 2.9 g/dL (1.3-4.6); Glomerular Filtration Rate 118.2 mL/min (90-130); Glucose 81 mg/dL (65-115); Magnesium 1.9 mg/dL (1.7-2.3); Osmolality Calculated 296 mOsm/kg (285-295); Phosphorus 3.5 mg/dL (2.5-4.5); Potassium 3.8 mmol/L (3.5-5.1); Sodium 142 mmol/L (136-145); Total Bilirubin 0.2 mg/dL (0.15-1.2)
== END 2024-12-06 16:43 | disposition home or self-care (01) ==
PROVIDERS: PCP Family Medicine; Visit Provider Family Medicine
DX: Z78.9 Other specified health status (principal)
CPT/HCPCS: 80053; 83735; 84100

== ENCOUNTER → 2024-12-08 15:58 | Outpatient (BNVA) | payer MEDICAID, SELFPAY | PROVIDERS: PCP Family Medicine; Visit Provider Family Medicine | DX: R76.8 Other specified abnormal immunological findings in serum (principal); R79.89 Other specified abnormal findings of blood chemistry | CPT/HCPCS: 83516; 84439; 84443; 84481; 86800 ==

== ENCOUNTER 2024-12-19 15:59 | Outpatient (CLI) | payer MEDICAID, SELFPAY ==
[2024-12-19 16:16] LABS: Basophils % 0.6 %; Eosinophils % 0.4 %; Hematocrit 33.6 % (36-47); Lymphocytes # 1.9 10^3/uL (0.8-4.8); Lymphocytes % 38.9 %; Mean Corpuscular HGB Conc 33.6 g/dL (30-55); Mean Corpuscular Volume 92.1 fl (85-98); Mean Platelet Volume 10.7 fL (7.4-10.4); Monocytes # 0.4 10^3/uL (0.2-0.9); Monocytes % 7.6 %; Neutrophils # 2.61 10^3/uL (1.8-7.7); Neutrophils % 52.3 %; Nucleated Red Blood Cells % 0 %; Platelet Count 183 10^3/cmm (157-399); Red Blood Count 3.65 10^6/uL (3.85-5.65); Red Cell Distribution Width 11.9 % (12.1-15.1); White Blood Count 4.99 10^3/uL (3.29-11.43)
[2024-12-19 16:58] LABS: Alanine Aminotransferase 14 U/L (0-33); Albumin Level 4.2 g/dL (3.5-5.2); Alkaline Phosphatase 47 U/L (35-105); Aspartate Amino Transferase 16 U/L (0-32); Blood Urea Nitrogen 17 mg/dL (6-20); Calcium 9.1 mg/dL (8.5-10.5); Carbon Dioxide 20 mmol/L (22-29); Chloride 105 mmol/L (98-107); Globulin 2.6 g/dL (1.3-4.6); Glomerular Filtration Rate 118.2 mL/min (90-130); Glucose 78 mg/dL (65-115); Magnesium 1.9 mg/dL (1.7-2.3); Osmolality Calculated 286 mOsm/kg (285-295); Phosphorus 3.5 mg/dL (2.5-4.5); Sodium 138 mmol/L (136-145); Total Bilirubin 0.3 mg/dL (0.15-1.2); Total Protein 6.8 g/dL (6.6-8.7)
[2024-12-19 18:42] LABS: Anion Gap 17.2 (5-19); Potassium 4.2 mmol/L (3.5-5.1)
[2024-12-20 10:37] LABS: Estmated Average Glucose 85; Hemoglobin A1C 4.6 % (4.0-6.0)
== END 2024-12-19 16:00 | disposition home or self-care (01) ==
PROVIDERS: PCP Family Medicine; Visit Provider Family Medicine
DX: K31.84 Gastroparesis (principal); R63.4 Abnormal weight loss; E43 Unspecified severe protein-calorie malnutrition; E16.2 Hypoglycemia, unspecified; E87.6 Hypokalemia; E86.0 Dehydration
CPT/HCPCS: 80053; 83036; 83735; 84100; 85025

== ENCOUNTER 2025-01-02 14:37 | Outpatient (CLI) | payer MEDICAID, SELFPAY ==
[2025-01-02 15:03] LABS: Basophils % 0.4 %; Eosinophils % 0.2 %; Hematocrit 34.1 % (36-47); Lymphocytes # 2.2 10^3/uL (0.8-4.8); Lymphocytes % 48.3 %; Mean Corpuscular HGB Conc 33.4 g/dL (30-55); Mean Corpuscular Hemoglobin 30.2 pg (27-33); Mean Corpuscular Volume 90.2 fl (85-98); Mean Platelet Volume 11.2 fL (7.4-10.4); Monocytes # 0.3 10^3/uL (0.2-0.9); Neutrophils # 1.96 10^3/uL (1.8-7.7); Neutrophils % 44.1 %; Nucleated Red Blood Cells % 0 %; Platelet Count 208 10^3/cmm (157-399); Red Blood Count 3.78 10^6/uL (3.85-5.65); Red Cell Distribution Width 11.9 % (12.1-15.1); White Blood Count 4.45 10^3/uL (3.29-11.43)
[2025-01-02 15:36] LABS: Alanine Aminotransferase 23 U/L (0-33); Alkaline Phosphatase 48 U/L (35-105); Anion Gap 16.2 (5-19); Aspartate Amino Transferase 18 U/L (0-32); Blood Urea Nitrogen 18 mg/dL (6-20); Calcium 8.8 mg/dL (8.5-10.5); Carbon Dioxide 23 mmol/L (22-29); Chloride 105 mmol/L (98-107); Globulin 3.1 g/dL (1.3-4.6); Glomerular Filtration Rate 98.9 mL/min (90-130); Glucose 81 mg/dL (65-115); Osmolality Calculated 291 mOsm/kg (285-295); Potassium 4.2 mmol/L (3.5-5.1); Sodium 140 mmol/L (136-145); Total Bilirubin 0.2 mg/dL (0.15-1.2); Total Protein 7.1 g/dL (6.6-8.7)
== END 2025-01-02 14:38 | disposition home or self-care (01) ==
LOC: LAB 14:42
PROVIDERS: PCP Family Medicine; Visit Provider Family Medicine
DX: K31.84 Gastroparesis (principal); R63.4 Abnormal weight loss; E43 Unspecified severe protein-calorie malnutrition; E16.2 Hypoglycemia, unspecified; E87.6 Hypokalemia; E86.0 Dehydration
CPT/HCPCS: 80053; 83735; 84100; 85025

== ENCOUNTER 2025-01-16 13:28 | Emergency (ER) | payer MEDICAID, SELFPAY ==
[2025-01-16 13:31] VITALS: BP 105/71; PULSE 116; TEMP 36.7; O2SAT 99; BMI 22.4
--- NOTE | 2025-01-16 13:55 | XRR_ITS ---
PROCEDURE INFORMATION: Exam: XR Chest Exam date and time: 01/16/2025 1:59 PM Age: 29 years old Clinical indication: Fever; Prior surgery; Surgery date: 6+ months; Surgery type: Port TECHNIQUE: Imaging protocol: Radiologic exam of the chest. Views: 1 view. COMPARISON: CR XR chest 1V portable [id number] 11/23/2024 12:26 PM FINDINGS: Tubes, catheters and devices: Left chest port catheter is demonstrated. Catheter tip overlies the proximal SVC region. Distal percutaneous gastrostomy tube overlies the abdomen, gastric region. Lungs: The lungs appear clear. Pleural spaces: No pleural effusion. No pneumothorax. Heart/Mediastinum: Mediastinum and maite appear unremarkable. Bones/joints: No acute bony abnormality identified. XR/XR chest 1V portable [id number] IMPRESSION: No evidence for an acute cardiopulmonary process.
--- NOTE | 2025-01-16 13:56 | W.ED.FEVER ---
HPI - Fever General: Chief Complaint: Fever Stated Complaint: port problems, fever, sent from home health Time Seen by Provider: 01/16/25 13:44 Source: patient Mode of arrival: ambulatory Limitations: no limitations History of Present Illness: 29-year-old female who has a port left upper chest that she gets for TPN feedings for gastroparesis. States she is concerned she may have a port infection states she had some clear drainage from it yesterday has had a fever of 103 over the last 2 days. Seen urgent care yesterday and placed on doxycycline she denies any redness to the site. Denies any worse improving factors she is afebrile here Associated symptoms: Deny abdominal pain, chills, chest pain, diarrhea, headache(s), nausea or vomiting Related Data Home Medications ?Medication ?Instructions ?Recorded ?Confirmed epinephrine 0.3 mg/0.3 mL 0.3 mg IM Q10M PRN Allergic 01/10/20 12/08/24 injection, auto-injector (Auvi-Q) Reaction galcanezumab-gnlm 120 mg/mL 120 mg SUBCUT .MONTHLY 10/29/22 12/08/24 subcutaneous syringe (Emgality) gabapentin 300 mg capsule 300 mg PO BID 03/12/23 12/08/24 albuterol sulfate 90 mcg/actuation 2 puff inhalation Q8H PRN 05/24/24 12/08/24 aerosol inhaler Shortness Of Breath Or Wheezing budesonide-formoterol HFA 80 1 inh inhalation BID PRN Shortness 05/24/24 12/08/24 mcg-4.5 mcg/actuation aerosol Of Breath Or Wheezing inhaler (Symbicort) ondansetron HCl 4 mg tablet 4 mg PO Q8H PRN Nausea And Vomiting 05/24/24 12/08/24 cyclobenzaprine 5 mg tablet 5 mg PO TID 09/10/24 12/08/24 magnesium oxide 400 mg (241.3 mg 400 mg PO DAILY 09/10/24 12/08/24 magnesium) tablet rimegepant 75 mg disintegrating 75 mg PO PRN PRN Migraine Headache 09/10/24 12/08/24 tablet (Nurtec ODT) triamcinolone acetonide 0.1 % 1 applic topical BID 09/10/24 12/08/24 topical ointment Allergies Allergy/AdvReac Type Severity Reaction Status Date / Time amoxicillin Allergy Severe ALGY-Hives Verified 01/16/25 13:37 cefuroxime (From Ceftin) Allergy Severe ALGY-Hives Verified 01/16/25 13:37 sulfamethoxazole (From Allergy Severe ALGY-Hives Verified 01/16/25 13:37 Bactrim) trimethoprim (From Bactrim) Allergy Severe ALGY-Hives Verified 01/16/25 13:37 adhesive Allergy Unknown Unknown Verified 01/16/25 13:37 ibuprofen Allergy Unknown Verified 01/16/25 13:37 metoclopramide (From Reglan) Allergy Unknown Verified 01/16/25 13:37 prochlorperazine (From Allergy ADR-Itching Verified 01/16/25 13:37 Compazine) Review of Systems Const: Reports: fever(s); Denies: chills, body aches or change in appetite ENMT: Denies: throat pain or dental pain Card: Denies: chest pain Resp: Denies: dyspnea GI: Denies: abdominal pain, nausea, vomiting or diarrhea Musc: Denies: neck pain or back pain Skin/Breast: Denies: rash Neuro: Denies: headache(s) PFSH ED PFSH: Medical History Dysautonomia POTS/ seeing Dr. 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 Ronald lewis at [facility]; getting Botox Chronic fatigue Abnormal thyroid blood test Hypermobility of joint Gastrostomy tube in place Jejunostomy tube in situ POTS (postural orthostatic tachycardia syndrome) Asthma sees Dr. 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 Wilkes Shower Maid at [facility] Anxiety Chronic sinusitis OCD (obsessive compulsive disorder) ITB syndrome Surgical History H/O exploratory laparotomy H/O oral surgery S/P FESS (functional endoscopic sinus surgery) Family History Family/Other Lung disease Asthma Father Hypertension Hyperlipidemia Grandmother Hypertension Dementia Stroke Grandfather Hypertension Stroke Grandfather Hypertension Denies family history of Diabetes CAD (coronary artery disease) Clotting disorder Chronic kidney disease (CKD) Suicide Anesthesia complication Bleeding disorder Cancer Social History Smoking and tobacco/nicotine status: never used tobacco/nicotine Alcohol intake: never Substance/Drug Use: never Lives independently: No Household members: family Marital status: Single Number of children: 0 Highest education level completed: Bachelor's Degree Current occupational status: student Current occupational exposures/hazards: No Pets and animals: Yes Pets & animals: dog(s) Do you think of yourself as: Straight/Heterosexual Current gender identity: Female Physical Exam Const: COMMON NORMALS: no acute distress, patient oriented x3 and healthy appearing HENMT: COMMON NORMALS: normocephalic and atraumatic HEAD & SCALP: normocephalic and atraumatic Neck/C-Spine: COMMON NORMALS: full ROM and supple Chest: COMMONS NORMALS: normal palpation of entire chest wall OTHER: Port in place to left upper chest no redness no drainage at this time Resp: COMMON NORMALS: normal respiratory effort, No retractions, No use of accessory muscles and clear to auscultation bilaterally AUSCULTATION: clear to auscultation bilaterally Cardio: COMMON NORMALS: regular rate, regular rhythm and No murmurs present (Cardio) RATE: regular rate RHYTHM: regular rhythm Extremity: COMMON NORMALS: normal to inspection and full ROM Neuro: COMMON NORMALS: patient oriented x3, moves all extremities and no focal motor deficits Psych: COMMON NORMALS: mental status grossly normal, Normal thought process present and cooperative THOUGHT PROCESS: Normal thought process present Skin: COMMON NORMALS: no rashes or lesions noted and no wounds GENERAL SKIN EXAM: no rashes or lesions noted Course Vital Signs: Vital signs: Vital Signs Temperature 98.1 F 01/16/25 13:31 Pulse Rate 116 H 01/16/25 13:31 Blood Pressure 105/71 01/16/25 13:31 Pulse Oximetry 99 01/16/25 13:31 Oxygen Delivery Me thod Room Air 01/16/25 13:31 MDM - Fever Medical Decision Making Patient presents here fever at home she is been well-appearing here afebrile blood work here is normal we will draw culture from her port she is already on doxycycline she is follow-up with PCP and follow with the cultures. Return if worsening Medical Records I reviewed the patient's medical records. Lab Data I reviewed the patient's lab results. 01/16/25 14:17 01/16/25 14:17 Radiology Impressions Chest X-Ray 01/16/25 13:55 IMPRESSION: No evidence for an acute cardiopulmonary process. Laboratory Results WBC 4.35 10^3/uL (3.29-11.43) 01/16/25 14:17 RBC 3.51 10^6/uL (3.85-5.65) L 01/16/25 14:17 Hgb 10.70 g/dL (11.27-16.99) L 01/16/25 14:17 Hct 31.8 % (36-47) L 01/16/25 14:17 MCV 90.6 fl (85-98) 01/16/25 14:17 MCH 30.5 pg (27-33) 01/16/25 14:17 MCHC 33.6 g/dL (30-55) 01/16/25 14:17 RDW 12.0 % (12.1-15.1) L 01/16/25 14:17 Plt Count 112 10^3/cmm (157-399) L 01/16/25 14:17 MPV 10.9 fL (7.4-10.4) H 01/16/25 14:17 Lymph % (Auto) Not Reportable 01/16/25 14:17 [place] % (Auto) Not Reportable 01/16/25 14:17 Lymph # (Auto) Not Reportable 01/16/25 14:17 [place] # (Auto) Not Reportable 01/16/25 14:17 Total Counted 100 (0-100) 01/16/25 14:17 Atypical Lymphs % 1.0 % (0-5) 01/16/25 14:17 Absolute Neutrophils 3.9 10^3/cmm (1.4-6.5) 01/16/25 14:17 Segmented Neutrophils 60 % 01/16/25 14:17 Band Neutrophils 30.0 % 01/16/25 14:17 Absolute Lymphocytes 0.2 10^3/cmm (1.2-3.4) L 01/16/25 14:17 Lymphocytes (Manual) 3 % 01/16/25 14:17 Monocytes (Manual) 5.0 % 01/16/25 14:17 Absolute Monocytes 0.2 10^3/cmm (0.1-0.6) 01/16/25 14:17 Eosinophils (Manual) 0 % 01/16/25 14:17 Absolute Eosinophils 0.0 10^3/cmm (0.0-0.7) 01/16/25 14:17 Basophils (Manual) 0.0 % 01/16/25 14:17 Absolute Basophils 0.0 10^3/cmm (0.0-0.2) 01/16/25 14:17 Myelocytes 1.0 % 01/16/25 14:17 Platelet Estimate Decreased (Normal) L 01/16/25 14:17 ESR 25 mm/hr (0-15) H 01/16/25 14:17 Sodium 134 mmol/L (136-145) L 01/16/25 14:17 Potassium 4.3 mmol/L (3.5-5.1) 01/16/25 14:17 Chloride 100 mmol/L (98-107) 01/16/25 14:17 Carbon Dioxide 22 mmol/L (22-29) 01/16/25 14:17 Anion Gap 16.3 (5-19) 01/16/25 14:17 BUN 20 mg/dL (6-20) 01/16/25 14:17 Creatinine 0.8 mg/dL (0.5-0.9) 01/16/25 14:17 GFR Calculation 84.8 mL/min (90-130) L 01/16/25 14:17 Glucose 108 mg/dL (65-115) 01/16/25 14:17 Calculated Osmolality 281 mOsm/kg (285-295) L 01/16/25 14:17 Calcium 9.3 mg/dL (8.5-10.5) 01/16/25 14:17 Phosphorus 1.6 mg/dL (2.5-4.5) L 01/16/25 14:17 Magnesium 1.6 mg/dL (1.7-2.3) L 01/16/25 14:17 Total Bilirubin 1.4 mg/dL (0.15-1.2) H 01/16/25 14:17 AST 80 U/L (0-32) H 01/16/25 14:17 ALT 119 U/L (0-33) H 01/16/25 14:17 Alkaline Phosphatase 168 U/L (35-105) H 01/16/25 14:17 Total Protein 6.8 g/dL (6.6-8.7) 01/16/25 14:17 Albumin 3.3 g/dL (3.5-5.2) L 01/16/25 14:17 Globulin 3.5 g/dL (1.3-4.6) 01/16/25 14:17 All radiology interpretation(s) finalized by discharge Discharge Plan Discharge Patient Disposition: Home Clinical Impression: Fever, unknown origin Condition: Stable Prescriptions: No Action epinephrine [Auvi-Q] 0.3 mg/0.3 mL auto-injector 0.3 mg IM Q10M PRN (Reason: Allergic Reaction) Rx Instructions: for 2 doses Emgality Syringe 120 mg/mL syringe 120 mg SUBCUT .MONTHLY gabapentin 300 mg Capsule 300 mg PO BID ondansetron HCl [Zofran] 4 mg Tablet 4 mg PO Q8H PRN (Reason: Nausea And Vomiting) albuterol sulfate [ProAir HFA] 90 mcg/actuation Hfa Aerosol Inhaler 2 puff INHALATION Q8H PRN (Reason: Shortness Of Breath Or Wheezing) budesonide-formoterol [Symbicort] 80-4.5 mcg/actuation Hfa Aerosol Inhaler 1 inh INHALATION BID PRN (Reason: Shortness Of Breath Or Wheezing) magnesium oxide 400 mg (241.3 mg magnesium) tablet 400 mg PO DAILY triamcinolone acetonide 0.1 % ointment 1 applic TOPICAL BID cyclobenzaprine 5 mg tablet 5 mg PO TID Nurtec ODT 75 mg tablet,disintegrating 75 mg PO PRN PRN (Reason: Migraine Headache) Discharge Orders: Discharge ED (Routine); Ordered 01/16/25 Ordered By: Edward Munguia Referrals: Rdaha Jameson MD [Primary Care Provider, Family Practice] - 4-7 days Discharge Diet: Advance as tolerated Discharge Activity: Resume usual activity Patient Instructions: Fever in Adults (ED) Print Language: Cameroonian 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 Code ED Lead Net Software Developer for Aristeo Montilla
[2025-01-16 14:27] LABS: Hematocrit 31.8 % (36-47); Mean Corpuscular HGB Conc 33.6 g/dL (30-55); Mean Corpuscular Hemoglobin 30.5 pg (27-33); Mean Corpuscular Volume 90.6 fl (85-98); Mean Platelet Volume 10.9 fL (7.4-10.4); Platelet Count 112 10^3/cmm (157-399); Red Blood Count 3.51 10^6/uL (3.85-5.65); White Blood Count 4.35 10^3/uL (3.29-11.43)
[2025-01-16 14:36] LABS: Erythrocyte Sedimentation Rate 25 mm/hr (0-15)
[2025-01-16 14:42] LABS: Alanine Aminotransferase 119 U/L (0-33); Albumin Level 3.3 g/dL (3.5-5.2); Alkaline Phosphatase 168 U/L (35-105); Anion Gap 16.3 (5-19); Aspartate Amino Transferase 80 U/L (0-32); Blood Urea Nitrogen 20 mg/dL (6-20); Calcium 9.3 mg/dL (8.5-10.5); Carbon Dioxide 22 mmol/L (22-29); Chloride 100 mmol/L (98-107); Creatinine Clr Calc Pharmacy 85.7943; Globulin 3.5 g/dL (1.3-4.6); Glomerular Filtration Rate 84.8 mL/min (90-130); Glucose 108 mg/dL (65-115); Magnesium 1.6 mg/dL (1.7-2.3); Osmolality Calculated 281 mOsm/kg (285-295); Phosphorus 1.6 mg/dL (2.5-4.5); Potassium 4.3 mmol/L (3.5-5.1); Sodium 134 mmol/L (136-145); Total Bilirubin 1.4 mg/dL (0.15-1.2); Total Protein 6.8 g/dL (6.6-8.7)
[2025-01-16 14:44] LABS: Slide Review Slide Review Perform
[2025-01-16 14:47] LABS: Absolute Segmented Neutrophil 2.6 10/cmm (1.6-7.1); Band Neutrophils Absolute 1.3 10^3/cmm (0.0-1.2); Lymphocytes 3 %; Lymphocytes Absolute 0.2 10^3/cmm (1.2-3.4); Monocytes Absolute 0.2 10^3/cmm (0.1-0.6); Segmented Neutrophils 60 %; Total Cells Counted 100 (0-100)
[2025-01-16 14:50] LABS: Absolute Neutrophil 3.9 10^3/cmm (1.4-6.5); Eosinophils 0 %; Platelet Estimate Decreased (Normal)
[2025-01-16 15:27] VITALS: BP 110/71; PULSE 88; O2SAT 97
--- NOTE | 2025-01-18 17:23 | DCPLANNER ---
This nurse received critical lab results regarding positive blood culture. This nurse attempted to call patient. VM was left for her to call the floor and if I was not available to ask for the charge nurse. Dr. Ascencio verbalized to contact patient and have her come back into the ER for assessment of the port and a redraw. He verbalized that if the patient has not had any fever or if there is no concerns that she can contact her PCP in the morning. I will relay the message to the charge nurse if I am unavailable when the patient calls.
== END 2025-01-16 15:28 | disposition home or self-care (01) ==
PROVIDERS: Emergency Provider Emergency Medicine; PCP Family Medicine
DX: R50.9 Fever, unspecified (principal); K31.84 Gastroparesis
CPT/HCPCS: 36415; 71045; 80053; 83735; 84100; 85007; 85025; 85651; 87040; 87077; 87150; 87186; 87205; 99284

== ENCOUNTER 2025-01-19 10:59 | Outpatient (CLI) | payer MEDICAID, SELFPAY ==
[2025-01-19 11:42] LABS: Hematocrit 32.2 % (36-47); Mean Corpuscular HGB Conc 33.2 g/dL (30-55); Mean Corpuscular Hemoglobin 29.6 pg (27-33); Mean Corpuscular Volume 89.2 fl (85-98); Mean Platelet Volume 9.9 fL (7.4-10.4); Platelet Count 224 10^3/cmm (157-399); Red Blood Count 3.61 10^6/uL (3.85-5.65); Red Cell Distribution Width 12.5 % (12.1-15.1); White Blood Count 9.41 10^3/uL (3.29-11.43)
[2025-01-19 12:00] LABS: Alanine Aminotransferase 50 U/L (0-33); Albumin Level 3.4 g/dL (3.5-5.2); Alkaline Phosphatase 161 U/L (35-105); Aspartate Amino Transferase 18 U/L (0-32); Blood Urea Nitrogen 29 mg/dL (6-20); Calcium 8.6 mg/dL (8.5-10.5); Carbon Dioxide 20 mmol/L (22-29); Chloride 104 mmol/L (98-107); Globulin 3.6 g/dL (1.3-4.6); Glomerular Filtration Rate 98.9 mL/min (90-130); Glucose 92 mg/dL (65-115); Osmolality Calculated 291 mOsm/kg (285-295); Sodium 138 mmol/L (136-145); Total Bilirubin 0.3 mg/dL (0.15-1.2)
[2025-01-19 12:22] LABS: Slide Review Slide Review Perform
[2025-01-19 12:25] LABS: Absolute Neutrophil 7.1 10^3/cmm (1.4-6.5); Absolute Segmented Neutrophil 6.5 10/cmm (1.6-7.1); Band Neutrophils Absolute 0.6 10^3/cmm (0.0-1.2); Eosinophils 0 %; Lymphocytes 13 %; Lymphocytes Absolute 1.3 10^3/cmm (1.2-3.4); Monocytes Absolute 0.6 10^3/cmm (0.1-0.6); Platelet Estimate Normal (Normal); Segmented Neutrophils 69 %; Total Cells Counted 100 (0-100)
== END 2025-01-19 11:00 | disposition home or self-care (01) ==
PROVIDERS: PCP Family Medicine; Visit Provider Family Medicine
DX: R50.9 Fever, unspecified (principal)
CPT/HCPCS: 36415; 80053; 85007; 85025

== ENCOUNTER 2025-01-19 12:57 | Inpatient (IN) | payer MEDICAID, SELFPAY ==
[2025-01-19] VITALS (8 sets, daily range): BP systolic 101–112; BP diastolic 64–77; PULSE 79–113; RESP 16–18; TEMP 36.7; O2SAT 95–100; BMI 22.4
--- NOTE | 2025-01-19 13:28 | W.ED.RECABL ---
HPI - Recheck/Abnormal Lab/Rx General: Chief Complaint: Recheck/Abnormal Lab/Rx Stated Complaint: abnormal labs Time Seen by Provider: 01/19/25 13:11 History of Present Illness: 29-year-old female who presents emergency room on a call back. She had 1 out of 4 positive blood cultures for Staph aureus. She has a history of bacterial endocarditis. Patient has a history of dysautonomia. She has had multiple episodes of bacteremia in the past. She reports she is still having a low-grade fever up to 100.5 she is currently on doxycycline from her primary care provider. She is on 100 mg twice a day that began 4 days ago. She denies any dysuria urgency or frequency cough or shortness of breath Related Data Home Medications ?Medication ?Instructions ?Recorded ?Confirmed epinephrine 0.3 mg/0.3 mL 0.3 mg IM Q10M PRN Allergic 01/10/20 01/19/25 injection, auto-injector (Auvi-Q) Reaction galcanezumab-gnlm 120 mg/mL 120 mg SUBCUT .MONTHLY 10/29/22 01/19/25 subcutaneous syringe (Emgality) gabapentin 300 mg capsule 300 mg PO BID 03/12/23 01/19/25 albuterol sulfate 90 mcg/actuation 2 puff inhalation Q8H PRN 05/24/24 01/19/25 aerosol inhaler Shortness Of Breath Or Wheezing budesonide-formoterol HFA 80 1 inh inhalation BID PRN Shortness 05/24/24 01/19/25 mcg-4.5 mcg/actuation aerosol Of Breath Or Wheezing inhaler (Symbicort) ondansetron HCl 4 mg tablet 4 mg PO Q8H PRN Nausea And Vomiting 05/24/24 01/19/25 cyclobenzaprine 5 mg tablet 5 mg PO TID 09/10/24 01/19/25 magnesium oxide 400 mg (241.3 mg 400 mg PO DAILY 09/10/24 01/19/25 magnesium) tablet rimegepant 75 mg disintegrating 75 mg PO PRN PRN Migraine Headache 09/10/24 01/19/25 tablet (Nurtec ODT) doxycycline hyclate 100 mg tablet 100 mg PO BID 01/19/25 01/19/25 fexofenadine 30 mg/5 mL oral 10 mg PO BID PRN allergies 01/19/25 01/19/25 suspension (Children's Allergy Relief (fexofenadine)) lubiprostone 8 mcg capsule 8 mcg PO BID 01/19/25 01/19/25 prednisone 20 mg tablet 20 mg PO QAM 01/19/25 01/19/25 tacrolimus 0.03 % topical ointment 1 applic topical BID 01/19/25 01/19/25 Allergies Allergy/AdvReac Type Severity Reaction Status Date / Time amoxicillin Allergy Severe ALGY-Hives Verified 01/16/25 13:37 cefuroxime (From Ceftin) Allergy Severe ALGY-Hives Verified 01/16/25 13:37 sulfamethoxazole (From Allergy Severe ALGY-Hives Verified 01/16/25 13:37 Bactrim) trimethoprim (From Bactrim) Allergy Severe ALGY-Hives Verified 01/16/25 13:37 adhesive Allergy Unknown Unknown Verified 01/16/25 13:37 ibuprofen Allergy Unknown Verified 01/16/25 13:37 metoclopramide (From Reglan) Allergy Unknown Verified 01/16/25 13:37 prochlorperazine (From Allergy ADR-Itching Verified 01/16/25 13:37 Compazine) Review of Systems Const: Reports: fever(s); Denies: chills Card: Denies: chest pain Resp: Denies: dyspnea GI: Denies: abdominal pain : Denies: dysuria, urinary frequency or urinary urgency Musc: Denies: neck pain or back pain Skin/Breast: Denies: rash PFSH ED PFSH: Medical History Fever Dysautonomia POTS/ seeing Dr. Lisa Jara cardio EP Hx of pulmonary embolus from endocarditis due to port a cath infection Hx of bacterial endocarditis Strep epi of Tricuspid valve due to infection from port a cath; treated w/ daptomycin History of infection following procedure Generalized dysmotility of intestine Chronic constipation Nondiabetic gastroparesis M[facility] GI: Dr. 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 Ronald lewis at [facility]; getting Botox Chronic fatigue Abnormal thyroid blood test Hypermobility of joint Gastrostomy tube in place Jejunostomy tube in situ POTS (postural orthostatic tachycardia syndrome) Asthma sees Dr. Wilkes metal grader at [facility] Depression Allergic rhinitis Sees Dr. 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 Scorer at [facility] Anxiety Chronic sinusitis OCD (obsessive compulsive disorder) ITB syndrome Surgical History H/O exploratory laparotomy H/O oral surgery S/P FESS (functional endoscopic sinus surgery) Family History Family/Other Lung disease Asthma Father Hypertension Hyperlipidemia Grandmother Hypertension Dementia Stroke Grandfather Hypertension Stroke Grandfather Hypertension Denies family history of Diabetes CAD (coronary artery disease) Clotting disorder Chronic kidney disease (CKD) Suicide Anesthesia complication Bleeding disorder Cancer Social History Smoking and tobacco/nicotine status: never used tobacco/nicotine Alcohol intake: never Substance/Drug Use: never Lives independently: No Household members: family Marital status: Single Number of children: 0 Highest education level completed: Bachelor's Degree Current occupational status: student Current occupational exposures/hazards: No Pets and animals: Yes Pets & animals: dog(s) Do you think of yourself as: Straight/Heterosexual Current gender identity: Female Physical Exam Const: COMMON NORMALS: no acute distress GENERAL APPEARANCE: cooperative and comfortable ORIENTATION/CONSCIOUSNESS: Yes awake, Yes oriented to person, Yes oriented to place and Yes oriented to time HENMT: COMMON NORMALS: normocephalic, atraumatic and hearing grossly normal bilaterally HEAD & SCALP: normocephalic and atraumatic Resp: COMMON NORMALS: normal respiratory effort, No retractions, No use of accessory muscles and clear to auscultation bilaterally AUSCULTATION: clear to auscultation bilaterally Cardio: COMMON NORMALS: regular rate, regular rhythm and No murmurs present (Cardio) RATE: regular rate RHYTHM: regular rhythm GI: COMMON NORMALS: Soft to palpation and No hepatosplenomegaly present AUSCULTATION: Yes normoactive bowel sounds PALPATION: Yes Soft to palpation, No Tenderness to palpation present (GI), No Guarding due to palpation present (GI) and Yes No hepatosplenomegaly present Extremity: COMMON NORMALS: normal to inspection, capillary refill normal, no clubbing, cyanosis or edema, no calf tenderness and no pedal edema Neuro: SENSORIUM/ORIENTATION: Yes oriented to person, Yes oriented to place and Yes oriented to time Skin: COMMON NORMALS: no rashes or lesions noted GENERAL SKIN EXAM: no rashes or lesions noted Course Vital Signs: Vital signs: Vital Signs Temperature 98.0 F 01/19/25 13:13 Pulse Rate 100 01/19/25 14:09 Respiratory Rate 18 01/19/25 14:09 Blood Pressure 108/68 01/19/25 14:09 Pulse Oximetry 99 01/19/25 14:09 Oxygen Delivery Me thod Room Air 01/19/25 14:09 MDM - Recheck/Abnormal Lab/Rx Medical Decision Making Patient reporting low-grade fevers versus CRP is elevated her white count is normal and the Staph aureus is concerning especially since she has a port in place. Blood cultures are repeated will start on vancomycin discussed Dr. Church will admit. A second culture was taken from the port. Likely the port will have to be removed. Discussed with the patient as well. Medical Records I reviewed the patient's medical records. Lab Data I reviewed the patient's lab results. 01/19/25 13:21 01/19/25 13:21 Laboratory Results WBC 9.60 10^3/uL (3.29-11.43) 01/19/25 13:21 RBC 3.74 10^6/uL (3.85-5.65) L 01/19/25 13:21 Hgb 11.10 g/dL (11.27-16.99) L 01/19/25 13:21 Hct 34.1 % (36-47) L 01/19/25 13:21 MCV 91.2 fl (85-98) 01/19/25 13:21 MCH 29.7 pg (27-33) 01/19/25 13:21 MCHC 32.6 g/dL (30-55) 01/19/25 13:21 RDW 12.7 % (12.1-15.1) 01/19/25 13:21 Plt Count 200 10^3/cmm (157-399) 01/19/25 13:21 MPV 10.0 fL (7.4-10.4) 01/19/25 13:21 Neut % (Auto) 76.2 % 01/19/25 13:21 Lymph % (Auto) 7.5 % 01/19/25 13:21 [place] % (Auto) 7.3 % 01/19/25 13:21 Eos % (Auto) 0.0 % 01/19/25 13:21 Baso % (Auto) 0.6 % 01/19/25 13:21 Neut # (Auto) 7.31 10^3/uL (1.8-7.7) 01/19/25 13:21 Lymph # (Auto) 0.7 10^3/uL (0.8-4.8) L 01/19/25 13:21 [place] # (Auto) 0.7 10^3/uL (0.2-0.9) 01/19/25 13:21 Eos # (Auto) 0.0 10^3/uL (0.0-0.8) 01/19/25 13:21 Baso # (Auto) 0.1 10^3/uL (0.0-0.1) 01/19/25 13:21 Nucleated RBC % (auto) 0 % 01/19/25 13:21 Nucleated RBCs # 0.0 /100WBC 01/19/25 13:21 Sodium 138 mmol/L (136-145) 01/19/25 13:21 Potassium 3.8 mmol/L (3.5-5.1) 01/19/25 13:21 Chloride 102 mmol/L (98-107) 01/19/25 13:21 Carbon Dioxide 22 mmol/L (22-29) 01/19/25 13:21 Anion Gap 17.8 (5-19) 01/19/25 13:21 BUN 27 mg/dL (6-20) H 01/19/25 13:21 Creatinine 0.8 mg/dL (0.5-0.9) 01/19/25 13:21 GFR Calculation 84.8 mL/min (90-130) L 01/19/25 13:21 Glucose 139 mg/dL (65-115) H 01/19/25 13:21 Calculated Osmolality 293 mOsm/kg (285-295) 01/19/25 13:21 Calcium 8.7 mg/dL (8.5-10.5) 01/19/25 13:21 Total Bilirubin 0.3 mg/dL (0.15-1.2) 01/19/25 13:21 AST 21 U/L (0-32) 01/19/25 13:21 ALT 51 U/L (0-33) H 01/19/25 13:21 Alkaline Phosphatase 162 U/L (35-105) H 01/19/25 13:21 C-Reactive Protein 48.0 mg/L (0.0-4.9) H 01/19/25 13:21 Total Protein 7.3 g/dL (6.6-8.7) 01/19/25 13:21 Albumin 3.5 g/dL (3.5-5.2) 01/19/25 13:21 Globulin 3.8 g/dL (1.3-4.6) 01/19/25 13:21 No radiology studies performed this visit Discharge Plan Discharge Patient Disposition: Admitted As Inpatient Clinical Impression: Septicemia due to Staphylococcus aureus, Port-A-Cath in place Condition: Stable 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 Code ED Insurance Claim Approver for Aristeo Montilla
[2025-01-19 13:43] LABS: Hematocrit 34.1 % (36-47); Mean Corpuscular HGB Conc 32.6 g/dL (30-55); Mean Corpuscular Hemoglobin 29.7 pg (27-33); Mean Corpuscular Volume 91.2 fl (85-98); Platelet Count 200 10^3/cmm (157-399); Red Blood Count 3.74 10^6/uL (3.85-5.65); Red Cell Distribution Width 12.7 % (12.1-15.1)
[2025-01-19 14:03] LABS: Alanine Aminotransferase 51 U/L (0-33); Albumin Level 3.5 g/dL (3.5-5.2); Alkaline Phosphatase 162 U/L (35-105); Anion Gap 17.8 (5-19); Aspartate Amino Transferase 21 U/L (0-32); Blood Urea Nitrogen 27 mg/dL (6-20); Calcium 8.7 mg/dL (8.5-10.5); Carbon Dioxide 22 mmol/L (22-29); Chloride 102 mmol/L (98-107); Creatinine Clr Calc Pharmacy 85.7943; Globulin 3.8 g/dL (1.3-4.6); Glomerular Filtration Rate 84.8 mL/min (90-130); Glucose 139 mg/dL (65-115); Osmolality Calculated 293 mOsm/kg (285-295); Potassium 3.8 mmol/L (3.5-5.1); Sodium 138 mmol/L (136-145); Total Bilirubin 0.3 mg/dL (0.15-1.2); Total Protein 7.3 g/dL (6.6-8.7)
[2025-01-19] MEDS: sodium chloride 0.9% 1,000 ML 999 ML IV ×2 (14:06)
--- NOTE | 2025-01-19 14:08 | PC.NURSE ---
PT REPORTS SHE HAS BEEN HAVING FEVERS AT HOME. PT REPORTS SHE WENT TO URGENT CARE WHERE THEY SUSPECTED PNEUMONIA AND PLACED PT ON DOXY. PT REPORTS FIRST FEVER WAS LAST THURSDAY
[2025-01-19 14:30] LABS: Basophils # 0.1 10^3/uL (0.0-0.1); Basophils % 0.6 %; Lymphocytes # 0.7 10^3/uL (0.8-4.8); Lymphocytes % 7.5 %; Monocytes # 0.7 10^3/uL (0.2-0.9); Monocytes % 7.3 %; Neutrophils # 7.31 10^3/uL (1.8-7.7); Neutrophils % 76.2 %; Nucleated Red Blood Cells % 0 %
[2025-01-19 14:32] LABS: Slide Review Slide Review Perform
[2025-01-19] MEDS: VANCOMYCIN ADD-Vantage 1,000 MG in 0.9% NaCl ADD-Vantage 250 ML 250 MG IV (15:49)
[2025-01-19 17:17] LABS: Lactic Sepsis W/Reflex 0.6 mmol/L (0.5-2.2)
--- NOTE | 2025-01-19 17:19 | PM.HP ---
Providers/Chief Complaint Admitting Physician: Rowan Church MD Primary Care Provider: Radha Jameson MD Chief Complaint: abnormal labs History of Present Illness Anastasiia Damon is a 29 year old female with past medical history of POTS, chronic gastroparesis, chronically on TPN for nutrition every night, J-tube, gastrostomy tube in place for trickle feeds, history of Staphylococcus epidermidis bacteremia from port infection back in June 2024 with tricuspid valve endocarditis for which she finished course of treatment in July 2024 with IV vancomycin. Eventually patient had port placed again earlier this year. Patient has been having fever which has been low-grade for last 1 week with a high-grade fever once on Thursday. Today is . She had oozing from her port when it was deaccessed on Thursday. She had come to the ER on that day and blood cultures were taken. Blood cultures from that day 1 out of 4 bottles turned out positive for Staph aureus today and she was called in. Patient herself denies any symptoms, nausea, vomiting, headache, dizziness or body pains. At first patient's family wanted patient to be transferred to [facility] in [place] where all her physicians are from past. It seems as per ER communication [facility] does not have bed so they declined transfer. Patient for now wants to be admitted at [facility] hence hospitalist was consulted. Review of Systems General: Reports: 10 or more systems reviewed and unremarkable except in HPI and below Const: Denies: fever(s), chills, body aches, change in appetite, change in weight, malaise, night sweats, diaphoresis, change in sleep pattern, daytime sleepiness or snoring Eyes: Denies: change in vision, blurry vision, photophobia, eye discomfort or eye discharge ENMT: Denies: throat pain, enlarged tonsils, hoarseness, mouth pain, oral sores, dry mouth, tinnitus, nasal congestion or post nasal drip Card: Denies: chest pain, palpitations, irregular heart rhythm, edema, swelling of feet/ankles, lightheadedness, syncope, pre-syncope, dyspnea on exertion, orthopnea, leg pain with exertion or acrocyanosis Resp: Denies: dyspnea, productive cough, non-productive cough, wheezing, stridor, pain on inspiration, change in phlegm color, hemoptysis or chest congestion GI: Denies: abdominal pain, nausea, vomiting, hematemesis, coffee ground emesis, dysphagia, heartburn, diarrhea, constipation, bloating, GI cramping, change in bowel habits, pain on defecation, hematochezia or melena : Denies: flank pain, dysuria, urinary frequency, urinary urgency, urinary hesitancy, nocturia or hematuria Musc: Denies: neck pain, back pain, extremity pain, joint pain, joint swelling, joint redness, joint stiffness or limited range of motion Neuro: Denies: headache(s), numbness in extremities, weakness in extremities, sensory changes, lack of coordination, difficulty walking, frequent falls, dizziness, vertigo, confusion, Slurred speech present, difficulty communicating thoughts or seizure-like activity Psych: Denies: anxiety, depression, mood swings, panic attacks, hopelessness or irritability Endo: Denies: polyuria, polydipsia, tired all the time, cold intolerance, excessive sweating, flushing or heat intolerance Hood/Lymph: Denies: easy bruising or easy bleeding All/Imm: Denies: tongue swelling, facial swelling or acute wheezing Medications/Allergies Home Medications ?Medication ?Instructions ?Recorded ?Confirmed ?Last Taken ?Type epinephrine 0.3 mg/0.3 mL 0.3 mg IM Q10M PRN Allergic 01/10/20 01/19/25 06/30/23 History injection, auto-injector (Auvi-Q) Reaction galcanezumab-gnlm 120 mg/mL 120 mg SUBCUT .MONTHLY 10/29/22 01/19/25 12/22/24 History subcutaneous syringe (Emgality) gabapentin 300 mg capsule 300 mg PO BID 03/12/23 01/19/25 01/19/25 History albuterol sulfate 90 mcg/actuation 2 puff inhalation Q8H PRN 05/24/24 01/19/25 09/19/24 History aerosol inhaler Shortness Of Breath Or Wheezing budesonide-formoterol HFA 80 1 inh inhalation BID PRN Shortness 05/24/24 01/19/25 09/19/24 History mcg-4.5 mcg/actuation aerosol Of Breath Or Wheezing inhaler (Symbicort) ondansetron HCl 4 mg tablet 4 mg PO Q8H PRN Nausea And Vomiting 05/24/24 01/19/25 09/19/24 History cyclobenzaprine 5 mg tablet 5 mg PO TID 09/10/24 01/19/25 01/19/25 History magnesium oxide 400 mg (241.3 mg 400 mg PO DAILY 09/10/24 01/19/25 09/19/24 History magnesium) tablet rimegepant 75 mg disintegrating 75 mg PO PRN PRN Migraine Headache 09/10/24 01/19/25 09/19/24 History tablet (Nurtec ODT) doxycycline hyclate 100 mg tablet 100 mg PO BID 01/19/25 01/19/25 01/19/25 History fexofenadine 30 mg/5 mL oral 10 mg PO BID PRN allergies 01/19/25 01/19/25 Unknown History suspension (Children's Allergy Relief (fexofenadine)) lubiprostone 8 mcg capsule 8 mcg PO BID 01/19/25 01/19/25 01/19/25 History prednisone 20 mg tablet 20 mg PO QAM 01/19/25 01/19/25 01/19/25 History tacrolimus 0.03 % topical ointment 1 applic topical BID 01/19/25 01/19/25 01/19/25 History Allergies Allergy/AdvReac Type Severity Reaction Status Date / Time amoxicillin Allergy Severe ALGY-Hives Verified 01/16/25 13:37 cefuroxime (From Ceftin) Allergy Severe ALGY-Hives Verified 01/16/25 13:37 sulfamethoxazole (From Allergy Severe ALGY-Hives Verified 01/16/25 13:37 Bactrim) trimethoprim (From Bactrim) Allergy Severe ALGY-Hives Verified 01/16/25 13:37 adhesive Allergy Unknown Unknown Verified 01/16/25 13:37 ibuprofen Allergy Unknown Verified 01/16/25 13:37 metoclopramide (From Reglan) Allergy Unknown Verified 01/16/25 13:37 prochlorperazine (From Allergy ADR-Itching Verified 01/16/25 13:37 Compazine) PFSH Acute PFSH: Medical History Fever Dysautonomia POTS/ seeing Dr. 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 Alvarez Chronic idiopathic urticaria sees Dr. Bryant leadership development consultant On total parenteral nutrition (TPN) Jara Train Control Electronic Technician Chronic migraine Dr. Ronald lewis at [facility]; getting Botox Chronic fatigue Abnormal thyroid blood test Hypermobility of joint Gastrostomy tube in place Jejunostomy tube in situ POTS (postural orthostatic tachycardia syndrome) Asthma sees Dr. Wilkes leadership development consultant at [facility] Depression Allergic rhinitis Sees Dr. Wilkes Oral And Maxillofacial Pathologist at [facility] Anxiety Chronic sinusitis OCD (obsessive compulsive disorder) ITB syndrome Surgical History H/O exploratory laparotomy H/O oral surgery S/P FESS (functional endoscopic sinus surgery) Family History Family/Other Lung disease Asthma Father Hypertension Hyperlipidemia Grandmother Hypertension Dementia Stroke Grandfather Hypertension Stroke Grandfather Hypertension Denies family history of Diabetes CAD (coronary artery disease) Clotting disorder Chronic kidney disease (CKD) Suicide Anesthesia complication Bleeding disorder Cancer Social History Smoking and tobacco/nicotine status: never used tobacco/nicotine Alcohol intake: never Substance/Drug Use: never Lives independently: No Household members: family Marital status: Single Number of children: 0 Highest education level completed: Bachelor's Degree Current occupational status: student Current occupational exposures/hazards: No Pets and animals: Yes Pets & animals: dog(s) Do you think of yourself as: Straight/Heterosexual Current gender identity: Female Vitals/I&O/Wt Last Vital Signs Temp 98.0 F 01/19/25 13:13 Pulse 79 01/19/25 15:30 Resp 18 01/19/25 15:30 BP 103/69 01/19/25 15:30 Pulse Ox 100 01/19/25 15:30 O2 Del Method Room Air 01/19/25 14:30 01/19/25 01/19/25 01/19/25 06:59 14:59 22:59 Intake Total 0 / 0 1000 / 1000 Balance 0 / 0 1000 / 1000 Weight last 48 hrs Weight 55.792 kg Physical Exam Narrative: General: No acute distress, AO x3, pallor present, port in place with no swelling with mild oozing serosanguineous HEENT: PERRLA, pupils bilaterally equal and reactive Chest: Normal vesicular breath sounds, no added sounds, equal good air entry bilaterally CVS: S1-S2 regular, no murmurs, no tachycardia, no gallops, no rubs Abdomen: Soft, nontender, no organomegaly, bowel sounds present Neuro: No focal deficits, no facial deformity, AO x3, power 5/5 in all limbs Data 01/20/25 03:02 01/20/25 03:02 Micro: Microbiology 01/19/25 13:52 Blood Culture - Preliminary Blood SPECIMEN COLLECTED 01/19/25 13:21 Blood Culture - Preliminary Blood SPECIMEN COLLECTED A&P Assessment and plan (1) Septicemia due to Staphylococcus aureus: (2) Hx of bacterial endocarditis: (3) Infection due to Port-A-Cath: (4) POTS (postural orthostatic tachycardia syndrome): (5) Hx of pulmonary embolus: (6) Nondiabetic gastroparesis: (7) Jejunostomy tube in situ: (8) Gastrostomy tube in place: (9) Dysautonomia: Plan 29-year-old with chronic port in place for nutrition for TPN due to gastroparesis, dysautonomia, POTS with J-tube and G-tube in place with history of staff epidermidis bacteremia back in July 17 due to port infection and tricuspid valve endocarditis presents to the hospital today because of blood culture positive for Staph aureus with concerns for port infection. Blood culture from 01/16 1 out of 4 bottles positive for Staph aureus. Has port in place. History of staff epidermidis bacteremia due to tricuspid valve endocarditis back in June 2024. Finished course of IV vancomycin in July 2024. Port replaced earlier this year. High concerns for infective endocarditis again. Repeat blood culture, check lactate, trend procalcitonin. Empirically start on IV vancomycin for now. Patient is allergic to penicillins. Await sensitivities. Will consult infectious disease for further recommendations. Patient will most likely need 6 weeks of IV antibiotics after negative blood cultures. Will need an echocardiogram and YARED to rule out endocarditis. Has history of tricuspid valve endocarditis in the past. Will consult surgery for port removal. Will repeat repeat blood cultures 24 hours after removal of port. Gastroparesis: Takes TPN every night for nutrition. For now patient will not have any central access peripheral line so we will switch to PPN. Continue with home trickle feeds. History of PE: Not on AC currently Heparin for DVT PPx around port removal Full code Protonix for PUD prophylaxis SCD for DVT prophylaxis, heparin after port removal PDMP PDMP Reviewed: Not Reviewed Attestations Medical Necessity Statement*: Admission for more than 2 midnights for management of Staph aureus bacteremia in setting of port infection with high concerns for infective endocarditis Diagnoses Septicemia due to Staphylococcus aureus A41.01 Hx of bacterial endocarditis Z86.79 Infection due to Port-A-Cath T80.219A POTS (postural orthostatic tachycardia syndrome) G90.A Hx of pulmonary embolus Z86.711 Nondiabetic gastroparesis K31.84 Jejunostomy tube in situ Z93.[address] Z93.1 Dysautonomia G90.1
--- NOTE | 2025-01-19 17:20 | PC.NURSE ---
PT CALLED NURSE INTO ROOM. PT REPORTS HER PEG TUBE HAS FALL EN OUT. PT PEG TUBE BALLOON IS CLOSE BECOMING DISLODGED. NOTIFIED DR. JAIN
[2025-01-19 17:36] LABS: Procalcitonin 0.21 ng/mL (0-0.5)
--- NOTE | 2025-01-19 17:46 | XRR_ITS ---
PROCEDURE INFORMATION: Exam: XR Abdomen Exam date and time: 01/19/2025 7:12 PM Age: 29 years old Clinical indication: Device placement; Gi device; Jejunostomy; Additional info: Check jejunostomy tube placement, 30 to 60 ml gastrografin just prior to x-ray, 50ml gastrografin given via jejunostomy tube immediately prior to 2nd x-ray TECHNIQUE: Imaging protocol: Radiologic exam of the abdomen. Views: Frontal supine view of the abdomen. 1 View. Other contrast: jejunostomy tube; COMPARISON: CR XR KUB [id number] 04/04/2024 3:09 PM FINDINGS: Tubes, catheters and devices: Gastrografin contrast was administered through the jejunostomy tube. Contrast is seen within jejunal small bowel. No extravasation identified. Gastrointestinal tract: Nonspecific bowel gas pattern otherwise. Bones/joints: Unremarkable. XR/XR KUB portable [id number] IMPRESSION: Gastrografin contrast was administered through the jejunostomy tube with identification of contrast within jejunal small bowel.
--- NOTE | 2025-01-19 17:57 | PC.NURSE ---
PT J TUBE REPLACED WITH 16FR JEJUNAL FEEDING TUBE BY DR. JAIN
[2025-01-19 18:11] LABS: Creatine Phosphokinase 32 U/L (26-192)
[2025-01-19] MEDS: diatrizoate meglumine 120 mL Sol XX (20:25)
[2025-01-19 20:26] LABS: Vitamin B12 > 2000 pg/mL (232-1245)
[2025-01-19] MEDS: ondansetron 2 mg/ML SDV 2 mL 4 MG IVP (20:49)
[2025-01-19] MEDS: acetaminophen 325 mg Tablet 650 MG PO (21:34)
[2025-01-19] MEDS: gabapentin 300 mg Capsule PO (21:35)
[2025-01-19] MEDS: cyclobenzaprine 10 mg Tablet 5 MG PO (21:35)
[2025-01-19] MEDS: docusate sodium 100 mg Capsule PO (21:35)
--- NOTE | 2025-01-19 21:38 | PC.NURSE ---
pt requesting port to be de accessed. port de accessed with heparin flush as documented in OCT. pt provided hospital bed.
--- NOTE | 2025-01-19 21:49 | PC.NURSE ---
pt states that she has BM roughly every 14-18 days d/t chronic gastroparesis. pt states this is normal but does typically require an enema. last BM documented in admission and physical assessment. pt reports nausea daily, does take zofran for it. emesis episodes primarily only occur when eating food PO. PEG and J tube in place. pt uses PEG tube for actual food, draining, and drink d/t severe n/v when PO intake occurs. J tube used for feedings which are as tolerated and vary. pt uses vivonex formula, runs 10 mL/hr for roughly 30 min at a time or until GI upset occurs. pt has all her supplies and does not need any at this time. pt aware of NPO status.
[2025-01-20] VITALS (17 sets, daily range): BP systolic 90–111; BP diastolic 47–71; PULSE 82–126; RESP 15–18; TEMP 36.8–37.2; O2SAT 95–100; BMI 22.4
--- NOTE | 2025-01-20 01:34 | PC.NURSE ---
report given to teja multani.
[2025-01-20 03:14] LABS: Basophils % 0.4 %; Eosinophils % 0.1 %; Lymphocytes # 1.2 10^3/uL (0.8-4.8); Lymphocytes % 13.4 %; Mean Corpuscular HGB Conc 32.5 g/dL (30-55); Mean Corpuscular Hemoglobin 29.5 pg (27-33); Mean Corpuscular Volume 90.7 fl (85-98); Mean Platelet Volume 9.6 fL (7.4-10.4); Monocytes # 0.9 10^3/uL (0.2-0.9); Monocytes % 9.7 %; Neutrophils # 6.37 10^3/uL (1.8-7.7); Neutrophils % 71.2 %; Nucleated Red Blood Cells % 0 %; Platelet Count 193 10^3/cmm (157-399); Red Blood Count 3.53 10^6/uL (3.85-5.65); Red Cell Distribution Width 12.7 % (12.1-15.1); White Blood Count 8.96 10^3/uL (3.29-11.43)
[2025-01-20] MEDS: acetaminophen 325 mg Tablet 650 MG PO ×2 (03:18→20:21)
[2025-01-20] MEDS: ondansetron 2 mg/ML SDV 2 mL 4 MG IVP ×3 (03:19→20:22)
[2025-01-20] MEDS: VANCOMYCIN ADD-Vantage 1,000 MG in 0.9% NaCl ADD-Vantage 250 ML 250 MG IV ×2 (03:20→14:58)
[2025-01-20 03:35] LABS: Alanine Aminotransferase 36 U/L (0-33); Albumin Level 3.1 g/dL (3.5-5.2); Alkaline Phosphatase 134 U/L (35-105); Anion Gap 14.5 (5-19); Aspartate Amino Transferase 14 U/L (0-32); Blood Urea Nitrogen 17 mg/dL (6-20); Calcium 8.1 mg/dL (8.5-10.5); Carbon Dioxide 22 mmol/L (22-29); Chloride 108 mmol/L (98-107); Chol HDL Ratio 7.44 mg/dL (0.0-4.40); Cholesterol 119 mg/dL (0-200); Creatinine Clr Calc Pharmacy 100.5981; Globulin 3.2 g/dL (1.3-4.6); Glomerular Filtration Rate 98.9 mL/min (90-130); Glucose 74 mg/dL (65-115); HDL Cholesterol 16 mg/dL (60-100); LDL Cholesterol Calculated 67 mg/dL (50-129); LDL HDL Ratio 4.19 RATIO (0.00-3.22); Magnesium 1.9 mg/dL (1.7-2.3); Osmolality Calculated 292 mOsm/kg (285-295); Phosphorus 2.2 mg/dL (2.5-4.5); Potassium 3.5 mmol/L (3.5-5.1); Sodium 141 mmol/L (136-145); Total Bilirubin 0.4 mg/dL (0.15-1.2); Total Protein 6.3 g/dL (6.6-8.7); Triglycerides 179 mg/dL (0-150)
[2025-01-20 03:41] LABS: Procalcitonin 0.24 ng/mL (0-0.5)
[2025-01-20 03:55] LABS: Slide Review Slide Review Perform
[2025-01-20 05:28] LABS: Folate Level 16.4 ng/mL (4.8-37.3)
--- NOTE | 2025-01-20 06:21 | ANES.PREANE2 ---
Pre-Anesthetic Assessment Height/Weight: Height 5 ft 2 in Weight 130 lb 8 oz Temp Pulse Resp BP Pulse Ox O2 Del Method 98.0 F 99 16 109/71 100 Room Air 01/19/25 13:13 01/20/25 03:24 01/20/25 03:24 01/20/25 03:24 01/20/25 03:24 01/20/25 03:24 Preop Diagnosis: Port infection Operation Date: 01/20/25 08:00 Proposed Procedures p Portacath Removal(Not Applicable) - Rogelio Redmond MD Was Beta Karly taken within 24 hours: N/A Was Clonidine taken within 24 hours: N/A Social No alcohol and No tobacco Exam alert, oriented x 3, clear to auscultation bilaterally and regular rate & rhythm Airway Submandibular: within normal limits Cervical ROM: within normal limits Mallampati: Class II Dentition: full Anesthetic Plan ASA status: 3 Anesthesia: MAC Other: Patient presents to the ER yesterday with concerns of infected port. Febrile at admission with positive blood cultures No prior issues with anesthesia Patient has a port in her left upper chest for TPN feedings for gastroparesis Patient has a history of dysautonomia/POTS Prior PE from endocarditis due to port infection Patient has a gastrostomy tube in place Labs reviewed from today, hemoglobin 10.4, WBC 8.9, Prior EKG showing sinus tachycardia with mildly short FL interval Plan for MAC anesthesia Medications/Allergies Home Medications ?Medication ?Instructions ?Recorded ?Confirmed ?Last Taken ?Type epinephrine 0.3 mg/0.3 mL 0.3 mg IM Q10M PRN Allergic 01/10/20 01/19/25 06/30/23 History injection, auto-injector (Auvi-Q) Reaction galcanezumab-gnlm 120 mg/mL 120 mg SUBCUT .MONTHLY 10/29/22 01/19/25 12/22/24 History subcutaneous syringe (Emgality) gabapentin 300 mg capsule 300 mg PO BID 03/12/23 01/19/25 01/19/25 History albuterol sulfate 90 mcg/actuation 2 puff inhalation Q8H PRN 05/24/24 01/19/25 09/19/24 History aerosol inhaler Shortness Of Breath Or Wheezing budesonide-formoterol HFA 80 1 inh inhalation BID PRN Shortness 1001/19/25 09/19/24 History mcg-4.5 mcg/actuation aerosol Of Breath Or Wheezing inhaler (Symbicort) ondansetron HCl 4 mg tablet 4 mg PO Q8H PRN Nausea And Vomiting 05/24/24 01/19/25 09/19/24 History cyclobenzaprine 5 mg tablet 5 mg PO TID 09/10/24 01/19/25 01/19/25 History magnesium oxide 400 mg (241.3 mg 400 mg PO DAILY 09/10/24 01/19/25 09/19/24 History magnesium) tablet rimegepant 75 mg disintegrating 75 mg PO PRN PRN Migraine Headache 09/10/24 01/19/25 09/19/24 History tablet (Nurtec ODT) doxycycline hyclate 100 mg tablet 100 mg PO BID 01/19/25 01/19/25 01/19/25 History fexofenadine 30 mg/5 mL oral 10 mg PO BID PRN allergies 01/19/25 01/19/25 Unknown History suspension (Children's Allergy Relief (fexofenadine)) lubiprostone 8 mcg capsule 8 mcg PO BID 01/19/25 01/19/25 01/19/25 History prednisone 20 mg tablet 20 mg PO QAM 01/19/25 01/19/25 01/19/25 History tacrolimus 0.03 % topical ointment 1 applic topical BID 01/19/25 01/19/25 01/19/25 History Allergies Allergy/AdvReac Type Severity Reaction Status Date / Time amoxicillin Allergy Severe ALGY-Hives Verified 01/16/25 13:37 cefuroxime (From Ceftin) Allergy Severe ALGY-Hives Verified 01/16/25 13:37 sulfamethoxazole (From Allergy Severe ALGY-Hives Verified 01/16/25 13:37 Bactrim) trimethoprim (From Bactrim) Allergy Severe ALGY-Hives Verified 01/16/25 13:37 adhesive Allergy Unknown Unknown Verified 01/16/25 13:37 ibuprofen Allergy Unknown Verified 01/16/25 13:37 metoclopramide (From Reglan) Allergy Unknown Verified 01/16/25 13:37 prochlorperazine (From Allergy ADR-Itching Verified 01/16/25 13:37 Compazine) Current Medications Generic Name Dose Route Start Last Admin Trade Name Freq PRN Reason Stop Dose Admin Acetaminophen 650 mg 01/19/25 19:54 01/20/25 03:18 Acetaminophen 325 Mg Tablet PO 650 mg Q6H PRN Administration Mild/Mod Pain Or Temp >/= 101 Cyclobenzaprine HCl 5 mg 01/19/25 21:00 01/19/25 21:35 Cyclobenzaprine 10 Mg Tablet PO 5 mg TID MOSES Administration Docusate Sodium 100 mg 01/19/25 19:54 01/19/25 21:35 Docusate Sodium 100 Mg Capsule PO 100 mg BID MOSES Administration Gabapentin 300 mg 01/19/25 19:54 01/19/25 21:35 Gabapentin 300 Mg Capsule PO 300 mg BID MOSES Administration Vancomycin HCl 1,000 mg/ 250 mls @ 250 mls/hr 01/20/25 03:00 01/20/25 04:26 Sodium Chloride IV Infused Q12H MOSES Infusion Ondansetron HCl 4 mg 01/19/25 19:54 01/20/25 03:19 Ondansetron 2 Mg/Ml Sdv 2 Ml IVP 4 mg Q6H PRN Administration NAUSEA AND VOMITING PFSH Anesthesia Medical History Fever Dysautonomia POTS/ seeing Dr. Lisa Jara cardio EP Hx of pulmonary embolus from endocarditis due to port a cath infection Hx of bacterial endocarditis Strep epi of Tricuspid valve due to infection from port a cath; treated w/ daptomycin History of infection following procedure Generalized dysmotility of intestine Chronic constipation Nondiabetic gastroparesis [facility] GI: Dr. Alvarez Chronic idiopathic urticaria sees Dr. 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 Cardenas neuro at [facility]; getting Botox Chronic fatigue Abnormal thyroid blood test Hypermobility of joint Gastrostomy tube in place Jejunostomy tube in situ POTS (postural orthostatic tachycardia syndrome) Asthma sees Dr. Molinaist at [facility] Depression Allergic rhinitis Sees Dr. Wilkes Library Serials Assistant at [facility] Anxiety Chronic sinusitis OCD (obsessive compulsive disorder) ITB syndrome Surgical History H/O exploratory laparotomy H/O oral surgery S/P FESS (functional endoscopic sinus surgery) Family History Family/Other Lung disease Asthma Father Hypertension Hyperlipidemia Grandmother Hypertension Dementia Stroke Grandfather Hypertension Stroke Grandfather Hypertension Denies family history of Diabetes CAD (coronary artery disease) Clotting disorder Chronic kidney disease (CKD) Suicide Anesthesia complication Bleeding disorder Cancer Social History Smoking and tobacco/nicotine status: never used tobacco/nicotine Alcohol intake: never Substance/Drug Use: never Lives independently: No Household members: family Marital status: Single Number of children: 0 Highest education level completed: Bachelor's Degree Current occupational status: student Current occupational exposures/hazards: No Pets and animals: Yes Pets & animals: dog(s) Do you think of yourself as: Straight/Heterosexual Current gender identity: Female Female Reproductive History Date of last menstrual period: 01/04/25 Data Anesthesia 01/20/25 03:02 01/20/25 03:02 Short CBC 01/19/25 01/20/25 Range/Units 13:21 03:02 WBC 9.60 8.96 (3.29-11.43) 10^3/uL Hgb 11.10 L 10.40 L (11.27-16.99) g/dL Hct 34.1 L 32.0 L (36-47) % MCV 91.2 90.7 (85-98) fl Plt Count 200 193 (157-399) 10^3/cmm Neut % (Auto) 76.2 71.2 % Neut # (Auto) 7.31 6.37 (1.8-7.7) 10^3/uL BMP 01/19/25 01/20/25 13:21 03:02 Sodium 138 141 Potassium 3.8 3.5 Chloride 102 108 H Carbon Dioxide 22 22 BUN 27 H 17 Creatinine 0.8 0.7 Glucose 139 H 74 Calcium 8.7 8.1 L Cardiac Enzymes 01/19/25 Range/Units 13:21 Creatine Kinase 32 (26-192) U/L Liver Function 01/19/25 01/20/25 Range/Units 13:21 03:02 Total Bilirubin 0.3 0.4 (0.15-1.2) mg/dL AST 21 14 (0-32) U/L ALT 51 H 36 H (0-33) U/L Alkaline Phosphatase 162 H 134 H (35-105) U/L Albumin 3.5 3.1 L (3.5-5.2) g/dL Coags 01/19/25 13:21 C-Reactive Protein 48.0 H Microbiology 01/19/25 13:52 Blood Culture - Preliminary Blood SPECIMEN COLLECTED 01/19/25 13:21 Blood Culture - Preliminary Blood SPECIMEN COLLECTED Cardiac Studies: Echocardiogram Today Echocardiogram Ultrasound 01/20/20 Cardiac Event Monitor 07/30/21
[2025-01-20] MEDS: sodium chloride 0.9% 1,000 ML 30 ML IV (06:58)
--- NOTE | 2025-01-20 07:01 | PC.NURSE ---
THIS NURSE ASSUMED CARE @ 2750.
[2025-01-20 08:04] LABS: OR HCG Qualitative Urine Negative (Negative)
--- NOTE | 2025-01-20 08:09 | P.CONIM_ITS ---
Providers/Reason For Consult 2 Consulting Physician/Specialty*: General Surgery Reason for Consult*: Bacteremia possible Port infection Attending Physician: Anibal Carrillo MD Primary Care Provider: Radha Jameson MD History of Present Illness History of Present Illness Anastasiia Damon is a 29 year old female who has history of dysautonomia and has a port for TPN and IV fluids, unfortunately she has had a port in the past that has been infected and required removal this time she saw some separation about a week ago and now presents to the hospital with bacteremia and there is some concerns for possible endocarditis. I have been requested to remove the port. Review of Systems 2 General: Reports: 10 or more systems reviewed and unremarkable except in HPI and below Medications/Allergies Home Medications ?Medication ?Instructions ?Recorded ?Confirmed ?Last Taken ?Type epinephrine 0.3 mg/0.3 mL 0.3 mg IM Q10M PRN Allergic 01/10/20 01/19/25 06/30/23 History injection, auto-injector (Auvi-Q) Reaction galcanezumab-gnlm 120 mg/mL 120 mg SUBCUT .MONTHLY 04/1501/19/25 12/22/24 History subcutaneous syringe (Emgality) gabapentin 300 mg capsule 300 mg PO BID 03/12/2301/1901/19/25 History albuterol sulfate 90 mcg/actuation 2 puff inhalation Q 8H PRN 05/24/24 01/19/25 09/19/24 History aerosol inhaler Shortness Of Breath Or Wheez ing budesonide-formoterol HFA 80 1 inh inhalation BID PRN Shortness 05/24/24 01/19/25 09/19/24 History mcg-4.5 mcg/actuation aerosol Of Breath Or Wheezing inhaler (Symbicort) ondansetron HCl 4 mg tablet 4 mg PO Q8H PRN Nausea And Vomiting 05/24/24 01/19/25 09/19/24 History cyclobenzaprine 5 mg tablet 5 mg PO TID 09/10/2401/1901/19/25 History magnesium oxide 400 mg (241.3 mg 400 mg PO DAILY 09/1001/19/25 09/19/24 History magnesium) tablet rimegepant 75 mg disintegrating 75 mg PO PRN PRN Migra ine Headache 09/10/24 01/19/25 09/19/24 History tablet (Nurtec ODT) doxycycline hyclate 100 mg tablet 100 mg PO BID 01/19/25 01/19/25 History fexofenadine 30 mg/5 mL oral 10 mg PO BID PRN allergie s 01/19/25 01/19/25 Unknown History suspension (Children's Allergy Relief (fexofenadine)) lubiprostone 8 mcg capsule 8 mcg PO BID 01/19/2501/1901/19/25 History prednisone 20 mg tablet 20 mg PO QAM 01/19/2501/19/25 History tacrolimus 0.03 % topical ointment 1 applic topical BI D 01/19/25 01/19/25 01/19/25 History Allergies Allergy/AdvReac Type Severity Reaction Status Date / Time amoxicillin Allergy Severe ALGY-Hives Verified 01/16/25 13:37 cefuroxime (From Ceftin) Allergy Severe ALGY-Hives Verified 01/16/25 13:37 sulfamethoxazole (From Allergy Severe ALGY-Hives Verified 01/16/25 13:37 Bactrim) trimethoprim (From Bactrim) Allergy Severe ALGY-Hives Verified 01/16/25 13:37 adhesive Allergy Unknown Unknown Verified 01/16/25 13:37 ibuprofen Allergy Unknown Verified 01/16/25 13:37 metoclopramide (From Reglan) Allergy Unknown Verified 01/16/25 13:37 prochlorperazine (From Allergy ADR-Itching Verified 01/16/25 13:37 Compazine) Current Medications Generic Name Dose Route Start Last Admin Trade Name Freq PRN Reason Stop Dose Admin Acetaminophen 650 mg 01/19/25 19:54 01/20/25 03:18 Acetaminophen 325 Mg Tablet PO 650 mg Q6H PRN Administration Mild/Mod Pain Or Temp >/= 101 Cyclobenzaprine HCl 5 mg 01/19/25 21:00 01/19/25 21:35 Cyclobenzaprine 10 Mg Tablet PO 5 mg TID MOSES Administration Docusate Sodium 100 mg 01/19/25 19:54 01/19/25 21:35 Docusate Sodium 100 Mg Capsule PO 100 mg BID MOSES Administration Gabapentin 300 mg 01/19/25 19:54 01/19/25 21:35 Gabapentin 300 Mg Capsule PO 300 mg BID MOSES Administration Vancomycin HCl 1,000 mg/ 250 mls @ 250 mls/hr 01/20/25 03:00 01/20/25 04:26 Sodium Chloride IV Infused Q12H MOSES Infusion Sodium Chloride 1,000 mls @ 30 mls/hr 01/20/25 07:00 01/20/25 06:58 Sodium Chloride 0.9% IV 01/21/25 06:59 30 mls/hr .Q24H MOSES Administration Ondansetron HCl 4 mg 01/19/25 19:54 01/20/25 03:19 Ondansetron 2 Mg/Ml Sdv 2 Ml IVP 4 mg Q6H PRN Administration NAUSEA AND VOMITING PFSH Acute 2 PFSH: Medical History Fever Dysautonomia POTS/ seeing Dr. 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 Alvarez Chronic idiopathic urticaria sees Dr. Bryant edge trimmer mechanic On total parenteral nutrition (TPN) [facility] Control Systems Eng Chronic migraine Dr. Ronald lewis at [facility]; getting Botox Chronic fatigue Abnormal thyroid blood test Hypermobility of joint Gastrostomy tube in place Jejunostomy tube in situ POTS (postural orthostatic tachycardia syndrome) Asthma sees Dr. Wilkes edge trimmer mechanic at [facility] Depression Allergic rhinitis Sees Dr. Wilkes Lithographic Artist at [facility] Anxiety Chronic sinusitis OCD (obsessive compulsive disorder) ITB syndrome Surgical History H/O exploratory laparotomy H/O oral surgery S/P FESS (functional endoscopic sinus surgery) Family History Family/Other Lung disease Asthma Father Hypertension Hyperlipidemia Grandmother Hypertension Dementia Stroke Grandfather Hypertension Stroke Grandfather Hypertension Denies family history of Diabetes CAD (coronary artery disease) Clotting disorder Chronic kidney disease (CKD) Suicide Anesthesia complication Bleeding disorder Cancer Social History (Reviewed 01/19/25 @ 13:28 by JUAN LUIS Sloan Smoking and tobacco/nicotine status: never used tobacco/nicotine Alcohol intake: never Substance/Drug Use: never Lives independently: No Household members: family Marital status: Single Number of children: 0 Highest education level completed: Bachelor's Degree Current occupational status: student Current occupational exposures/hazards: No Pets and animals: Yes Pets & animals: dog(s) Do you think of yourself as: Straight/Heterosexual Current gender identity: Female Female Reproductive History: Date of last menstrual period: 01/04/25 Vitals/I&O/Wt Last Vital Signs Temp 99 F 01/20/25 07:49 Pulse 126 H 01/20/25 07:49 Resp 18 01/20/25 07:49 BP 107/64 01/20/25 07:49 Pulse Ox 99 01/20/25 07:49 O2 Del Method Room Air 01/20/25 07:49 01/19/25 01/20/25 01/20/25 22:59 06:59 14:59 Intake Total 1000 / 1000 250 / 1250 Balance 1000 / 1000 250 / 1250 Weight last 48 hrs Weight 130 lb 8 oz Weight 123 lb Physical Exam 2 Chest: OTHER: Left upper chest port is in place, there is minimal redness in the skin but is in the early stages of healing which could be appropriate. Data 01/20/25 03:02 01/20/25 03:02 Micro: Microbiology 01/19/25 13:52 Blood Culture - Preliminary Blood SPECIMEN COLLECTED 01/19/25 13:21 Blood Culture - Preliminary Blood SPECIMEN COLLECTED A&P Assessment and plan (1) Port-A-Cath in place: Plan After complete history physical examination and review of all available clinical data I have decided to offer the patient for excision due to bacteremia. I have informed the patient that he will remove the port she will likely have to stay with peripheral IVs for nutrition and IV fluids at least for a couple of weeks while she gets IV antibiotics. She can take about having a new port in the future. I discussed all recent benefits including the risk of bleeding, retained fragments, fracture of the catheter, infection, dehiscence of the skin, need for drainage and packing. She shows understanding agrees to proceed. Will plan to proceed at noon so we can coordinate with cardiology to also do a YARED at the same time. PDMP PDMP Reviewed: Not Reviewed 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 Code Acute Code for Chg Fwd Diagnoses Port-A-Cath in place Z95.828
--- NOTE | 2025-01-20 08:18 | PM.CONSULT ---
Providers/Reason For Consult Consulting Physician/Specialty*: Rowan Church MD/ Infectious Disease Reason for Consult*: Staph Aureus bacteremia Attending Physician: Anibal Carrillo MD Primary Care Provider: Radha Jameson MD History of Present Illness History of Present Illness Anastasiia Damon is a 29 year old female with a past medical history of severe gastroparesis, autonomic dysfunction, POTS warranting the use of a GJ tube and TPN nutrition. Patient currently has a port in place that was placed approximately 5 weeks ago. Her previous port needed to be removed in June 2024 due to coag negative staph endocarditis. Patient states that she had been having low-grade fevers over many months and isolated intermittent cultures positive for coagulase-negative Staphylococcus which were deemed to be contaminants initially. However with persisting symptoms she was found to have a tricuspid valve endocarditis with a small vegetation which was treated with port removal and 6 weeks of IV daptomycin. She remained line free headaches afterwards and then the port was replaced. Approximately 1 week ago patient started noticing low-grade fevers. She had outpatient course of doxycycline by her PCP due to suspected URI as source of her symptoms. She presented into the emergency room on January 16, 2025 when her fever went up to 103 Fahrenheit for 2 days prior to admission. Blood cultures were drawn on this day which resulted positive for Staph aureus therefore patient was called back to the emergency room on 01/19/2025. Case was discussed with me by the admitting hospitalist and port removal and YARED was recommended. Patient is planned to undergo port removal and YARED today. Patient's chart notes allergy to cefuroxime and amoxicillin. Patient reports these allergies to be diffuse hives. She tolerated her last course of daptomycin without any side effects. She does not recall the size of Or[place] tricuspid vegetation however does note that there were no septic emboli noted at that time. Denies any recent issues with either flushing or going back from the port. No recent skin or soft tissue infection Denies any back pain She is followed by infectious disease from [facility] Dr. Horn. Review of Systems General: Reports: 10 or more systems reviewed and unremarkable except in HPI and below Const: Denies: fever(s), chills or body aches Eyes: Denies: change in vision, blurry vision or photophobia ENMT: Reports: hoarseness; Denies: throat pain, enlarged tonsils, odynophagia or nasal congestion Card: Denies: chest pain, palpitations, irregular heart rhythm, edema, swelling of feet/ankles, lightheadedness, pre-syncope, dyspnea on exertion or orthopnea Resp: Denies: dyspnea, productive cough, non-productive cough, wheezing, stridor, pain on inspiration, change in phlegm color, hemoptysis or chest congestion GI: Denies: abdominal pain, nausea, vomiting, hematemesis, coffee ground emesis, dysphagia, heartburn, diarrhea, constipation, GI cramping, change in stool character, hematochezia or melena : Denies: flank pain, difficulty voiding, dysuria, urinary frequency, urinary urgency, urinary hesitancy or hematuria Musc: Denies: neck pain, back pain, extremity pain, joint swelling, joint warmth or deformity Neuro: Denies: headache(s), numbness in extremities, weakness in extremities, sensory changes, difficulty walking, frequent falls, dizziness, vertigo, behavioral changes, Slurred speech present or seizure-like activity Psych: Denies: anxiety, depression, suicidal ideation or homicidal ideation Endo: Denies: polyuria, polydipsia, tired all the time, cold intolerance or hot flashes Hood/Lymph: Denies: easy bruising or easy bleeding Medications/Allergies Home Medications ?Medication ?Instructions ?Recorded ?Confirmed ?Last Taken ?Type epinephrine 0.3 mg/0.3 mL 0.3 mg IM Q10M PRN Allergic 01/10/20 01/19/25 06/30/23 History injection, auto-injector (Auvi-Q) Reaction galcanezumab-gnlm 120 mg/mL 120 mg SUBCUT .MONTHLY 10/29/22 01/19/25 12/22/24 History subcutaneous syringe (Emgality) gabapentin 300 mg capsule 300 mg PO BID 03/12/23 01/19/25 01/19/25 History albuterol sulfate 90 mcg/actuation 2 puff inhalation Q8H PRN 05/24/24 01/19/25 09/19/24 History aerosol inhaler Shortness Of Breath Or Wheezing budesonide-formoterol HFA 80 1 inh inhalation BID PRN Shortness 05/24/24 01/19/25 09/19/24 History mcg-4.5 mcg/actuation aerosol Of Breath Or Wheezing inhaler (Symbicort) ondansetron HCl 4 mg tablet 4 mg PO Q8H PRN Nausea And Vomiting 05/24/24 01/19/25 09/19/24 History cyclobenzaprine 5 mg tablet 5 mg PO TID 09/10/24 01/19/25 01/19/25 History magnesium oxide 400 mg (241.3 mg 400 mg PO DAILY 09/10/24 01/19/25 09/19/24 History magnesium) tablet rimegepant 75 mg disintegrating 75 mg PO PRN PRN Migraine Headache 09/10/24 01/19/25 09/19/24 History tablet (Nurtec ODT) doxycycline hyclate 100 mg tablet 100 mg PO BID 01/19/25 01/19/25 01/19/25 History fexofenadine 30 mg/5 mL oral 10 mg PO BID PRN allergies 01/19/25 01/19/25 Unknown History suspension (Children's Allergy Relief (fexofenadine)) lubiprostone 8 mcg capsule 8 mcg PO BID 01/19/25 01/19/25 01/19/25 History prednisone 20 mg tablet 20 mg PO QAM 01/19/25 01/19/25 01/19/25 History tacrolimus 0.03 % topical ointment 1 applic topical BID 01/19/25 01/19/25 01/19/25 History Allergies Allergy/AdvReac Type Severity Reaction Status Date / Time amoxicillin Allergy Severe ALGY-Hives Verified 01/16/25 13:37 cefuroxime (From Ceftin) Allergy Severe ALGY-Hives Verified 01/16/25 13:37 sulfamethoxazole (From Allergy Severe ALGY-Hives Verified 01/16/25 13:37 Bactrim) trimethoprim (From Bactrim) Allergy Severe ALGY-Hives Verified 01/16/25 13:37 adhesive Allergy Unknown Unknown Verified 01/16/25 13:37 chicken derived Allergy Unknown Verified 01/21/25 17:42 egg Allergy Unknown Verified 01/21/25 17:42 ibuprofen Allergy Unknown Verified 01/16/25 13:37 metoclopramide (From Reglan) Allergy Unknown Verified 01/16/25 13:37 prochlorperazine (From Allergy ADR-Itching Verified 01/16/25 13:37 Compazine) Current Medications Generic Name Dose Route Start Last Admin Trade Name Freq PRN Reason Stop Dose Admin Acetaminophen 650 mg 01/19/25 19:54 01/20/25 03:18 Acetaminophen 325 Mg Tablet PO 650 mg Q6H PRN Administration Mild/Mod Pain Or Temp >/= 101 Cyclobenzaprine HCl 5 mg 01/19/25 21:00 01/19/25 21:35 Cyclobenzaprine 10 Mg Tablet PO 5 mg TID MOSES Administration Docusate Sodium 100 mg 01/19/25 19:54 01/19/25 21:35 Docusate Sodium 100 Mg Capsule PO 100 mg BID MOSES Administration Gabapentin 300 mg 01/19/25 19:54 01/19/25 21:35 Gabapentin 300 Mg Capsule PO 300 mg BID MOSES Administration Vancomycin HCl 1,000 mg/ 250 mls @ 250 mls/hr 01/20/25 03:00 01/20/25 04:26 Sodium Chloride IV Infused Q12H MOSES Infusion Sodium Chloride 1,000 mls @ 30 mls/hr 01/20/25 07:00 01/20/25 06:58 Sodium Chloride 0.9% IV 01/21/25 06:59 30 mls/hr .Q24H MOSES Administration Ondansetron HCl 4 mg 01/19/25 19:54 01/20/25 03:19 Ondansetron 2 Mg/Ml Sdv 2 Ml IVP 4 mg Q6H PRN Administration NAUSEA AND VOMITING PFSH Acute PFSH: Medical History Fever Dysautonomia POTS/ seeing Dr. 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 Alvarez Chronic idiopathic urticaria sees Dr. 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 Ronald lewis at [facility]; getting Botox Chronic fatigue Abnormal thyroid blood test Hypermobility of joint Gastrostomy tube in place Jejunostomy tube in situ POTS (postural orthostatic tachycardia syndrome) Asthma sees Dr. Wilkes electron beam welder at [facility] Depression Allergic rhinitis Sees Dr. Wilkes Motorboat Mechanic Inboard/Outboard at [facility] Anxiety Chronic sinusitis OCD (obsessive compulsive disorder) ITB syndrome Surgical History H/O exploratory laparotomy H/O oral surgery S/P FESS (functional endoscopic sinus surgery) Family History Family/Other Lung disease Asthma Father Hypertension Hyperlipidemia Grandmother Hypertension Dementia Stroke Grandfather Hypertension Stroke Grandfather Hypertension Denies family history of Diabetes CAD (coronary artery disease) Clotting disorder Chronic kidney disease (CKD) Suicide Anesthesia complication Bleeding disorder Cancer Social History Smoking and tobacco/nicotine status: never used tobacco/nicotine Alcohol intake: never Substance/Drug Use: never Lives independently: No Household members: family Marital status: Single Number of children: 0 Highest education level completed: Bachelor's Degree Current occupational status: student Current occupational exposures/hazards: No Pets and animals: Yes Pets & animals: dog(s) Do you think of yourself as: Straight/Heterosexual Current gender identity: Female Female Reproductive History: Date of last menstrual period: 01/04/25 Vitals/I&O/Wt Last Vital Signs Temp 99 F 01/20/25 07:49 Pulse 126 H 01/20/25 07:49 Resp 18 01/20/25 07:49 BP 107/64 01/20/25 07:49 Pulse Ox 99 01/20/25 07:49 O2 Del Method Room Air 01/20/25 07:49 01/19/25 01/20/25 01/20/25 22:59 06:59 14:59 Intake Total 1000 / 1000 250 / 1250 Balance 1000 / 1000 250 / 1250 Weight last 48 hrs Weight 59.194 kg Weight 55.792 kg Physical Exam Narrative: General: No acute distress, AO x3 HEENT: PERRLA, pupils bilaterally equal and reactive, pallors not present Chest: Normal vesicular breath sounds, no added sounds, equal good air entry bilaterally CVS: S1-S2 regular, no murmurs, no tachycardia, no gallops, no rubs Abdomen: Soft, nontender, no organomegaly, bowel sounds present Neuro: No focal deficits, no facial deformity, AO x3, power 5/5 in all limbs Extremities: No tenderness over spine. Data 01/22/25 03:01 01/22/25 03:01 Micro: Microbiology 01/19/25 13:52 Blood Culture - Preliminary Blood SPECIMEN COLLECTED 01/19/25 13:21 Blood Culture - Preliminary Blood SPECIMEN COLLECTED Spec #: [id number] Sirisha: 01/16/25-1508 Status: COMP Req #: [id number] Recd: 01/16/[address]: Edward Munguia MD Src: Blood SpDesc: Ordered: Bcult Blood Culture Preliminary (changed) 01/17/25-1510 NEGATIVE TO DATE Blood Culture Preliminary (changed) 01/16/25-1516 SPECIMEN COLLECTED Spec #: [id number] Sirisha: 01/16/25 Status: COMP Req #: [id number] Recd: 01/16/25-[address]: Edward Munguia MD Src: Blood SpDesc: Ordered: Bcult Blood Culture Preliminary (changed) 01/18/25-1710 1 OF 4 BOTTLES POSITIVE DIRECT GRAM STAIN: GRAM POSITIVE COCCI IN CLUSTERS IDENTIFICATION BY DIRECT PCR RESULTS TO FOLLOW Organism 1 Staphylococcus aureus Growth 1 BOTTLE Gram Stain Charge Charge for Gram Stain CRITICAL RESULT YES/NO: YES CRITICAL CALLED BY: RT TO AND READ BACK BY: AGATA DATE: 01/18/25 TIME: 1709 Blood Culture Preliminary (changed) 01/17/25 NEGATIVE TO DATE A&P Assessment and plan (1) Hx of bacterial endocarditis: (2) Infection due to Port-A-Cath: (3) Septicemia due to Staphylococcus aureus: Plan 29-year-old lady with HPI as above currently presenting to the hospital after having had fever recently, blood cultures were drawn in the emergency room on January 16, 2025 and returned positive 1 out of 4 bottles for Staph aureus. Per discussion with the [facility], no MecA gene is identified on direct PCR, isolate is most likely an MSSA. Ideally would prefer to start organism directed therapy with nafcillin or cefazolin, however patient reports severe allergic reaction by way of hives in the past. In keeping with this reported allergy, will start treatment with vancomycin while awaiting final culture results. Blood cultures have been drawn yesterday upon arrival on January 19, 2025 Patient is planned for port removal in the operating room today. Also planned to undergo YARED today to assess for endocarditis. Patient denies any tenderness over her spine, no joint swelling is noted, chest x-ray is negative for any infections. No other localizing signs or symptoms of infection at this time. Source is most likely to be a Port-A-Cath. Please maintain target trough of 15-20 with the vancomycin Patient will likely need an extended course of antibiotics, hold off on placing any PICC line until cultures are negative for at least 48-72 hours will follow PDMP PDMP Reviewed: Not Reviewed Consult Attestations Medical Necessity Statement: Per admitting 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 Code Acute Code for Chg Fwd High MDM includes number and complexity of problems actively addressed during encounter, amount and/or complexity of data reviewed/ordered and described risk of complication, morbidity or mortality of management as documented Diagnoses Hx of bacterial endocarditis Z86.79 Infection due to Port-A-Cath T80.219A Septicemia due to Staphylococcus aureus A41.01
--- NOTE | 2025-01-20 09:09 | P.CONIM_ITS ---
<Statement entered by Juan Poon M.D - 01/21/25 14:21> Patient was evaluated and cared for in conjunction with an advanced practice practitioner.? I personally examined the patient and reviewed the chart and all pertinent data including imaging, telemetry, and laboratory results.? I discussed the patient in detail with the advanced practice practitioner.? Please see? their note for complete consult note, testing results and agreed upon plan of care for the patient. We will rule out endocarditis with YARED. GENERAL: Patient is alert, awake and oriented x3. HEART: Regular S1 and S2 LUNGS: Clear to auscultate bilaterally. CENTRAL NERVOUS SYSTEM: Grossly nonfocal. EXTREMITIES: Lower extremities without edema bilaterally. Providers/Reason For Consult 2 Consulting Physician/Specialty*: Dr Poon, cardiology Reason for Consult*: Requesting YARED, endocarditis Requesting Physician: Anibal Carrillo MD Attending Physician: Anibal Carrillo MD Primary Care Provider: Radha Jameson MD History of Present Illness History of Present Illness Anastasiia Damon is a 29 year old female with past medical history of POTS, tricuspid endocarditis most recently treated with long-term antibiotics in June 2024, history of port placement for administration of TPN. She developed fevers starting last , blood cultures positive on admission. She is going to have the port removed today, plan is for YARED to evaluate for endocarditis while she is under anesthesia for the port removal. Review of Systems 2 Const: Denies: fever(s), chills, change in weight, fatigue or diaphoresis Eyes: Denies: change in vision ENMT: Denies: epistaxis Card: Denies: chest pain, palpitations, irregular heart rhythm, edema, syncope, pre-syncope, dyspnea on exertion, orthopnea or leg pain with exertion Resp: Denies: dyspnea, productive cough or wheezing GI: Denies: nausea, vomiting, hematemesis, hematochezia or melena : Denies: hematuria Musc: Denies: extremity swelling Hood/Lymph: Denies: easy bruising or easy bleeding Medications/Allergies Home Medications ?Medication ?Instructions ?Recorded ?Confirmed ?Last Taken ?Type epinephrine 0.3 mg/0.3 mL 0.3 mg IM Q10M PRN Allergic 01/10/20 01/19/25 06/30/23 History injection, auto-injector (Auvi-Q) Reaction galcanezumab-gnlm 120 mg/mL 120 mg SUBCUT .MONTHLY 04/1501/19/25 12/22/24 History subcutaneous syringe (Emgality) gabapentin 300 mg capsule 300 mg PO BID 03/12/2301/1901/19/25 History albuterol sulfate 90 mcg/actuation 2 puff inhalation Q 8H PRN 05/24/24 01/19/25 09/19/24 History aerosol inhaler Shortness Of Breath Or Wheez ing budesonide-formoterol HFA 80 1 inh inhalation BID PRN Shortness 05/24/24 01/19/25 09/19/24 History mcg-4.5 mcg/actuation aerosol Of Breath Or Wheezing inhaler (Symbicort) ondansetron HCl 4 mg tablet 4 mg PO Q8H PRN Nausea And Vomiting 05/24/24 01/19/25 09/19/24 History cyclobenzaprine 5 mg tablet 5 mg PO TID 09/10/2401/1901/19/25 History magnesium oxide 400 mg (241.3 mg 400 mg PO DAILY 09/1001/19/25 09/19/24 History magnesium) tablet rimegepant 75 mg disintegrating 75 mg PO PRN PRN Migra ine Headache 09/10/24 01/19/25 09/19/24 History tablet (Nurtec ODT) doxycycline hyclate 100 mg tablet 100 mg PO BID 01/19/25 01/19/25 History fexofenadine 30 mg/5 mL oral 10 mg PO BID PRN allergie s 01/19/25 01/19/25 Unknown History suspension (Children's Allergy Relief (fexofenadine)) lubiprostone 8 mcg capsule 8 mcg PO BID 01/19/2501/1901/19/25 History prednisone 20 mg tablet 20 mg PO QAM 01/19/2501/19/25 History tacrolimus 0.03 % topical ointment 1 applic topical BI D 01/19/25 01/19/25 01/19/25 History Allergies Allergy/AdvReac Type Severity Reaction Status Date / Time amoxicillin Allergy Severe ALGY-Hives Verified 01/16/25 13:37 cefuroxime (From Ceftin) Allergy Severe ALGY-Hives Verified 01/16/25 13:37 sulfamethoxazole (From Allergy Severe ALGY-Hives Verified 01/16/25 13:37 Bactrim) trimethoprim (From Bactrim) Allergy Severe ALGY-Hives Verified 01/16/25 13:37 adhesive Allergy Unknown Unknown Verified 01/16/25 13:37 ibuprofen Allergy Unknown Verified 01/16/25 13:37 metoclopramide (From Reglan) Allergy Unknown Verified 01/16/25 13:37 prochlorperazine (From Allergy ADR-Itching Verified 01/16/25 13:37 Compazine) Current Medications Generic Name Dose Route Start Last Admin Trade Name Freq PRN Reason Stop Dose Admin Acetaminophen 650 mg 01/19/25 19:54 01/20/25 03:18 Acetaminophen 325 Mg Tablet PO 650 mg Q6H PRN Administration Mild/Mod Pain Or Temp >/= 101 Cyclobenzaprine HCl 5 mg 01/19/25 21:00 01/19/25 21:35 Cyclobenzaprine 10 Mg Tablet PO 5 mg TID MOSES Administration Docusate Sodium 100 mg 01/19/25 19:54 01/19/25 21:35 Docusate Sodium 100 Mg Capsule PO 100 mg BID MOSES Administration Gabapentin 300 mg 01/19/25 19:54 01/19/25 21:35 Gabapentin 300 Mg Capsule PO 300 mg BID MOSES Administration Vancomycin HCl 1,000 mg/ 250 mls @ 250 mls/hr 01/20/25 03:00 01/20/25 04:26 Sodium Chloride IV Infused Q12H MOSES Infusion Sodium Chloride 1,000 mls @ 30 mls/hr 01/20/25 07:00 01/20/25 06:58 Sodium Chloride 0.9% IV 01/21/25 06:59 30 mls/hr .Q24H MOSES Administration Ondansetron HCl 4 mg 01/19/25 19:54 01/20/25 03:19 Ondansetron 2 Mg/Ml Sdv 2 Ml IVP 4 mg Q6H PRN Administration NAUSEA AND VOMITING PFSH Acute 2 PFSH: Medical History Fever Dysautonomia POTS/ seeing Dr. 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 Alvarez Chronic idiopathic urticaria sees Dr. 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 Cardenas neuro at [facility]; getting Botox Chronic fatigue Abnormal thyroid blood test Hypermobility of joint Gastrostomy tube in place Jejunostomy tube in situ POTS (postural orthostatic tachycardia syndrome) Asthma sees Dr. 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 [facility] Anxiety Chronic sinusitis OCD (obsessive compulsive disorder) ITB syndrome Surgical History H/O exploratory laparotomy H/O oral surgery S/P FESS (functional endoscopic sinus surgery) Family History Family/Other Lung disease Asthma Father Hypertension Hyperlipidemia Grandmother Hypertension Dementia Stroke Grandfather Hypertension Stroke Grandfather Hypertension Denies family history of Diabetes CAD (coronary artery disease) Clotting disorder Chronic kidney disease (CKD) Suicide Anesthesia complication Bleeding disorder Cancer Social History Smoking and tobacco/nicotine status: never used tobacco/nicotine Alcohol intake: never Substance/Drug Use: never Lives independently: No Household members: family Marital status: Single Number of children: 0 Highest education level completed: Bachelor's Degree Current occupational status: student Current occupational exposures/hazards: No Pets and animals: Yes Pets & animals: dog(s) Do you think of yourself as: Straight/Heterosexual Current gender identity: Female Female Reproductive History: Date of last menstrual period: 01/04/25 Vitals/I&O/Wt Last Vital Signs Temp 99 F 01/20/25 07:49 Pulse 126 H 01/20/25 07:49 Resp 18 01/20/25 07:49 BP 107/64 01/20/25 07:49 Pulse Ox 99 01/20/25 07:49 O2 Del Method Room Air 01/20/25 07:49 01/19/25 01/20/25 01/20/25 22:59 06:59 14:59 Intake Total 1000 / 1250 250 / 1250 Balance 1000 / 1250 250 / 1250 Weight last 48 hrs Weight 130 lb 8 oz Weight 123 lb Physical Exam 2 Const: COMMON NORMALS: no acute distress and patient oriented x3 GENERAL APPEARANCE: cooperative and comfortable ORIENTATION/CONSCIOUSNESS: Yes awake, Yes oriented to person, Yes oriented to place and Yes oriented to time Chest: COMMONS NORMALS: normal inspection of the chest and normal palpation of entire chest wall CHEST: Yes Symmetrical chest wall rise Resp: COMMON NORMALS: normal respiratory effort, No retractions, No use of accessory muscles and clear to auscultation bilaterally EFFORT & INSPECTION: Yes symmetric chest movement AUSCULTATION: clear to auscultation bilaterally Cardio: COMMON NORMALS: regular rate, regular rhythm, S1 normal heart sound present, S2 normal heart sound present, No gallops present (Cardio), No clicks present (Cardio), No murmurs present (Cardio) and No rub (Cardio) RATE: r egular rate RHYTHM: regular rhythm HEART SOUNDS: S1 normal heart sound present and S2 normal heart sound present PERIPHERAL PULSES: radial pulses present Extremity: COMMON NORMALS: no pedal edema Neuro: COMMON NORMALS: patient oriented x3 and moves all extremities S ENSORIUM/ORIENTATION: Yes oriented to person, Yes oriented to place and Yes oriented to time Data 01/20/25 03:02 01/20/25 03:02 Micro: Microbiology 01/19/25 13:52 Blood Culture - Preliminary Blood SPECIMEN COLLECTED 01/19/25 13:21 Blood Culture - Preliminary Blood SPECIMEN COLLECTED A&P Assessment and plan (1) Hx of bacterial endocarditis: (2) Port-A-Cath in place: (3) POTS (postural orthostatic tachycardia syndrome): (4) On total parenteral nutrition (TPN): Plan Plan for YARED while under anesthesia for port removal discussed with the patient, she has consented to proceed. Further plan will be devised after procedure. PDMP PDMP Reviewed: Not Reviewed 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 Code Acute Code for g Fwd Diagnoses Hx of bacterial endocarditis Z86.79 Port-A-Cath in place Z95.828 POTS (postural orthostatic tachycardia syndrome) G90.A On total parenteral nutrition (TPN) Z78.9
--- NOTE | 2025-01-20 12:00 | USCV_ITS ---
Anastasiia Damon Age: 29 Gender: F : 1995 Exam Date: 01/20/2025 11:58 Ordering Phys: Anibal Carrillo MD Technologist: Colt [place] Exam Location: [facility] – [place] Indication: infective endocarditis BP: / HR: Rhythm: Sinus Technical Quality: Adequate MEASUREMENTS (Male / Female) Normal Values Medications Per anesthesia team Complications None Proc. Components After anesthesia team sedated patient, we proceeded with advancing YARED probe FINDINGS Left Ventricle Left ventricle is normal size. LV systolic function is normal with EF of 60 to 65%. No regional wall motion abnormalities are seen. Right Ventricle Normal in size and function Right Atrium Normal in size Left Atrium Normal in size LA Appendage No left atrial appendage thrombus seen. IA Septum Normal Mitral Valve Structurally normal valve. Trace mitral regurgitation. No evidence for vegetation. 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 No vegetation seen. Tricuspid Valve Structurally normal tricuspid valve. No vegetations Pulmonic Valve Grossly normal Pericardium Normal Aorta Grossly normal CONCLUSIONS LV systolic function is normal with EF of 60-65%. No left atrial appendage thrombus seen. 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 No vegetations seen Juan Poon MD (Electronically Signed) Final Date: 20 Jan 2025 16:40 Amended: 22 January 2025 17:17 C
--- NOTE | 2025-01-20 12:23 | P.PHAVANC_ITS ---
Vancomycin Goal - Goal Vancomycin Goal:: 15-20 mg/L Vancomycin Indication:: Other (Bacteremia) - Therapy Day of therpy:: Day [1]of [] Actual body weight (kg): 59.194 kg - Data Labs: WBC 8.96 10^3/uL (3.29-11.43) 01/20/25 03:02 RBC 3.53 10^6/uL (3.85-5.65) L 01/20/25 03:02 Hgb 10.40 g/dL (11.27-16.99) L 01/20/25 03:02 Hct 32.0 % (36-47) L 01/20/25 03:02 MCV 90.7 fl (85-98) 01/20/25 03:02 MCH 29.5 pg (27-33) 01/20/25 03:02 MCHC 32.5 g/dL (30-55) 01/20/25 03:02 RDW 12.7 % (12.1-15.1) 01/20/25 03:02 Sodium 141 mmol/L (136-145) 01/20/25 03:02 Potassium 3.5 mmol/L (3.5-5.1) 01/20/25 03:02 Chloride 108 mmol/L (98-107) H 01/20/25 03:02 Carbon Dioxide 22 mmol/L (22-29) 01/20/25 03:02 Anion Gap 14.5 (5-19) 01/20/25 03:02 BUN 17 mg/dL (6-20) 01/20/25 03:02 Creatinine 0.7 mg/dL (0.5-0.9) 01/20/25 03:02 GFR Calculation 98.9 mL/min (90-130) 01/20/25 03:02 Treatment plan:: new consult Regimen:: New start vancomycin for Bacteremia. Started on maintenance dose of 1000 mg q12h .
--- NOTE | 2025-01-20 12:24 | W.PM.OPSUD ---
Surgery/Procedure H&P Update DATE OF PROCEDURE: January 20, 2025 DATE H&P PERFORMED: 01/20/25 H&P UPDATE INFORMATION: I have reviewed H&P completed within last 30 days, I have examined patient prior to procedure and No changes to prior documentation PREOP DIAGNOSIS: Bacteremia/ rule out endocarditis PRIMARY INDICATION FOR PROCEDURE: Bacteremia/ rule out endocarditis PLANNED PROCEDURE: Operation Date: 01/20/25 12:00 Proposed Procedures Transesophageal echocardiogram Anesthesia team available
[2025-01-20] MEDS: lidocaine-epi 1% 20 mL INJ INJECTION (13:17)
[2025-01-20] MEDS: BUPivacaine 0.25% INJ 30 mL INJECTION (13:17)
[2025-01-20] MEDS: vancomycin 1,000 MG SDV 1000 MG XX (13:32)
--- NOTE | 2025-01-20 13:33 | P.PN_ITS ---
Subjective 2 Subjective: No acute events overnight. Seen in PACU with family at bedside. Patient has remained comfortable overnight. Has remained hemodynamically stable and afebrile. Vitals/I&O/Wt Last Vital Signs Temp 99 F 01/20/25 07:49 Pulse 126 H 01/20/25 07:49 Resp 18 01/20/25 07:49 BP 107/64 01/20/25 07:49 Pulse Ox 99 01/20/25 07:49 O2 Del Method Room Air 01/20/25 07:49 01/19/25 01/20/25 01/20/25 22:59 06:59 14:59 Intake Total 1000 / 1000 250 / 1250 Balance 1000 / 1000 250 / 1250 Weight last 48 hrs Weight 59.194 kg Weight 55.792 kg Physical Exam 2 Narrative: General: No acute distress, AO x3, pallor present, port in place with no swelling with mild oozing serosanguineous HEENT: PERRLA, pupils bilaterally equal and reactive Chest: Normal vesicular breath sounds, no added sounds, equal good air entry bilaterally CVS: S1-S2 regular, no murmurs, no tachycardia, no gallops, no rubs Abdomen: Soft, nontender, no organomegaly, bowel sounds present Neuro: No focal deficits, no facial deformity, AO x3, power 5/5 in all limbs Data 01/20/25 03:02 01/20/25 03:02 Micro: Microbiology 01/19/25 13:52 Blood Culture - Preliminary Blood SPECIMEN COLLECTED 01/19/25 13:21 Blood Culture - Preliminary Blood SPECIMEN COLLECTED A&P Assessment and plan (1) Septicemia due to Staphylococcus aureus: (2) Hx of bacterial endocarditis: (3) Infection due to Port-A-Cath: (4) POTS (postural orthostatic tachycardia syndrome): (5) Hx of pulmonary embolus: (6) Nondiabetic gastroparesis: (7) Jejunostomy tube in situ: (8) Gastrostomy tube in place: (9) Dysautonomia: Plan 29-year-old with chronic port in place for nutrition for TPN due to gastroparesis, dysautonomia, POTS with J-tube and G-tube in place with history of staff epidermidis bacteremia back in July 17 due to port infection and tricuspid valve endocarditis presents to the hospital today because of blood culture positive for Staph aureus with concerns for port infection. Blood culture from 01/16 1 out of 4 bottles positive for Staph aureus. Has port in place. History of staff epidermidis bacteremia due to tricuspid valve endocarditis back in June 2024. Finished course of IV vancomycin in July 2024. Port replaced earlier this year. High concerns for infective endocarditis again. Follow-up repeat blood culture. Continue with IV vancomycin for now. Monitor trough levels. Patient is allergic to penicillins. Await sensitivities. Consult ID. Patient will most likely need 6 weeks of IV antibiotics after negative blood cultures. Plan for YARED later in the day today along with port removal. Appreciate surgical and cardiology recommendations. Repeat blood cultures in a.m. which would be 24 hours after removal of port. Will plan for PICC line placement once blood cultures are negative. Gastroparesis: Takes TPN every night for nutrition. For now patient will not have any central access peripheral line so we will switch to PPN. Continue with home trickle feeds. History of PE: Not on AC currently Heparin for DVT PPx around port removal Continue home chronic medications including cyclobenzaprine 5 mg 3 times daily, gabapentin 10 mg twice daily. Full code Protonix for PUD prophylaxis SCD for DVT prophylaxis, heparin after port removal PDMP PDMP Reviewed: Not Reviewed Attestations 2 Medical Necessity Statement*: Requires further hospitalization for management of staph bacteremia in setting of port infection with high concerns for endocarditis Diagnoses Septicemia due to Staphylococcus aureus A41.01 Hx of bacterial endocarditis Z86.79 Infection due to Port-A-Cath T80.219A POTS (postural orthostatic tachycardia syndrome) G90.A Hx of pulmonary embolus Z86.711 Nondiabetic gastroparesis K31.84 Jejunostomy tube in situ Z93.[address] Z93.1 Dysautonomia G90.1
--- NOTE | 2025-01-20 13:43 | PM.OP ---
Operative Report Date of procedure: January 20, 2025 Pre-op diagnosis: Bacteremia Post-op diagnosis: Port-A-Cath infection Post-op findings: port-a-cath noted in place surrounded by purulence Procedure done: Excision of Port-A-Cath Surgeon: Rogelio Redmond MD Tube Room Cashier: SUGAR OR STaff Brief History: 29-year-old female with history of dysautonomia who presents with bacteremia and suspected Port-A-Cath infection. After discussion risk benefits with proceed to the OR for excision. Procedure: Patient was brought into the OR. She was placed in a supine position. Monitored anesthesia care was done. The left upper chest was prepped and draped in the usual sterile fashion. Timeout was conducted. I open the previous surgical incision measuring about 0.5 cm with a scalpel, the incision was deepened until the capsule of the pore was opened, immediate evacuation of purulent material was noted. Cultures were taken and the cavity completely evacuated. The port was delivered through the skin and removed in a de los santos motion, the catheter was complete and was sent for catheter tip culture. The tract was closed with #3-0 Vicryl to prevent backbleeding. The wound was irrigated profusely with saline. I then placed on vancomycin powder inside of the wound. Since there was an active infection I then proceeded to partially closed the skin with #3-0 nylon and then I packed the wound with quarter inch iodoform packing. Patient tolerated well the procedure. All counts were correct and the patient was transferred to PACU in stable condition
--- NOTE | 2025-01-20 13:46 | PM.MISC ---
Miscellaneous Note Purpose of Documentation: Update on patient care Note: Port was removed. There was a large abscess surrounding the port. Catheter tip was sent for culture. The wound is packed with quarter inch iodoform packing that needs to be replaced once a day. Patient will require home health for dressing changes at home.
--- NOTE | 2025-01-20 13:57 | PC.NURSE ---
This nurse took report from PACU at 13:56.
--- NOTE | 2025-01-20 14:17 | ANE.PACU2 ---
Inpatient post-anesthesia follow up: Airway intact: Yes Vital signs: Temperature 98.4 F Pulse Rate 102 Respiratory Rate 15 Blood Pressure 90/58 Pulse Oximetry 97 Oxygen Delivery Me thod Room Air Oxygen Flow Rate Fraction of Inspir ed Oxygen Hydration adequate: Yes Nausea and vomiting: Yes (slightly nauseous. getting better) Pain level: 2 Mental status: Baseline
--- NOTE | 2025-01-20 14:21 | PC.NURSE ---
Pt transferred to floor. bp 90/58 p-98 r -18 t 98.4 sat- 96%
[2025-01-20] MEDS: cyclobenzaprine 10 mg Tablet 5 MG PO ×2 (14:57→20:22)
[2025-01-20] MEDS: MULTIVITAMIN IV (16:10)
[2025-01-20] MEDS: AMINO ACIDS IV (16:10)
[2025-01-20] MEDS: LYTES IV (16:10)
[2025-01-20] MEDS: DEXTROSE IV (16:10)
[2025-01-20] MEDS: FAMOTIDINE IV (16:10)
[2025-01-20 16:57] LABS: Glucose Point of Care 85 mg/dL (70-110)
[2025-01-20] MEDS: gabapentin 300 mg Capsule PO (17:27)
--- NOTE | 2025-01-20 17:43 | USCV_ITS ---
Anastasiia Damon Age: 29 Gender: F : 1995 Exam Date: 01/20/2025 01:07 Ordering Phys: Anibal Carrillo MD Technologist: SANDY Exam Location: [facility] [place] Indication: infective endocarditis BP: 112 / 74 HR: 92 Rhythm: Sinus Technical Quality: Adequate MEASUREMENTS (Male / Female) Normal Values 2D ECHO LV Diastolic Diameter PLAX 4.0 cm 4.2 - 5.9 / 3.9 - 5.3 cm IVS Diastolic Thickness 0.9 cm 0.6 - 1.0 / 0.6 - 0.9 cm IVS Systolic Thickness 1.5 cm LVPW Diastolic Thickness 1.0 cm 0.6 - 1.0 / 0.6 - 0.9 cm LVPW Systolic Thickness 1.3 cm LVOT Diameter 1.7 cm LV Ejection Fraction 2D Teich 65.0 % LV Ejection Fraction MOD 4C 61.2 % LV Ejection Fraction MOD 2C 78.1 % LV Ejection Fraction 2C AL 78.5 % LA Diameter 2.8 cm Aorta at Sinotubular Diameter 2.3 cm IVC Diameter 0.9 cm M-MODE LA Ao Ratio MM 1.2 AV Cusp Separation MM 1.7 cm DOPPLER AV Peak Velocity 156.0 cm/s LVOT Peak Velocity 121.0 cm/s AV Area Cont Eq vti 1.9 cm squared AV Area Cont Eq pk 1.8 cm squared MV Peak Velocity 134.0 cm/s MV Area PHT 5.7 cm squared Mitral E to A Ratio 1.5 TV Peak Velocity 232.0 cm/s TR Peak Velocity 258.0 cm/s TR Peak Gradient 26.6 mmHg TV Peak E Velocity 74.0 cm/s PV Peak Velocity 100.0 cm/s FINDINGS Left Ventricle Left ventricle is normal in size. LV systolic function is normal with EF of 60-65%. No regional wall motion abnormalities are seen. Right Ventricle Normal in size and function Right Atrium Normal in size Left Atrium Normal in size Mitral Valve Structurally normal mitral valve. Mild mitral regurgitation Aortic Valve Echogenic structure was seen on aortic valve. Can be vegetation vs calcification. No significant stenosis or regurgitation Tricuspid Valve Structurally normal. Mild tricuspid regurgitation. Pulmonary artery systolic pressure is normal. Pulmonic Valve Not well visualized Pericardium Normal Aorta Normal in size IVC Appears to be normal CONCLUSIONS LV systolic function is normal with EF of 60-65%. Mild mitral regurgitation. Echogenic structure seen on aortic valve. Can be vegetation versus calcification. Recommend YARED to confirm. Mild tricuspid regurgitation Juan Poon MD (Electronically Signed) Final Date: 20 Jan 2025 09:17 S
[2025-01-20 23:42] LABS: Glucose Point of Care 77 mg/dL (70-110)
[2025-01-21] VITALS (10 sets, daily range): BP systolic 93–114; BP diastolic 57–72; PULSE 80–104; RESP 16–18; TEMP 36.8–39.6; O2SAT 95–99
[2025-01-21 02:17] LABS: Basophils % 0.3 %; Eosinophils % 0.3 %; Hematocrit 28.9 % (36-47); Lymphocytes # 1.2 10^3/uL (0.8-4.8); Lymphocytes % 12.3 %; Mean Corpuscular HGB Conc 33.2 g/dL (30-55); Mean Corpuscular Hemoglobin 29.4 pg (27-33); Mean Corpuscular Volume 88.7 fl (85-98); Mean Platelet Volume 9.7 fL (7.4-10.4); Monocytes # 1.2 10^3/uL (0.2-0.9); Monocytes % 12.4 %; Neutrophils # 6.88 10^3/uL (1.8-7.7); Neutrophils % 69.7 %; Nucleated Red Blood Cells % 0 %; Platelet Count 221 10^3/cmm (157-399); Red Blood Count 3.26 10^6/uL (3.85-5.65); Red Cell Distribution Width 12.2 % (12.1-15.1); White Blood Count 9.88 10^3/uL (3.29-11.43)
[2025-01-21 02:29] LABS: Glucose Point of Care 70 mg/dL (70-110)
[2025-01-21 02:32] LABS: Vancomycin Trough 5.5 ug/mL (10-15)
[2025-01-21 02:33] LABS: Alanine Aminotransferase 27 U/L (0-33); Alkaline Phosphatase 127 U/L (35-105); Aspartate Amino Transferase 11 U/L (0-32); Blood Urea Nitrogen 15 mg/dL (6-20); Calcium 8.1 mg/dL (8.5-10.5); Carbon Dioxide 20 mmol/L (22-29); Chloride 104 mmol/L (98-107); Creatinine Clr Calc Pharmacy 137.2709; Globulin 2.9 g/dL (1.3-4.6); Glomerular Filtration Rate 145.9 mL/min (90-130); Glucose 75 mg/dL (65-115); Magnesium 2.1 mg/dL (1.7-2.3); Osmolality Calculated 284 mOsm/kg (285-295); Phosphorus 3.3 mg/dL (2.5-4.5); Sodium 137 mmol/L (136-145); Total Bilirubin 0.4 mg/dL (0.15-1.2); Total Protein 5.9 g/dL (6.6-8.7)
[2025-01-21] MEDS: VANCOMYCIN ADD-Vantage 1,000 MG in 0.9% NaCl ADD-Vantage 250 ML 250 MG IV ×3 (03:46→21:24)
[2025-01-21 03:57] LABS: Glucose Point of Care 87 mg/dL (70-110)
--- NOTE | 2025-01-21 08:29 | P.PN_ITS ---
Subjective 2 Subjective: Postoperative day 1 status post port excision for Port-A-Cath infection. She is doing very well no significant issues Vitals/I&O/Wt Last Vital Signs Temp 99.5 F 01/21/25 07:26 Pulse 99 01/21/25 07:26 Resp 16 01/21/25 07:26 BP 114/72 01/21/25 07:26 Pulse Ox 99 01/21/25 07:26 O2 Del Method Room Air 01/21/25 07:26 01/20/25 01/21/25 01/21/25 22:59 06:59 14:59 Intake Total 250 / 727 368 / 1095 Output Total 2 / 4 Balance 248 / 723 368 / 1091 Weight last 48 hrs Weight 129 lb 6.4 oz Weight 123 lb Weight 130 lb 8 oz Weight 123 lb Physical Exam 2 Chest: OTHER: Wound is healing well packing was replaced no evidence of further purulence Data 01/21/25 01:52 01/21/25 01:52 Micro: Microbiology 01/21/25 01:52 Blood Culture - Preliminary Blood SPECIMEN COLLECTED 01/21/25 01:48 Blood Culture - Preliminary Blood SPECIMEN COLLECTED 01/20/25 13:20 Gram Stain - Final Other Source 01/19/25 13:52 Blood Culture - Preliminary Blood NEGATIVE TO DATE 01/19/25 13:21 Blood Culture - Preliminary Blood NEGATIVE TO DATE A&P Assessment and plan (1) Port-A-Cath in place: Plan Patient showing good progression. I did the dressing change this morning the packing was replaced and wound appears to be healing fine. She will need once a day dressing changes this can be done by the nursing staff while in the hospital and when transition to the outpatient setting she can have home health versus appointment with the wound care clinic for packing change. I can follow-up with her in 2 weeks in the clinic to ensure adequate healing. All other management per medical team PDMP PDMP Reviewed: Not Reviewed Attestations 2 Medical Necessity Statement*: Per medical team 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 Code 31473 Diagnoses Port-A-Cath in place Z95.828
[2025-01-21] MEDS: cyclobenzaprine 10 mg Tablet 5 MG PO ×3 (08:43→21:23)
[2025-01-21] MEDS: magnesium oxide 400 mg tablet PO (08:44)
[2025-01-21] MEDS: acetaminophen 325 mg Tablet 650 MG PO ×3 (08:45→21:23)
[2025-01-21] MEDS: gabapentin 300 mg Capsule PO ×2 (08:46→17:39)
[2025-01-21] MEDS: docusate sodium 100 mg Capsule PO ×2 (08:46→17:39)
[2025-01-21 09:59] LABS: Glucose Point of Care 91 mg/dL (70-110)
--- NOTE | 2025-01-21 13:44 | P.PN_ITS ---
Subjective 2 Subjective: No acute vents overnight. Patient has remained hemodynamically stable and afebrile. Seen with family ember at bedside. Remains on room air. Denies any chest pain or back pain. Vitals/I&O/Wt Last Vital Signs Temp 98.2 F 01/21/25 11:40 Pulse 97 01/21/25 11:40 Resp 16 01/21/25 11:40 BP 96/57 01/21/25 11:40 Pulse Ox 96 01/21/25 11:40 O2 Del Method Room Air 01/21/25 11:40 01/20/25 01/21/25 01/21/25 22:59 06:59 14:59 Intake Total 250 / 727 368 / 1095 250 / 250 Output Total 2 / 4 Balance 248 / 723 368 / 1091 250 / 250 Weight last 48 hrs Weight 58.695 kg Weight 55.792 kg Weight 59.194 kg Physical Exam 2 Narrative: General: No acute distress, AO x3, pallor present, port in place with no swelling with mild oozing serosanguineous HEENT: PERRLA, pupils bilaterally equal and reactive Chest: Normal vesicular breath sounds, no added sounds, equal good air entry bilaterally CVS: S1-S2 regular, no murmurs, no tachycardia, no gallops, no rubs Abdomen: Soft, nontender, no organomegaly, bowel sounds present Neuro: No focal deficits, no facial deformity, AO x3, power 5/5 in all limbs Data 01/21/25 01:52 01/21/25 01:52 Micro: Microbiology 01/20/25 13:20 Catheter Tip Culture - Preliminary Other Source Coag positive Staphylococcus 01/21/25 01:52 Blood Culture - Preliminary Blood SPECIMEN COLLECTED 01/21/25 01:48 Blood Culture - Preliminary Blood SPECIMEN COLLECTED 01/20/25 13:20 Gram Stain - Final Other Source 01/19/25 13:52 Blood Culture - Preliminary Blood NEGATIVE TO DATE 01/19/25 13:21 Blood Culture - Preliminary Blood NEGATIVE TO DATE A&P Assessment and plan (1) Septicemia due to Staphylococcus aureus: (2) Hx of bacterial endocarditis: (3) Infection due to Port-A-Cath: (4) POTS (postural orthostatic tachycardia syndrome): (5) Hx of pulmonary embolus: (6) Nondiabetic gastroparesis: (7) Jejunostomy tube in situ: (8) Gastrostomy tube in place: (9) Dysautonomia: Plan 29-year-old with chronic port in place for nutrition for TPN due to gastroparesis, dysautonomia, POTS with J-tube and G-tube in place with history of staff epidermidis bacteremia back in July 17 due to port infection and tricuspid valve endocarditis presents to the hospital today because of blood culture positive for Staph aureus with concerns for port infection. Blood culture from 01/16 1 out of 4 bottles positive for Staph aureus. Has port in place. History of staff epidermidis bacteremia due to tricuspid valve endocarditis back in June 2024. Finished course of IV vancomycin in July 2024. Port replaced earlier this year. High concerns for infective endocarditis again. Post removal of port on 01/20. Found to have significant abscess around port. Post YARED on 01/20. No concerns for endocarditis on YARED. Appreciate surgical and cardiology recommendations. Follow-up blood culture, wound culture. Repeat blood culture sent on 01/21 which is 24 hours post removal of port. For now continue with IV vancomycin. Monitor trough levels. Appreciate ID recommendations. Patient will need 6 weeks of IV antibiotics after negative blood cultures. Plan for PICC line placement after negative blood culture. Blood culture from 01/16 positive for Staph aureus. Appreciate sensitivities. Gastroparesis: Started on PPN. Continue with home trickle feeds. Start on regular diet. History of PE: Not on AC currently Heparin for DVT PPx around port removal Continue home chronic medications including cyclobenzaprine 5 mg 3 times daily, gabapentin 10 mg twice daily. Full code Protonix for PUD prophylaxis SCD for DVT prophylaxis, heparin after port removal Regular diet PDMP PDMP Reviewed: Not Reviewed Attestations 2 Medical Necessity Statement*: Requires further hospitalization for management of port infection, post port removal, MSSA bacteremia Diagnoses Septicemia due to Staphylococcus aureus A41.01 Hx of bacterial endocarditis Z86.79 Infection due to Port-A-Cath T80.219A POTS (postural orthostatic tachycardia syndrome) G90.A Hx of pulmonary embolus Z86.711 Nondiabetic gastroparesis K31.84 Jejunostomy tube in situ Z93.[address] Z93.1 Dysautonomia G90.1
[2025-01-21] MEDS: ondansetron 2 mg/ML SDV 2 mL 4 MG IVP ×2 (14:46→21:24)
[2025-01-21 15:59] LABS: Glucose Point of Care 110 mg/dL (70-110)
[2025-01-21] MEDS: AMINO ACIDS IV (16:34)
[2025-01-21] MEDS: MULTIVITAMIN IV (16:34)
[2025-01-21] MEDS: DEXTROSE IV (16:34)
[2025-01-21] MEDS: FAMOTIDINE IV (16:34)
[2025-01-21] MEDS: LYTES IV (16:34)
[2025-01-21 23:50] LABS: Glucose Point of Care 117 mg/dL (70-110)
[2025-01-22] VITALS (11 sets, daily range): BP systolic 91–110; BP diastolic 59–73; PULSE 83–99; RESP 16–18; TEMP 36.6–38.8; O2SAT 93–97
[2025-01-22 03:13] LABS: Basophils % 0.3 %; Eosinophils % 0.3 %; Hematocrit 34.3 % (36-47); Lymphocytes # 1.4 10^3/uL (0.8-4.8); Lymphocytes % 11.6 %; Mean Corpuscular HGB Conc 32.4 g/dL (30-55); Mean Corpuscular Hemoglobin 29.5 pg (27-33); Mean Corpuscular Volume 91.2 fl (85-98); Mean Platelet Volume 9.3 fL (7.4-10.4); Monocytes # 1.1 10^3/uL (0.2-0.9); Monocytes % 9.1 %; Neutrophils # 9.11 10^3/uL (1.8-7.7); Neutrophils % 76.1 %; Nucleated Red Blood Cells % 0 %; Platelet Count 215 10^3/cmm (157-399); Red Blood Count 3.76 10^6/uL (3.85-5.65); Red Cell Distribution Width 12.3 % (12.1-15.1); White Blood Count 11.98 10^3/uL (3.29-11.43)
[2025-01-22 03:50] LABS: Glucose Point of Care 99 mg/dL (70-110)
[2025-01-22] MEDS: VANCOMYCIN ADD-Vantage 1,000 MG in 0.9% NaCl ADD-Vantage 250 ML 250 MG IV (03:55)
[2025-01-22] MEDS: ondansetron 2 mg/ML SDV 2 mL 4 MG IVP ×2 (03:55→15:24)
[2025-01-22] MEDS: acetaminophen 325 mg Tablet 650 MG PO ×3 (03:55→16:44)
[2025-01-22 04:21] LABS: Alanine Aminotransferase 20 U/L (0-33); Albumin Level 3.1 g/dL (3.5-5.2); Alkaline Phosphatase 118 U/L (35-105); Aspartate Amino Transferase 10 U/L (0-32); Blood Urea Nitrogen 11 mg/dL (6-20); Calcium 7.7 mg/dL (8.5-10.5); Carbon Dioxide 23 mmol/L (22-29); Creatinine Clr Calc Pharmacy 116.9285; Glomerular Filtration Rate 118.2 mL/min (90-130); Glucose 99 mg/dL (65-115); Magnesium 1.9 mg/dL (1.7-2.3); Phosphorus 2.9 mg/dL (2.5-4.5); Total Bilirubin 0.6 mg/dL (0.15-1.2); Total Protein 6.1 g/dL (6.6-8.7)
[2025-01-22 04:24] LABS: Vancomycin Trough 12.5 ug/mL (10-15)
[2025-01-22 05:50] LABS: Anion Gap 15.6 (5-19); Chloride 101 mmol/L (98-107); Osmolality Calculated 281 mOsm/kg (285-295); Potassium 3.6 mmol/L (3.5-5.1); Sodium 136 mmol/L (136-145)
[2025-01-22] MEDS: magnesium oxide 400 mg tablet PO (09:24)
[2025-01-22] MEDS: docusate sodium 100 mg Capsule PO ×2 (09:24→17:38)
[2025-01-22] MEDS: cyclobenzaprine 10 mg Tablet 5 MG PO ×3 (09:24→21:11)
[2025-01-22] MEDS: gabapentin 300 mg Capsule PO ×2 (09:24→17:38)
[2025-01-22 10:00] LABS: Glucose Point of Care 109 mg/dL (70-110)
[2025-01-22] MEDS: DAPTOmycin 500 MG SDV 480 MG IVP (11:31)
--- NOTE | 2025-01-22 12:49 | PC.NUTR ---
Received consult for PPN recommendations. Per intake and output, current PPN @42mls/hr will provide 42.5grams protein and 340 kcals. PPN along with 50-75% PO Intake, will likely meet Pt's estimated kcal and protein needs. If Pt doesn't increase PO intake from 50% on average, recommend PPN increased to 83 mls/hr, which will provide 680kcals and 85grams protein along with kcals and protein from PO Intake.
--- NOTE | 2025-01-22 13:34 | P.PN_ITS ---
Subjective 2 Subjective: No acute vents overnight. Patient has remained hemodynamically stable. Tmax in last 24 hours of 103.2 Fahrenheit. Patient denies any new complaints. Denies any diarrhea. Denies any joint pains. Vitals/I&O/Wt Last Vital Signs Temp 100.6 F H 01/22/25 11:11 Pulse 98 01/22/25 11:11 Resp 17 01/22/25 11:11 BP 102/72 01/22/25 11:11 Pulse Ox 97 01/22/25 11:11 O2 Del Method Room Air 01/22/25 11:11 01/21/25 01/22/25 01/22/25 22:59 06:59 14:59 Intake Total 831.3 / 1507.3 250 / 1757.3 120 / 120 Balance 831.3 / 1507.3 250 / 1757.3 120 / 120 Weight last 48 hrs Weight 58.377 kg Weight 58.695 kg Weight 55.792 kg Physical Exam 2 Narrative: General: No acute distress, AO x3, pallor present, port in place with no swelling with mild oozing serosanguineous HEENT: PERRLA, pupils bilaterally equal and reactive Chest: Normal vesicular breath sounds, no added sounds, equal good air entry bilaterally CVS: S1-S2 regular, no murmurs, no tachycardia, no gallops, no rubs Abdomen: Soft, nontender, no organomegaly, bowel sounds present Neuro: No focal deficits, no facial deformity, AO x3, power 5/5 in all limbs Data 01/22/25 03:01 01/22/25 03:01 Micro: Microbiology 01/20/25 13:20 Catheter Tip Culture - Final Other Source Staphylococcus aureus 01/20/25 13:20 Gram Stain - Final Other Source Anaerobic Culture - Preliminary Wound Culture - Final Staphylococcus aureus 01/21/25 01:48 Blood Culture - Preliminary Blood NEGATIVE TO DATE 01/21/25 01:52 Blood Culture - Preliminary Blood NEGATIVE TO DATE A&P Assessment and plan (1) Septicemia due to Staphylococcus aureus: (2) Infection due to Port-A-Cath: (3) Hx of bacterial endocarditis: (4) POTS (postural orthostatic tachycardia syndrome): (5) Nondiabetic gastroparesis: (6) Jejunostomy tube in situ: (7) Gastrostomy tube in place: (8) Dysautonomia: Plan 29-year-old with chronic port in place for nutrition for TPN due to gastroparesis, dysautonomia, POTS with J-tube and G-tube in place with history of staff epidermidis bacteremia back in July 17 due to port infection and tricuspid valve endocarditis presents to the hospital today because of blood culture positive for Staph aureus with concerns for port infection. Blood culture from 01/16 1 out of 4 bottles positive for Staph aureus. Has port in place. History of staff epidermidis bacteremia due to tricuspid valve endocarditis back in June 2024. Finished course of IV vancomycin in July 2024. Port replaced earlier this year. High concerns for infective endocarditis again. Post removal of port on 01/20. Found to have significant abscess around port. Post YARED on 01/20. No concerns for endocarditis on YARED. Appreciate surgical and cardiology recommendations. Follow-up blood culture, wound culture. Repeat blood culture sent on 01/21 which is 24 hours post removal of port. For now continue with IV vancomycin. Monitor trough levels. Appreciate ID recommendations. Patient will need 6 weeks of IV antibiotics after negative blood cultures. Plan for PICC line placement after negative blood culture. Blood culture from 01/16 positive for Staph aureus. Appreciate sensitivities. Gastroparesis: Started on PPN. Continue with home trickle feeds. Start on regular diet. History of PE: Not on AC currently Heparin for DVT PPx around port removal Continue home chronic medications including cyclobenzaprine 5 mg 3 times daily, gabapentin 10 mg twice daily. Plan for the day: Appreciate wound cultures growing MSSA. Blood cultures so far negative. Plan for repeat blood culture in a.m. Appreciate ID recommendations. Will switch from vancomycin to daptomycin given persistent fever. Check respiratory viral panel. Care plan discussed in detail with patient and patient's mother at bedside. Plan will be to follow-up blood cultures. Once blood cultures are negative we will plan for IV antibiotic as an outpatient through PICC line for 6 weeks. PICC line placement after negative blood cultures. Continue with TPN. Will continue with weekly monitoring of triglyceride levels, daily CMP levels. Full code Protonix for PUD prophylaxis SCD for DVT prophylaxis, heparin after port removal Regular diet PDMP PDMP Reviewed: Not Reviewed Attestations 2 Medical Necessity Statement*: Requires further hospitalization for management of MSSA bacteremia in setting of port infection Diagnoses Septicemia due to Staphylococcus aureus A41.01 Infection due to Port-A-Cath T80.219A Hx of bacterial endocarditis Z86.79 POTS (postural orthostatic tachycardia syndrome) G90.A Nondiabetic gastroparesis K31.84 Jejunostomy tube in situ Z93.[address] Z93.1 Dysautonomia G90.1
[2025-01-22] MEDS: MULTIVITAMIN IV (15:17)
[2025-01-22] MEDS: DEXTROSE IV (15:17)
[2025-01-22] MEDS: AMINO ACIDS IV (15:17)
[2025-01-22] MEDS: FAMOTIDINE IV (15:17)
[2025-01-22] MEDS: LYTES IV (15:17)
[2025-01-22 16:33] LABS: Glucose Point of Care 119 mg/dL (70-110)
[2025-01-22 16:51] LABS: Adenovirus Not Detected (NOT DETECT); Chlamydia Pneumoniae Not Detected (NOT DETECT); Coronavirus 229E,HKU1,NL63,OC4 Not Detected (NOT DETECT); Human Metapneumovirus Not Detected (NOT DETECT); Human Rhinovirus/Enterovirus Not Detected (NOT DETECT); Influenza A Not Detected (NOT DETECT); Influenza A H1 Not Detected (NOT DETECT); Influenza A H1-2009 Not Detected (NOT DETECT); Influenza A H3 Not Detected (NOT DETECT); Influenza B Not Detected (NOT DETECT); Mycoplasma Pneumoniae Not Detected (NOT DETECT); Parainfluenza Virus Type 1 Not Detected (NOT DETECT); Parainfluenza Virus Type 2 Not Detected (NOT DETECT); Parainfluenza Virus Type 3 Not Detected (NOT DETECT); Parainfluenza Virus Type 4 Not Detected (NOT DETECT); Respiratory Syncytial Virus A Not Detected (NOT DETECT); Respiratory Syncytial Virus B Not Detected (NOT DETECT); SARS-COV-2 Not Detected (NOT DETECT)
--- NOTE | 2025-01-22 16:58 | P.PN_ITS ---
Subjective 2 Subjective: Infectious disease progress note Tmax 103.2 Fahrenheit last evening. Status post port removal on January 20, 2025. Blood cultures from 01/16 updated to reflect 2 out of 4 positive for MSSA Medications: Medication Review Details: Currently on IV vancomycin started on 01/19, vancomycin trough on January 21, 2025 at 5.5 Vitals/I&O/Wt Last Vital Signs Temp 98.7 F 01/22/25 15:51 Pulse 99 01/22/25 15:51 Resp 17 01/22/25 15:51 BP 110/73 01/22/25 15:51 Pulse Ox 96 01/22/25 15:51 O2 Del Method Room Air 01/22/25 15:51 01/22/25 01/22/25 01/22/25 06:59 14:59 22:59 Intake Total 250 / 1757.3 800 / 800 954.1 / 1754.1 Balance 250 / 1757.3 800 / 800 954.1 / 1754.1 Weight last 48 hrs Weight 58.377 kg Weight 58.695 kg Physical Exam 2 Narrative: General: No acute distress, AO x3 HEENT: PERRLA, pupils bilaterally equal and reactive, pallors not present Chest: Normal vesicular breath sounds, no added sounds, equal good air entry bilaterally CVS: S1-S2 regular, no murmurs, no tachycardia, no gallops, no rubs Abdomen: Soft, noted GJ tube in place, area of old healed lopez over left abdominal wall which patient states were obtained from a heating blanket. Neuro: No focal deficits, no facial deformity, AO x3, power 5/5 in all limbs Extremities: No tenderness over spine. Data 01/22/25 03:01 01/22/25 03:01 Micro: Microbiology 01/20/25 13:20 Gram Stain - Final Other Source Anaerobic Culture - Preliminary Wound Culture - Final Staphylococcus aureus 01/20/25 13:20 Catheter Tip Culture - Final Other Source Staphylococcus aureus 01/21/25 01:48 Blood Culture - Preliminary Blood NEGATIVE TO DATE 01/21/25 01:52 Blood Culture - Preliminary Blood NEGATIVE TO DATE NAME: Anastasiia Damon LOC: [facility] #: [id number] AGE/SX: 29/F ROOM: 278 R E01/19/[address]: Anibal Carrillo MD : 1995 BED: 2 D IS: FAX #: STATUS: ADM IN TLOC: Spec #: [id number] Sirisha: 01/21/25015 Status: RES Req #: [id number] Recd: 01/21/[address]: Anibal Carrillo MD Src: Blood SpDesc: Ordered: Bcult Procedure Result Verified Site Blood Culture Preliminary 01/22/25 NEGATIVE TO DATE Blood Culture Preliminary (changed) 01/21/25 SPECIMEN COLLECTED NAME: Anastasiia Damon LOC: [facility] U #: [id number] AGE/SX: 29/F ROOM: [facility] R E01/19/[address]: Anibal Carrillo MD : 1995 BED: 2 D IS: FAX #: STATUS: ADM IN TLOC: Spec #: [id number] Sirisha: 01/21/25 Status: RES Req #: [id number] Recd: 01/21/[address]: Anibal Carrillo MD Src: Blood SpDesc: Ordered: Bcult Procedure Result Verified Site Blood Culture Preliminary 01/22/25 NEGATIVE TO DATE Blood Culture Preliminary (changed) 01/21/25 SPECIMEN COLLECTED NAME: Anastasiia Damon LOC: [facility] U #: [id number] AGE/SX: 29/F ROOM: 278 R E01/19/[address]: Anibal Carrillo MD : 1995 BED: 2 D IS: FAX #: STATUS: ADM IN TLOC: Spec #: [id number] Sirisha: 01/20/25-1320 Status: COMP Req #: [id number] Recd: 01/20/25-[address]: Rogelio Guajardo Src: Other Sour SpDesc: Ordered: CTIP Comments: Comment port-a-cath Procedure Result Verified Site Catheter Tip Culture Final 01/22/25-1232 Organism 1 Staphylococcus aureus Growth HEAVY DAY 2 CRITICAL RESULT YES/NO: YES CRITICAL CALLED BY: ISAEL TO AND READ BACK BY: CRISTIAN DATE: 01/22/25 TIME: 1232 S aureus M.I.C. RX --------- ------ * Ciprofloxacin <=1 S * Clindamycin <=0.5 S * Erythromycin <=0.5 S * Gentamicin <=4 S * Levofloxacin <=1 S * Linezolid 4 S * Moxifloxacin <=0.5 S * Oxacillin <=0.25 S * Penicillin <=0.03 R * Rifampin <=1 S * Tetracycline <=4 S * Trimethoprim/Sulfamethoxazole <=0.5/9.5 S Vancomycin 2 S Daptomycin 1 S Catheter Tip Culture Preliminary (changed) 01/21/25-1317 Organism 1 Coag positive Staphylococcus Growth HEAVY DAY 1, RESULTS TO FOLLOW NAME: Anastasiia Damon LOC: [facility] U #: [id number] AGE/SX: 29/F ROOM: [facility] R E01/19/[address]: Anibal Carrillo MD : 1995 BED: 2 D IS: FAX #: STATUS: ADM IN TLOC: Spec #: [id number] Sirisha: 01/20/25-1320 Status: RES Req #: [id number] Recd: 01/20/25-[address]: Rogelio Guajardo Src: Other Sour SpDesc: Ordered: WC and GS, Anaer Comments: Comment port-a-cath abscess Procedure Result Verified Site Gram Stain Final 01/20/25-182 Result FEW WHITE BLOOD CELLS NO ORGANISMS SEEN Anaerobic Culture Preliminary 01/22/25-1613 NO ANAEROBES ISOLATED ON DAY 2 Anaerobic Culture Preliminary (changed) 01/21/25-173 NO ANAEROBES ISOLATED ON DAY 1 Wound Culture Final 01/22/25-123 Organism 1 Staphylococcus aureus Growth FEW DAY 2 CRITICAL RESULT YES/NO: YES CRITICAL CALLED BY: ISAEL TO AND READ BACK BY: CRISTIAN DATE: 01/22/25 TIME: 1231 S aureus M.I.C. RX --------- ------ * Ciprofloxacin <=1 S * Clindamycin <=0.5 S * Erythromycin <=0.5 S * Gentamicin <=4 S * Levofloxacin <=1 S * Linezolid 4 S * Moxifloxacin <=0.5 S * Oxacillin <=0.25 S * Penicillin <=0.03 R * Rifampin <=1 S * Tetracycline <=4 S * Trimethoprim/Sulfamethoxazole <=0.5/9.5 S Vancomycin 2 S Daptomycin 1 S Wound Culture Preliminary (changed) 01/21/25-1346 Organism 1 Coag positive Staphylococcus Growth FEW [facility] [id number] LOC: [facility] U #: [id number] AGE/SX: 29/F ROOM: 278 R E01/19/[address]: Anibal Carrillo MD : 1995 BED: 2 D IS: FAX #: STATUS: ADM IN TLOC: Spec #: [id number] Sirisha: 01/19/25-1352 Status: RES Req #: [id number] Recd: 01/19/25-[address]: Melchor Delatorre DO Src: Blood SpDesc: Ordered: Bcult Procedure Result Verified Site Blood Culture Preliminary 01/20/25-140 NEGATIVE TO DATE Blood Culture Preliminary (changed) 01/19/25-1408 SPECIMEN COLLECTED NAME: Anastasiia Damonwilder [facility] #: [id number] LOC: [facility] U #: [id number] AGE/SX: 29/F ROOM: 278 R E01/19/[address]: Anibal Carrillo MD : 1995 BED: 2 D IS: FAX #: STATUS: ADM IN TLOC: Spec #: [id number] Sirisha: 01/19/25-1321 Status: RES Req #: [id number] Recd: 01/19/25-[address]: Melchor Delatorre DO Src: Blood SpDesc: Ordered: Bcult Procedure Result Verified Site Blood Culture Preliminary 01/20/25-1341 NEGATIVE TO DATE Blood Culture Preliminary (changed) 01/19/25-1346 SPECIMEN COLLECTED NAME: Anastasiia Damon LOC: [facility] U #: [id number] AGE/SX: 29/F ROOM: R E01/16/[address]: Edward Munguia MD : 1995 BED: D IS: FAX #: STATUS: DEP ER TLOC: Spec #: [id number] Sirisha: 01/16/25-1507 Status: COMP Req #: [id number] Recd: 01/16/[address]: Edward Munguia MD Src: Blood SpDesc: Ordered: Bcult Procedure Result Verified Site Blood Culture Final 01/21/25-1753 2 OF 4 BOTTLES POSITIVE DIRECT GRAM STAIN: GRAM POSITIVE COCCI IN CLUSTERS IDENTIFICATION BY DIRECT PCR SENSITIVITIES ON [id number] Organism 1 Staphylococcus aureus Growth 2 BOTTLES CRITICAL RESULT YES/NO: YES CRITICAL CALLED BY: RT TO AND READ BACK BY: AGATA DATE: 01/18/25 TIME: 1710 Blood Culture Preliminary (changed) 01/21/25-1015 2 OF 4 BOTTLES POSITIVE DIRECT GRAM STAIN: GRAM POSITIVE COCCI IN CLUSTERS IDENTIFICATION BY DIRECT PCR SENSITIVITIES ON [id number] Organism 1 Staphylococcus aureus Growth 2 BOTTLES CRITICAL RESULT YES/NO: YES CRITICAL CALLED BY: RT TO AND READ BACK BY: AGATA DATE: 01/18/25 TIME: 1710 Blood Culture Preliminary (changed) 01/17/25-1510 NEGATIVE TO DATE Blood Culture Preliminary (changed) 01/16/25-1516 SPECIMEN COLLECTED NAME: Anastasiia Damon LOC: [facility] U #: [id number] AGE/SX: 29/F ROOM: R E01/16/[address]: Edward Munguia MD : 1995 BED: D IS: FAX #: STATUS: DEP ER TLOC: Spec #: [id number] Sirisha: 01/16/25-1416 Status: COMP Req #: [id number] Recd: 01/16/[address]: Edward Munguia MD Src: Blood SpDesc: Ordered: Bcult Procedure Result Verified Site Blood Culture Final 01/21/25-1752 2 OF 4 BOTTLES POSITIVE DIRECT GRAM STAIN: GRAM POSITIVE COCCI IN CLUSTERS IDENTIFICATION BY DIRECT PCR Organism 1 Staphylococcus aureus Growth 2 BOTTLES Gram Stain Charge Charge for Gram Stain CRITICAL RESULT YES/NO: YES CRITICAL CALLED BY: RT TO AND READ BACK BY: AGATA DATE: 01/18/25 TIME: 1710 S aureus M.I.C. RX --------- ------ * Ciprofloxacin <=1 S * Clindamycin <=0.5 S * Erythromycin <=0.5 S * Levofloxacin <=1 S * Linezolid 4 S * Moxifloxacin <=0.5 S * Oxacillin <=0.25 S * Penicillin <=0.03 R * Rifampin <=1 S * Tetracycline <=4 S * Trimethoprim/Sulfamethoxazole <=0.5/9.5 S Vancomycin 2 S Daptomycin 1 S Blood Culture Preliminary (changed) 01/21/25-1012 2 OF 4 BOTTLES POSITIVE DIRECT GRAM STAIN: GRAM POSITIVE COCCI IN CLUSTERS IDENTIFICATION BY DIRECT PCR Organism 1 Staphylococcus aureus Growth 2 BOTTLES Gram Stain Charge Charge for Gram Stain CRITICAL RESULT YES/NO: YES CRITICAL CALLED BY: RT TO AND READ BACK BY: AGATA DATE: 01/18/25 TIME: 1710 S aureus M.I.C. RX --------- ------ * Ciprofloxacin <=1 S * Clindamycin <=0.5 S * Erythromycin <=0.5 S * Levofloxacin <=1 S * Linezolid 4 S * Moxifloxacin <=0.5 S * Oxacillin <=0.25 S * Penicillin <=0.03 R * Rifampin <=1 S * Tetracycline <=4 S * Trimethoprim/Sulfamethoxazole <=0.5/9.5 S Vancomycin 2 S Daptomycin 1 S Blood Culture Preliminary (changed) 01/20/25-1352 1 OF 4 BOTTLES POSITIVE DIRECT GRAM STAIN: GRAM POSITIVE COCCI IN CLUSTERS IDENTIFICATION BY DIRECT PCR Organism 1 Staphylococcus aureus Growth 1 BOTTLE Gram Stain Charge Charge for Gram Stain CRITICAL RESULT YES/NO: YES CRITICAL CALLED BY: RT TO AND READ BACK BY: AGATA DATE: 01/18/25 TIME: 1710 S aureus M.I.C. RX --------- ------ * Ciprofloxacin <=1 S * Clindamycin <=0.5 S * Erythromycin <=0.5 S * Levofloxacin <=1 S * Linezolid 4 S * Moxifloxacin <=0.5 S * Oxacillin <=0.25 S * Penicillin <=0.03 R * Rifampin <=1 S * Tetracycline <=4 S * Trimethoprim/Sulfamethoxazole <=0.5/9.5 S Vancomycin 2 S Daptomycin 1 S Blood Culture Preliminary (changed) 01/18/25-171 1 OF 4 BOTTLES POSITIVE DIRECT GRAM STAIN: GRAM POSITIVE COCCI IN CLUSTERS IDENTIFICATION BY DIRECT PCR RESULTS TO FOLLOW Organism 1 Staphylococcus aureus Growth 1 BOTTLE Gram Stain Charge Charge for Gram Stain CRITICAL RESULT YES/NO: YES CRITICAL CALLED BY: RT TO AND READ BACK BY: AGATA DATE: 01/18/25 TIME: 1710 Blood Culture Preliminary (changed) 01/17/25-1420 NEGATIVE TO DATE Blood Culture Preliminary (changed) 01/16/25-1426 SPECIMEN COLLECTED A&P Assessment and plan (1) Hx of bacterial endocarditis: (2) Infection due to Port-A-Cath: (3) Septicemia due to Staphylococcus aureus: Plan 29-year-old lady with HPI as above currently presenting to the hospital after having had fever recently, blood cultures were drawn in the emergency room on January 16, 2025 and returned positive 1 out of 4 bottles for Staph aureus. Per discussion with the [facility], no MecA gene is identified on direct PCR, isolate is most likely an MSSA. Ideally would prefer to start organism directed therapy with nafcillin or cefazolin, however patient reports severe allergic reaction by way of hives in the past. In keeping with this reported allergy, will start treatment with vancomycin while awaiting final culture results. Blood cultures have been drawn yesterday upon arrival on January 19, 2025 Patient is planned for port removal in the operating room today. Also planned to undergo YARED today to assess for endocarditis. Patient denies any tenderness over her spine, no joint swelling is noted, chest x-ray is negative for any infections. No other localizing signs or symptoms of infection at this time. Source is most likely to be a Port-A-Cath. Please maintain target trough of 15-20 with the vancomycin Patient will likely need an extended course of antibiotics, hold off on placing any PICC line until cultures are negative for at least 48-72 hours will follow January 22, 2025 Patient is status post Port-A-Cath removal on January 20, 2025. Per review of the operative note, upon opening the capsule of the port, purulent material was encountered. Cultures were taken and the cavity was completely evacuated. Cultures from this purulent discharge have revealed MSSA. There was a large abscess that was surrounding the port. 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 Structurally normal tricuspid valve was encountered without vegetations. Thus far peripheral blood culture taken in the emergency room on January 19 is negative. Blood culture on January 21 so far is also negative. Patient had a fever up to 103 Fahrenheit last evening. Will wait for culture negativity for at least 48 to 72 hours and then afebrile. Of at least 24 hours prior to placing a PICC line. Anticipate discharge on daptomycin 8 mg/kg IV every 24 hours with weekly check of CBC, CMP, CPK. Will reach out to her ID physician at [facility] to follow labs ans subsequent outpatient management. PDMP PDMP Reviewed: Not Reviewed Attestations 2 Medical Necessity Statement*: per admitting note 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 Code Acute Code for Chg Fwd High MDM includes number and complexity of problems actively addressed during encounter, amount and/or complexity of data reviewed/ordered and described risk of complication, morbidity or mortality of management as documented Diagnoses Hx of bacterial endocarditis Z86.79 Infection due to Port-A-Cath T80.219A Septicemia due to Staphylococcus aureus A41.01
[2025-01-22 22:14] LABS: Glucose Point of Care 99 mg/dL (70-110)
[2025-01-23] VITALS (8 sets, daily range): BP systolic 101–104; BP diastolic 62–68; PULSE 68–99; RESP 16–18; TEMP 36.7–38.4; O2SAT 96–100
[2025-01-23] MEDS: acetaminophen 325 mg Tablet 650 MG PO ×2 (04:05→11:38)
[2025-01-23] MEDS: ondansetron 2 mg/ML SDV 2 mL 4 MG IVP ×3 (04:05→20:45)
[2025-01-23 06:40] LABS: Basophils % 0.3 %; Eosinophils # 0.1 10^3/uL (0.0-0.8); Eosinophils % 0.8 %; Hematocrit 29.5 % (36-47); Lymphocytes # 1.8 10^3/uL (0.8-4.8); Lymphocytes % 19.2 %; Mean Corpuscular HGB Conc 33.2 g/dL (30-55); Mean Corpuscular Hemoglobin 29.5 pg (27-33); Mean Corpuscular Volume 88.9 fl (85-98); Mean Platelet Volume 9.5 fL (7.4-10.4); Monocytes % 10.5 %; Neutrophils # 6.22 10^3/uL (1.8-7.7); Neutrophils % 67.9 %; Nucleated Red Blood Cells % 0 %; Platelet Count 249 10^3/cmm (157-399); Red Blood Count 3.32 10^6/uL (3.85-5.65); Red Cell Distribution Width 12.4 % (12.1-15.1); White Blood Count 9.16 10^3/uL (3.29-11.43)
[2025-01-23 06:58] LABS: Creatine Phosphokinase 16 U/L (26-192)
[2025-01-23 08:10] LABS: Bacillus cereus group Not Detected (NOT DETECT); Bacillus subtillis group Not Detected (NOT DETECT); Corynebacterium Not Detected (NOT DETECT); Cutibacterium acnes (P.acnes) Not Detected (NOT DETECT); Enterococcus Not Detected (NOT DETECT); Enterococcus faecalis Not Detected (NOT DETECT); Enterococcus faecium Not Detected (NOT DETECT); Lactobacillus species Not Detected (NOT DETECT); Listeria Not Detected (NOT DETECT); Listeria monocytogenes Not Detected (NOT DETECT); Micrococcus Not Detected (NOT DETECT); Pan Candida Not Detected (NOT DETECT); Pan Gram-Negative Not Detected (NOT DETECT); Staphylococcus epidermidis Not Detected (NOT DETECT); Staphylococcus lugdunensis Not Detected (NOT DETECT); Staphylococcus species Detected (NOT DETECT); Streptococcus agalactiae Not Detected (NOT DETECT); Streptococcus anginosus group Not Detected (NOT DETECT); Streptococcus pneumoniae Not Detected (NOT DETECT); Streptococcus pyogenes Not Detected (NOT DETECT); Streptococcus species Not Detected (NOT DETECT); mecA Not Detected (NOT DETECT); mecC Not Detected (NOT DETECT)
[2025-01-23 08:24] LABS: Alanine Aminotransferase 16 U/L (0-33); Alkaline Phosphatase 101 U/L (35-105); Anion Gap 14.4 (5-19); Aspartate Amino Transferase 10 U/L (0-32); Blood Urea Nitrogen 10 mg/dL (6-20); Calcium 7.9 mg/dL (8.5-10.5); Carbon Dioxide 24 mmol/L (22-29); Chloride 103 mmol/L (98-107); Creatinine Clr Calc Pharmacy 116.3737; Globulin 3.2 g/dL (1.3-4.6); Glomerular Filtration Rate 118.2 mL/min (90-130); Glucose 116 mg/dL (65-115); Osmolality Calculated 286 mOsm/kg (285-295); Phosphorus 3.1 mg/dL (2.5-4.5); Potassium 3.4 mmol/L (3.5-5.1); Sodium 138 mmol/L (136-145); Total Bilirubin 0.4 mg/dL (0.15-1.2); Total Protein 6.2 g/dL (6.6-8.7)
[2025-01-23] MEDS: magnesium oxide 400 mg tablet PO (08:35)
[2025-01-23] MEDS: gabapentin 300 mg Capsule PO ×2 (08:35→17:18)
[2025-01-23] MEDS: cyclobenzaprine 10 mg Tablet 5 MG PO ×3 (08:35→20:43)
[2025-01-23 08:42] LABS: Glucose Point of Care 119 mg/dL (70-110)
[2025-01-23 11:21] LABS: Bilirubin Urine Negative (Negative); Blood Urine Trace (Negative); Glucose Urine UA Negative (Normal); Ketones Urine Negative (Negative); Leukocyte Esterase Urine Negative (Negative); Nitrate Urine Negative (Negative); Protein Urine Negative (Negative); Urine Appearance Clear (CLEAR); Urine Color Yellow (Yellow)
[2025-01-23 11:24] LABS: Glucose Point of Care 94 mg/dL (70-110)
[2025-01-23 11:26] LABS: Add Urine Microscopic? YES; Bacteria Urine None Seen /hpf; Hyaline Casts Urine 0-4 /lpf; RBC Urine 0-2 /hpf (0-2); Squamous Epithelial Cell Urine 0-5 /hpf (0-5); WBC Urine 0-5 /hpf (0-5)
[2025-01-23 11:28] LABS: Add Urine Culture? No
[2025-01-23] MEDS: pantoprazole 40 mg SDV IVP (11:40)
[2025-01-23] MEDS: DAPTOmycin 500 MG SDV 480 MG IVP (12:23)
--- NOTE | 2025-01-23 13:00 | PM.PN ---
Subjective Subjective: ID progress note Febrile to 101F at 4 am today Blood cx last positive from Currently on daptomycin Medications: Reviewed: Yes Medication Review Details: iv vancomcyin 01/19- 01/22 ; trough 01/21-5.5 ; ?random 01/22 12.5 Daptomycin 8mg/kg every 24 hrs since 01/22- Vitals/I&O/Wt Last Vital Signs Temp 98.4 F 01/24/25 19:43 Pulse 89 01/24/25 19:43 Resp 16 01/24/25 19:43 BP 107/74 01/24/25 19:43 Pulse Ox 99 01/24/25 19:43 O2 Del Method Room Air 01/24/25 19:43 01/24/25 01/24/25 01/24/25 06:59 14:59 22:59 Intake Total 960 / 960 1494 / 2454 Balance 960 / 960 1494 / 2454 Weight last 48 hrs Weight 58.06 kg Weight 58.06 kg Physical Exam Narrative: not examined today, case discussed with hospitalist Data 01/24/25 06:02 01/24/25 06:02 Micro: Microbiology 01/20/25 13:20 Gram Stain - Final Other Source Anaerobic Culture - Preliminary Wound Culture - Final Staphylococcus aureus MSSA 01/23/25 06:26 Blood Culture - Preliminary Blood NEGATIVE TO DATE 01/24/25 06:02 Blood Culture - Preliminary Blood SPECIMEN COLLECTED 01/24/25 06:04 Blood Culture - Preliminary Blood SPECIMEN COLLECTED A&P Assessment and plan (1) Hx of bacterial endocarditis: (2) Infection due to Port-A-Cath: (3) Septicemia due to Staphylococcus aureus: Plan 29-year-old lady with HPI as above currently presenting to the hospital after having had fever recently, blood cultures were drawn in the emergency room on January 16, 2025 and returned positive 1 out of 4 bottles for Staph aureus. Per discussion with the [facility], no MecA gene is identified on direct PCR, isolate is most likely an MSSA. Ideally would prefer to start organism directed therapy with nafcillin or cefazolin, however patient reports severe allergic reaction by way of hives in the past. In keeping with this reported allergy, will start treatment with vancomycin while awaiting final culture results. Blood cultures have been drawn yesterday upon arrival on January 19, 2025 Patient is planned for port removal in the operating room today. Also planned to undergo YARED today to assess for endocarditis. Patient denies any tenderness over her spine, no joint swelling is noted, chest x-ray is negative for any infections. No other localizing signs or symptoms of infection at this time. Source is most likely to be a Port-A-Cath. Please maintain target trough of 15-20 with the vancomycin Patient will likely need an extended course of antibiotics, hold off on placing any PICC line until cultures are negative for at least 48-72 hours will follow January 22, 2025 Patient is status post Port-A-Cath removal on January 20, 2025. Per review of the operative note, upon opening the capsule of the port, purulent material was encountered. Cultures were taken and the cavity was completely evacuated. Cultures from this purulent discharge have revealed MSSA. There was a large abscess that was surrounding the port. 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 Structurally normal tricuspid valve was encountered without vegetations. Thus far peripheral blood culture taken in the emergency room on January 19 is negative. Blood culture on January 21 so far is also negative. Patient had a fever up to 103 Fahrenheit last evening. Will wait for culture negativity for at least 48 to 72 hours and then afebrile. Of at least 24 hours prior to placing a PICC line. Anticipate discharge on daptomycin 8 mg/kg IV every 24 hours with weekly check of CBC, CMP, CPK. Will reach out to her ID physician at [facility] to follow labs ans subsequent outpatient management. January 23, 2025 : Febrile overnight. WBC count elevated today .Vanc trough 5.5 , switched to Daptomycin on 01/22. Blood cx last positive on 01/20 thus far , however per verbal report, this am blood cx also reported positive - to be verfied with micro tech as not seen in the system. YARED confirmed with cardiology- no atrial thrombus, no vegetations noted. Benign Lambl's Excrescnces incidentally noted. Hold off on PICC line today Recommend to obtain CT thoracolumbar spine, CT Chest/Abdomen and pelvis to evaluate for any secondary embolization will follow PDMP PDMP Reviewed: Not Reviewed Attestations Medical Necessity Statement*: per admitting 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 Code Acute Code for Chg Fwd Diagnoses Hx of bacterial endocarditis Z86.79 Infection due to Port-A-Cath T80.219A Septicemia due to Staphylococcus aureus A41.01
--- NOTE | 2025-01-23 14:05 | PICC.NOTE ---
Referred to vascular access nurse for US guided IV. Pt has PPN going through right AC peripheral line. Additional access needed for IV antibiotics. 20 gauge started to left forearm without difficulty. Good blood return noted and flushed without difficulty. Report given to bedside nurse, RACQUEL Reeder.
--- NOTE | 2025-01-23 14:51 | CTR_ITS ---
PROCEDURE INFORMATION: Exam: CT Chest With Contrast; Diagnostic Exam date and time: 01/23/2025 5:50 PM Age: 29 years old Clinical indication: Fever; Additional info: Recurrent fevers, bacteremia, looking for septic emboli TECHNIQUE: Imaging protocol: Diagnostic computed tomography of the chest with contrast. Radiation optimization: All CT scans at this facility use at least one of these dose optimization techniques: automated exposure control; mA and/or kV adjustment per patient size (includes targeted exams where dose is matched to clinical indication); or iterative reconstruction. Contrast material: OMNIPAQUE 350; Contrast volume: 100 ml; Contrast route: INTRAVENOUS (IV); COMPARISON: CR (CHEST, ) 01/16/2025 1:59 PM RADIATION DOSE METRICS: Total DLP (mGy-cm): 485.87 FINDINGS: Lungs: Basilar reticular markings, suggestive of atelectasis/early septal thickening. Pleural spaces: Unremarkable. No pneumothorax. No pleural effusion. Heart: Unremarkable. No cardiomegaly. No pericardial effusion. Lymph nodes: Unremarkable. No enlarged lymph nodes. Vasculature: Unremarkable. No aortic aneurysm. Bones/joints: Unremarkable. No acute fracture. Soft tissues: Left upper chest wall demonstrates foci of cutaneous thickening with what appears to be superimposed collection of multiple foci of air and hyperdense material this appears to be contiguous with the overlying skin area of abnormality measures about 2.9 x 1.6 x 3.2 cm. PROCEDURE INFORMATION: Exam: CT Abdomen And Pelvis With Contrast Exam date and time: 01/23/2025 5:50 PM Age: 29 years old Clinical indication: Fever; Additional info: Recurrent fevers, bacteremia, looking for septic emboli TECHNIQUE: Imaging protocol: Computed tomography of the abdomen and pelvis with contrast. Radiation optimization: All CT scans at this facility use at least one of these dose optimization techniques: automated exposure control; mA and/or kV adjustment per patient size (includes targeted exams where dose is matched to clinical indication); or iterative reconstruction. Contrast material: OMNIPAQUE 350; Contrast volume: 100 ml; Contrast route: INTRAVENOUS (IV); COMPARISON: CT abdomen pelvis w con* [id number] 01/18/2022 10:43 AM RADIATION DOSE METRICS: Total DLP (mGy-cm): 485.87 FINDINGS: Tubes, catheters and devices: Left upper quadrant percutaneous gastrostomy tube appears appropriate in positioning. Left lower quadrant jejunostomy tube appears appropriately positioned. Liver: Normal. No mass. Gallbladder and biliary ducts: Normal. No calcified stones. No ductal dilation. Pancreas: Normal. No ductal dilation. Spleen: Spleen appears enlarged without focal mass or lesion. Incidental splenule is seen. Adrenal glands: Normal. No mass. Kidneys and ureters: Ill-defined focus of focal cortical hypoenhancement within the posterior left upper renal cortex (series 7 images 16 through 22). Additional focus of cortical hypoenhancement is noted within the posterior left lower renal cortex (series 7, image 32) Stomach and bowel: Unremarkable. No obstruction. No mucosal thickening. Appendix: No evidence of appendicitis. Intraperitoneal space: Physiologic pelvic ascites is present. Vasculature: Unremarkable. No abdominal aortic aneurysm. Lymph nodes: Unremarkable. No enlarged lymph nodes. Urinary bladder: Unremarkable as visualized. Reproductive: Unremarkable as visualized. Bones/joints: Unremarkable. No acute fracture. Soft tissues: Unremarkable. CT/CT chest abdpel w/*[id number] IMPRESSION: 1. Basilar reticular markings suggestive of atelectasis/early septal thickening, can be seen in the setting of volume overload/cardiac dysfunction. Correlate clinically. 2. Left upper chest wall demonstrates what appears to be packing material within an evacuated abscess, correlate clinically. IMPRESSION: Suggestion of possible left pyelonephritis with 2 foci of cortical hypoenhancement as detailed above. This needs to be correlated clinically as other differentials are possible.
--- NOTE | 2025-01-23 16:27 | PM.PN ---
Vitals/I&O/Wt Last Vital Signs Temp 98.4 F 01/24/25 19:43 Pulse 89 01/24/25 19:43 Resp 16 01/24/25 19:43 BP 107/74 01/24/25 19:43 Pulse Ox 99 01/24/25 19:43 O2 Del Method Room Air 01/24/25 19:43 01/24/25 01/24/25 01/24/25 06:59 14:59 22:59 Intake Total 960 / 960 1494 / 2454 Balance 960 / 960 1494 / 2454 Weight last 48 hrs Weight 58.06 kg Weight 58.06 kg Data 01/24/25 06:02 01/24/25 06:02 Micro: Microbiology 01/24/25 16:25 Blood Culture - Preliminary Blood SPECIMEN COLLECTED 01/24/25 16:25 Blood Culture - Preliminary Blood SPECIMEN COLLECTED 01/19/25 13:52 Blood Culture - Final Blood NO GROWTH AFTER 5 DAYS 01/22/25 03:01 Blood Culture - Preliminary Blood Staphylococcus aureus 01/20/25 13:20 Gram Stain - Final Other Source Anaerobic Culture - Preliminary Wound Culture - Final Staphylococcus aureus 01/23/25 06:26 Blood Culture - Preliminary Blood NEGATIVE TO DATE 01/24/25 06:02 Blood Culture - Preliminary Blood SPECIMEN COLLECTED 01/24/25 06:04 Blood Culture - Preliminary Blood SPECIMEN COLLECTED A&P PDMP PDMP Reviewed: Not Reviewed 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 Code Acute Code for Chg Fwd
--- NOTE | 2025-01-23 16:36 | CTR_ITS ---
PROCEDURE INFORMATION: Exam: CT Thoracic Spine Without Contrast Exam date and time: 01/23/2025 5:50 PM Age: 29 years old Clinical indication: Screening exam; Other; Fever; Additional info: Recurrent fever, bacteremia TECHNIQUE: Imaging protocol: Computed tomography of the thoracic spine without contrast. Radiation optimization: All CT scans at this facility use at least one of these dose optimization techniques: automated exposure control; mA and/or kV adjustment per patient size (includes targeted exams where dose is matched to clinical indication); or iterative reconstruction. COMPARISON: CT abdomen pelvis w con* [id number] 01/18/2022 10:43 AM RADIATION DOSE METRICS: Total DLP (mGy-cm): 0.01 FINDINGS: Bones/joints: Scattered early endplate degenerative change of the lower thoracic spine. Soft tissues: See dedicated CT of the chest. CT/CT thoracic spine recon [id number] IMPRESSION: Scattered early endplate degenerative change of the lower thoracic spine without acute findings.
--- NOTE | 2025-01-23 16:36 | CTR_ITS ---
PROCEDURE INFORMATION: Exam: CT Lumbar Spine Without Contrast Exam date and time: 01/23/2025 5:50 PM Age: 29 years old Clinical indication: Screening exam; Other; Fever; Additional info: Recurrent fever, bacteremia, rule out septic emboli TECHNIQUE: Imaging protocol: Computed tomography of the lumbar spine without contrast. Radiation optimization: All CT scans at this facility use at least one of these dose optimization techniques: automated exposure control; mA and/or kV adjustment per patient size (includes targeted exams where dose is matched to clinical indication); or iterative reconstruction. COMPARISON: CT abdomen pelvis w con* [id number] 01/18/2022 10:43 AM RADIATION DOSE METRICS: Total DLP (mGy-cm): 0.01 FINDINGS: Bones/joints: Posterior disc protrusion with caudal migration at L5-S1. Mild posterior disc bulges at L4-L5 and L3-L4. Mild spinal canal stenosis at L5-S1. Probable mild bilateral neural foraminal narrowing superimposed at L5-S1. Soft tissues: Please see dedicated CT of the abdomen/pelvis. CT/CT lumbar spine recon [id number] IMPRESSION: 1. Degenerative disc changes as above. 2. No evidence to suggest discitis osteomyelitis at this time.
[2025-01-23 17:14] LABS: Glucose Point of Care 91 mg/dL (70-110)
[2025-01-23] MEDS: iohexol 350 mg/mL 500 mL Btl (per mL) IV (17:58)
--- NOTE | 2025-01-23 19:14 | P.PN_ITS ---
Subjective 2 Subjective: The patient was seen with her mother in the room. She had no complaints. She continues to have episodes of fevers, such as an episode early in the morning, but she states that the Tylenol is helpful. She currently denies any fever, chills, CP, palpitations, dizziness, lightheadedness, dyspnea, coughing, wheezing, GI or symptoms at this time. Vitals/I&O/Wt Last Vital Signs Temp 98.3 F 01/23/25 15:41 Pulse 93 01/23/25 15:41 Resp 18 01/23/25 15:41 BP 104/67 01/23/25 15:41 Pulse Ox 97 01/23/25 15:41 O2 Del Method Room Air 01/23/25 15:41 01/23/25 01/23/25 01/23/25 06:59 14:59 22:59 Intake Total 1080 / 5595 1494 / 2574 Balance 1080 / 1080 1494 / 2574 Weight last 48 hrs Weight 58.06 kg Weight 58.377 kg Physical Exam 2 Narrative: Constitutional: GENERAL APPEARANCE: cooperative, comfortable not combative, not disheveled HENT: HEAD & SCALP: normocephalic and atraumatic; NOSE: external nose not normal EXTERNAL EAR: no external ears normal MOUTH: Normal oral and palatal mucosa present THROAT: posterior oropharynx normal Eye: PERRL, EOMI, normal conjunctiva b/l Neck: normal visual inspection, trachea midline, No anterior neck swelling, No tracheal deviation, No tracheostomy present, no submandibular swelling, Thyroid normal , cervical ROM normal Lymph: no cervical, supraclavicular LAD Resp: no use of accessory muscles, CTAB, no w/r/r Cardio: RRR, no m/r/g, or clicks. 2+ radial and DP pulses. GI: normoactive bowel sounds, non-tender, non-distended, no guarding, no rigidity, no rebound tenderness, no hepatosplenomegaly. G-J tubes noted w/ sites c/d/i. : Back/Pelvis: Deferred Extremity: No clubbing, No cyanosis and No edema Neuro: AO to person, place and time. CN normal except as noted. Normal gait present. 5/5 motor strength present throughout. Normal motor muscle tone present throughout. No tremor noted. No motor abnormalities present. No motor fasciculations present Psych: APPEARANCE: Yes grossly normal ATTITUDE: Yes calm and Yes engaged ACTIVITY/MOTOR BEHAVIOR: Yes appropriate eye contact SPEECH: Yes normal speech MOOD & AFFECT: Yes euthymic mood THOUGHT PROCESS: Normal thought process present THOUGHT CONTENT: Yes Normal thought content present ATTENTION/CONCENTRATION: Yes attention grossly intact MEMORY/COGNITION: Yes memory grossly intact Data 01/23/25 06:26 01/23/25 06:26 Micro: Microbiology 01/20/25 13:20 Gram Stain - Final Other Source Anaerobic Culture - Preliminary Wound Culture - Final Staphylococcus aureus 01/19/25 13:21 Blood Culture - Preliminary Blood Staphylococcus aureus 01/23/25 06:26 Blood Culture - Preliminary Blood SPECIMEN COLLECTED 01/22/25 03:01 Blood Culture - Preliminary Blood SPECIMEN COLLECTED A&P Assessment and plan (1) Septicemia due to Staphylococcus aureus: (2) Infection due to Port-A-Cath: (3) Hx of bacterial endocarditis: (4) POTS (postural orthostatic tachycardia syndrome): (5) Nondiabetic gastroparesis: (6) Jejunostomy tube in situ: (7) Gastrostomy tube in place: (8) Dysautonomia: Plan Ms Damon is a 29yo woman w/a chronic port in place for nutrition for TPN due to gastroparesis, dysautonomia, POTS with J-tube and G-tube in place with history of staff epidermidis bacteremia back in July 17 due to port infection and tricuspid valve endocarditis w/ replacement of that port earlier in 2024, who presented to the hospital on 01/19/2025 due to a blood culture positive for Staph aureus with concerns for port re-infection and high concerns for endocarditis. Blood culture from 01/16 1 out of 4 bottles positive for Staph aureus. Has port in place. History of staff epidermidis bacteremia due to tricuspid valve endocarditis back in June 2024. Finished course of IV vancomycin in July 2024. Port replaced earlier this year. High concerns for infective endocarditis again. Post removal of port on 01/20. Found to have significant abscess around port. Post YARED on 01/20. No concerns for endocarditis on YARED. Appreciate surgical and cardiology recommendations. Follow-up blood culture, wound culture. Repeat blood culture sent on 01/21 which is 24 hours post removal of port. For now continue with IV vancomycin. Monitor trough levels. Appreciate ID recommendations. Patient will need 6 weeks of IV antibiotics after negative blood cultures. Plan for PICC line placement after negative blood culture. Blood culture from 01/16 positive for Staph aureus. Appreciate sensitivities. Gastroparesis: Started on PPN. Continue with home trickle feeds. Start on regular diet. History of PE: Not on AC currently Heparin for DVT PPx around port removal Continue home chronic medications including cyclobenzaprine 5 mg 3 times daily, gabapentin 10 mg twice daily. Plan for the day01/22/2025: Appreciate wound cultures growing MSSA. Blood cultures so far negative. Plan for repeat blood culture in a.m. Appreciate ID recommendations. Will switch from vancomycin to daptomycin given persistent fever. Check respiratory viral panel. Care plan discussed in detail with patient and patient's mother at bedside. Plan will be to follow-up blood cultures. Once blood cultures are negative we will plan for IV antibiotic as an outpatient through PICC line for 6 weeks. PICC line placement after negative blood cultures. Continue with TPN. Will continue with weekly monitoring of triglyceride levels, daily CMP levels. Plan on 01/23/2025 - Per discussion with ID, given her repeated fevers, she will get a CT chest abdomen and pelvis with IV contrast as well as a CT thoracolumbar spine with contrast to evaluate for potential septic emboli. Will continue the daptomycin. Full code Protonix for PUD prophylaxis SCD for DVT prophylaxis, heparin after port removal Regular diet PDMP PDMP Reviewed: Not Reviewed Attestations 2 Medical Necessity Statement*: The patient remains hospitalized due to her repeated fevers of unclear origins and concern for occult infection. Other Coding Information Focused coding review requested Diagnoses Septicemia due to Staphylococcus aureus A41.01 Infection due to Port-A-Cath T80.219A Hx of bacterial endocarditis Z86.79 POTS (postural orthostatic tachycardia syndrome) G90.A Nondiabetic gastroparesis K31.84 Jejunostomy tube in situ Z93.[address] Z93.1 Dysautonomia G90.1
[2025-01-23] MEDS: MULTIVITAMIN IV (19:25)
[2025-01-23] MEDS: FAMOTIDINE IV (19:25)
[2025-01-23] MEDS: LYTES IV (19:25)
[2025-01-23] MEDS: DEXTROSE IV (19:25)
[2025-01-23] MEDS: AMINO ACIDS IV (19:25)
[2025-01-23 20:47] LABS: Glucose Point of Care 91 mg/dL (70-110)
[2025-01-24] VITALS (7 sets, daily range): BP systolic 95–107; BP diastolic 49–74; PULSE 71–102; RESP 16–20; TEMP 36.7–37.3; O2SAT 95–99
[2025-01-24] MEDS: acetaminophen 325 mg Tablet 650 MG PO ×2 (00:05→16:51)
[2025-01-24] MEDS: pantoprazole 40 mg SDV IVP (05:37)
[2025-01-24 06:10] LABS: Basophils % 0.7 %; Eosinophils # 0.1 10^3/uL (0.0-0.8); Eosinophils % 1.8 %; Hematocrit 30.9 % (36-47); Lymphocytes # 2.2 10^3/uL (0.8-4.8); Lymphocytes % 36.4 %; Mean Corpuscular Hemoglobin 28.9 pg (27-33); Mean Corpuscular Volume 90.4 fl (85-98); Mean Platelet Volume 9.3 fL (7.4-10.4); Monocytes # 0.8 10^3/uL (0.2-0.9); Monocytes % 12.8 %; Neutrophils # 2.84 10^3/uL (1.8-7.7); Neutrophils % 46.5 %; Nucleated Red Blood Cells % 0 %; Platelet Count 303 10^3/cmm (157-399); Red Blood Count 3.42 10^6/uL (3.85-5.65); Red Cell Distribution Width 12.4 % (12.1-15.1)
[2025-01-24 06:21] LABS: Glucose Point of Care 92 mg/dL (70-110)
[2025-01-24 06:30] LABS: Alanine Aminotransferase 15 U/L (0-33); Alkaline Phosphatase 94 U/L (35-105); Anion Gap 14.8 (5-19); Aspartate Amino Transferase 11 U/L (0-32); Blood Urea Nitrogen 12 mg/dL (6-20); Calcium 8.2 mg/dL (8.5-10.5); Carbon Dioxide 23 mmol/L (22-29); Chloride 105 mmol/L (98-107); Creatinine Clr Calc Pharmacy 139.6485; Globulin 3.7 g/dL (1.3-4.6); Glomerular Filtration Rate 145.9 mL/min (90-130); Glucose 96 mg/dL (65-115); Magnesium 2.3 mg/dL (1.7-2.3); Osmolality Calculated 288 mOsm/kg (285-295); Phosphorus 4.4 mg/dL (2.5-4.5); Potassium 3.8 mmol/L (3.5-5.1); Sodium 139 mmol/L (136-145); Total Bilirubin 0.4 mg/dL (0.15-1.2); Total Protein 6.7 g/dL (6.6-8.7)
[2025-01-24] MEDS: cyclobenzaprine 10 mg Tablet 5 MG PO ×3 (08:55→21:10)
[2025-01-24] MEDS: docusate sodium 100 mg Capsule PO (08:55)
[2025-01-24] MEDS: gabapentin 300 mg Capsule PO ×2 (08:55→16:51)
[2025-01-24] MEDS: magnesium oxide 400 mg tablet PO (08:55)
--- NOTE | 2025-01-24 09:30 | P.PN_ITS ---
Subjective 2 Subjective: ID progress note last febrile 01/23 at 4Am leukocytosis resolved today port pocket over left chest wall without any pus, noted bloody discharge with no pus Blood cx from 01/23 reported positive today for staph aureus, however there appears to be discrepancy per the reporting. The collected time is reflected on one hand at 01/22 0300 , at another place reflected as 01/23 at 0037 (see below) Attempted to clarify with [employer] who reports that collection time is 01/23 just after midnight. Medications: Reviewed: Yes Medication Review Details: iv vancomcyin 01/19- 01/22 ; trough 01/21-5.5 ; ?random 01/22 12.5 Daptomycin 8mg/kg every 24 hrs since 01/22- Vitals/I&O/Wt Last Vital Signs Temp 98.4 F 01/24/25 19:43 Pulse 89 01/24/25 19:43 Resp 16 01/24/25 19:43 BP 107/74 01/24/25 19:43 Pulse Ox 99 01/24/25 19:43 O2 Del Method Room Air 01/24/25 19:43 01/24/25 01/24/25 01/24/25 06:59 14:59 22:59 Intake Total 960 / 960 1494 / 2454 Balance 960 / 960 1494 / 2454 Weight last 48 hrs Weight 58.06 kg Weight 58.06 kg Physical Exam 2 Narrative: General: No acute distress, AO x3 HEENT: PERRLA, pupils bilaterally equal and reactive, pallors not present Ext: packing removed from anterior chest wall, no pus noted Data 01/24/25 06:02 01/24/25 06:02 Micro: Microbiology 01/24/25 16:25 Blood Culture - Preliminary Blood SPECIMEN COLLECTED 01/24/25 16:25 Blood Culture - Preliminary Blood SPECIMEN COLLECTED 01/19/25 13:52 Blood Culture - Final Blood NO GROWTH AFTER 5 DAYS 01/22/25 03:01 Blood Culture - Preliminary Blood Staphylococcus aureus 01/20/25 13:20 Gram Stain - Final Other Source Anaerobic Culture - Preliminary Wound Culture - Final Staphylococcus aureus 01/23/25 06:26 Blood Culture - Preliminary Blood NEGATIVE TO DATE 01/24/25 06:02 Blood Culture - Preliminary Blood SPECIMEN COLLECTED 01/24/25 06:04 Blood Culture - Preliminary Blood [id number] U #: [id number] AGE/SX: 29/F ROOM: 278 R E01/19/[address]: Jeanne Bajwa : 1995 BED: 2 D IS: FAX #: STATUS: ADM IN TLOC: Spec #: [id number] Sirisha: 01/22/25-0301 Status: RES Req #: [id number] Recd: 01/23/25-[address]: Anibal Carrillo MD Src: Blood SpDesc: Ordered: Bcult Procedure Result Verified Site Blood Culture Preliminary 01/24/25-6 1 OF 3 BOTTLES POSITIVE DIRECT GRAM STAIN: GRAM POSTIVE COCCI IN CLUSTERS IDENTIFICATION BY DIRECT PCR RESULTS TO FOLLOW Organism 1 Staphylococcus aureus Growth 1 BOTTLE Gram Stain Charge Charge for Gram Stain CRITICAL RESULT YES/NO: YES CRITICAL CALLED BY: RT TO AND READ BACK BY: SHAILESH DATE: 01/24/25 TIME: 1154 Blood Culture Preliminary (changed) 01/24/25-1154 1 OF 3 BOTTLES POSITIVE DIRECT GRAM STAIN: GRAM POSTIVE COCCI IN CLUSTERS IDENTIFICATION BY DIRECT PCR RESULTS TO FOLLOW Organism 1 Staphylococcus aureus Growth 1 BOTTLE Gram Stain Charge Charge for Gram Stain CRITICAL RESULT YES/NO: YES CRITICAL CALLED BY: RT TO AND READ BACK BY: SHAILESH DATE: 01/24/25 TIME: 1154 Blood Culture Preliminary (changed) 01/24/25-29 NEGATIVE TO DATE Blood Culture Preliminary (changed) 01/23/25-36 SPECIMEN COLLECTED [id number] LOC: [facility] U #: [id number] AGE/SX: 29/F ROOM: 278 R E01/19/[address]: Jeanne Bajwa : 1995 BED: 2 D IS: FAX #: STATUS: ADM IN TLOC: Spec #: [id number] Sirisha: 01/21/25-0152 Status: RES Req #: [id number] Recd: 01/21/25-[address]: Anibal Carrillo MD Src: Blood SpDesc: Ordered: Bcult Procedure Result Verified Site Blood Culture Preliminary 01/22/25 NEGATIVE TO DATE Blood Culture Preliminary (changed) 01/21/25 SPECIMEN COLLECTED NAME: Anastasiia Damon LOC: [facility] U #: [id number] AGE/SX: 29/F ROOM: 278 R E01/19/[address]: Jeanne Bajwa : 1995 BED: 2 D IS: FAX #: STATUS: ADM IN TLOC: Spec #: [id number] Sirisha: 01/21/258 Status: RES Req #: [id number] Recd: 01/21/[address]: Anibal Carrillo MD Src: Blood SpDesc: Ordered: Bcult Procedure Result Verified Site Blood Culture Preliminary 01/22/25 NEGATIVE TO DATE Blood Culture Preliminary (changed) 01/21/25 SPECIMEN COLLECTED NAME: Anastasiia Damon LOC: [facility] U #: [id number] AGE/SX: 29/F ROOM: 278 R E01/19/[address]: Jeanne Bajwa : 1995 BED: 2 D IS: FAX #: STATUS: ADM IN TLOC: Spec #: [id number] Sirisha: 01/20/251320 Status: RES Req #: [id number] Recd: 01/20/251403 Sub Dr: Roeglio Guajardo Src: Other Sour SpDesc: Ordered: WC and GS, Anaer Comments: Comment port-a-cath abscess Procedure Result Verified Site Gram Stain Final 01/20/25-1822 Result FEW WHITE BLOOD CELLS NO ORGANISMS SEEN Anaerobic Culture Preliminary 01/24/25-1112 NO ANAEROBES ISOLATED ON DAY 4 Anaerobic Culture Preliminary (changed) 01/23/25-1108 NO ANAEROBES ISOLATED ON DAY 3 Anaerobic Culture Preliminary (changed) 01/22/25-1613 NO ANAEROBES ISOLATED ON DAY 2 Anaerobic Culture Preliminary (changed) 01/21/25-1730 NO ANAEROBES ISOLATED ON DAY 1 Wound Culture Final 01/22/25-1231 Organism 1 Staphylococcus aureus Growth FEW DAY 2 CRITICAL RESULT YES/NO: YES CRITICAL CALLED BY: ISAEL TO AND READ BACK BY: CRISTIAN DATE: 01/22/25 TIME: 1231 S aureus M.I.C. RX --------- ------ * Ciprofloxacin <=1 S * Clindamycin <=0.5 S * Erythromycin <=0.5 S * Gentamicin <=4 S * Levofloxacin <=1 S * Linezolid 4 S * Moxifloxacin <=0.5 S * Oxacillin <=0.25 S * Penicillin <=0.03 R * Rifampin <=1 S * Tetracycline <=4 S * Trimethoprim/Sulfamethoxazole <=0.5/9.5 S Vancomycin 2 S Daptomycin 1 S Wound Culture Preliminary (changed) 01/21/25-134 Organism 1 Coag positive Staphylococcus Growth FEW DAY 1, RESULTS TO FOLLOW NAME: Anastasiia Damon LOC: [facility] U #: [id number] AGE/SX: 29/F ROOM: [employer] R E01/19/[address]: Jeanne Bajwa : 1995 BED: 2 D IS: FAX #: STATUS: ADM IN TLOC: Spec #: [id number] Sirisha: 01/19/25-1321 Status: RES Req #: [id number] Recd: 01/19/25-[address]: Melchor Delatorre DO Src: Blood SpDesc: Ordered: Bcult Procedure Result Verified Site Blood Culture Preliminary 01/23/25-0850 1 OF 3 BOTTLES POSITIVE DIRECT GRAM STAIN: GRAM POSITIVE COCCI IN PAIRS AND CLUSTERS IDENTIFICATION BY DIRECT PCR RESULTS TO FOLLOW Organism 1 Staphylococcus aureus Growth 1 BOTTLE Gram Stain Charge Charge for Gram Stain CRITICAL RESULT YES/NO: YES CRITICAL CALLED BY: [email or web address] TO AND READ BACK BY: KATINA DATE: 01/23/25 TIME: 0338 2ND CRITICAL RES YES/NO: YES 2ND CRITICAL CALLED BY: ISAEL 2ND TO AND READ BACK BY: [email or web address] DATE: 01/23/25 2ND CRITICAL TIME: 0850 Blood Culture Preliminary (changed) 01/23/25-9 1 OF 8 BOTTLES POSITIVE DIRECT GRAM STAIN: GRAM POSITIVE COCCI IN PAIRS AND CLUSTERS RESULTS TO FOLLOW CRITICAL RESULT YES/NO: YES CRITICAL CALLED BY: [email or web address] TO AND READ BACK BY: KATINA DATE: 01/23/25 TIME: 337 Blood Culture Preliminary (changed) 01/20/25-134 NEGATIVE TO DATE Blood Culture Preliminary (changed) 01/19/25-134 SPECIMEN COLLECTED Other data: Radiology Impressions KUB X-Ray 01/19/25 17:46 IMPRESSION: Gastrografin contrast was administered through the jejunostomy tube with identification of contrast within jejunal small bowel. Chest/Abdomen/Pelvis CT 01/23/25 14:51 IMPRESSION: 1. Basilar reticular markings suggestive of atelectasis/early septal thickening, can be seen in the setting of volume overload/cardiac dysfunction. Correlate clinically. 2. Left upper chest wall demonstrates what appears to be packing material within an evacuated abscess, correlate clinically. IMPRESSION: Suggestion of possible left pyelonephritis with 2 foci of cortical hypoenhancement as detailed above. This needs to be correlated clinically as other differentials are possible. ADDENDUM: 01/23/252046 ADDENDUM: Differential diagnosis for of the left kidney findings include septic emboli/infarcts of the kidney. Lumbar Spine CT 01/23/25 16:36 IMPRESSION: 1. Degenerative disc changes as above. 2. No evidence to suggest discitis osteomyelitis at this time. Thoracic Spine CT 01/23/25 16:36 IMPRESSION: Scattered early endplate degenerative change of the lower thoracic spine without acute findings. Laboratory Results WBC 6.10 10^3/uL (3.29-11.43) 01/24/25 06: RBC 3.42 10^6/uL (3.85-5.65) L 01/24/25 06:02 Hgb 9.90 g/dL (11.27-16.99) L 01/24/25 06:02 Hct 30.9 % (36-47) L 01/24/25 06:02 MCV 90.4 fl (85-98) 01/24/25 06:02 MCH 28.9 pg (27-33) 01/24/25 06:02 MCHC 32.0 g/dL (30-55) 01/24/25 06:02 RDW 12.4 % (12.1-15.1) 01/24/25 06:02 Plt Count 303 10^3/cmm (157-399) 01/24/25 06:02 MPV 9.3 fL (7.4-10.4) 01/24/25 06:02 Neut % (Auto) 46.5 % 01/24/25 06:02 Lymph % (Auto) 36.4 % 01/24/25 06:02 Johnston % (Auto) 12.8 % 01/24/25 06:02 Eos % (Auto) 1.8 % 01/24/25 06:02 Baso % (Auto) 0.7 % 01/24/25 06:02 Neut # (Auto) 2.84 10^3/uL (1.8-7.7) 01/24/25 06:02 Lymph # (Auto) 2.2 10^3/uL (0.8-4.8) 01/24/25 06:02 [place] # (Auto) 0.8 10^3/uL (0.2-0.9) 01/24/25 06:02 Eos # (Auto) 0.1 10^3/uL (0.0-0.8) 01/24/25 06:02 Baso # (Auto) 0.0 10^3/uL (0.0-0.1) 01/24/25 06:02 Nucleated RBC % (auto) 0 % 01/24/25 06:02 Nucleated RBCs # 0.0 /100WBC 01/24/25 06:02 Sodium 139 mmol/L (136-145) 01/24/25 06:02 Potassium 3.8 mmol/L (3.5-5.1) 01/24/25 06:02 Chloride 105 mmol/L (98-107) 01/24/25 06:02 Carbon Dioxide 23 mmol/L (22-29) 01/24/25 06:02 Anion Gap 14.8 (5-19) 01/24/25 06:02 BUN 12 mg/dL (6-20) 01/24/25 06:02 Creatinine 0.5 mg/dL (0.5-0.9) 01/24/25 06:02 GFR Calculation 145.9 mL/min (90-130) H 01/24/25 06:02 Glucose 96 mg/dL (65-115) 01/24/25 06:02 POC Glucose 110 mg/dL (70-110) 01/24/25 17:51 Calculated Osmolality 288 mOsm/kg (285-295) 01/24/25 06:02 Lactic Acid 0.6 mmol/L (0.5-2.2) 01/19/25 16:51 Calcium 8.2 mg/dL (8.5-10.5) L 01/24/25 06:02 Phosphorus 4.4 mg/dL (2.5-4.5) 01/24/25 06:02 Magnesium 2.3 mg/dL (1.7-2.3) 01/24/25 06:02 Total Bilirubin 0.4 mg/dL (0.15-1.2) 01/24/25 06:02 AST 11 U/L (0-32) 01/24/25 06:02 ALT 15 U/L (0-33) 01/24/25 06:02 Alkaline Phosphatase 94 U/L (35-105) 01/24/25 06:02 Creatine Kinase 16 U/L (26-192) L 01/23/25 06:26 C-Reactive Protein 48.0 mg/L (0.0-4.9) H 01/19/25 13:21 Total Protein 6.7 g/dL (6.6-8.7) 01/24/25 06:02 Albumin 3.0 g/dL (3.5-5.2) L 01/24/25 06:02 Globulin 3.7 g/dL (1.3-4.6) 01/24/25 06:02 Triglycerides 179 mg/dL (0-150) H 01/20/25 03:02 Cholesterol 119 mg/dL (0-200) 01/20/25 03:02 LDL Cholesterol, Calc 67 mg/dL (50-129) 01/20/25 03:02 HDL Cholesterol 16 mg/dL (60-100) L 01/20/25 03:02 LDL/HDL Ratio 4.19 RATIO (0.00-3.22) H 01/20/25 03:02 Cholesterol/HDL Ratio 7.44 mg/dL (0.0-4.40) H 01/20/25 03:02 Vitamin B12 > 2000 pg/mL (232-1245) H 01/19/25 13:21 Folate 16.4 ng/mL (4.8-37.3) 01/20/25 03:02 Procalcitonin 0.24 ng/mL (0-0.5) 01/20/25 03:02 Urine Color Yellow (Yellow) 01/23/25 10:55 Urine Appearance Clear (CLEAR) 01/23/25 10:55 Urine pH 7.0 (5-7) 01/23/25 10:55 Ur Specific [place] 1.010 (1.005-1.030) 01/23/25 10:55 Urine Protein Negative (Negative) 01/23/25 10:55 Urine Glucose (UA) Negative (Normal) 01/23/25 10:55 Urine Ketones Negative (Negative) 01/23/25 10:55 Urine Blood Trace (Negative) A 01/23/25 10:55 Urine Nitrate Negative (Negative) 01/23/25 10:55 Urine Bilirubin Negative (Negative) 01/23/25 10:55 Urine Urobilinogen 2.0 mg/dL (Negative) H 01/23/25 10:55 Ur Leukocyte Esterase Negative (Negative) 01/23/25 10:55 Urine RBC 0-2 /hpf (0-2) 01/23/25 10:55 Urine WBC 0-5 /hpf (0-5) 01/23/25 10:55 Ur Squamous Epith Cells 0-5 /hpf (0-5) 01/23/25 10:55 Amorphous Sediment Not Reportable 01/23/25 10:55 Urine Bacteria None seen /hpf (NONE) 01/23/25 10:55 Hyaline Casts 0-4 /lpf H 01/23/25 10:55 Urine HCG, Qual Negative (Negative) 01/20/25 07:54 Vancomycin Trough 12.5 ug/mL (10-15) 01/22/25 03:01 Adenovirus (PCR) Not detected (NOT DETECT) 01/22/25 15:00 C. pneumoniae DNA (PCR) Not detected (NOT DETECT) 01/22/25 15:00 Coronavirus 229E (PCR) Not detected (NOT DETECT) 01/22/25 15:00 Human Metapneumovir PCR Not detected (NOT DETECT) 01/22/25 15:00 Influenza A (H1) PCR Not detected (NOT DETECT) 01/22/25 15:00 Influ A (H1/09) PCR Not detected (NOT DETECT) 01/22/25 15:00 Influenza A (H3) PCR Not detected (NOT DETECT) 01/22/25 15:00 Influenza Type A (PCR) Not detected (NOT DETECT) 01/22/25 15:00 Influenza Type B (PCR) Not detected (NOT DETECT) 01/22/25 15:00 M. pneumoniae (PCR) Not detected (NOT DETECT) 01/22/25 15:00 Parainfluenza 1 (PCR) Not detected (NOT DETECT) 01/22/25 15:00 Parainfluenza 2 (PCR) Not detected (NOT DETECT) 01/22/25 15:00 Parainfluenza 3 (PCR) Not detected (NOT DETECT) 01/22/25 15:00 Parainfluenza 4 (PCR) Not detected (NOT DETECT) 01/22/25 15:00 RSV Type A (PCR) Not detected (NOT DETECT) 01/22/25 15:00 RSV Type B (PCR) Not detected (NOT DETECT) 01/22/25 15:00 Entero/Rhino (PCR) Not detected (NOT DETECT) 01/22/25 15:00 SARS-CoV-2 (PCR) Not detected (NOT DETECT) 01/22/25 15:00 A&P Assessment and plan (1) Hx of bacterial endocarditis: (2) Infection due to Port-A-Cath: (3) Septicemia due to Staphylococcus aureus: Plan 29-year-old lady with HPI as above currently presenting to the hospital after having had fever recently, blood cultures were drawn in the emergency room on January 16, 2025 and returned positive 1 out of 4 bottles for Staph aureus. Per discussion with the [facility], no MecA gene is identified on direct PCR, isolate is most likely an MSSA. Ideally would prefer to start organism directed therapy with nafcillin or cefazolin, however patient reports severe allergic reaction by way of hives in the past. In keeping with this reported allergy, will start treatment with vancomycin while awaiting final culture results. Blood cultures have been drawn yesterday upon arrival on January 19, 2025 Patient is planned for port removal in the operating room today. Also planned to undergo YARED today to assess for endocarditis. Patient denies any tenderness over her spine, no joint swelling is noted, chest x-ray is negative for any infections. No other localizing signs or symptoms of infection at this time. Source is most likely to be a Port-A-Cath. Please maintain target trough of 15-20 with the vancomycin Patient will likely need an extended course of antibiotics, hold off on placing any PICC line until cultures are negative for at least 48-72 hours will follow January 22, 2025 Patient is status post Port-A-Cath removal on January 20, 2025. Per review of the operative note, upon opening the capsule of the port, purulent material was encountered. Cultures were taken and the cavity was completely evacuated. Cultures from this purulent discharge have revealed MSSA. There was a large abscess that was surrounding the port. 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 Structurally normal tricuspid valve was encountered without vegetations. Thus far peripheral blood culture taken in the emergency room on January 19 is negative. Blood culture on January 21 so far is also negative. Patient had a fever up to 103 Fahrenheit last evening. Will wait for culture negativity for at least 48 to 72 hours and then afebrile. Of at least 24 hours prior to placing a PICC line. Anticipate discharge on daptomycin 8 mg/kg IV every 24 hours with weekly check of CBC, CMP, CPK. Will reach out to her ID physician at [facility] to follow labs ans subsequent outpatient management. January 23, 2025 : Febrile overnight. WBC count elevated today .Vanc trough 5.5 , switched to Daptomycin on 01/22. Blood cx last positive on 01/20 thus far , however per verbal report, this am blood cx also reported positive - to be verfied with micro tech as not seen in the system. YARED confirmed with cardiology- no atrial thrombus, no vegetations noted. Benign Lambl's Excrescnces incidentally noted. Hold off on PICC line today Recommend to obtain CT thoracolumbar spine, CT Chest/Abdomen and pelvis to evaluate for any secondary embolization will follow Aug 26, 2024 Last febrile over 24 hrs ago Blood cx reported positive from 6/2, per discussion with micro tech,specimen ordered on 01/22 was collected on 01/23 post midnight, therefore for clinical purposes positive blood culture is from 6/2 am . Hold off on Picc line today until blood cx negative for at least 48-[address] chest without infective source. CT abdomen with hypodensities over renal cortex ? septic emboli . No drainable collection. UA negative for UTI, unlikely pyelonephritis. YARED without vegetations. CT Thoracolumbar spine without signs of discitis, epidural abscess or osteomyelitis. continue Daptomycin 8mg/kg every 24 hrs PDMP PDMP Reviewed: Not Reviewed Attestations 2 Medical Necessity Statement*: per admitting 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 Code Acute Code for [facility] Fwd Diagnoses Hx of bacterial endocarditis Z86.79 Infection due to Port-A-Cath T80.219A Septicemia due to Staphylococcus aureus A41.01
[2025-01-24 11:28] LABS: Bacillus cereus group Not Detected (NOT DETECT); Bacillus subtillis group Not Detected (NOT DETECT); Corynebacterium Not Detected (NOT DETECT); Cutibacterium acnes (P.acnes) Not Detected (NOT DETECT); Enterococcus Not Detected (NOT DETECT); Enterococcus faecalis Not Detected (NOT DETECT); Enterococcus faecium Not Detected (NOT DETECT); Lactobacillus species Not Detected (NOT DETECT); Listeria Not Detected (NOT DETECT); Listeria monocytogenes Not Detected (NOT DETECT); Micrococcus Not Detected (NOT DETECT); Pan Candida Not Detected (NOT DETECT); Pan Gram-Negative Not Detected (NOT DETECT); Staphylococcus epidermidis Not Detected (NOT DETECT); Staphylococcus lugdunensis Not Detected (NOT DETECT); Staphylococcus species Detected (NOT DETECT); Streptococcus agalactiae Not Detected (NOT DETECT); Streptococcus anginosus group Not Detected (NOT DETECT); Streptococcus pneumoniae Not Detected (NOT DETECT); Streptococcus pyogenes Not Detected (NOT DETECT); Streptococcus species Not Detected (NOT DETECT); mecA Not Detected (NOT DETECT); mecC Not Detected (NOT DETECT)
--- NOTE | 2025-01-24 11:30 | P.PN_ITS ---
Subjective 2 Subjective: The patient and her mother were seen in the patient's room. The patient did not have a fever overnight or this morning. SHe denies chills, dizziness, light headedness, syncope, palpitations, CP, GI or symptoms. Two sets of BCx were ordered on 01/24/2025 Vitals/I&O/Wt Last Vital Signs Temp 98.0 F 01/25/25 00:00 Pulse 80 01/25/25 00:00 Resp 16 01/25/25 00:00 BP 99/65 01/25/25 00:00 Pulse Ox 96 01/25/25 00:00 O2 Del Method Room Air 01/25/25 00:00 01/24/25 01/24/25 01/25/25 14:59 22:59 06:59 Intake Total 960 / 960 1494 / 2454 Balance 960 / 960 1494 / 2454 Weight last 48 hrs Weight 58.06 kg Weight 58.06 kg Physical Exam 2 Narrative: Constitutional: GENERAL APPEARANCE: cooperative, comfortable not combative, not disheveled HENT: HEAD & SCALP: normocephalic and atraumatic; NOSE: external nose not normal EXTERNAL EAR: no external ears normal MOUTH: Normal oral and palatal mucosa present THROAT: posterior oropharynx normal Eye: PERRL, EOMI, normal conjunctiva b/l Neck: normal visual inspection, trachea midline, No anterior neck swelling, No tracheal deviation, No tracheostomy present, no submandibular swelling, Thyroid normal , cervical ROM normal Lymph: no cervical, supraclavicular LAD Resp: no use of accessory muscles, incredibly CTAB, no w/r/r Cardio: RRR, no m/r/g, or clicks. 2+ radial and DP pulses. GI: normoactive bowel sounds, non-tender, non-distended, no guarding, no rigidity, no rebound tenderness, no hepatosplenomegaly. G-J tubes noted w/ sites c/d/i. : Back/Pelvis: Deferred Extremity: No clubbing, No cyanosis and No edema Neuro: AO to person, place and time. CN normal except as noted. Normal gait present. 5/5 motor strength present throughout. Normal motor muscle tone present throughout. No tremor noted. No motor abnormalities present. No motor fasciculations present Psych: APPEARANCE: Yes grossly normal ATTITUDE: Yes calm and Yes engaged ACTIVITY/MOTOR BEHAVIOR: Yes appropriate eye contact SPEECH: Yes normal speech MOOD & AFFECT: Yes euthymic mood THOUGHT PROCESS: Normal thought process present THOUGHT CONTENT: Yes Normal thought content present ATTENTION/CONCENTRATION: Yes attention grossly intact MEMORY/COGNITION: Yes memory grossly intact Data 01/24/25 06:02 01/24/25 06:02 Micro: Microbiology 01/24/25 16:25 Blood Culture - Preliminary Blood SPECIMEN COLLECTED 01/24/25 16:25 Blood Culture - Preliminary Blood SPECIMEN COLLECTED 01/19/25 13:52 Blood Culture - Final Blood NO GROWTH AFTER 5 DAYS 01/22/25 03:01 Blood Culture - Preliminary Blood Staphylococcus aureus 01/20/25 13:20 Gram Stain - Final Other Source Anaerobic Culture - Preliminary Wound Culture - Final Staphylococcus aureus 01/23/25 06:26 Blood Culture - Preliminary Blood NEGATIVE TO DATE 01/24/25 06:02 Blood Culture - Preliminary Blood SPECIMEN COLLECTED 01/24/25 06:04 Blood Culture - Preliminary Blood SPECIMEN COLLECTED A&P Assessment and plan (1) Septicemia due to Staphylococcus aureus: (2) Infection due to Port-A-Cath: (3) Hx of bacterial endocarditis: (4) POTS (postural orthostatic tachycardia syndrome): (5) Nondiabetic gastroparesis: (6) Jejunostomy tube in situ: (7) Gastrostomy tube in place: (8) Dysautonomia: Plan Ms Damon is a 29yo woman w/a chronic port in place for nutrition for TPN due to gastroparesis, dysautonomia, POTS with J-tube and G-tube in place with history of staff epidermidis bacteremia back in July 17 due to port infection and tricuspid valve endocarditis w/ replacement of that port earlier in 2024, who presented to the hospital on 01/19/2025 due to a blood culture positive for Staph aureus with concerns for port re-infection and high concerns for endocarditis. Blood culture from 01/16 1 out of 4 bottles positive for Staph aureus. Has port in place. History of staff epidermidis bacteremia due to tricuspid valve endocarditis back in June 2024. Finished course of IV vancomycin in July 2024. Port replaced earlier this year. High concerns for infective endocarditis again. Post removal of port on 01/20. Found to have significant abscess around port. Post YARED on 01/20. No concerns for endocarditis on YARED. Appreciate surgical and cardiology recommendations. Follow-up blood culture, wound culture. Repeat blood culture sent on 01/21 which is 24 hours post removal of port. For now continue with IV vancomycin. Monitor trough levels. Appreciate ID recommendations. Patient will need 6 weeks of IV antibiotics after negative blood cultures. Plan for PICC line placement after negative blood culture. Blood culture from 01/16 positive for Staph aureus. Appreciate sensitivities. Gastroparesis: Started on PPN. Continue with home trickle feeds. Start on regular diet. History of PE: Not on AC currently Heparin for DVT PPx around port removal Continue home chronic medications including cyclobenzaprine 5 mg 3 times daily, gabapentin 10 mg twice daily. Plan for the day01/22/2025: Appreciate wound cultures growing MSSA. Blood cultures so far negative. Plan for repeat blood culture in a.m. Appreciate ID recommendations. Will switch from vancomycin to daptomycin given persistent fever. Check respiratory viral panel. Care plan discussed in detail with patient and patient's mother at bedside. Plan will be to follow-up blood cultures. Once blood cultures are negative we will plan for IV antibiotic as an outpatient through PICC line for 6 weeks. PICC line placement after negative blood cultures. Continue with TPN. Will continue with weekly monitoring of triglyceride levels, daily CMP levels. Plan on 01/23/2025 - Per discussion with ID, given her repeated fevers, a CT chest abdomen and pelvis with IV contrast as well as a CT thoracolumbar spine with contrast to evaluate for potential septic emboli was ordered. Will continue the daptomycin. Plan on 01/24/2025 - The CT chest/abd/pelvis showed packing material concerning for an evacuated abscess. The CT abd/pelvis showed possible L. pyelonephritis w/ 2 foci of hypocortical enhancement. The CT T&L spine are negative. 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 The patient's mom and the patient wanted an explanation of lambl's excrescences on the aortic valve, so it was rendered. F/u BCx drawn on 01/22, 01/23 and the two sets of BCx ordered on 01/24/2025. Will continue the daptomycin. Full code Protonix for PUD prophylaxis SCD for DVT prophylaxis, heparin after port removal Regular diet PDMP PDMP Reviewed: Not Reviewed Attestations 2 Medical Necessity Statement*: The patient remains hospitalized for his recurrent bacteremia. Diagnoses Septicemia due to Staphylococcus aureus A41.01 Infection due to Port-A-Cath T80.219A Hx of bacterial endocarditis Z86.79 POTS (postural orthostatic tachycardia syndrome) G90.A Nondiabetic gastroparesis K31.84 Jejunostomy tube in situ Z93.[address] Z93.1 Dysautonomia G90.1
[2025-01-24 12:04] LABS: Glucose Point of Care 101 mg/dL (70-110)
[2025-01-24] MEDS: DAPTOmycin 500 MG SDV 480 MG IVP (12:07)
[2025-01-24] MEDS: ondansetron 2 mg/ML SDV 2 mL 4 MG IVP (16:51)
[2025-01-24 17:59] LABS: Glucose Point of Care 110 mg/dL (70-110)
[2025-01-24] MEDS: AMINO ACIDS IV (19:46)
[2025-01-24] MEDS: LYTES IV (19:46)
[2025-01-24] MEDS: DEXTROSE IV (19:46)
[2025-01-24] MEDS: MULTIVITAMIN IV (19:46)
[2025-01-24] MEDS: FAMOTIDINE IV (19:46)
[2025-01-25] VITALS: BP 99/65; PULSE 80; RESP 16; TEMP 36.7; O2SAT 96
[2025-01-25 03:46] LABS: Glucose Point of Care 108 mg/dL (70-110)
[2025-01-25 03:58] VITALS: BP 93/60; PULSE 80; RESP 16; TEMP 36.7; O2SAT 97
[2025-01-25] MEDS: pantoprazole 40 mg SDV IVP (05:37)
[2025-01-25 05:57] LABS: Glucose Point of Care 96 mg/dL (70-110)
[2025-01-25 06:26] LABS: Basophils % 0.6 %; Eosinophils # 0.1 10^3/uL (0.0-0.8); Eosinophils % 1.6 %; Hematocrit 28.8 % (36-47); Lymphocytes # 2.2 10^3/uL (0.8-4.8); Mean Corpuscular Volume 87.8 fl (85-98); Mean Platelet Volume 9.6 fL (7.4-10.4); Monocytes # 0.7 10^3/uL (0.2-0.9); Monocytes % 11.5 %; Neutrophils # 2.99 10^3/uL (1.8-7.7); Neutrophils % 48.7 %; Nucleated Red Blood Cells % 0 %; Platelet Count 377 10^3/cmm (157-399); Red Blood Count 3.28 10^6/uL (3.85-5.65); Red Cell Distribution Width 12.4 % (12.1-15.1); White Blood Count 6.16 10^3/uL (3.29-11.43)
[2025-01-25 06:29] LABS: Alanine Aminotransferase 14 U/L (0-33); Albumin Level 3.1 g/dL (3.5-5.2); Alkaline Phosphatase 91 U/L (35-105); Aspartate Amino Transferase 14 U/L (0-32); Blood Urea Nitrogen 12 mg/dL (6-20); Calcium 8.8 mg/dL (8.5-10.5); Carbon Dioxide 23 mmol/L (22-29); Chloride 105 mmol/L (98-107); Creatinine Clr Calc Pharmacy 138.5551; Globulin 3.5 g/dL (1.3-4.6); Glomerular Filtration Rate 145.9 mL/min (90-130); Glucose 95 mg/dL (65-115); Magnesium 2.4 mg/dL (1.7-2.3); Osmolality Calculated 286 mOsm/kg (285-295); Sodium 138 mmol/L (136-145); Total Bilirubin 0.4 mg/dL (0.15-1.2); Total Protein 6.6 g/dL (6.6-8.7)
[2025-01-25 06:37] LABS: Anion Gap 14.5 (5-19); Potassium 4.5 mmol/L (3.5-5.1)
[2025-01-25 07:30] VITALS: BP 110/79; PULSE 128; RESP 18; TEMP 36.8; O2SAT 98
[2025-01-25 07:57] VITALS: PULSE 93; RESP 16; O2SAT 97
[2025-01-25] MEDS: cyclobenzaprine 10 mg Tablet 5 MG PO (08:23)
[2025-01-25] MEDS: acetaminophen 325 mg Tablet 650 MG PO (08:24)
[2025-01-25] MEDS: gabapentin 300 mg Capsule PO (08:26)
[2025-01-25] MEDS: magnesium oxide 400 mg tablet PO (08:26)
[2025-01-25] MEDS: ondansetron 2 mg/ML SDV 2 mL 4 MG IVP (08:26)
[2025-01-25] MEDS: docusate sodium 100 mg Capsule PO (08:26)
--- NOTE | 2025-01-25 10:22 | PM.PN ---
Vitals/I&O/Wt Last Vital Signs Temp 98.2 F 01/25/25 07:30 Pulse 93 01/25/25 07:57 Resp 16 01/25/25 07:57 BP 110/79 01/25/25 07:30 Pulse Ox 97 01/25/25 07:57 O2 Del Method Room Air 01/25/25 07:57 01/24/25 01/25/25 01/25/25 22:59 06:59 14:59 Intake Total 1494 / 2454 0 / 2454 50 / 50 Balance 1494 / 2454 0 / 2454 50 / 50 Weight last 48 hrs Weight 57.017 kg Weight 58.06 kg Data 01/25/25 05:47 01/25/25 05:47 Micro: Microbiology 01/24/25 06:02 Blood Culture - Preliminary Blood NEGATIVE TO DATE 01/24/25 06:04 Blood Culture - Preliminary Blood NEGATIVE TO DATE 01/24/25 16:25 Blood Culture - Preliminary Blood SPECIMEN COLLECTED 01/24/25 16:25 Blood Culture - Preliminary Blood SPECIMEN COLLECTED 01/19/25 13:52 Blood Culture - Final Blood NO GROWTH AFTER 5 DAYS 01/22/25 03:01 Blood Culture - Preliminary Blood Staphylococcus aureus 01/20/25 13:20 Gram Stain - Final Other Source Anaerobic Culture - Preliminary Wound Culture - Final Staphylococcus aureus 01/23/25 06:26 Blood Culture - Preliminary Blood NEGATIVE TO DATE A&P PDMP PDMP Reviewed: Not Reviewed 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 Code Acute Code for Chg Fwd
[2025-01-25 11:36] VITALS: BP 98/68; PULSE 81; RESP 18; TEMP 36.7; O2SAT 97
[2025-01-25 11:51] LABS: Glucose Point of Care 89 mg/dL (70-110)
--- NOTE | 2025-01-25 12:15 | XR_ITS ---
WS: [id number] XR chest 1V portable [id number] REASON FOR EXAM: Post PICC insertion FINDINGS: Right arm PICC line placement. PICC line position discussed with the radiology asst over the phone as follows: The tip of the catheter is in the mid to distal SVC. Reportedly there is 2 cm of catheter remaining outside the skin. It was recommended to advance the PICC line [address] it well within the SVC in good position for use. Additional image not required. XR/XR chest 1V portable [id number] IMPRESSION: PICC line placement as above.
--- NOTE | 2025-01-25 12:32 | P.DS_ITS ---
Discharge Providers Date of Admission: 01/19/25 15:46 Date of Discharge: January 25, 2025 Attending Provider at Admission: Rowan Church MD Attending Provider at Discharge: Jeanne Bajwa MD Primary Care Provider: Radha Jameson MD Diagnoses at Discharge Discharge Diagnosis (1) Septicemia due to Staphylococcus aureus: Status: Resolved (2) Infection due to Port-A-Cath: Status: Resolved (3) Hx of bacterial endocarditis: Status: Resolved Permanent problem details: Staphylococcus epidermidis of Tricuspid valve due to infection from port a cath; treated w/ daptomycin (4) POTS (postural orthostatic tachycardia syndrome): Status: Resolved (5) Nondiabetic gastroparesis: Status: Resolved Permanent problem details: [facility]: Dr. Alvarez (6) Jejunostomy tube in situ: Status: Resolved (7) Gastrostomy tube in place: Status: Resolved (8) Dysautonomia: Status: Resolved Permanent problem details: POTS/ seeing Dr. Lisa Jara cardio EP Reason for Visit Reason for Visit: abnormal labs Hospital Course Hospital Course EP Escrow Agent - Dr. Gonzalez at [facility], whom she sees for POTS Plastic Design Applier - Dr. Wilkes at [facility], whom she sees for Asthma, Allergies and Idiopathic urticaria Windows Systems Architect - Dr. Alvarez at [facility] for Non-diabetic Gastroparesis Neurologist - Dr. Cardenas at [facility] for Chronic migraines ID - Dr. Horn Ms Damon is a 29yo woman w/a chronic port in place for TPN due to idiopathic gastroparesis, GJ tube in place, dysautonomia, POTS, a hx of S. epidermidis Bacteremia in Jun 2024 due to port infection and tricuspid valve endocarditis s/p IV Vancomycin w/ replacement of that port approx 5 weeks earlier, who was called back to the hospital on 01/19/2025 due to a blood culture positive for Staph aureus with concerns for port re-infection and high concerns for endocarditis. Per the HPI and chart review, The patient presented to the ED on , 01/16/2025, w/ complaints of fever, drainage around her port site, but no erythema. The patient visited Urgent Care, the day before visiting the ED on 01/16 and was prescribed Doxycycline. BCx were drawn from her Port-A-Cath on 01/16/2025; however, given that she had no fevers, was well appearing, she was discharged home. BCx drawn on the ED were positive for S. Aureus on 01/19/2025, so she was contacted to return to the hospital. According to the HPI, t first patient's family wanted patient to be transferred to [facility] in [place] where all her physicians are from [facility]. It seems as per ER communication [facility] does not have bed so they declined transfer. Patient for now wants to be admitted at [facility] hence hospitalist was consulted. On admission, ID was consulted, who recommended removal of the port and a YARED. Given that her BCx was suspicious for MSSA, the plan was to ideally to start her on Naficillin or Cefazolin but given her hx of allergic reaction to Penicillins and Cefuroxime, she was started on IV Vanc. Gen Surgery was consulted and her Port-A-cath was removed on 01/20/2025. Purulence was noted surrounding the Port-A-cath. The Port-A-cath tip was sent for cultures. The wound was packed with quarter inch iodoform packing that, per Surgery, needed to be replaced daily. Cardiology was consulted, who conducted a YARED on 01/20/2025 to rule out endocarditis. 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 Blood cultures drawn on 01/16/2025, on admission day 01/19, 01/20 as well as 01/22 were positive for MSSA. She was transitioned from Vancomycin to Daptomycin on 01/22/2025 given concern for persistent fevers. A CT Chest/abd/pelvis as well as a CT Thoracolumbar spine with contrast was ordered to evaluate for potential septic emboli. The CT abd/pelvis showed possible L. pyelonephritis w/ 2 foci of hypocortical enhancement. The CT T&L spine were negative. The patient defervesced. Her last recorded temperature was 101.2F at 4:09am on 01/23/2025. W/ her BCx also negative for 48hrs, a PICC line was placed and the patient was discharged home on 01/25/2025 to receive 6 weeks of IV Daptomycin. Follow up labs were ordered for her on discharge. The nursing staff taught her how to pack her chest wall wound and to She was also discharged to follow up with her ID physician at [facility]. Other Medical Problems #L. chest wall infection #MSSA Bacteremia #POTS #Dysautonomia #Asthma, Allergies, and Idiopathic urticaria #Non-diabetic Gastroparesis #Chronic constipation #Chronic migraines Physical Exam Narrative: Constitutional: GENERAL APPEARANCE: cooperative, comfortable not combative, not disheveled HENT: HEAD & SCALP: normocephalic and atraumatic; NOSE: external nose not normal EXTERNAL EAR: no external ears normal MOUTH: Normal oral and palatal mucosa present THROAT: posterior oropharynx normal Eye: PERRL, EOMI, normal conjunctiva b/l Neck: normal visual inspection, trachea midline, No anterior neck swelling, No tracheal deviation, No tracheostomy present, no submandibular swelling, Thyroid normal , cervical ROM normal Lymph: no cervical, supraclavicular LAD Resp: no use of accessory muscles, incredibly CTAB, no w/r/r Cardio: RRR, no m/r/g, or clicks. 2+ radial and DP pulses. GI: normoactive bowel sounds, non-tender, non-distended, no guarding, no rigidity, no rebound tenderness, no hepatosplenomegaly. G-J tubes noted w/ sites c/d/i. : Back/Pelvis: Deferred Extremity: No clubbing, No cyanosis and No edema Neuro: AO to person, place and time. CN normal except as noted. Normal gait present. 5/5 motor strength present throughout. Normal motor muscle tone present throughout. No tremor noted. No motor abnormalities present. No motor fasciculations present Psych: APPEARANCE: Yes grossly normal ATTITUDE: Yes calm and Yes engaged ACTIVITY/MOTOR BEHAVIOR: Yes appropriate eye contact SPEECH: Yes normal speech MOOD & AFFECT: Yes euthymic mood THOUGHT PROCESS: Normal thought process present THOUGHT CONTENT: Yes Normal thought content present ATTENTION/CONCENTRATION: Yes attention grossly intact MEMORY/COGNITION: Yes memory grossly intact Discharge Data Studies Completed and Pending Completed Studies During Hospitalization Category Date Time Status CT chest abdomen pelvis [CT chest abdpel w/*[id number] Cat Scan 01/23/25 14:51 Completed ] Routine XR KUB portable [id number] Routine Exams 01/19/25 17:46 Completed CV. echo complete* [id number] Routine Ultrasound 01/20/25 17:43 Completed CV. echo transesophageal [id number] Routine Ultrasound 01/20/25 12:00 Completed Pending at discharge Category Date Time Status CXRP [XR chest 1V portable [id number]] Routine Exams 01/25/25 12:15 Ordered Anaerobic Culture Routine Lab 01/20/25 13:20 Results Blood Culture AM LABS Lab 01/21/25 01:52 Results Blood Culture AM LABS Lab 01/23/25 06:26 Results Blood Culture Routine Lab 01/24/25 06:02 Results Blood Culture Stat Lab 01/19/25 13:52 Results Blood Culture Stat Lab 01/24/25 16:25 Results CBC Auto Diff [Complete Blood Count w/Auto] AM LABS Lab 01/26/25 04:00 Ordered CMP [Comprehensive Metabolic Panel] AM LABS Lab 01/26/25 04:00 Ordered Magnesium AM LABS Lab 01/26/25 04:00 Ordered PHOS [Phosphorus] AM LABS Lab 01/26/25 04:00 Ordered Wound Culture and Gram Stain Routine Lab 01/20/25 13:20 Results Radiology Impressions KUB X-Ray 01/19/25 17:46 IMPRESSION: Gastrografin contrast was administered through the jejunostomy tube with identification of contrast within jejunal small bowel. Chest/Abdomen/Pelvis CT 01/23/25 14:51 IMPRESSION: 1. Basilar reticular markings suggestive of atelectasis/early septal thickening, can be seen in the setting of volume overload/cardiac dysfunction. Correlate clinically. 2. Left upper chest wall demonstrates what appears to be packing material within an evacuated abscess, correlate clinically. IMPRESSION: Suggestion of possible left pyelonephritis with 2 foci of cortical hypoenhancement as detailed above. This needs to be correlated clinically as other differentials are possible. ADDENDUM: 01/23/252046 ADDENDUM: Differential diagnosis for of the left kidney findings include septic emboli/infarcts of the kidney. Lumbar Spine CT 01/23/25 16:36 IMPRESSION: 1. Degenerative disc changes as above. 2. No evidence to suggest discitis osteomyelitis at this time. Thoracic Spine CT 01/23/25 16:36 IMPRESSION: Scattered early endplate degenerative change of the lower thoracic spine without acute findings. Laboratory Results WBC 6.16 10^3/uL (3.29-11.43) 01/25/25 05:47 RBC 3.28 10^6/uL (3.85-5.65) L 01/25/25 05:47 Hgb 9.50 g/dL (11.27-16.99) L 01/25/25 05:47 Hct 28.8 % (36-47) L 01/25/25 05:47 MCV 87.8 fl (85-98) 01/25/25 05:47 MCH 29.0 pg (27-33) 01/25/25 05:47 MCHC 33.0 g/dL (30-55) 01/25/25 05:47 RDW 12.4 % (12.1-15.1) 01/25/25 05:47 Plt Count 377 10^3/cmm (157-399) 01/25/25 05:47 MPV 9.6 fL (7.4-10.4) 01/25/25 05:47 Neut % (Auto) 48.7 % 01/25/25 05:47 Lymph % (Auto) 36.0 % 01/25/25 05:47 [place] % (Auto) 11.5 % 01/25/25 05:47 Eos % (Auto) 1.6 % 01/25/25 05:47 Baso % (Auto) 0.6 % 01/25/25 05:47 Neut # (Auto) 2.99 10^3/uL (1.8-7.7) 01/25/25 05:47 Lymph # (Auto) 2.2 10^3/uL (0.8-4.8) 01/25/25 05:47 [place] # (Auto) 0.7 10^3/uL (0.2-0.9) 01/25/25 05:47 Eos # (Auto) 0.1 10^3/uL (0.0-0.8) 01/25/25 05:47 Baso # (Auto) 0.0 10^3/uL (0.0-0.1) 01/25/25 05:47 Nucleated RBC % (auto) 0 % 01/25/25 05:47 Nucleated RBCs # 0.0 /100WBC 01/25/25 05:47 Sodium 138 mmol/L (136-145) 01/25/25 05:47 Potassium 4.5 mmol/L (3.5-5.1) 01/25/25 05:47 Chloride 105 mmol/L (98-107) 01/25/25 05:47 Carbon Dioxide 23 mmol/L (22-29) 01/25/25 05:47 Anion Gap 14.5 (5-19) 01/25/25 05:47 BUN 12 mg/dL (6-20) 01/25/25 05:47 Creatinine 0.5 mg/dL (0.5-0.9) 01/25/25 05:47 GFR Calculation 145.9 mL/min (90-130) H 01/25/25 05:47 Glucose 95 mg/dL (65-115) 01/25/25 05:47 POC Glucose 89 mg/dL (70-110) 01/25/25 11:48 Calculated Osmolality 286 mOsm/kg (285-295) 01/25/25 05:47 Lactic Acid 0.6 mmol/L (0.5-2.2) 01/19/25 16:51 Calcium 8.8 mg/dL (8.5-10.5) 01/25/25 05:47 Phosphorus 4.0 mg/dL (2.5-4.5) 01/25/25 05:47 Magnesium 2.4 mg/dL (1.7-2.3) H 01/25/25 05:47 Total Bilirubin 0.4 mg/dL (0.15-1.2) 01/25/25 05:47 AST 14 U/L (0-32) 01/25/25 05:47 ALT 14 U/L (0-33) 01/25/25 05:47 Alkaline Phosphatase 91 U/L (35-105) 01/25/25 05:47 Creatine Kinase 16 U/L (26-192) L 01/23/25 06:26 C-Reactive Protein 48.0 mg/L (0.0-4.9) H 01/19/25 13:21 Total Protein 6.6 g/dL (6.6-8.7) 01/25/25 05:47 Albumin 3.1 g/dL (3.5-5.2) L 01/25/25 05:47 Globulin 3.5 g/dL (1.3-4.6) 01/25/25 05:47 Triglycerides 179 mg/dL (0-150) H 01/20/25 03:02 Cholesterol 119 mg/dL (0-200) 01/20/25 03:02 LDL Cholesterol, Calc 67 mg/dL (50-129) 01/20/25 03:02 HDL Cholesterol 16 mg/dL (60-100) L 01/20/25 03:02 LDL/HDL Ratio 4.19 RATIO (0.00-3.22) H 01/20/25 03:02 Cholesterol/HDL Ratio 7.44 mg/dL (0.0-4.40) H 01/20/25 03:02 Vitamin B12 > 2000 pg/mL (232-1245) H 01/19/25 13:21 Folate 16.4 ng/mL (4.8-37.3) 01/20/25 03:02 Procalcitonin 0.24 ng/mL (0-0.5) 01/20/25 03:02 Urine Color Yellow (Yellow) 01/23/25 10:55 Urine Appearance Clear (CLEAR) 01/23/25 10:55 Urine pH 7.0 (5-7) 01/23/25 10:55 Ur Specific [place] 1.010 (1.005-1.030) 01/23/25 10:55 Urine Protein Negative (Negative) 01/23/25 10:55 Urine Glucose (UA) Negative (Normal) 01/23/25 10:55 Urine Ketones Negative (Negative) 01/23/25 10:55 Urine Blood Trace (Negative) A 01/23/25 10:55 Urine Nitrate Negative (Negative) 01/23/25 10:55 Urine Bilirubin Negative (Negative) 01/23/25 10:55 Urine Urobilinogen 2.0 mg/dL (Negative) H 01/23/25 10:55 Ur Leukocyte Esterase Negative (Negative) 01/23/25 10:55 Urine RBC 0-2 /hpf (0-2) 01/23/25 10:55 Urine WBC 0-5 /hpf (0-5) 01/23/25 10:55 Ur Squamous Epith Cells 0-5 /hpf (0-5) 01/23/25 10:55 Amorphous Sediment Not Reportable 01/23/25 10:55 Urine Bacteria None seen /hpf (NONE) 01/23/25 10:55 Hyaline Casts 0-4 /lpf H 01/23/25 10:55 Urine HCG, Qual Negative (Negative) 01/20/25 07:54 Vancomycin Trough 12.5 ug/mL (10-15) 01/22/25 03:01 Adenovirus (PCR) Not detected (NOT DETECT) 01/22/25 15:00 C. pneumoniae DNA (PCR) Not detected (NOT DETECT) 01/22/25 15:00 Coronavirus 229E (PCR) Not detected (NOT DETECT) 01/22/25 15:00 Human Metapneumovir PCR Not detected (NOT DETECT) 01/22/25 15:00 Influenza A (H1) PCR Not detected (NOT DETECT) 01/22/25 15:00 Influ A (H1/09) PCR Not detected (NOT DETECT) 01/22/25 15:00 Influenza A (H3) PCR Not detected (NOT DETECT) 01/22/25 15:00 Influenza Type A (PCR) Not detected (NOT DETECT) 01/22/25 15:00 Influenza Type B (PCR) Not detected (NOT DETECT) 01/22/25 15:00 M. pneumoniae (PCR) Not detected (NOT DETECT) 01/22/25 15:00 Parainfluenza 1 (PCR) Not detected (NOT DETECT) 01/22/25 15:00 Parainfluenza 2 (PCR) Not detected (NOT DETECT) 01/22/25 15:00 Parainfluenza 3 (PCR) Not detected (NOT DETECT) 01/22/25 15:00 Parainfluenza 4 (PCR) Not detected (NOT DETECT) 01/22/25 15:00 RSV Type A (PCR) Not detected (NOT DETECT) 01/22/25 15:00 RSV Type B (PCR) Not detected (NOT DETECT) 01/22/25 15:00 Entero/Rhino (PCR) Not detected (NOT DETECT) 01/22/25 15:00 SARS-CoV-2 (PCR) Not detected (NOT DETECT) 01/22/25 15:00 Vitals Last Vital Signs Temp 98.1 F 01/25/25 11:36 Pulse 81 01/25/25 11:36 Resp 18 01/25/25 11:36 BP 98/68 01/25/25 11:36 Pulse Ox 97 01/25/25 11:36 O2 Del Method Room Air 01/25/25 11:36 Discharge Plan Discharge Patient Disposition: Home Condition: Stable Prescriptions: New daptomycin 500 mg Recon Soln 480 mg IVP Q24H 42 Days Qty: 1 0RF Continued epinephrine [Auvi-Q] 0.3 mg/0.3 mL auto-injector 0.3 mg IM Q10M PRN (Reason: Allergic Reaction) Rx Instructions: for 2 doses Emgality Syringe 120 mg/mL syringe 120 mg SUBCUT .MONTHLY ondansetron HCl 4 mg Tablet 4 mg PO Q8H PRN (Reason: Nausea And Vomiting) albuterol sulfate 90 mcg/actuation Hfa Aerosol Inhaler 2 puff INHALATION Q8H PRN (Reason: Shortness Of Breath Or Wheezing) budesonide-formoterol [Symbicort] 80-4.5 mcg/actuation Hfa Aerosol Inhaler 1 inh INHALATION BID PRN (Reason: Shortness Of Breath Or Wheezing) magnesium oxide 400 mg (241.3 mg magnesium) tablet 400 mg PO DAILY cyclobenzaprine 5 mg tablet 5 mg PO TID Nurtec ODT 75 mg tablet,disintegrating 75 mg PO PRN PRN (Reason: Migraine Headache) tacrolimus 0.03 % ointment 1 applic TOPICAL BID Children's Allergy Relief(fex) 30 mg/5 mL suspension 10 mg PO BID PRN (Reason: allergies) lubiprostone 8 mcg capsule 8 mcg PO BID Discontinued prednisone 20 mg tablet 20 mg PO QAM doxycycline hyclate 100 mg tablet 100 mg PO BID No Action gabapentin 300 mg capsule 300 mg PO BID Qty: 180 1RF Discharge Orders: Discharge Order (Routine); Ordered 01/25/25 Ordered By: Jeanne Bajwa Other Ambulatory Orders: Miscellaneous Procedure (Order) Location: None Selected Ordered By: Jeanne Bajwa Referrals: Radha Jameson MD [Primary Care Provider, [facility]] - 02/16/25 1:15 pm Referral Note: Discharge Diet: Usual diet Discharge Activity: Resume usual activity and Increase activity as tolerated Patient Instructions: Daptomycin (By injection), Acute Wound Care (DC), PICC (Peripherally Inserted Central Catheter) (GEN), GI Post Anesthesia Care Discharge Attestations Time Spent in Discharge Care*: greater than 30 min Quality Metrics Clinical Quality Measures [ No reported AMI, CVA or VTE this stay] 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 Code 04334 Total time (in minutes) for Discharge: 45 Diagnoses Septicemia due to Staphylococcus aureus A41.01 Infection due to Port-A-Cath T80.219A Hx of bacterial endocarditis Z86.79 POTS (postural orthostatic tachycardia syndrome) G90.A Nondiabetic gastroparesis K31.84 Jejunostomy tube in situ Z93.[address] Z93.1 Dysautonomia G90.1
--- NOTE | 2025-01-25 14:00 | PICC.NOTE ---
Double lumen PICC placed to right basilic vein. Referred to vascular access nurse for PICC placement due to home TPN and need for antibiotics. Risks and benefits discussed and informed consent obtained from pt. Right arm assessed with right basilic vein measuring 6.5 mm, straight, and apparent best choice for placement. Using sterile technique and MST, right basilic vein accessed x 1 stick. Mid-arm circumference measured 10 cm from right AC 25 cm. Trimmed cath 38 cm with 1 cm external length noted. CXR shows tip in distal SVC, in good position for use per radiologist. Line secured with stat-lock. Insertion site covered with Biopatch and TSM. Report given to bedside nurse, RACQUEL Reeder.
[2025-01-25] MEDS: DAPTOmycin 500 MG SDV 480 MG IVP (14:04)
--- NOTE | 2025-01-25 14:37 | PC.NURSE ---
Educated patient on how to change packing to left upper chest and watched patient perform the task. Went over discharge instructions with patient and mom. Patient stated understanding and had no questions.
[2025-01-25 14:43] VITALS: BP 98/68; PULSE 81; RESP 18; TEMP 36.7; O2SAT 97
== END 2025-01-25 14:45 | disposition home or self-care (01) | DRG 314 ==
LOC: ER 15:27 → ER IP 15:47 → MEDSURG 01-20 10:52
PROVIDERS: Internal Medicine; Student in an Organized Health Care Education/Training Program; Surgery; Admitting Provider Student in an Organized Health Care Education/Training Program; Emergency Provider Family Medicine; PCP Family Medicine; Visit Provider Internal Medicine
PROC: 0JPT0WZ Removal of Totally Implantable Vascular Access Device from Trunk Subcutaneous Tissue and Fascia, Open Approach (ICD-10-PCS; CPT 36589; principal; 2025-01-20 12:00)
PROC: (CPT 93312; 2025-01-20 12:00)
DX: T80.211A Bloodstream infection due to central venous catheter, initial encounter (principal); A41.01 Sepsis due to Methicillin susceptible Staphylococcus aureus; Z79.899 Other long term (current) drug therapy; Z79.52 Long term (current) use of systemic steroids; Z88.0 Allergy status to penicillin; Z88.2 Allergy status to sulfonamides; G90.A Postural orthostatic tachycardia syndrome [POTS]; Z93.1 Gastrostomy status; Z86.711 Personal history of pulmonary embolism; G90.1 Familial dysautonomia [Riley-Day]; K31.84 Gastroparesis
CPT/HCPCS: 36415; 36416; 36573; 71045; 71260; 74018; 74177; 80053; 80061; 80202; 81001; 81025; 82550; 82607; 82746; 82962; 83605; 83735; 84100; 84145; 85025; 86140; 87040; 87070; 87075; 87077; 87150; 87186; 87205; 87486; 87581; 87633; 93306; 93312; 93320; 93325; 94664; 96365; 96372; 99285; J0878; J1100; J1200; J1642; J2250; J2405; J2470; J2704; J3370; J3490; J7030; J7050; J9999

== ENCOUNTER 2025-01-30 14:59 | Outpatient (CLI) | payer MEDICAID, SELFPAY ==
[2025-01-30 16:48] LABS: Hematocrit 32.4 % (36-47); Mean Corpuscular HGB Conc 32.7 g/dL (30-55); Mean Corpuscular Hemoglobin 29.4 pg (27-33); Mean Platelet Volume 9.6 fL (7.4-10.4); Platelet Count 526 10^3/cmm (157-399); Red Cell Distribution Width 12.4 % (12.1-15.1); White Blood Count 4.61 10^3/uL (3.29-11.43)
[2025-01-30 17:29] LABS: Alanine Aminotransferase 24 U/L (0-33); Albumin Level 3.7 g/dL (3.5-5.2); Alkaline Phosphatase 86 U/L (35-105); Anion Gap 19.1 (5-19); Aspartate Amino Transferase 24 U/L (0-32); Blood Urea Nitrogen 25 mg/dL (6-20); Carbon Dioxide 23 mmol/L (22-29); Chloride 103 mmol/L (98-107); Creatine Phosphokinase 46 U/L (26-192); Globulin 4.1 g/dL (1.3-4.6); Glomerular Filtration Rate 84.8 mL/min (90-130); Glucose 78 mg/dL (65-115); Magnesium 2.5 mg/dL (1.7-2.3); Osmolality Calculated 295 mOsm/kg (285-295); Phosphorus 4.5 mg/dL (2.5-4.5); Potassium 4.1 mmol/L (3.5-5.1); Sodium 141 mmol/L (136-145); Total Bilirubin 0.3 mg/dL (0.15-1.2); Total Protein 7.8 g/dL (6.6-8.7)
[2025-01-30 18:57] LABS: Total Cells Counted 100 (0-100)
[2025-01-30 19:04] LABS: Absolute Neutrophil 1.4 10^3/cmm (1.4-6.5); Absolute Segmented Neutrophil 1.4 10/cmm (1.6-7.1); Eosinophils 0 %; Lymphocytes 62 %; Lymphocytes Absolute 2.9 10^3/cmm (1.2-3.4); Monocytes Absolute 0.3 10^3/cmm (0.1-0.6); Platelet Estimate Increased (Normal); Segmented Neutrophils 30 %
== END 2025-01-30 15:00 | disposition home or self-care (01) ==
LOC: LAB 15:00
PROVIDERS: PCP Family Medicine; Visit Provider Family Medicine
DX: K31.84 Gastroparesis (principal); R63.4 Abnormal weight loss; E43 Unspecified severe protein-calorie malnutrition; E16.2 Hypoglycemia, unspecified; E87.6 Hypokalemia; E86.0 Dehydration
CPT/HCPCS: 80053; 82550; 83735; 84100; 85007; 85027

== ENCOUNTER 2025-02-06 14:54 | Outpatient (CLI) | payer MEDICAID, SELFPAY ==
[2025-02-06 15:48] LABS: Basophils # 0.1 10^3/uL (0.0-0.1); Basophils % 1.3 %; Eosinophils % 0.7 %; Hematocrit 30.3 % (36-47); Lymphocytes # 2.5 10^3/uL (0.8-4.8); Lymphocytes % 55.5 %; Mean Corpuscular HGB Conc 33.3 g/dL (30-55); Mean Corpuscular Hemoglobin 29.8 pg (27-33); Mean Corpuscular Volume 89.4 fl (85-98); Mean Platelet Volume 10.6 fL (7.4-10.4); Monocytes # 0.4 10^3/uL (0.2-0.9); Monocytes % 8.2 %; Neutrophils # 1.53 10^3/uL (1.8-7.7); Neutrophils % 34.1 %; Nucleated Red Blood Cells % 0 %; Platelet Count 315 10^3/cmm (157-399); Red Blood Count 3.39 10^6/uL (3.85-5.65); Red Cell Distribution Width 12.5 % (12.1-15.1); White Blood Count 4.49 10^3/uL (3.29-11.43)
[2025-02-06 16:12] LABS: Alanine Aminotransferase 20 U/L (0-33); Albumin Level 3.7 g/dL (3.5-5.2); Alkaline Phosphatase 70 U/L (35-105); Anion Gap 15.1 (5-19); Aspartate Amino Transferase 17 U/L (0-32); Blood Urea Nitrogen 18 mg/dL (6-20); Calcium 8.9 mg/dL (8.5-10.5); Carbon Dioxide 24 mmol/L (22-29); Chloride 103 mmol/L (98-107); Creatine Phosphokinase 54 U/L (26-192); Glomerular Filtration Rate 98.9 mL/min (90-130); Glucose 86 mg/dL (65-115); Magnesium 1.9 mg/dL (1.7-2.3); Osmolality Calculated 287 mOsm/kg (285-295); Phosphorus 4.1 mg/dL (2.5-4.5); Potassium 4.1 mmol/L (3.5-5.1); Sodium 138 mmol/L (136-145); Total Bilirubin 0.3 mg/dL (0.15-1.2); Total Protein 7.7 g/dL (6.6-8.7)
== END 2025-02-06 14:55 | disposition home or self-care (01) ==
LOC: LAB 14:55
PROVIDERS: PCP Family Medicine; Visit Provider Family Medicine
DX: R50.9 Fever, unspecified (principal)
CPT/HCPCS: 80053; 82550; 83735; 84100; 85025

== ENCOUNTER 2025-02-13 15:13 | Outpatient (CLI) | payer MEDICAID, SELFPAY ==
[2025-02-13 15:35] LABS: Basophils % 0.4 %; Eosinophils % 0.6 %; Hematocrit 31.3 % (36-47); Lymphocytes # 2.3 10^3/uL (0.8-4.8); Lymphocytes % 48.2 %; Mean Corpuscular HGB Conc 33.2 g/dL (30-55); Mean Corpuscular Hemoglobin 29.5 pg (27-33); Mean Corpuscular Volume 88.7 fl (85-98); Mean Platelet Volume 11.1 fL (7.4-10.4); Monocytes # 0.3 10^3/uL (0.2-0.9); Neutrophils # 2.04 10^3/uL (1.8-7.7); Neutrophils % 43.6 %; Nucleated Red Blood Cells % 0 %; Platelet Count 219 10^3/cmm (157-399); Red Blood Count 3.53 10^6/uL (3.85-5.65); Red Cell Distribution Width 13.4 % (12.1-15.1); White Blood Count 4.69 10^3/uL (3.29-11.43)
[2025-02-13 16:59] LABS: Alanine Aminotransferase 15 U/L (0-33); Albumin Level 3.7 g/dL (3.5-5.2); Alkaline Phosphatase 54 U/L (35-105); Aspartate Amino Transferase 16 U/L (0-32); Blood Urea Nitrogen 15 mg/dL (6-20); Calcium 8.6 mg/dL (8.5-10.5); Carbon Dioxide 18 mmol/L (22-29); Chloride 105 mmol/L (98-107); Creatine Phosphokinase 52 U/L (26-192); Globulin 3.5 g/dL (1.3-4.6); Glomerular Filtration Rate 118.2 mL/min (90-130); Glucose 79 mg/dL (65-115); Magnesium 1.9 mg/dL (1.7-2.3); Osmolality Calculated 286 mOsm/kg (285-295); Phosphorus 3.7 mg/dL (2.5-4.5); Sodium 138 mmol/L (136-145); Total Bilirubin 0.3 mg/dL (0.15-1.2); Total Protein 7.2 g/dL (6.6-8.7)
== END 2025-02-13 15:14 | disposition home or self-care (01) ==
PROVIDERS: PCP Family Medicine; Visit Provider Family Medicine
DX: K31.84 Gastroparesis (principal); R63.4 Abnormal weight loss; E43 Unspecified severe protein-calorie malnutrition; E16.2 Hypoglycemia, unspecified; E87.6 Hypokalemia; E86.0 Dehydration
CPT/HCPCS: 80053; 82550; 83735; 84100; 85025

== ENCOUNTER → 2025-02-14 08:49 | Outpatient (BNVA) | payer MEDICAID, SELFPAY | PROVIDERS: PCP Family Medicine; Visit Provider Surgery | DX: Z95.828 Presence of other vascular implants and grafts (principal) | CPT/HCPCS: 99213 ==

== ENCOUNTER 2025-02-20 15:41 | Outpatient (CLI) | payer MEDICAID, SELFPAY ==
[2025-02-20 15:59] LABS: Basophils % 0.7 %; Eosinophils # 0.1 10^3/uL (0.0-0.8); Eosinophils % 1.1 %; Hematocrit 31.8 % (36-47); Lymphocytes # 2.6 10^3/uL (0.8-4.8); Lymphocytes % 58.2 %; Mean Corpuscular HGB Conc 33.3 g/dL (30-55); Mean Corpuscular Hemoglobin 29.1 pg (27-33); Mean Corpuscular Volume 87.4 fl (85-98); Mean Platelet Volume 11.1 fL (7.4-10.4); Monocytes # 0.4 10^3/uL (0.2-0.9); Monocytes % 8.8 %; Nucleated Red Blood Cells % 0 %; Platelet Count 174 10^3/cmm (157-399); Red Blood Count 3.64 10^6/uL (3.85-5.65); Red Cell Distribution Width 13.6 % (12.1-15.1); White Blood Count 4.52 10^3/uL (3.29-11.43)
[2025-02-20 17:51] LABS: Alanine Aminotransferase 13 U/L (0-33); Albumin Level 3.9 g/dL (3.5-5.2); Alkaline Phosphatase 52 U/L (35-105); Aspartate Amino Transferase 19 U/L (0-32); Blood Urea Nitrogen 18 mg/dL (6-20); Calcium 8.5 mg/dL (8.5-10.5); Carbon Dioxide 19 mmol/L (22-29); Chloride 105 mmol/L (98-107); Creatine Phosphokinase 72 U/L (26-192); Globulin 3.2 g/dL (1.3-4.6); Glomerular Filtration Rate 98.9 mL/min (90-130); Glucose 81 mg/dL (65-115); Osmolality Calculated 287 mOsm/kg (285-295); Phosphorus 3.6 mg/dL (2.5-4.5); Sodium 138 mmol/L (136-145); Total Bilirubin 0.4 mg/dL (0.15-1.2); Total Protein 7.1 g/dL (6.6-8.7)
[2025-02-20 18:29] LABS: Anion Gap 18.2 (5-19); Potassium 4.2 mmol/L (3.5-5.1)
== END 2025-02-20 15:42 | disposition home or self-care (01) ==
LOC: LAB 15:42
PROVIDERS: PCP Family Medicine; Visit Provider Family Medicine
DX: K31.84 Gastroparesis (principal); E43 Unspecified severe protein-calorie malnutrition; E16.2 Hypoglycemia, unspecified
CPT/HCPCS: 80053; 82550; 83735; 84100; 85025

== ENCOUNTER 2025-02-27 14:09 | Outpatient (CLI) | payer MEDICAID, SELFPAY ==
[2025-02-27 14:21] LABS: Hematocrit 32.0 % (36-47); Hemoglobin 10.70 g/dL (11.27-16.99); Mean Corpuscular HGB Conc 33.4 g/dL (30-55); Mean Corpuscular Hemoglobin 29.8 pg (27-33); Mean Corpuscular Volume 89.1 fl (85-98); Nucleated Red Blood Cells % 0 %; Platelet Count 186 10^3/cmm (157-399); Red Blood Count 3.59 10^6/uL (3.85-5.65); White Blood Count 3.80 10^3/uL (3.29-11.43)
[2025-02-27 14:42] LABS: Alanine Aminotransferase 20 U/L (0-33); Albumin Level 4.1 g/dL (3.5-5.2); Alkaline Phosphatase 55 U/L (35-105); Blood Urea Nitrogen 15 mg/dL (6-20); Calcium 8.9 mg/dL (8.5-10.5); Carbon Dioxide 23 mmol/L (22-29); Chloride 103 mmol/L (98-107); Globulin 3.2 g/dL (1.3-4.6); Glucose 85 mg/dL (65-115); Magnesium 2.0 mg/dL (1.7-2.3); Osmolality Calculated 284 mOsm/kg (285-295); Sodium 137 mmol/L (136-145); Total Protein 7.3 g/dL (6.6-8.7)
[2025-02-27 14:48] LABS: Anion Gap 15.5 (5-19); Aspartate Amino Transferase 25 U/L (0-32); Potassium 4.5 mmol/L (3.5-5.1)
== END 2025-02-27 14:10 | disposition home or self-care (01) ==
LOC: LAB 14:11
PROVIDERS: PCP Family Medicine; Visit Provider Family Medicine
DX: K31.84 Gastroparesis (principal); R63.4 Abnormal weight loss; E43 Unspecified severe protein-calorie malnutrition
CPT/HCPCS: 80053; 82550; 83735; 84100; 85025

== ENCOUNTER 2025-03-03 12:50 | Outpatient (CLI) | payer MEDICAID, SELFPAY | END 2025-03-03 12:51 | disposition home or self-care (01) | LOC: LAB 12:53 | PROVIDERS: PCP Family Medicine; Visit Provider Hospitalist | DX: R78.81 Bacteremia (principal); Z79.2 Long term (current) use of antibiotics | CPT/HCPCS: 36415; 82550 ==

== ENCOUNTER 2025-03-06 14:31 | Outpatient (CLI) | payer MEDICAID, SELFPAY ==
[2025-03-06 14:42] LABS: Hematocrit 33.0 % (36-47); Hemoglobin 11.20 g/dL (11.27-16.99); Mean Corpuscular HGB Conc 33.9 g/dL (30-55); Mean Corpuscular Hemoglobin 30.0 pg (27-33); Mean Corpuscular Volume 88.5 fl (85-98); Nucleated Red Blood Cells % 0 %; Platelet Count 230 10^3/cmm (157-399); Red Blood Count 3.73 10^6/uL (3.85-5.65); White Blood Count 4.38 10^3/uL (3.29-11.43)
[2025-03-06 15:05] LABS: Alanine Aminotransferase 16 U/L (0-33); Albumin Level 4.0 g/dL (3.5-5.2); Alkaline Phosphatase 55 U/L (35-105); Blood Urea Nitrogen 19 mg/dL (6-20); Calcium 9.0 mg/dL (8.5-10.5); Carbon Dioxide 24 mmol/L (22-29); Chloride 103 mmol/L (98-107); Globulin 3.4 g/dL (1.3-4.6); Glucose 80 mg/dL (65-115); Magnesium 2.0 mg/dL (1.7-2.3); Osmolality Calculated 289 mOsm/kg (285-295); Sodium 139 mmol/L (136-145); Total Protein 7.4 g/dL (6.6-8.7)
[2025-03-06 15:06] LABS: Anion Gap 16.7 (5-19); Potassium 4.7 mmol/L (3.5-5.1)
[2025-03-06 15:07] LABS: Aspartate Amino Transferase 22 U/L (0-32)
== END 2025-03-06 14:32 | disposition home or self-care (01) ==
PROVIDERS: PCP Family Medicine; Visit Provider Family Medicine
DX: E87.6 Hypokalemia (principal); E43 Unspecified severe protein-calorie malnutrition; E16.2 Hypoglycemia, unspecified; K31.84 Gastroparesis; R63.4 Abnormal weight loss
CPT/HCPCS: 80053; 83735; 84100; 85025; 86140

== ENCOUNTER 2025-03-13 16:47 | Outpatient (CLI) | payer MEDICAID, SELFPAY ==
[2025-03-13 17:45] LABS: Hematocrit 33.6 % (36-47); Hemoglobin 11.30 g/dL (11.27-16.99); Mean Corpuscular HGB Conc 33.6 g/dL (30-55); Mean Corpuscular Hemoglobin 29.7 pg (27-33); Mean Corpuscular Volume 88.2 fl (85-98); Nucleated Red Blood Cells % 0 %; Platelet Count 242 10^3/cmm (157-399); Red Blood Count 3.81 10^6/uL (3.85-5.65); White Blood Count 5.51 10^3/uL (3.29-11.43)
[2025-03-13 18:41] LABS: Alanine Aminotransferase 12 U/L (0-33); Albumin Level 4.0 g/dL (3.5-5.2); Alkaline Phosphatase 47 U/L (35-105); Blood Urea Nitrogen 18 mg/dL (6-20); Calcium 8.7 mg/dL (8.5-10.5); Carbon Dioxide 21 mmol/L (22-29); Chloride 104 mmol/L (98-107); Globulin 3.2 g/dL (1.3-4.6); Glucose 111 mg/dL (65-115); Magnesium 1.9 mg/dL (1.7-2.3); Osmolality Calculated 289 mOsm/kg (285-295); Sodium 138 mmol/L (136-145); Total Protein 7.2 g/dL (6.6-8.7)
[2025-03-13 18:51] LABS: Anion Gap 17.0 (5-19); Aspartate Amino Transferase 19 U/L (0-32); Potassium 4.0 mmol/L (3.5-5.1)
== END 2025-03-13 16:48 | disposition home or self-care (01) ==
LOC: LAB 16:49
PROVIDERS: PCP Family Medicine; Visit Provider Family Medicine
DX: K31.84 Gastroparesis (principal); R63.4 Abnormal weight loss; E43 Unspecified severe protein-calorie malnutrition; E16.2 Hypoglycemia, unspecified; E87.6 Hypokalemia
CPT/HCPCS: 80053; 83735; 84100; 85025

== ENCOUNTER 2025-03-15 11:29 | Outpatient (CLI) | payer MEDICAID, SELFPAY | END 2025-03-15 11:30 | disposition home or self-care (01) | PROVIDERS: PCP Family Medicine; Visit Provider Hospitalist | DX: R79.81 Abnormal blood-gas level (principal); Z79.2 Long term (current) use of antibiotics | CPT/HCPCS: 36415; 87040 ==

== ENCOUNTER 2025-03-20 15:45 | Outpatient (CLI) | payer MEDICAID, SELFPAY ==
[2025-03-20 16:13] LABS: Hematocrit 33.8 % (36-47); Hemoglobin 11.30 g/dL (11.27-16.99); Mean Corpuscular HGB Conc 33.4 g/dL (30-55); Mean Corpuscular Hemoglobin 29.5 pg (27-33); Mean Corpuscular Volume 88.3 fl (85-98); Nucleated Red Blood Cells % 0 %; Platelet Count 202 10^3/cmm (157-399); Red Blood Count 3.83 10^6/uL (3.85-5.65); White Blood Count 4.74 10^3/uL (3.29-11.43)
[2025-03-20 17:37] LABS: Alanine Aminotransferase 15 U/L (0-33); Albumin Level 4.2 g/dL (3.5-5.2); Alkaline Phosphatase 47 U/L (35-105); Aspartate Amino Transferase 20 U/L (0-32); Blood Urea Nitrogen 23 mg/dL (6-20); Calcium 8.6 mg/dL (8.5-10.5); Carbon Dioxide 20 mmol/L (22-29); Chloride 103 mmol/L (98-107); Globulin 3.2 g/dL (1.3-4.6); Glucose 83 mg/dL (65-115); Magnesium 1.9 mg/dL (1.7-2.3); Osmolality Calculated 289 mOsm/kg (285-295); Sodium 138 mmol/L (136-145); Total Protein 7.4 g/dL (6.6-8.7)
[2025-03-20 17:51] LABS: Anion Gap 18.9 (5-19); Potassium 3.9 mmol/L (3.5-5.1)
== END 2025-03-20 15:46 | disposition home or self-care (01) ==
PROVIDERS: PCP Family Medicine; Visit Provider Family Medicine
DX: K31.84 Gastroparesis (principal)
CPT/HCPCS: 80053; 83735; 84100; 85025

== ENCOUNTER 2025-03-28 14:51 | Outpatient (CLI) | payer MEDICAID, SELFPAY ==
[2025-03-28 18:05] LABS: Ferritin 41 ng/mL (15-150); Iron 43 ug/dL (37-145); Total Iron Binding Capacity 297 mcg/dl; Transferrin 255 mg/dL (200-360); Unsaturated Iron Binding 254 ug/dL (112-347)
[2025-03-29 02:06] LABS: Vitamin B12 1030 pg/mL (232-1245)
== END 2025-03-28 14:52 | disposition home or self-care (01) ==
PROVIDERS: PCP Family Medicine; Visit Provider Family Medicine
DX: K31.84 Gastroparesis (principal); E43 Unspecified severe protein-calorie malnutrition; R63.4 Abnormal weight loss; E16.2 Hypoglycemia, unspecified
CPT/HCPCS: 36415; 82306; 82495; 82525; 82607; 82728; 82747; 83540; 83550; 83785; 83921; 84207; 84255; 84446; 84466; 84590; 84630; 86140

== ENCOUNTER 2025-03-29 14:46 | Outpatient (CLI) | payer MEDICAID, SELFPAY | END 2025-03-29 14:47 | disposition home or self-care (01) | LOC: LAB 14:48 | PROVIDERS: PCP Family Medicine; Visit Provider Family Medicine | DX: R50.9 Fever, unspecified (principal) | CPT/HCPCS: 36415; 87040 ==

== ENCOUNTER 2025-04-03 15:51 | Outpatient (CLI) | payer MEDICAID, SELFPAY ==
[2025-04-03 16:13] LABS: Hematocrit 32.7 % (36-47); Hemoglobin 10.90 g/dL (11.27-16.99); Mean Corpuscular HGB Conc 33.3 g/dL (30-55); Mean Corpuscular Hemoglobin 29.4 pg (27-33); Mean Corpuscular Volume 88.1 fl (85-98); Nucleated Red Blood Cells % 0 %; Platelet Count 214 10^3/cmm (157-399); Red Blood Count 3.71 10^6/uL (3.85-5.65); White Blood Count 5.04 10^3/uL (3.29-11.43)
[2025-04-03 16:37] LABS: Alanine Aminotransferase 13 U/L (0-33); Albumin Level 4.1 g/dL (3.5-5.2); Alkaline Phosphatase 48 U/L (35-105); Anion Gap 14.9 (5-19); Aspartate Amino Transferase 17 U/L (0-32); Blood Urea Nitrogen 18 mg/dL (6-20); Calcium 8.6 mg/dL (8.5-10.5); Carbon Dioxide 24 mmol/L (22-29); Chloride 104 mmol/L (98-107); Globulin 3.0 g/dL (1.3-4.6); Glucose 84 mg/dL (65-115); Magnesium 1.9 mg/dL (1.7-2.3); Osmolality Calculated 289 mOsm/kg (285-295); Potassium 3.9 mmol/L (3.5-5.1); Sodium 139 mmol/L (136-145); Total Protein 7.1 g/dL (6.6-8.7)
== END 2025-04-03 15:52 | disposition home or self-care (01) ==
PROVIDERS: PCP Family Medicine; Visit Provider Family Medicine
DX: K31.84 Gastroparesis (principal); E43 Unspecified severe protein-calorie malnutrition; E16.2 Hypoglycemia, unspecified; E87.6 Hypokalemia
CPT/HCPCS: 80053; 83735; 84100; 85025

== ENCOUNTER 2025-04-10 14:15 | Outpatient (CLI) | payer MEDICAID, SELFPAY ==
[2025-04-10 14:37] LABS: Hematocrit 33.2 % (36-47); Hemoglobin 11.20 g/dL (11.27-16.99); Mean Corpuscular HGB Conc 33.7 g/dL (30-55); Mean Corpuscular Hemoglobin 29.6 pg (27-33); Mean Corpuscular Volume 87.6 fl (85-98); Nucleated Red Blood Cells % 0 %; Platelet Count 222 10^3/cmm (157-399); Red Blood Count 3.79 10^6/uL (3.85-5.65); White Blood Count 4.33 10^3/uL (3.29-11.43)
[2025-04-10 14:58] LABS: Alanine Aminotransferase 10 U/L (0-33); Albumin Level 4.1 g/dL (3.5-5.2); Alkaline Phosphatase 45 U/L (35-105); Anion Gap 15.5 (5-19); Aspartate Amino Transferase 16 U/L (0-32); Blood Urea Nitrogen 20 mg/dL (6-20); Calcium 9.0 mg/dL (8.5-10.5); Carbon Dioxide 22 mmol/L (22-29); Chloride 102 mmol/L (98-107); Globulin 3.2 g/dL (1.3-4.6); Glucose 86 mg/dL (65-115); Magnesium 1.9 mg/dL (1.7-2.3); Osmolality Calculated 282 mOsm/kg (285-295); Potassium 4.5 mmol/L (3.5-5.1); Sodium 135 mmol/L (136-145); Total Protein 7.3 g/dL (6.6-8.7)
== END 2025-04-10 14:16 | disposition home or self-care (01) ==
LOC: LAB 14:18
PROVIDERS: PCP Family Medicine; Visit Provider Family Medicine
DX: K31.84 Gastroparesis (principal); E43 Unspecified severe protein-calorie malnutrition; E16.2 Hypoglycemia, unspecified; E87.6 Hypokalemia
CPT/HCPCS: 80053; 83735; 84100; 85025

== ENCOUNTER 2025-04-17 18:17 | Outpatient (CLI) | payer MEDICAID, SELFPAY ==
[2025-04-17 18:31] LABS: Hematocrit 33.0 % (36-47); Hemoglobin 11.20 g/dL (11.27-16.99); Mean Corpuscular HGB Conc 33.9 g/dL (30-55); Mean Corpuscular Hemoglobin 29.9 pg (27-33); Mean Corpuscular Volume 88.2 fl (85-98); Nucleated Red Blood Cells % 0 %; Platelet Count 218 10^3/cmm (157-399); Red Blood Count 3.74 10^6/uL (3.85-5.65); White Blood Count 5.99 10^3/uL (3.29-11.43)
[2025-04-17 18:53] LABS: Alanine Aminotransferase 18 U/L (0-33); Albumin Level 4.1 g/dL (3.5-5.2); Alkaline Phosphatase 50 U/L (35-105); Aspartate Amino Transferase 22 U/L (0-32); Blood Urea Nitrogen 20 mg/dL (6-20); Calcium 8.8 mg/dL (8.5-10.5); Carbon Dioxide 24 mmol/L (22-29); Chloride 99 mmol/L (98-107); Globulin 3.2 g/dL (1.3-4.6); Glucose 98 mg/dL (65-115); Magnesium 1.9 mg/dL (1.7-2.3); Osmolality Calculated 287 mOsm/kg (285-295); Sodium 137 mmol/L (136-145); Total Protein 7.3 g/dL (6.6-8.7)
[2025-04-17 19:00] LABS: Anion Gap 17.8 (5-19); Potassium 3.8 mmol/L (3.5-5.1)
== END 2025-04-17 18:18 | disposition home or self-care (01) ==
PROVIDERS: PCP Family Medicine; Visit Provider Family Medicine
DX: Z01.89 Encounter for other specified special examinations (principal)
CPT/HCPCS: 80053; 83735; 84100; 85025

== ENCOUNTER 2025-04-24 15:18 | Outpatient (CLI) | payer MEDICAID, SELFPAY ==
[2025-04-24 15:31] LABS: Hematocrit 33.9 % (36-47); Hemoglobin 11.30 g/dL (11.27-16.99); Mean Corpuscular HGB Conc 33.3 g/dL (30-55); Mean Corpuscular Hemoglobin 29.6 pg (27-33); Mean Corpuscular Volume 88.7 fl (85-98); Nucleated Red Blood Cells % 0 %; Platelet Count 245 10^3/cmm (157-399); Red Blood Count 3.82 10^6/uL (3.85-5.65); White Blood Count 4.37 10^3/uL (3.29-11.43)
[2025-04-24 15:55] LABS: Alanine Aminotransferase 15 U/L (0-33); Albumin Level 4.1 g/dL (3.5-5.2); Alkaline Phosphatase 54 U/L (35-105); Anion Gap 15.2 (5-19); Aspartate Amino Transferase 17 U/L (0-32); Blood Urea Nitrogen 15 mg/dL (6-20); Calcium 8.9 mg/dL (8.5-10.5); Carbon Dioxide 24 mmol/L (22-29); Chloride 103 mmol/L (98-107); Globulin 3.5 g/dL (1.3-4.6); Glucose 90 mg/dL (65-115); Magnesium 2.0 mg/dL (1.7-2.3); Osmolality Calculated 286 mOsm/kg (285-295); Potassium 4.2 mmol/L (3.5-5.1); Sodium 138 mmol/L (136-145); Total Protein 7.6 g/dL (6.6-8.7)
== END 2025-04-24 15:19 | disposition home or self-care (01) ==
LOC: LAB 15:22
PROVIDERS: PCP Family Medicine; Visit Provider Family Medicine
DX: K31.84 Gastroparesis (principal); R63.4 Abnormal weight loss; E43 Unspecified severe protein-calorie malnutrition; E16.2 Hypoglycemia, unspecified; E87.6 Hypokalemia
CPT/HCPCS: 80053; 83735; 84100; 85025

== ENCOUNTER 2025-05-01 14:41 | Outpatient (CLI) | payer MEDICAID, SELFPAY ==
[2025-05-01 15:10] LABS: Hematocrit 33.8 % (36-47); Hemoglobin 11.40 g/dL (11.27-16.99); Mean Corpuscular HGB Conc 33.7 g/dL (30-55); Mean Corpuscular Hemoglobin 30.4 pg (27-33); Mean Corpuscular Volume 90.1 fl (85-98); Nucleated Red Blood Cells % 0 %; Platelet Count 244 10^3/cmm (157-399); Red Blood Count 3.75 10^6/uL (3.85-5.65); White Blood Count 5.51 10^3/uL (3.29-11.43)
[2025-05-01 15:33] LABS: Alanine Aminotransferase 13 U/L (0-33); Albumin Level 4.1 g/dL (3.5-5.2); Alkaline Phosphatase 50 U/L (35-105); Aspartate Amino Transferase 17 U/L (0-32); Blood Urea Nitrogen 17 mg/dL (6-20); Calcium 8.9 mg/dL (8.5-10.5); Carbon Dioxide 25 mmol/L (22-29); Chloride 104 mmol/L (98-107); Globulin 3.0 g/dL (1.3-4.6); Glucose 93 mg/dL (65-115); Magnesium 1.9 mg/dL (1.7-2.3); Osmolality Calculated 285 mOsm/kg (285-295); Sodium 137 mmol/L (136-145); Total Protein 7.1 g/dL (6.6-8.7)
[2025-05-01 18:05] LABS: Anion Gap 12.2 (5-19); Potassium 4.2 mmol/L (3.5-5.1)
== END 2025-05-01 14:42 | disposition home or self-care (01) ==
LOC: LAB 14:43
PROVIDERS: PCP Family Medicine; Visit Provider Family Medicine
DX: K31.84 Gastroparesis (principal); R63.4 Abnormal weight loss; E16.2 Hypoglycemia, unspecified; E87.6 Hypokalemia; E86.0 Dehydration
CPT/HCPCS: 80053; 83735; 84100; 85025

== ENCOUNTER 2025-05-08 14:50 | Outpatient (CLI) | payer BC, MEDICAID, SELFPAY ==
[2025-05-08 16:23] LABS: Hematocrit 35.3 % (36-47); Hemoglobin 11.70 g/dL (11.27-16.99); Mean Corpuscular HGB Conc 33.1 g/dL (30-55); Mean Corpuscular Hemoglobin 29.5 pg (27-33); Mean Corpuscular Volume 89.1 fl (85-98); Nucleated Red Blood Cells % 0 %; Platelet Count 232 10^3/cmm (157-399); Red Blood Count 3.96 10^6/uL (3.85-5.65); White Blood Count 5.65 10^3/uL (3.29-11.43)
[2025-05-08 17:50] LABS: Alanine Aminotransferase 12 U/L (0-33); Albumin Level 4.1 g/dL (3.5-5.2); Alkaline Phosphatase 47 U/L (35-105); Blood Urea Nitrogen 21 mg/dL (6-20); Calcium 8.9 mg/dL (8.5-10.5); Carbon Dioxide 22 mmol/L (22-29); Chloride 102 mmol/L (98-107); Globulin 3.4 g/dL (1.3-4.6); Glucose 83 mg/dL (65-115); Magnesium 1.9 mg/dL (1.7-2.3); Osmolality Calculated 284 mOsm/kg (285-295); Sodium 136 mmol/L (136-145); Total Protein 7.5 g/dL (6.6-8.7)
[2025-05-08 17:52] LABS: Anion Gap 16.2 (5-19); Aspartate Amino Transferase 19 U/L (0-32); Potassium 4.2 mmol/L (3.5-5.1)
== END 2025-05-08 14:51 | disposition home or self-care (01) ==
PROVIDERS: PCP Family Medicine; Visit Provider Family Medicine
DX: K31.84 Gastroparesis (principal); E43 Unspecified severe protein-calorie malnutrition; E16.2 Hypoglycemia, unspecified; R63.4 Abnormal weight loss; E87.6 Hypokalemia
CPT/HCPCS: 80053; 83735; 84100; 85025

== ENCOUNTER 2025-05-22 15:13 | Outpatient (CLI) | payer BC, MEDICAID, SELFPAY ==
[2025-05-22 15:54] LABS: Hematocrit 35.1 % (36-47); Hemoglobin 11.80 g/dL (11.27-16.99); Mean Corpuscular HGB Conc 33.6 g/dL (30-55); Mean Corpuscular Hemoglobin 29.9 pg (27-33); Mean Corpuscular Volume 88.9 fl (85-98); Nucleated Red Blood Cells % 0 %; Platelet Count 249 10^3/cmm (157-399); Red Blood Count 3.95 10^6/uL (3.85-5.65); White Blood Count 5.81 10^3/uL (3.29-11.43)
[2025-05-22 16:19] LABS: Alanine Aminotransferase 17 U/L (0-33); Albumin Level 4.0 g/dL (3.5-5.2); Alkaline Phosphatase 49 U/L (35-105); Aspartate Amino Transferase 20 U/L (0-32); Blood Urea Nitrogen 18 mg/dL (6-20); Calcium 9.0 mg/dL (8.5-10.5); Carbon Dioxide 24 mmol/L (22-29); Chloride 102 mmol/L (98-107); Globulin 3.5 g/dL (1.3-4.6); Glucose 88 mg/dL (65-115); Magnesium 1.8 mg/dL (1.7-2.3); Osmolality Calculated 283 mOsm/kg (285-295); Sodium 136 mmol/L (136-145); Total Protein 7.5 g/dL (6.6-8.7)
[2025-05-22 17:36] LABS: Anion Gap 14.3 (5-19); Potassium 4.3 mmol/L (3.5-5.1)
== END 2025-05-22 15:14 | disposition home or self-care (01) ==
LOC: LAB 15:15
PROVIDERS: PCP Family Medicine; Visit Provider Family Medicine
DX: K31.84 Gastroparesis (principal); R63.4 Abnormal weight loss; E43 Unspecified severe protein-calorie malnutrition; E16.2 Hypoglycemia, unspecified; E87.6 Hypokalemia; E86.0 Dehydration
CPT/HCPCS: 80053; 83735; 84100; 85025

== ENCOUNTER 2025-05-29 15:18 | Outpatient (CLI) | payer MEDICAID, SELFPAY ==
[2025-05-29 16:03] LABS: Hematocrit 34.2 % (36-47); Hemoglobin 11.60 g/dL (11.27-16.99); Mean Corpuscular HGB Conc 33.9 g/dL (30-55); Mean Corpuscular Hemoglobin 30.0 pg (27-33); Mean Corpuscular Volume 88.4 fl (85-98); Nucleated Red Blood Cells % 0 %; Platelet Count 240 10^3/cmm (157-399); Red Blood Count 3.87 10^6/uL (3.85-5.65); White Blood Count 6.03 10^3/uL (3.29-11.43)
[2025-05-29 16:35] LABS: Alanine Aminotransferase 14 U/L (0-33); Albumin Level 4.2 g/dL (3.5-5.2); Alkaline Phosphatase 49 U/L (35-105); Aspartate Amino Transferase 17 U/L (0-32); Blood Urea Nitrogen 20 mg/dL (6-20); Calcium 9.0 mg/dL (8.5-10.5); Carbon Dioxide 24 mmol/L (22-29); Chloride 101 mmol/L (98-107); Globulin 3.2 g/dL (1.3-4.6); Glucose 95 mg/dL (65-115); Magnesium 2.0 mg/dL (1.7-2.3); Osmolality Calculated 284 mOsm/kg (285-295); Sodium 136 mmol/L (136-145); Total Protein 7.4 g/dL (6.6-8.7)
[2025-05-29 16:37] LABS: Anion Gap 15.1 (5-19); Potassium 4.1 mmol/L (3.5-5.1)
== END 2025-05-29 15:19 | disposition home or self-care (01) ==
LOC: LAB 15:20
PROVIDERS: PCP Family Medicine; Visit Provider Family Medicine
DX: K31.84 Gastroparesis (principal); R63.4 Abnormal weight loss; E43 Unspecified severe protein-calorie malnutrition; E16.2 Hypoglycemia, unspecified; E87.6 Hypokalemia; E86.0 Dehydration
CPT/HCPCS: 80053; 83735; 84100; 85025

== ENCOUNTER 2025-06-05 12:10 | Outpatient (CLI) | payer MEDICAID, SELFPAY ==
[2025-06-05 12:31] LABS: Hematocrit 31.8 % (36-47); Hemoglobin 10.70 g/dL (11.27-16.99); Mean Corpuscular HGB Conc 33.6 g/dL (30-55); Mean Corpuscular Hemoglobin 29.7 pg (27-33); Mean Corpuscular Volume 88.3 fl (85-98); Nucleated Red Blood Cells % 0 %; Platelet Count 212 10^3/cmm (157-399); Red Blood Count 3.60 10^6/uL (3.85-5.65); White Blood Count 4.50 10^3/uL (3.29-11.43)
[2025-06-05 12:55] LABS: Alanine Aminotransferase 13 U/L (0-33); Albumin Level 3.9 g/dL (3.5-5.2); Alkaline Phosphatase 43 U/L (35-105); Anion Gap 16.5 (5-19); Aspartate Amino Transferase 18 U/L (0-32); Blood Urea Nitrogen 22 mg/dL (6-20); Calcium 8.6 mg/dL (8.5-10.5); Carbon Dioxide 24 mmol/L (22-29); Chloride 102 mmol/L (98-107); Globulin 2.9 g/dL (1.3-4.6); Glucose 94 mg/dL (65-115); Osmolality Calculated 289 mOsm/kg (285-295); Potassium 4.5 mmol/L (3.5-5.1); Sodium 138 mmol/L (136-145); Total Protein 6.8 g/dL (6.6-8.7)
== END 2025-06-05 12:11 | disposition home or self-care (01) ==
LOC: LAB 12:11
PROVIDERS: PCP Family Medicine; Visit Provider Family Medicine
DX: K31.84 Gastroparesis (principal); E43 Unspecified severe protein-calorie malnutrition; R63.4 Abnormal weight loss; E16.2 Hypoglycemia, unspecified; E87.6 Hypokalemia; E86.0 Dehydration
CPT/HCPCS: 80053; 84100; 85025

== ENCOUNTER 2025-06-19 14:15 | Outpatient (CLI) | payer MEDICAID, SELFPAY ==
[2025-06-19 14:59] LABS: Hematocrit 32.5 % (36-47); Hemoglobin 11.10 g/dL (11.27-16.99); Mean Corpuscular HGB Conc 34.2 g/dL (30-55); Mean Corpuscular Hemoglobin 30.6 pg (27-33); Mean Corpuscular Volume 89.5 fl (85-98); Nucleated Red Blood Cells % 0 %; Platelet Count 233 10^3/cmm (157-399); Red Blood Count 3.63 10^6/uL (3.85-5.65); White Blood Count 6.13 10^3/uL (3.29-11.43)
[2025-06-19 15:18] LABS: Alanine Aminotransferase 11 U/L (0-33); Albumin Level 3.9 g/dL (3.5-5.2); Alkaline Phosphatase 48 U/L (35-105); Aspartate Amino Transferase 18 U/L (0-32); Blood Urea Nitrogen 15 mg/dL (6-20); Calcium 8.7 mg/dL (8.5-10.5); Carbon Dioxide 22 mmol/L (22-29); Chloride 102 mmol/L (98-107); Globulin 3.1 g/dL (1.3-4.6); Glucose 87 mg/dL (65-115); Magnesium 1.9 mg/dL (1.7-2.3); Osmolality Calculated 284 mOsm/kg (285-295); Sodium 137 mmol/L (136-145); Total Protein 7.0 g/dL (6.6-8.7)
[2025-06-19 15:23] LABS: Anion Gap 17.2 (5-19); Potassium 4.2 mmol/L (3.5-5.1)
== END 2025-06-19 14:16 | disposition home or self-care (01) ==
LOC: LAB 14:19
PROVIDERS: PCP Family Medicine; Visit Provider Family Medicine
DX: K31.84 Gastroparesis (principal); R63.4 Abnormal weight loss; E16.2 Hypoglycemia, unspecified; E87.6 Hypokalemia; E86.0 Dehydration; E43 Unspecified severe protein-calorie malnutrition
CPT/HCPCS: 80053; 83735; 84100; 85025

== ENCOUNTER 2025-07-03 14:10 | Outpatient (CLI) | payer MEDICAID, SELFPAY ==
[2025-07-03 14:34] LABS: Hematocrit 32.8 % (36-47); Hemoglobin 11.10 g/dL (11.27-16.99); Mean Corpuscular HGB Conc 33.8 g/dL (30-55); Mean Corpuscular Hemoglobin 30.0 pg (27-33); Mean Corpuscular Volume 88.6 fl (85-98); Nucleated Red Blood Cells % 0 %; Platelet Count 253 10^3/cmm (157-399); Red Blood Count 3.70 10^6/uL (3.85-5.65); White Blood Count 5.51 10^3/uL (3.29-11.43)
[2025-07-03 15:00] LABS: Alanine Aminotransferase 13 U/L (0-33); Albumin Level 4.1 g/dL (3.5-5.2); Alkaline Phosphatase 49 U/L (35-105); Anion Gap 15.2 (5-19); Aspartate Amino Transferase 17 U/L (0-32); Blood Urea Nitrogen 15 mg/dL (6-20); Calcium 8.8 mg/dL (8.5-10.5); Carbon Dioxide 23 mmol/L (22-29); Chloride 103 mmol/L (98-107); Globulin 3.1 g/dL (1.3-4.6); Glucose 91 mg/dL (65-115); Magnesium 2.0 mg/dL (1.7-2.3); Osmolality Calculated 284 mOsm/kg (285-295); Potassium 4.2 mmol/L (3.5-5.1); Sodium 137 mmol/L (136-145); Total Protein 7.2 g/dL (6.6-8.7)
== END 2025-07-03 14:11 | disposition home or self-care (01) ==
LOC: LAB 14:11
PROVIDERS: PCP Family Medicine; Visit Provider Family Medicine
DX: R63.4 Abnormal weight loss (principal); K31.84 Gastroparesis; E43 Unspecified severe protein-calorie malnutrition; E16.2 Hypoglycemia, unspecified; E87.6 Hypokalemia; E86.0 Dehydration
CPT/HCPCS: 80053; 83735; 84100; 85025

== ENCOUNTER 2025-07-17 12:11 | Outpatient (CLI) | payer MEDICAID, SELFPAY ==
[2025-07-17 12:24] LABS: Hematocrit 33.7 % (36-47); Hemoglobin 11.30 g/dL (11.27-16.99); Mean Corpuscular HGB Conc 33.5 g/dL (30-55); Mean Corpuscular Hemoglobin 29.7 pg (27-33); Mean Corpuscular Volume 88.7 fl (85-98); Nucleated Red Blood Cells % 0 %; Platelet Count 214 10^3/cmm (157-399); Red Blood Count 3.80 10^6/uL (3.85-5.65); White Blood Count 5.05 10^3/uL (3.29-11.43)
[2025-07-17 12:47] LABS: Alanine Aminotransferase 11 U/L (0-33); Albumin Level 3.9 g/dL (3.5-5.2); Alkaline Phosphatase 43 U/L (35-105); Anion Gap 14.5 (5-19); Aspartate Amino Transferase 14 U/L (0-32); Blood Urea Nitrogen 19 mg/dL (6-20); Calcium 8.7 mg/dL (8.5-10.5); Carbon Dioxide 24 mmol/L (22-29); Chloride 104 mmol/L (98-107); Globulin 3.1 g/dL (1.3-4.6); Glucose 95 mg/dL (65-115); Magnesium 2.1 mg/dL (1.7-2.3); Osmolality Calculated 288 mOsm/kg (285-295); Potassium 4.5 mmol/L (3.5-5.1); Sodium 138 mmol/L (136-145); Total Protein 7.0 g/dL (6.6-8.7)
== END 2025-07-17 12:12 | disposition home or self-care (01) ==
PROVIDERS: PCP Family Medicine; Visit Provider Family Medicine
DX: K31.84 Gastroparesis (principal); R63.4 Abnormal weight loss; E43 Unspecified severe protein-calorie malnutrition; E16.2 Hypoglycemia, unspecified; E87.6 Hypokalemia; E86.0 Dehydration
CPT/HCPCS: 80053; 83735; 84100; 85025

== ENCOUNTER 2025-07-18 13:24 | Outpatient (CLI) | payer MEDICAID, SELFPAY | END 2025-07-18 13:25 | disposition home or self-care (01) | PROVIDERS: PCP Family Medicine; Visit Provider Family Medicine | DX: R50.9 Fever, unspecified (principal) | CPT/HCPCS: 36415; 87040 ==

== ENCOUNTER 2025-07-31 12:07 | Outpatient (CLI) | payer MEDICAID, SELFPAY ==
[2025-07-31 12:19] LABS: Hematocrit 33.3 % (36-47); Hemoglobin 11.20 g/dL (11.27-16.99); Mean Corpuscular HGB Conc 33.6 g/dL (30-55); Mean Corpuscular Hemoglobin 30.0 pg (27-33); Mean Corpuscular Volume 89.3 fl (85-98); Platelet Count 254 10^3/cmm (157-399); Red Blood Count 3.73 10^6/uL (3.85-5.65); White Blood Count 5.75 10^3/uL (3.29-11.43)
[2025-07-31 12:46] LABS: Alanine Aminotransferase 16 U/L (0-33); Albumin Level 4.0 g/dL (3.5-5.2); Alkaline Phosphatase 52 U/L (35-105); Anion Gap 12.1 (5-19); Aspartate Amino Transferase 17 U/L (0-32); Blood Urea Nitrogen 15 mg/dL (6-20); Calcium 9.1 mg/dL (8.5-10.5); Carbon Dioxide 28 mmol/L (22-29); Chloride 100 mmol/L (98-107); Globulin 3.2 g/dL (1.3-4.6); Glucose 101 mg/dL (65-115); Magnesium 2.0 mg/dL (1.7-2.3); Osmolality Calculated 283 mOsm/kg (285-295); Potassium 4.1 mmol/L (3.5-5.1); Sodium 136 mmol/L (136-145); Total Protein 7.2 g/dL (6.6-8.7)
[2025-07-31 13:30] LABS: Absolute Segmented Neutrophil 2.9 10/cmm (1.6-7.1); Atypical Lymphs 1.0 % (0-5); Band Neutrophils Absolute 0.1 10^3/cmm (0.0-1.2); Total Cells Counted 100 (0-100)
== END 2025-07-31 12:08 | disposition home or self-care (01) ==
LOC: LAB 12:08
PROVIDERS: PCP Family Medicine; Visit Provider Family Medicine
DX: K31.84 Gastroparesis (principal); R63.4 Abnormal weight loss; E43 Unspecified severe protein-calorie malnutrition; E16.2 Hypoglycemia, unspecified; E87.6 Hypokalemia; E86.0 Dehydration
CPT/HCPCS: 80053; 83735; 84100; 85007; 85027